=== PATIENT | female | born 1955 | race Caucasian/White ===

== ENCOUNTER 2021-03-02 10:10 | Outpatient (CLI) | payer MEDICARE, MEDICAID, SELFPAY ==
--- NOTE | ~2021-03-02 | CT_ITS ---
EXAMINATION: CT lung screening DATE: 03/02/2021 11:56 INDICATION: History of tobacco dependence. Screening for lung cancer. TECHNIQUE: Computed tomography (CT) of the chest was performed without intravenous contrast. The dose -length product was 65.77 mGy-cm. Automated exposure control and iterative reconstruction technique w ere employed. COMPARISON: CT dated 04/02/2019 FINDINGS: No significant pleural or pericardial effusion. No thoracic lymphadenopathy. There is ather osclerosis. Right renal cyst identified. There are cholecystectomy clips. 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 Stable 4 mm nodules in the lower lobes. There are a few additio nal scattered smaller nodules in both lungs. No endobronchial lesions. There is emphysema. There is l ower lobe atelectasis/scarring. No new pulmonary nodules or masses. Cm. IMPRESSION: 1. Lung-RADS category 2: Benign appearance or behavior. Continue annual screening with noncontrast lo w-dose chest CT in 12 months. Reviewed, dictated and finalized at location B. IMPRESSION: 1. Lung-RADS category 2: Benign appearance or behavior. Continue annual screeni ng with noncontrast low-dose chest CT in 12 months.
--- NOTE | 2021-03-02 17:40 | P.PCNPFT_ITS ---
PFT Procedure Performed PFT Procedure Performed Spirometry with Pre/Post Bronchodilator Plethysmography (Lung Vol) Diffusing Cap (DLCO) Flow Vol Loop PFT Interpretation This is a pulmonary function test with pre and post-bronchodilator spirometry, plethysmography and diffusing capacity. The test was performed and results interpreted in accordance with the 2019 and 2005 ATS/ERS Task Force guidelines respectively using the Global Lung Function Initiative-2012 reference equations. Patient demonstrated good effort and cooperation. Reproducibility criteria were met. The quality of the pre bronchodilator spirometry maneuver was Grade A and post bronchodilator spirometry maneuver was Grade A. Findings: Spirometry: There is decreased maximal expiratory airflow at all lung volumes with a concave expiratory flow tracing. The pre bronchodilator FVC is 3.48 L, 111% predicted. The pre bronchodilator FEV1 is 1.97 L, 80% predicted. The FEV1: FVC ratio is 57%. The post bronchodilator FVC is 3.42 L, representing a 2% decrease. The post bronchodilator FEV1 is 1.96 L, representing no change. Plethysmography: The total lung capacity is 6.25 L, 120% predicted. The functional residual capacity is 4.47 L, 151% predicted. The residual volume is 2.77 L, 131% predicted near. Diffusing capacity: The absolute diffusion capacity is 11.9, 55% predicted. The diffusing capacity corrected for alveolar volume is 2.34, 54% predicted. Impression: The spirometry is normal without evidence of an obstructive abno rmality. There is no significant improvement after inhaling a single dose of albuterol. The lung volumes are normal. The diffusing capacity is normal. Impression: There is a mild obstructive abnormality with a normal FEV1 and without significant improvement after inhaling a single dose of albuterol. Hyperinflation is present is demonstrated by the increase in functional residual capacity and is consistent with an obstructive abnormality. The absolute diffusing capacity is moderately decreased and remains moderately decreased when corrected for alveolar volume. There are no prior studies for comparison
--- NOTE | 2021-03-02 17:47 | WPDPFTINT ---
PFT Procedure Performed PFT Procedure Performed Spirometry with Pre/Post Bronchodilator Plethysmography (Lung Vol) Diffusing Cap (DLCO) Flow Vol Loop PFT Interpretation This is a pulmonary function test with pre and post-bronchodilator spirometry, plethysmography and diffusing capacity. The test was performed and results interpreted in accordance with the 2019 and 2005 ATS/ERS Task Force guidelines respectively using the Global Lung Function Initiative-2012 reference equations. Patient demonstrated good effort and cooperation. Reproducibility criteria were met. The quality of the pre bronchodilator spirometry maneuver was Grade C and post bronchodilator spirometry maneuver was Grade A. Findings: Spirometry: The expiratory flow tracing demonstrates the mid expiratory plateau in airflow creating a mild convex inflection referred to as the knee pattern the contour the inspiratory flow tracing is normal. This was present on 3 of 4 post bronchodilator efforts. there is decreased maximal expiratory airflow at all lung volumes with a concave expiratory flow tracing. The contour of the inspiratory flow tracing is normal. The pre bronchodilator FVC is 3.62 L, 98% predicted. The pre bronchodilator FEV1 is 2.32 L, 85% predicted. The FEV1: FVC ratio 64%. The post bronchodilator FVC is 3.37 L, representing a 7% decrease. The post bronchodilator FEV1 is 2.61 L, representing a 13% increase. Plethysmography: The total lung capacity is 6.55 L, 96% predicted. The functional residual capacity is 3.33 L, 90% predicted. The residual volume is 2.66 L, 101% predicted. Diffusing capacity: The absolute diffusion capacity is 20.0, 87% predicted. The diffusing capacity corrected for alveolar volume is 3.46, 95% predicted. Impression: The expiratory flow tracing demonstrates a reproducible mid explored expiratory plateau in airflow creating a convex inflection referred to as the knee pattern in 3 of 4 pre bronchodilator and 3 of 3 post bronchodilator efforts. This pattern can be a normal variant or pathologic and has been attributed to a choke point section of the bronchial tree. The normal variant is more common in younger female patients, decreases with age and is more pronounced in the post bronchodilator efforts. The pattern has also been described with kyphosis, kyphoscoliosis, central obstructing mass is, and post lung transplantation. Clinical correlation is recommended. There is a mild obstructive abnormality with anormal FEV1 and with significant improvement after inhaling a single dose of albuterol. The lung volumes are normal. The diffusing capacity is normal. There are no prior studies for comparison
== END 2021-03-02 10:11 | disposition home or self-care (01) ==
LOC: ANHPFT 10:11
PROVIDERS: PCP Family Medicine; Visit Provider Family Medicine
DX: Z12.2 Encounter for screening for malignant neoplasm of respiratory organs (principal); J40 Bronchitis, not specified as acute or chronic; R06.2 Wheezing; R06.09 Other forms of dyspnea; R94.2 Abnormal results of pulmonary function studies; Z87.891 Personal history of nicotine dependence
CPT/HCPCS: 71271; 94060; 94726; 94729

== ENCOUNTER → 2021-04-09 10:20 | Outpatient (CLI) | payer MEDICARE, MEDICAID, SELFPAY ==
--- NOTE | ~2021-04-09 | MR_ITS ---
EXAMINATION: MR lumbar spine wo con DATE: 04/09/2021 11:51 INDICATION: Low back pain. TECHNIQUE: Magnetic resonance imaging (MRI) of the lumbar spine was performed without intravenous con trast. Sequences included sagittal T2-weighted FSE, sagittal T2-weighted FS FSE, sagittal T1-weighted FSE, and axial T2-weighted FSE. COMPARISON: CT abdomen and pelvis 02/16/2016 FINDINGS: There is 10 degrees levoscoliosis of lumbar spine. Vertebral body heights and intervertebra l disc heights are normal. The distal spinal cord signal intensity is normal. The conus medullaris is at T12. There is a 3.4 cm cyst in the liver. There are masses in right kidney containing fat measuri ng up to 2.2 cm, consistent with angiomyolipomas. The following disc levels are specifically discusse d: L1-L2: The disc does not extend beyond the endplate margin. There is moderate bilateral facet joint o steoarthritis. There is no neural foraminal stenosis. There is no central canal stenosis. L2-L3: The disc does not extend beyond the endplate margin. There is moderate bilateral facet joint o steoarthritis. There is no neural foraminal stenosis. There is no central canal stenosis. L3-L4: The disc does not extend beyond the endplate margin. There is moderate bilateral facet joint o steoarthritis. There is no neural foraminal stenosis. There is no central canal stenosis. L4-L5: The disc does not extend beyond the endplate margin. There is severe right and moderate left f acet joint osteoarthritis. There is no neural foraminal stenosis. There is no central canal stenosis. L5-S1: The disc is bulging and has an annular fissure. There is severe bilateral facet joint osteoart hritis. There is mild bilateral neural foraminal stenosis. There is mild central canal stenosis. IMPRESSION: 1. Mild lumbar spondylosis. 2. Lumbar levoscoliosis. Reviewed, dictated and finalized at location A.
--- NOTE | ~2021-04-09 | MR_ITS ---
EXAMINATION: MR thoracic spine wo con EXAM DATE: 04/09/2021 11:46 INDICATION: Low back pain, pain in thoracic spine. Pain pump being checked after MRI performed. TECHNIQUE: Multi-sequential, multiplanar MR images of the thoracic spine were obtained without contra st. Sagittal T1, T2, T2 fat saturation, axial T2 weighted images reviewed. Correlation is made to th oracic x-ray 06/02/2017. FINDINGS: There is mild thoracic disc disease. Small midthoracic and lower thoracic Schmorl's nodes. Mild thoracic facet arthropathy. Vertebral body heights are maintained. The vertebral bodies are alig navjot in the AP dimension. The spinal cord signal intensity and intrinsic morphology is normal. Thoraci c central canal and neural foramen widely patent. Hepatic cyst measuring 3.5 cm. Paraspinal soft tiss ue is unremarkable. IMPRESSION: Mild thoracic spondylosis. Reviewed, dictated and finalized at location A. IMPRESSION: Mild thoracic spondylosis.
== END ==
PROVIDERS: Visit Provider Nurse Practitioner Family
DX: M47.894 Other spondylosis, thoracic region (principal); M47.896 Other spondylosis, lumbar region
CPT/HCPCS: 72146; 72148

== ENCOUNTER 2021-04-20 15:38 | Emergency (ER) | payer MEDICARE, MEDICAID, SELFPAY ==
[2021-04-20 15:49] VITALS: BP 108/53; PULSE 119; RESP 16; TEMP 36.1; O2SAT 98
--- NOTE | 2021-04-20 16:19 | ED.GENADULT ---
HPI - General Adult General Chief complaint: Urogenital-Female Stated complaint: POS UTI Time Seen by Provider: 04/20/21 16:19 Source: patient and RN notes reviewed Mode of arrival: ambulatory Limitations: no limitations History of Present Illness HPI narrative: 65-year-old female presents with urinary complaints for the past 3 days. Terra reports increasing symptoms daily. Cranberry urine without relief. Dysuria consists of burning, frequency, and urgency. History of LT side paralyzed. Denies fever. ?No significant pelvic pain. ?No vaginal discharge.? No concerns for STDs. ?Exacerbating factors urinating.? Denies hematuria or vaginal bleeding. No flank pain. ?Denies nausea, vomiting, and abdominal pain.? Tolerating liquids well.? Remains active. The patient reports she has not been diagnosed with COVID-19. ?The patient reports she received 2 [employer] COVID-19 vaccines. The patient reports she is not waiting for the results of a COVID-19 lab test. ?The patient reports he does not have chills, weakness, or fatigue. ?The patient reports he does not have a new or worsening cough or shortness of breath. ?Denies chest pain. ?The patient reports he does not have any rhinorrhea, congestion, loss of taste or smell, sore throat, and diarrhea. ?Denies recent traveling. Denies concerns for COVID-19 or exposures. ?At this time, the patient is not suspected of having COVID-19. ? Some parts of this dictation were generated by voice recognition software and may contain typographical and/or grammatical inaccuracies. Related Data Home Medications Medication Instructions Recorded Confirmed aspirin 81 mg tablet,delayed 81 mg PO DAILY 03/16/20 04/20/21 release naloxone 4 mg/actuation nasal spray 1 spray NASAL Q2M 03/16/20 04/20/21 ondansetron HCl 8 mg tablet 8 mg PO DAILY tablet 03/16/20 04/20/21 calcium carbonate 500 mg calcium 1,200 mg PO DAILY tablet 07/12/20 04/20/21 (1,250 mg) tablet levetiracetam 500 mg tablet 1,500 mg PO Q12H tablet 07/12/20 04/20/21 lubiprostone 24 mcg capsule 24 mcg PO .prn cap 07/12/20 04/20/21 multivitamin with minerals-folic 200 mcg PO DAILY 07/12/20 04/20/21 acid 200 mcg chewable tablet cholecalciferol (vitamin D3) 50 50 mcg PO DAILY 01/10/21 04/20/21 mcg (2,000 unit) capsule vitamin B complex 1 tablet PO DAILY 01/10/21 04/20/21 Allergies Allergy/AdvReac Type Severity Reaction Status Date / Time erythromycin base Allergy Unknown ABDOMINAL Verified 04/20/21 16:01 CRAMPING, LOOSE STOOLS dial soap Allergy Mild ITCHING Uncoded 04/20/21 16:01 Review of Systems Review of Systems: Narrative: CONSTITUTIONAL: Denies fever, chills, sweats. EYES: Denies visual changes, redness, discharge. ENT: Denies rhinorrhea, congestion, sore throat, otalgia. CARDIOVASCULAR: Denies chest pain, palpitations, edema. RESPIRATORY: Denies dyspnea, wheezing, cough. GASTROINTESTINAL: Denies abdominal pain, nausea, vomiting, diarrhea. GENITOURINARY: Complains of dysuria (burning, frequency, and urgency). Denies hematuria, abnormal discharge. SKIN: Denies rash or itching. MUSCULOSKELETAL: Denies acute back pain, joint pain, or myalgia. NEUROLOGIC: Denies numbness or focal weakness. PSYCHIATRIC: Denies anxiety or depression. All systems reviewed & are unremarkable except as noted in HPI and below. [facility] Past Medical History Medical History Anxiety Arthritis Brain aneurysm 2006 with craniotomy Bronchitis Chronic constipation Chronic pain pain pump--hydrocodone Colitis DJD (degenerative joint disease) DVT (deep venous thrombosis) Emphysema lung GERD (gastroesophageal reflux disease) Hemiparesis affecting left side as late effect of cerebrovascular accident HTN (hypertension) Muscle cramping OAB (overactive bladder) Opiate use oxycodone and pain pump Osteoporosis 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 Postural hypotension Seizure TMJ (di
[2021-04-20 16:41] VITALS: PULSE 92
== END 2021-04-20 16:38 | disposition home or self-care (01) ==
PROVIDERS: Emergency Provider Nurse Practitioner Family; PCP Family Medicine
DX: R30.0 Dysuria (principal); F17.210 Nicotine dependence, cigarettes, uncomplicated; F41.9 Anxiety disorder, unspecified; M19.90 Unspecified osteoarthritis, unspecified site; Z86.718 Personal history of other venous thrombosis and embolism; K21.9 Gastro-esophageal reflux disease without esophagitis; I10 Essential (primary) hypertension; M81.0 Age-related osteoporosis without current pathological fracture; J43.9 Emphysema, unspecified; I69.354 Hemiplegia and hemiparesis following cerebral infarction affecting left non-dominant side
CPT/HCPCS: 81003; 99213; G0463

== ENCOUNTER 2021-06-21 10:30 | Outpatient (RCR) | payer MEDICARE, MEDICAID, SELFPAY ==
--- NOTE | 2021-06-01 13:00 | PTOPEVAL ---
PHYSICAL THERAPY AQUATIC EVALUATION Thank [facility] Melody was evaluated for the dx of cerebral aneurysm, left side affected with decreased mobility safety/weakness. The patient is scheduled to be seen for aquatic therapy? 2 x/week for 4 weeks. Please review, sign, date and return this plan of care VITOR. I agree with and certify that the following plan of care is medically necessary. Referring Physician Date Attending Provider: Karl Cates MD *PT Outpatient Evaluation Start: 06/01/21 11:11 Freq: Status: Active Protocol: Document 06/01/21 11:11 MLV (Rec: 06/01/21 12:05 [id number]) Therapy Assessment Status Assessment Status Assessment Status Evaluation Evaluation Information Problem Diagnosis weakness Onset decline over last year Additional Evaluation Detail The patient reports a decline in her function for about the last year. The patient has a decline in ability for standing and walking safely. The patient was walking her hallway 1x a day safely prior to a year ago. The patient has a marked weakness at her left side from prior brain bleed and wears an AFO left. Patient also feels her buttock muscle on the left is gone . The patient has a custom fit w/c and is I and mobile in her w/c. Subjective Information Patient has left side neglect Query Text:As Reported By Patient/ and visual deficits, Family Prior Level of Function Home Setting Home Type Apartment Environmental Barriers Stairs, None Living Situation Alone Support Available Hired Assistance Cargiver Responsibilities Comment caregiver helps with her shower, cooking, cleaning, some daily tasks, driving, getting w/c in/out of vehicle. Mobility Assistive Devices (Used Last 3 Cane, Small Based Quad, Months) Wheelchair, Manual,Wheelchair, Motorized Bathing Equipment Grab Bars,Tub Seat Without Back Pain Assessment Timing of Pain Assessment Timing of Pain Assessment Assessment Pain Scale Pain Scale Used Numeric (1 - 10) Self Report Pain Assessment Left Buttock(s) Reported Pain Level 4 Pain Descri
--- NOTE | 2021-07-03 09:56 | PCPTNOTE ---
Patient called & cancelled scheduled appointment this date due to not having a ride.
--- NOTE | 2021-07-13 11:52 | PCPTNOTE ---
The patient called and cancelled all appts except her last visit-due to transportation issues. Plan to see pt at last visit.
--- NOTE | 2021-07-13 15:39 | PCPTNOTE ---
Called pt and reports she is unable to be sure she can come to therapy consistently due to transportation issues. Appt for 07/16 to be cancelled and pt will call back when she has a reliable schedule to come into therapy with.
--- NOTE | 2021-08-01 15:58 | PCPTNOTE ---
PHYSICAL THERAPY DISCHARGE Attending Provider: Karl Cates MD Patient:Terra Gastelum Date of :1955 Patient has not returned for any further treatments since 06/21/2021, therefore she will be discharged at this time. Patient?s initial visit was on 06/01/2021 11:00 and she had a total of 3 visits. The goals have not been met. Thank you for referring this patient to [facility]. Please review, sign, date and return this discharge summary VITOR. I have been updated about the patient's current status and I agree with discharge from the above service at this time. Referring Physician Date
== END 2021-08-15 09:40 | disposition home or self-care (01) ==
LOC: ANHPT 10:30
PROVIDERS: PCP Family Medicine; Visit Provider Family Medicine
DX: I69.354 Hemiplegia and hemiparesis following cerebral infarction affecting left non-dominant side (principal); R56.9 Unspecified convulsions; I95.1 Orthostatic hypotension; E78.5 Hyperlipidemia, unspecified; Z99.3 Dependence on wheelchair
CPT/HCPCS: 97113; 97163; 97530

== ENCOUNTER → 2022-01-03 13:46 | Outpatient (CLI) | payer MEDICARE, MEDICAID, SELFPAY ==
--- NOTE | ~2022-01-03 | XR_ITS ---
EXAMINATION: XR knee RT 2V DATE: 01/03/2022 14:49 INDICATION: Right knee pain. TECHNIQUE: 2 views of right knee standing were obtained. COMPARISON: None. FINDINGS: Bone alignment is normal. No fracture. There is mild osteoarthritis of medial compartment. No knee joint effusion. IMPRESSION: 1. Mild right knee osteoarthritis. Reviewed, dictated and finalized at location A. OILER
== END ==
PROVIDERS: PCP Family Medicine; Visit Provider Nurse Practitioner Family
DX: M17.11 Unilateral primary osteoarthritis, right knee (principal)
CPT/HCPCS: 73560

== ENCOUNTER 2022-03-10 12:27 | Emergency (ER) | payer MEDICARE, MEDICAID, SELFPAY ==
--- NOTE | ~2022-03-10 | XR_ITS ---
EXAMINATION: XR chest 2V DATE: 03/10/2022 13:06 INDICATION: Shortness of breath TECHNIQUE: AP and lateral views of the chest are obtained. COMPARISON: 06/05/2016 FINDINGS: The lungs are hyperinflated but free of acute opacities. There is no pleural effusion or pn eumothorax. The cardiomediastinal silhouette is normal. There is mild thoracic spondylosis. Surgical clips in the right upper quadrant are likely from prior cholecystectomy. IMPRESSION: 1. No acute cardiopulmonary abnormality. Reviewed, dictated and finalized at location A.
[2022-03-10 12:45] VITALS: BP 119/89; PULSE 72; RESP 16; TEMP 36.4; O2SAT 96
--- NOTE | 2022-03-10 13:14 | ED.GENADULT ---
HPI - General Adult General Chief complaint: Shortness of Breath/Dyspnea Stated complaint: shortness of breath Source: patient Mode of arrival: ambulatory Limitations: no limitations History of Present Illness HPI narrative: Patient presents for evaluation of cough for the last day. Cough is productive of yellow sputum. She also reports sore throat and fatigue. She has nocturnal SOB. No ear, chills, nausea, vomiting, diarrhea. She has left-sided neglect and paralysis following CVA/cerebral aneurysm. 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 Pt has received COVID vaccination and flu shot. She smokes 1 ppd. She has underlying COPD. She has nebs ordered daily but she does not use with sawm frequency with which they are ordered. She did do a home COVID test within the past 24 hrs which was negative. Related Data Home Medications Medication Instructions Recorded Confirmed aspirin 81 mg tablet,delayed 81 mg PO DAILY 03/16/20 03/10/22 release naloxone 4 mg/actuation nasal spray 1 spray NASAL Q2M 03/16/20 03/10/22 ondansetron HCl 8 mg tablet 8 mg PO DAILY tablet 03/16/20 03/10/22 calcium carbonate 500 mg calcium 1,200 mg PO DAILY tablet 07/12/20 03/10/22 (1,250 mg) tablet levetiracetam 500 mg tablet 1,500 mg PO Q12H tablet 07/12/20 03/10/22 lubiprostone 24 mcg capsule 24 mcg PO .prn cap 07/12/20 03/10/22 multivitamin with minerals-folic 200 mcg PO DAILY 07/12/20 03/10/22 acid 200 mcg chewable tablet cholecalciferol (vitamin D3) 50 50 mcg PO DAILY 01/10/21 03/10/22 mcg (2,000 unit) capsule vitamin B complex 1 tablet PO DAILY 01/10/21 02/14/22 morphine 03/10/22 Allergies Allergy/AdvReac Type Severity Reaction Status Date / Time erythromycin base Allergy Unknown ABDOMINAL Verified 03/10/22 12:38 CRAMPING, LOOSE STOOLS dial soap Allergy Mild ITCHING Uncoded 03/10/22 12:38 Review of Systems Review of Systems: CONSTITUTIONAL: Reports fatigue. Denies fever, chills, or sweats. EYES: Denies visual changes, redness, or discharge. ENT: Reports sore throat. Denies rhinorrhea, congestion, sore throat, or otalgia. CARDIOVASCULAR: Denies chest pain, palpitations, or edema. RESPIRATORY: Reports productive cough and nocturnal SOB GASTROINTESTINAL: Denies abdominal pain, nausea, vomiting, or diarrhea. GENITOURINARY: Denies dysuria or hematuria. SKIN: Denies rash or itching. MUSCULOSKELETAL: Reports chronic left sided paralysis. NEUROLOGIC: Reports chronic neuropathic pain. Denies headache, dizziness, or weakness. PSYCHIATRIC: Denies anxiety or depression. [facility] Past Medical History Medical History Anxiety Arthritis Brain aneurysm 2007 with craniotomy Bronchitis Chronic constipation Chronic pain pain pump--hydrocodone Colitis DJD (degenerative joint disease) DVT (deep venous thrombosis) Emphysema lung GERD (gastroesophageal reflux disease) Hemiparesis affecting left side as late effect of cerebrovascular accident HTN (hypertension) Muscle cramping OAB (overactive bladder) Opiate use oxycodone and pain pump Osteoporosis 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 Postural hypotension Seizure TMJ (dislocation of temporomandibular joint) Vitamin D deficiency Surgical History Surgical History H/O section (~08/1976) H/O mastectomy (~1994) H/O tubal ligation (~01/17/89) History of bladder surgery (Unknown) bladder suspension History of craniotomy 2007 - aneurysm repair History of orthopedic surgery (~2009) Left leg and hip with megan 2009 Hx of appendectomy (~08/1976) Hx of cholecystectomy (~2009) Hx of hysterectomy (~04/03/99) Hx of tonsillectomy (~1958) Family History Family History Father Cerebral aneurysm Cerebrovascular ac
== END 2022-03-10 14:07 | disposition home or self-care (01) ==
PROVIDERS: Emergency Provider Nurse Practitioner; PCP Family Medicine
DX: J44.1 Chronic obstructive pulmonary disease with (acute) exacerbation (principal); I10 Essential (primary) hypertension; F17.210 Nicotine dependence, cigarettes, uncomplicated; Z79.82 Long term (current) use of aspirin; Z20.822 Contact with and (suspected) exposure to COVID-19
CPT/HCPCS: 71046; 87426; 87804; 99213; C9803; G0463

== ENCOUNTER 2022-03-29 12:28 | Emergency (ER) | payer MEDICARE, MEDICAID, SELFPAY ==
--- NOTE | ~2022-03-29 | US_ITS ---
EXAMINATION:US venous doppler LE LT INDICATION:Left leg pain and swelling TECHNIQUE: Multiple grayscale, color flow and Doppler images of the left lower extremity deep venous systems were obtained and reviewed. COMPARISON:No prior studies for comparison. FINDINGS: The common femoral, superficial femoral and popliteal veins demonstrate normal respiratory variation, augmentation and compressibility. Color flow is also seen within the posterior tibial, pe roneal, greater saphenous and profunda veins. IMPRESSION: 1: No lower extremity deep venous thrombosis. Reviewed, dictated and finalized at location A.
[2022-03-29 12:32] VITALS: BP 118/63; PULSE 73; RESP 16; TEMP 36.6; O2SAT 98
--- NOTE | 2022-03-29 12:58 | ED.EXTPRO ---
HPI - Extremity Problem General Chief complaint: Extremity Problem,Nontraumatic Stated complaint: Possible DVT, Left Leg Time Seen by Provider: 03/29/22 12:56 Source: patient Mode of arrival: ambulatory Limitations: no limitations History of Present Illness HPI Narrative: Patient is 66 years old white female presented with left lower leg swelling and pain, with slight bruises at the back of. She denies any trauma. History of left hemiplegia years ago, left foot drop, chronic left ankle and foot brace. Related Data Home Medications Medication Instructions Recorded Confirmed aspirin 81 mg tablet,delayed 81 mg PO DAILY 03/16/20 03/10/22 release (Aspir-) naloxone 4 mg/actuation nasal 1 spray intranasal Q2M 03/16/20 03/10/22 spray (Narcan) ondansetron HCl 8 mg tablet 8 mg PO DAILY 03/16/20 03/10/22 calcium carbonate 500 mg calcium 1,200 mg PO DAILY 07/12/20 03/10/22 (1,250 mg) tablet (Calcium 500) levetiracetam 500 mg tablet 1,500 mg PO Q12H 07/12/20 03/10/22 (Keppra) lubiprostone 24 mcg capsule 24 mcg PO .prn 07/12/20 03/10/22 (Amitiza) multivitamin with minerals-folic 200 mcg PO DAILY 07/12/20 03/10/22 acid 200 mcg chewable tablet (Women's Multivitamin Gummies) cholecalciferol (vitamin D3) 50 50 mcg PO DAILY 01/10/21 03/10/22 mcg (2,000 unit) capsule vitamin B complex (B 1 tablet PO DAILY 01/10/21 03/10/22 Complex-Vitamin B12) morphine 15 mg/mL injection 03/10/22 solution Allergies Allergy/AdvReac Type Severity Reaction Status Date / Time erythromycin base Allergy Unknown ABDOMINAL Verified 03/29/22 12:52 CRAMPING, LOOSE STOOLS dial soap Allergy Mild ITCHING Uncoded 03/29/22 12:52 Review of Systems Review of Systems: All systems reviewed & are unremarkable except as noted in HPI and below PMFSH Past Medical History Medical History Anxiety Arthritis Brain aneurysm 2006 with craniotomy Bronchitis Chronic constipation Chronic pain pain pump--hydrocodone Colitis DJD (degenerative joint disease) DVT (deep venous thrombosis) Emphysema lung GERD (gastroesophageal reflux disease) Hemiparesis affecting left side as late effect of cerebrovascular accident HTN (hypertension) Muscle cramping OAB (overactive bladder) Opiate use oxycodone and pain pump Osteoporosis 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 Postural hypotension Seizure TMJ (dislocation of temporomandibular joint) Vitamin D deficiency Surgical History Surgical History H/O section (~08/1976) H/O mastectomy (~1994) H/O tubal ligation (~01/17/89) History of bladder surgery (Unknown) bladder suspension History of craniotomy 2006 - aneurysm repair History of orthopedic surgery (~2009) Left leg and hip with megan 2009 Hx of appendectomy (~08/1976) Hx of cholecystectomy (~2009) Hx of hysterectomy (~04/03/99) Hx of tonsillectomy (~1958) Family History Family History Father Cerebral aneurysm Cerebrovascular accident Heart disease Hypertension Mother Lung cancer Colon ulcer Unknown Thyroid disease Other Lung cancer Colon ulcer Sibling Lung cancer Social History Social History Social History: used to smoke for 48 years Smoking packs per day: 1 Smoking cigarettes per day: 20.0 Years smoked: 52 Smoking pack-years: 52.00 Tobacco type: cigarettes Second hand tobacco smoke exposure: No Alcohol intake: never Substance use: never Substance use type: does not use Exam Narrative: General appearance: Well-developed, well-nourished Skin: Normal color Head: Normocephalic, nontraumatic Eyes: Clear conjunctiva ENT: Oropharynx normal, ears normal, nose normal Neck: Supple, nontender Chest and respiratory: Airway patent, no respiratory distress, no ac
[2022-03-29 16:20] VITALS: BP 118/63; PULSE 71; RESP 16; O2SAT 97
== END 2022-03-29 16:35 | disposition home or self-care (01) ==
PROVIDERS: Emergency Provider Emergency Medicine; PCP Family Medicine
DX: M79.662 Pain in left lower leg (principal); R58 Hemorrhage, not elsewhere classified; F41.9 Anxiety disorder, unspecified; M19.90 Unspecified osteoarthritis, unspecified site; I10 Essential (primary) hypertension; J43.9 Emphysema, unspecified
CPT/HCPCS: 93971; 99284

== ENCOUNTER 2022-09-20 09:45 | Outpatient (CLI) | payer MEDICARE, MEDICAID, SELFPAY ==
--- NOTE | ~2022-09-20 | CT_ITS ---
EXAMINATION: CT diagnostic chest wo con DATE: 09/20/2022 10:15 INDICATION: Pulmonary nodule TECHNIQUE: Computed tomography (CT) of the chest was performed without intravenous contrast. The dose -length product (DLP) was 65.72 mGy-cm. Automated exposure control and iterative reconstruction techn ique were employed. COMPARISON: 03/02/2021, 04/02/2019 FINDINGS: There is moderate emphysema. There are stable nodules of the lower lobes measuring up to 4 mm. A stable area of scarring is present in the right lower lobe. The lungs are free of acute opaciti es. No pleural effusion or pneumothorax. No pathologically enlarged thoracic lymph nodes are identifi ed. The heart size is normal. There is a 2.2 cm mass of the right kidney upper pole containing macros copic fat, consistent with an angiomyolipoma. There is mild thoracic spondylosis. There is a 3.9 cm c yst in the medial aspect of the right hepatic lobe. The gallbladder is surgically absent. IMPRESSION: 1. Stable pulmonary nodules of the lower lobes, consistent with old granulomatous disease. 2. Moderate emphysema. Reviewed, dictated and finalized at location F. CARRIER IMPRESSION: 1. Stable pulmonary nodules of the lower lobes, consistent with old granulomato us disease. 2. Moderate emphysema.
== END 2022-09-20 09:46 | disposition home or self-care (01) ==
PROVIDERS: PCP Family Medicine; Visit Provider Nurse Practitioner
DX: R91.1 Solitary pulmonary nodule (principal); J43.9 Emphysema, unspecified; R91.8 Other nonspecific abnormal finding of lung field
CPT/HCPCS: 71250

== ENCOUNTER 2022-11-21 09:48 | Outpatient (CLI) | payer MEDICARE, MEDICAID, SELFPAY ==
--- NOTE | ~2022-11-21 | MM_ITS ---
EXAMINATION: MM screening [facility] BI w regi HISTORY: Screening mammogram TECHNIQUE: Craniocaudal and mediolateral oblique 3-D tomosynthesis images were obtained and synthetic 2-D images were generated. CAD analysis was submitted and interpreted. COMPARISON: 04/07/2019, 10/22/2017, 09/28/2014 BREAST PARENCHYMAL COMPOSITION: There are scattered areas of fibroglandular density. FINDINGS: No suspicious mass, calcification, or architectural distortion are identified in either jill ast to suggest malignancy. There has been no suspicious interval change. IMPRESSION: 1. No mammographic evidence of malignancy. 2. Recommend routine screening mammography in one year. BI-RADS Category 1: Negative Reviewed, dictated and finalized at location A. ON BREAKER
--- NOTE | ~2022-11-21 | DEXA_ITS ---
Bone Density Report Name: FRANCI BLACKWOOD Age: 66 Sex: Female Ethnicity: White Date of : 1955 Indication: postmenopausal; screening for osteoporosis; prior fracture; seizure disorder; asthma or emphysema; hysterectomy; Referring Provider: PRASHANT SEGOVIA Study: Bone densitometry was performed. Exam Date: November 21, 2022 Accession number: [id number] Bone Density: Region BMD T-score Z-score Classification AP Spine(L1, L2, L3) 0.508 -4.6 -2.8 Osteoporosis Femoral Neck (Right) 0.578 -2.4 -0.9 Osteopenia Total Hip (Right) 0.673 -2.2 -0.9 Osteopenia World Health Organization criteria for BMD impression classify patients as: Normal (T-score at or above -1.0), Osteopenia (T-score between -1.0 and -2.5), or Osteoporosis (T-score at or below -2.5). 10-year Fracture Risk: FRAX not reported because: Some T-score for Spine Total or Hip Total or Femoral Neck at or below -2.5 Prior hip or vertebral fracture Clinical Information Provided by Patient: Have had a previous hip or vertebral fracture Has had a low trauma fracture Smokes Has used the following medications: Boniva (i.e. ibandronate), Vitamin D, Calcium Has the following medical conditions: Any Seizure Disorders, Asthma or Emphysema, Hysterectomy Patient maximum height was 66 Menopause Age: 43 No regular weight bearing exercise Drinks caffeinated beverages Onset of menses at age 14 Number of children 1 Impression: The patient has established osteoporosis, based on the Total Spine T-score and the existence of a prior fracture. The patient has risk factors, including: smoking, previous fracture. Discussion: HIGH RISK OF FRACTURE. BONE DENSITY IS UNDESIRABLY LOW AT ONE OR MORE SKELETAL SITES, CONSISTENT WITH POSTMENOPAUSAL OSTEOPOROSIS. This patient's lowest T-score, in a patient who has previously fractured, meets the World Health Organization's (WHO) criteria for severe osteoporosis. In untreated patients, the risk of osteoporotic fracture increases approximately two-fold for each 1.0 SD decrease in T-score. Low bone density is not the only risk factor for fracture; also consider factors such as patient's age, frailty or poor health, risk of falling, risk of injury, previous osteoporotic fracture, family history of osteoporosis, cigarette smoking, low body weight, etc. Not everyone with low bone mineral density has osteoporosis; osteomalacia and other metabolic bone disorders should also be considered. Patients who have osteoporosis should be evaluated for specific diseases and conditions (secondary causes) that may cause or contribute to bone loss. The [place] [employer] Endocrinologists (AACE) and National Osteoporosis Foundation (NOF) recommend pharmacologic intervention for all postmenopausal women with a previous hip or vertebral fracture and a T-score in this range. The patien
== END 2022-11-21 09:49 | disposition home or self-care (01) ==
PROVIDERS: PCP Family Medicine; Visit Provider Nurse Practitioner
DX: Z12.31 Encounter for screening mammogram for malignant neoplasm of breast (principal); Z78.0 Asymptomatic menopausal state; M81.0 Age-related osteoporosis without current pathological fracture; M85.851 Other specified disorders of bone density and structure, right thigh
CPT/HCPCS: 77063; 77067; 77080

== ENCOUNTER 2023-01-14 15:33 | Outpatient (CLI) | payer MEDICARE, MEDICAID, SELFPAY ==
[2023-01-14 19:25] LABS: Appearance Urine Clear (Clear); Bilirubin Urine Negative (Negative); Blood Urine Negative (Negative); Color Urine Yellow (Yellow); Glucose Urine UA Negative (Negative); Ketones Urine Negative (Negative); Leukocyte Esterase Ur Negative LEU/UL (Negative); Nitrate Urine Negative (Negative); Protein Urine Negative (Negative); Specific Grav Ur 1.015 (1.001-1.035); Urobilinogen Urine 0.2 mg/dL (<2.0); pH Urine 5.5 (5.0-9.0)
[2023-01-14 19:31] LABS: Add Urine Microscopic? NO
== END 2023-01-14 15:34 | disposition home or self-care (01) ==
LOC: ANHGOSHLAB 15:35
PROVIDERS: PCP Family Medicine; Visit Provider Family Medicine
DX: R32 Unspecified urinary incontinence (principal); R30.0 Dysuria
CPT/HCPCS: 81003

== ENCOUNTER 2023-02-12 11:15 | Outpatient (RCR) | payer MEDICARE, MEDICAID, SELFPAY ==
--- NOTE | 2022-12-03 13:54 | OTOPEVAL1 ---
Assessment and note entered by REJI Choi/[place], CHT Evaluation Information Assessment Status Evaluation Diagnosis Spasm of muscle Subjective Information Patient had a brain aneurysm in 2006 and she has left sided hemiplegia. She gets Botox injections regularly for tone. She reports severe left sided pain all the time . Her goals with coming to therapy include reducing pain, reducing the shoulder subluxation, and improve flexibility in the arm. Reported Pain Level Pain Score 4: Self Report Additional Pain Score Comments 4/10 sharp shoulder shoulder pain 4/10 dull pain in her lower arm Assessment OT Clinical Summary Patient referred to outpatient OT with dx of muscle spasms. She has chronic left sided weakness and tone from a brain aneurysm in 2006. 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 Plan to address the hand via splinting following her Botox injections later this week. Plan of Care Interventions Therapeutic Exercise,Manual Therapy,Neuro Re- education,Hot Pack/Cold Pack,Electrical Stimulation,Check Out for Orthotic/Pr OT Services Indicated Yes Treatment Frequency and 2x/week for 4 weeks Duration These treatments will address the objective and functional deficits as defined above. The patient will be advanced safely and appropriately in order for the patient to progress towards his/her prior level of function. Additional exercises will be introduced and as well as a comprehensive home exercise program upon discharge, if needed, ?to ensure carryover of functional gains achieved in the clinic. This treatment plan has been reviewed and agreement upon by the patient.
--- NOTE | 2022-12-10 13:23 | PTOPEVAL1 ---
Assessment and note entered by Josefina Muñiz, PT Evaluation Information Assessment Status Evaluation Diagnosis weakness and falls, previous cerebral infarct Onset Oct 2022 Subjective Information since received new brace for L ankle/foot in Oct, have not been able to walk; previously walked in her home with large based quad cane ~ 60' with her helper holding onto gait belt, did not walk by herself; helper ill and changed to new one; no falls in the past 6 months; having more pain in her L leg and foot; L knee is buckling and fearful of falling; uses the wheelchair for mobility in her apartment; Reported Pain Level Pain Score Self Report Additional Pain Score Comments pain in L hip and ankle/foot 3-08/12; brace too heavy and leg hurts; brace was made by [employer] and has been adjusted 3x, continues to hurt her ankle/ foot Assessment PT Clinical Summary Melody has the diagnosis of cerebral infarct, weakness and decreased walking. She lives alone and has caregiver and family assist daily. She uses a wheelchair for mobility and transfers indep w/c<> bed. Her caregiver was walking with her at home, but then she was ill and not able to help her; current caregivers are no longer walking with her since more pain L leg and new AFO is painful. With the evaluation, she has decreased strength of L hip and knee, with L AFO intact; there is decreased motor control of L leg and pain in L hip and ankle/foot. She also has L side neglect and L arm weakness/flaccid. She is also receiving OT treatment. Skilled PT services are indicated to increase L LE strength, transfer and gait skills, to improve mobility and transfer skills. To include education for home exercise program. Also to further assess her AFO. Plan of Care Interventions Gait Training,Neuro Re-education,Patient/Caregiver Education,Therapeutic Activities,Therapeutic Exercise PT Services Indicated Yes Treatment Frequency and 2x/wk for 4 weeks Duration These treatments will address the objective and functional deficits as defined above. The patient will be advanced safely and appropriately in order for the patient to progress towards his/her prior level of function. Additional exercises will be introduced and as well as a comprehensiv
--- NOTE | 2023-01-02 14:45 | PTOPPROG ---
Assessment and note entered by Josefina Muñiz, PT Evaluation Information Assessment Status Progress Diagnosis weakness and falls, previous cerebral infarct Onset Oct 2022 Subjective Information Melody reports: therapy is helping her control her leg better; always have pain in L leg 01/10 now; Assessment PT Clinical Summary Melody has had 5 PT sessions. Compared to the initial evaluation: walking distance has improved; slight increase L hip strength; has been educated on HEP; Continues to have L side neglect, decreased motor control L LE and poor wt shift onto L LE in standing and with walking. She is using the L AFO and reports pain in L knee, ankle and foot, that increases with standing and walking. Continue PT treatment. Plan of Care Interventions Gait Training,Neuro Re-education,Patient/Caregiver Education,Therapeutic Activities,Therapeutic Exercise PT Services Indicated Yes Treatment Frequency and 2x/wk for 5 weeks Duration These treatments will address the objective and functional deficits as defined above. The patient will be advanced safely and appropriately in order for the patient to progress towards his/her prior level of function. Additional exercises will be introduced and as well as a comprehensive home exercise program upon discharge, if needed, ?to ensure carryover of functional gains achieved in the clinic. This treatment plan has been reviewed and agreement upon by the patient.
--- NOTE | 2023-01-02 15:44 | OTOPPROG ---
Assessment and note entered by David Patiño, JOSER/[place], CHT Evaluation Information Assessment Status Progress Diagnosis Spasm of muscle Subjective Information Terra reports less pain and improved flexibility since coming to therapy. She states that stretching has been reducing her pain. She states she has been more cognizant of arm positioning and this has been helping with the shoulder pain. She reports been compliant with her HEP. She has been measured for a [employer] resting hand brace to position the wrist in neutral and fingers in extension. Assessment OT Clinical Summary Patient referred to outpatient OT with dx of muscle spasms. She has chronic left sided weakness and tone from a brain aneurysm in 2006. Since coming to therapy, she has improved flexibility and reduced pain. 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 Plan to fit patient with resting hand orthotic when it comes in. Plan of Care Interventions Therapeutic Exercise,Manual Therapy,Neuro Re- education,Hot Pack/Cold Pack,Electrical Stimulation,Check Out for Orthotic/Pr OT Services Indicated Yes Treatment Frequency and 2x/week x5 weeks Duration These treatments will address the objective and functional deficits as defined above. The patient will be advanced safely and appropriately in order for the patient to progress towards his/her prior level of function. Additional exercises will be introduced and as well as a comprehensive home exercise program upon discharge, if needed, ?to ensure carryover of functional gains achieved in the clinic. This treatment plan has been reviewed and agreement upon by the patient.
--- NOTE | 2023-01-25 07:38 | PCOTNOTE ---
Late note for yesterday, 01/24 - Patient did not show for scheduled OT tx. She did not call or cancel. Attempted to call patient and she did not answer.
--- NOTE | 2023-02-06 11:51 | OTOPPROG ---
Assessment and note entered by David Patiño, REJI/[place], CHT Evaluation Information Assessment Status Re-evaluation Diagnosis Spasm of muscle Subjective Information Terra reports less pain and improved flexibility since coming to therapy. She states that stretching has been reduing her pain. She states she has been more cognizent of arm positioning and this has been helping with the shoulder pain. She reports been compliant with her HEP. Her caregiver reports the improved flexibility, which has allowed them to trim her nails easier and wash her hand/fingers easier in the shower. She has been measured for a [employer] resting hand brace to position the wrist in neutral and fingers in extension. We are still waiting on the splint. Assessment OT Clinical Summary Patient referred to outpatient OT with dx of muscle spasms. She has chronic left sided weakness and tone from a brain aneurysm in 2006. Since coming to therapy, she has improved flexibility and reduced pain. We are now able to passively extend the fingers while the wrist is in extension . Previously we were only able to extend the finger with the wrist in flexion. 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 Plan to fit patient with resting hand orthotic when it comes in (we are still waiting on this). Plan of Care Interventions Therapeutic Exercise,Manual Therapy,Neuro Re- education,Hot Pack/Cold Pack,Electrical Stimulation,Check Out for Orthotic/Pr OT Services Indicated Yes Treatment Frequency and 2x/week x4 weeks Duration These treatments will address the objective and functional deficits as defined above. The patient will be advanced safely and appropriately in order for the patient to progress towards his/her prior level of function. Additional exercises will be introduced and as well as a comprehensive home exercise program upon discharge, if needed, ?to ensure carryover of functional gains achieved in the clinic. This treatment plan has been reviewed and agreement upon by the patient.
--- NOTE | 2023-02-12 11:52 | PTOPPROG ---
Assessment and note entered by Josefina Muñiz, PT Evaluation Information Assessment Status Progress Diagnosis weakness and falls, previous cerebral infarct Onset Oct 2022 Subjective Information Melody reports: more pain in back and L leg, blames it on her pump replacement- have an appointment with the surgeon, but a few weeks away ; have not been walking at home, due to not having a PA to help her; have been working on standing at the sink for support; working on her standing posture and when sitting, no longer crosses her legs; Assessment PT Clinical Summary Weston has received 11 PT sessions. Compared to the last reevaluation: standing posture and L LE strength are about the same; walking distance increased from 15 to 50'; gait pattern continues to be at slow pace, with small step length and decreased control of L LE; She continues to have issues with her helpers at home, so activity at home is limited due to not having assistance. The goals were partially met. Continue PT to progress strength and gait balance and mobility skills. Plan of Care Interventions Gait Training,Neuro Re-education,Patient/Caregiver Educati,Therapeutic Activities,Therapeutic Exercise PT Services Indicated Yes Treatment Frequency and 2x/wk for 4 weeks Duration These treatments will address the objective and functional deficits as defined above. The patient will be advanced safely and appropriately in order for the patient to progress towards his/her prior level of function. Additional exercises will be introduced and as well as a comprehensive home exercise program upon discharge, if needed, ?to ensure carryover of functional gains achieved in the clinic. This treatment plan has been reviewed and agreement upon by the patient.
--- NOTE | 2023-02-12 11:56 | PCPTNOTE ---
during today's reeval, pt reports she has issues with transportation, and cannot attend therapy next week.
--- NOTE | 2023-02-17 12:59 | PCPTNOTE ---
This treatment is being continued on new visit number [id number] Please see documentation on both accounts to view progress. Completed interventions, outcomes, and problems have been marked as Inactive to facilitate the copying of the Care plan routine for recurring accounts.
== END 2023-02-17 12:52 | disposition home or self-care (01) ==
LOC: ANHPT 11:15
PROVIDERS: PCP Family Medicine
DX: M62.838 Other muscle spasm (principal)
CPT/HCPCS: 97110; 97112; 97116; 97161; 97165; 97530; 97763

== ENCOUNTER 2023-02-14 22:38 | Emergency (ER) | payer MEDICARE, MEDICAID, SELFPAY ==
--- NOTE | ~2023-02-14 | CT_ITS ---
EXAMINATION: CT brain wo con DATE: 02/15/2023 02:15 INDICATION: Dizziness. TECHNIQUE: Computed tomography (CT) of the head was performed without intravenous contrast. The mA wa s adjusted according to patient size. Iterative reconstruction technique was employed. The dose-lengt h product was 681.00 mGy-cm. COMPARISON: Head CT 06/05/2016 FINDINGS: There is a large distribution of chronic encephalomalacia involving right frontal, temporal , and parietal lobes, right insula, right thalamus, and the right basal ganglia. There is a aneurysm clip in the area of right middle cerebral artery. There are changes of right-sided craniotomy. There is a tract of chronic encephalomalacia in left frontal lobe deep to a ton hole. There is chronic enc ephalomalacia in left occipital lobe deep to a ton hole. There is no intracranial hemorrhage, acute infarction, or abnormal intracranial mass lesion. There is ex vacuo dilatation of right lateral ventr icle. There is mild mucosal thickening in the ethmoid sinuses. The orbits are normal. There is a trac e right mastoid effusion. IMPRESSION: 1. Large distribution of chronic encephalomalacia involving the right frontal, temporal, and parietal lobes, right insula, right thalamus, in the right basal ganglia. 2. Areas of chronic encephalomalacia in left frontal lobe and left occipital lobe deep to ton holes, which may be from prior ventriculostomy catheters. Reviewed, dictated and finalized at location E. IMPRESSION: 1. Large distribution of chronic encephalomalacia involving the right frontal, temporal, and parietal lobes, right insula, right thalamus, in the right basal ganglia. 2. Areas of chronic encephalomalacia in left frontal lobe and left occipital lo be deep to ton holes, which may be from prior ventriculostomy catheters.
--- NOTE | ~2023-02-14 | XR_ITS ---
EXAMINATION: XR chest 1V portable INDICATION: Shortness of breath TECHNIQUE: Portable AP chest at 0205 hours COMPARISON: 03/10/2022 FINDINGS: The lungs are free of acute opacities. No pleural effusion or pneumothorax. The cardiomedia stinal silhouette is normal. IMPRESSION: 1. No acute cardiopulmonary abnormality. Reviewed, dictated and finalized at location A.
--- NOTE | ~2023-02-14 | US_ITS ---
EXAMINATION: US venous doppler UE LT DATE: 02/15/2023 07:36 INDICATION: Left upper limb pain TECHNIQUE: Grayscale ultrasound images without and with compression and Doppler ultrasound images of the left upper extremity veins were obtained. COMPARISON: None. FINDINGS: The left internal jugular vein, subclavian vein, axillary vein, brachial veins, basilic vein, cephali c vein, radial vein, and ulnar vein are patent. IMPRESSION: 1. No evidence of deep venous thrombosis. Reviewed, dictated and finalized at location A.
[2023-02-14 22:44] VITALS: BP 120/96; PULSE 66; RESP 16; TEMP 36.3; O2SAT 99
[2023-02-15] VITALS (13 sets, daily range): BP systolic 96–132; BP diastolic 51–58; PULSE 57–61; RESP 17; TEMP 36.4; O2SAT 94–100
--- NOTE | 2023-02-15 01:54 | ECG_ITS ---
Measurements Intervals [place] Rate: 55 P: 61 MT: 193 QRS: 48 QRSD: 97 T: 56 QT: 439 QTc: 422 Interpretive Statements SINUS BRADYCARDIA EARLY REPOLARIZATION [ST ELEVATION WITH NORMALLY INFLECTED T WAVE] NO PREVIOUS ECG AVAILABLE FOR COMPARISON Electronically Signed On 02-15-2023 22:12:43 CDT by Uyen Last M.D.
--- NOTE | 2023-02-15 02:37 | PC.NURSE ---
Patient and family refusing IV at this time, states okay with blood draw.
[2023-02-15 03:03] LABS: Basophils Percent Auto 0.7 % (0.2-1.2); Eosinophils Absolute Auto 0.3 K/mm3 (0-0.3); Eosinophils Percent Auto 7.2 % (0-4.4); Hematocrit 41.7 % (37.0-47.0); Hemoglobin 12.6 g/dL (12.0-15.0); Immature Granulocyte Absolute 0.01 K/mm3 (0.00-0.031); Immature Granulocyte Percent A 0.2 % (0-0.5); Lymphocytes Absolute Auto 1.72 K/mm3 (0.9-3.2); Lymphocytes Percent Auto 39.7 % (18.3-44.2); Mean Corpuscular HGB Conc 30.2 g/dl (32-36); Mean Corpuscular Hemoglobin 25.8 pg (26-34); Mean Corpuscular Volume 85.3 fl (80-100); Mean Platelet Volume 10.7 fl (7.4-10.4); Monocytes Absolute Auto 0.3 K/mm3 (0.1-0.6); Monocytes Percent Auto 5.8 % (2.6-8.5); Neutrophils Percent Auto 46.4 % (45.5-73.1); Platelet Count Result 195 k/mm3 (150-375); Red Blood Count 4.89 M/mm3 (4.2-5.4); Red Cell Distribution Width 15.4 % (11.5-14.5); White Blood Count 4.3 K/mm3 (4.5-10.0)
[2023-02-15 03:17] LABS: Prothrombin Time 12.9 Seconds (11.1-14.7)
[2023-02-15 03:18] LABS: Partial Thromboplastin Time 38.2 SECONDS (22.3-36.8)
[2023-02-15 03:20] LABS: Lactic Acid Reflex 0.6 mmol/L (0.7-2.0)
[2023-02-15 03:22] LABS: Alanine Aminotransferase 19 U/L (6-35); Albumin Level 4.5 g/dL (3.5-5.1); Alkaline Phosphatase 102 U/L (38-126); Anion Gap 5 mmol/L (8-16); Aspartate Amino Transferase 22 U/L (14-36); Bilirubin,Total 0.4 mg/dL (0.2-1.3); Blood Urea Nitrogen 18 mg/dL (7-17); Carbon Dioxide 31 mmol/L (22-30); Chloride 103 mmol/L (98-107); Estimated CRCL calculation 73 ml/min; Estimated Glomerular Filt Rate > 60; Glucose 85 mg/dL (65-110); Magnesium 2.2 mg/dL (1.6-2.3); Potassium 3.8 mmol/L (3.4-5.0); Sodium 139 mmol/L (137-145)
[2023-02-15 03:26] LABS: D Dimer 0.46 ug/mL (<0.48)
[2023-02-15 03:33] LABS: NT Pro B Type Natriuretic Pept 35 pg/mL (19.9-100); Troponin I < 0.012 ng/mL (0.000-0.034)
--- NOTE | 2023-02-15 06:07 | ED.GENADULT ---
HPI - General Adult General Chief complaint: Skin/Abscess/Foreign Body <Sergio Stafford MD - Last Filed: 02/15/23 06:09> Stated complaint: Left arm redness, cellulitis? <Sergio Stafford MD - Last Filed: 02/15/23 06:09> Time Seen by Provider: 02/15/23 01:45 <Sergio Stafford MD - Last Filed: 02/15/23 06:09> History of Present Illness HPI narrative: Patient 67-year-old female who presents the emergency department with chief complaint of redness and swelling of the left upper extremity. Patient has prior history of a cerebral aneurysm and had a CVA following the aneurysm. The patient's family noticed that there was redness present on the forearm and was concerned for cellulitis or DVT. <Sergio Stafford MD - Last Filed: 02/15/23 06:09> Related Data Home medications: Home Medications Medication Instructions Recorded Confirmed aspirin 81 mg tablet,delayed 81 mg PO DAILY 03/16/20 09/04/22 release (Aspir-) naloxone 4 mg/actuation nasal 1 spray intranasal Q2M 03/16/20 09/04/22 spray (Narcan) ondansetron HCl 8 mg tablet 8 mg PO DAILY 03/16/20 09/04/22 calcium carbonate 500 mg calcium 1,200 mg PO DAILY 07/12/20 09/04/22 (1,250 mg) tablet (Calcium 500) multivitamin with minerals-folic 200 mcg PO DAILY 07/12/20 09/04/22 acid 200 mcg chewable tablet (Women's Multivitamin Gummies) cholecalciferol (vitamin D3) 50 50 mcg PO DAILY 01/10/21 09/04/22 mcg (2,000 unit) capsule vitamin B complex (B 1 tablet PO DAILY 01/10/21 09/04/22 Complex-Vitamin B12 tablet) morphine 15 mg/mL injection 03/10/22 09/04/22 solution buspirone 5 mg tablet 5 mg PO DAILY 09/04/22 09/04/22 levetiracetam 500 mg tablet 1,500 mg PO DAILY 09/04/22 09/04/22 (Keppra) lubiprostone 24 mcg capsule 24 mcg PO BID 09/04/22 09/04/22 (Amitiza) <Sergio Stafford MD - Last Filed: 02/15/23 06:09> Allergies/adverse reactions: Allergies Allergy/AdvReac Type Severity Reaction Status Date / Time erythromycin base Allergy Unknown ABDOMINAL Verified 02/14/23 22:40 CRAMPING, LOOSE STOOLS dial soap Allergy Mild ITCHING Uncoded 09/04/22 10:59 <Sergio Stafford MD - Last Filed: 02/15/23 06:09> Review of Systems Review of Systems: A 10 system review of systems was completed on the patient and is negative except for what is stated in the HPI. Nursing and ancillary documentation was reviewed. <Sergio Stafford MD - Last Filed: 02/15/23 06:09> [facility] Past Medical History Medical History: Medical History Anxiety Arthritis Brain aneurysm 2006 with craniotomy Chronic constipation Chronic pain pain pump--hydrocodone Colitis DJD (degenerative joint disease) DVT (deep venous thrombosis) Emphysema lung GERD (gastroesophageal reflux disease) Hemiparesis affecting left side as late effect of cerebrovascular accident HTN (hypertension) Muscle cramping OAB (overactive bladder) Opiate use oxycodone and pain pump Osteoporosis 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 Postural hypotension Seizure TMJ (dislocation of temporomandibular joint) Vitamin D deficiency <Sergio Stafford MD - Last Filed: 02/15/23 06:09> Surgical History Surgical History: Surgical History H/O section (~08/1976) H/O mastectomy (~1994) H/O tubal ligation (~01/17/89) History of bladder surgery (Unknown) bladder suspension History of craniotomy 2006 - aneurysm repair History of orthopedic surgery (~2009) Left leg and hip with megan 2009 Hx of appendectomy (~08/1976) Hx of cholecystectomy (~2009) Hx of hysterectomy (~04/03/99) Hx of tonsillectomy (~1958) <Sergio Stafford MD - Last Filed: 02/15/23 06:09> Family History Family History: Family History (Reviewed 02/15/23 @ 06:09 by Sergio Delarosa
[2023-02-15] MEDS: ONDANSETRON INJ 4 MG/2 ML VIAL IV PUSH (06:19)
--- NOTE | 2023-02-15 07:21 | PC.NURSE ---
Patient report received from BETZY Gutierrez. All questions answered and care of patient assumed. Patient off unit to US.
== END 2023-02-15 08:58 | disposition home or self-care (01) ==
PROVIDERS: Emergency Provider Emergency Medicine; PCP Family Medicine
DX: L03.114 Cellulitis of left upper limb (principal); I69.954 Hemiplegia and hemiparesis following unspecified cerebrovascular disease affecting left non-dominant side; I10 Essential (primary) hypertension; J43.9 Emphysema, unspecified; N32.81 Overactive bladder; E55.9 Vitamin D deficiency, unspecified; G89.29 Other chronic pain; K59.09 Other constipation; K21.9 Gastro-esophageal reflux disease without esophagitis; M81.0 Age-related osteoporosis without current pathological fracture; M19.90 Unspecified osteoarthritis, unspecified site; F41.9 Anxiety disorder, unspecified; F17.210 Nicotine dependence, cigarettes, uncomplicated; Z86.718 Personal history of other venous thrombosis and embolism; Z90.10 Acquired absence of unspecified breast and nipple; Z90.710 Acquired absence of both cervix and uterus; Z79.82 Long term (current) use of aspirin; R00.1 Bradycardia, unspecified; G93.89 Other specified disorders of brain
CPT/HCPCS: 36415; 70450; 71045; 80053; 83605; 83735; 83880; 84484; 85025; 85380; 85610; 85730; 87040; 93005; 93971; 96374; 96375; 99284; J2270; J2405

== ENCOUNTER → 2023-03-11 10:14 | Outpatient (CLI) | payer MEDICARE, MEDICAID, SELFPAY ==
--- NOTE | ~2023-03-11 | MR_ITS ---
MRI of the lumbar spine Clinical History: Chronic pain Technique: Axial T2-weighted images, and sagittal T1-weighted, T2-weighted, and and T2 fat-sat images were acquired. COMPARISON: 04/09/2021 Findings: There is no fracture or subluxation of lumbar spine. Vertebral bodies maintain normal heigh t and alignment. No bone marrow signal reality seen. There is no significant disc bulge or herniation at any lumbar level. No spinal canal stenosis or darnell ral foraminal narrowing. There are moderate facet joint degenerative changes, worsening at the lower lumbar levels, especially L3-L4, L4-L5, and L5-S1. Paravertebral soft tissues are unremarkable. Impression: Facet joint degenerative changes throughout the lumbar spine, as above. No spinal canal stenosis or neural foraminal narrowing. No fracture or subluxation. Reviewed, dictated and finalized at [facility]. Impression: Facet joint degenerative changes throughout the lumbar spine, as above. No spinal canal stenosis or neural foraminal narrowing. No fracture or subluxation.
== END ==
PROVIDERS: PCP Family Medicine; Visit Provider Anesthesiology Pain Medicine
DX: M54.50 Low back pain, unspecified (principal); G89.29 Other chronic pain
CPT/HCPCS: 72148

== ENCOUNTER 2023-04-04 10:30 | Outpatient (RCR) | payer MEDICARE, MEDICAID, SELFPAY ==
--- NOTE | 2023-02-17 13:10 | PCPTNOTE ---
This treatment is being continued from visit number [id number]. Please see documentation on both accounts to view progress. Completed interventions, outcomes, and problems have been marked as Inactive to facilitate the copying of the Care plan routine for recurring accounts.
--- NOTE | 2023-03-13 10:40 | PTOPDC ---
Assessment and note entered by Josefina Muñiz, PT Evaluation Information Assessment Status Discharge Diagnosis weakness and falls, previous cerebral infarct Onset Oct 2022 Subjective Information Melody reports: balance is better; have learned how to stand better; had MRI of her back, still has lots of back pain and chronic nerve pain on whole L side; doing the leg exercises at home; has not been walking at home, did not know that she could; Reported Pain Level Additional Pain Score Comments reports pain in her back, L leg and L arm Assessment PT Clinical Summary Melody has received 16 PT sessions. Compared to the last reeval: her strength and walking are about the same; She uses the wheelchair for mobility and has a manager personal 5 days/week. Reinforced with pt that she can walk at home with her helper. She was mistaken and thought she was NOT to walk at home. The goals were not met. Discharge from PT services. She is to continue with her home exercises for her legs and walking with her helper. Plan of Care PT Services Indicated No
--- NOTE | 2023-03-13 11:40 | OTOPPROG ---
Assessment and note entered by David Patiño, REJI/[place], CHT Evaluation Information Assessment Status Progress Diagnosis Spasm of muscle Subjective Information Terra continues to report having less pain and improved flexibility in the left UE since coming to therapy. She states that stretching has been reducing her pain. She states she has been more cognizant of arm positioning and this has been helping with the shoulder pain. She reports been compliant with her HEP. Her caregiver reports the improved flexibility, which has allowed them to trim her nails easier and wash her hand/fingers easier in the shower. She has been measured for a [employer] resting hand brace to position the wrist in neutral and fingers in extension. We are still waiting on the splint. Assessment OT Clinical Summary Patient referred to outpatient OT with dx of muscle spasms. She has chronic left sided weakness and tone from a brain aneurysm in 2006. Since coming to therapy, she has improved flexibility and reduced pain. We are now able to passively extend the fingers while the wrist is in extension . Previously we were only able to extend the finger with the wrist in flexion. She will benefit from continued skilled OT for ROM/strengthening to address shoulder subluxation and gross UE pain, stiffness, and tightness to facilitate improved arm positioning for comfort and improved ability to complete self passive ROM exercises for management of halfway nonuse. Plan to fit patient with resting hand orthotic when it comes in (we are still waiting on this). Plan of Care Interventions Therapeutic Exercise,Check Out for Orthotic/Pr, Manual Therapy,Neuro Re-education,Hot Pack/Cold Pack,Electrical Stimulation OT Services Indicated Yes Treatment Frequency and Plan to have her come back in when the brace Duration arrives. 0-1x/week for 4 weeks. These treatments will address the objective and functional deficits as defined above. The patient will be advanced safely and appropriately in order for the patient to progress towards his/her prior level of function. Additional exercises will be introduced and as well as a comprehensive home exercise program upon discharge, if needed, ?to ensure carryover of functional gains achieved in the clinic. This treatment plan has been reviewed and agreement upon by the patient.
--- NOTE | 2023-04-04 12:52 | OTOPPROG ---
Assessment and note entered by David Patiño, OTR/[place], CHT Evaluation Information OT Clinical Summary Patient presents today for fitting of Benik resting hand splint. Her sister in law is present with her today and demonstrates excellent understanding of assisting Terra in and out of the brace. Educated on a splint wearing schedule with the goal of progressing to 8 hrs/day as tolerated. At this time no follow up sessions were scheduled. Plan to have them trial the brace x1 month. Will be leaving her care plan open x4 weeks to allow them to return for any fitting issues and adjustments. Plan of Care Interventions Check Out for Orthotic/Pr OT Services Indicated Yes OT Services Indicated Yes Treatment Frequency and 0-1x/week for 4 weeks Duration These treatments will address the objective and functional deficits as defined above. The patient will be advanced safely and appropriately in order for the patient to progress towards his/her prior level of function. Additional exercises will be introduced and as well as a comprehensive home exercise program upon discharge, if needed, ?to ensure carryover of functional gains achieved in the clinic. This treatment plan has been reviewed and agreement upon by the patient.
--- NOTE | 2023-05-19 13:59 | PCOTNOTE ---
This treatment is being continued on visit number [id number]. Please see documentation on both accounts to view progress. Completed interventions, outcomes, and problems have been marked as Inactive to facilitate the copying of the Care plan routine for recurring accounts.
== END 2023-05-19 13:18 | disposition home or self-care (01) ==
LOC: ANHOT 10:30
PROVIDERS: PCP Family Medicine
DX: M62.838 Other muscle spasm (principal)
CPT/HCPCS: 97110; 97116; 97140; 97530; 97760; 97763; L3807

== ENCOUNTER 2023-04-30 15:00 | Outpatient (RCR) | payer MEDICARE, MEDICAID, SELFPAY ==
--- NOTE | 2023-04-14 16:07 | OPREHPOC ---
Outpatient Therapy Plan of Care This is a Multidisciplinary Plan of Care that may contain components documented by all disciplines (PT, OT, and ST.) PT Goal 1 Goal 1. Patient will perform HEP with assist from family/caregiver Target Visit 4 PT Problem 2 PT Problem #2 Pain PT Goal 1 Goal 1. Patient will transfer with back pain no higher than 3/10 Target Visit 4 PT Goal 2 Goal 1. Patient will report no pelvic pain on exam PT Problem 3 PT Problem #3 Impaired Strength PT Goal 1 Goal 1. Improve pelvic floor strength to 2/5 to decrease incontinence Target Visit 4 PT Goal 2 Goal 2. Improve pelvic floor endurance to 3 seconds to decrease incontinence Target Visit 4
--- NOTE | 2023-04-14 16:07 | PTOPEVAL1 ---
Assessment and note entered by Umu Broderick DPT Evaluation Information Assessment Status Evaluation Subjective Information Pt had an aneurysm 17 years ago, has used a wheelchair since then. Reports she has nightly incontinence and constipation issues. Does not have fecal incontinence but does have urgency, can only hold very shorts amount of time. Usually patient reports she is waking up and has already urinated. Does report a history of stress incontinence as a child. Urinates 4-5 times a day. No pain with urination. BM every few days, sometimes goes 3 times in a day. Reports no pain with BM but will have pain before. Also reports back pain which causes significant difficulty getting out of bed. Highest back pain 7/10 and lowest 1-2/10. MRI shows lumbar arthritis. Will be going for a trial of a numbing medication on 04/16/23. Complete hysterectomy 1998 and bladder tie . C- section 1975. Reported Pain Level Pain Score 5: Self Report Assessment PT Clinical Summary The patient is presenting to skilled therapy with a history of low back pain, incontinence, and a diagnosis of pelvic organ prolapse. She presents with significantly decreased pelvic floor strength and endurance as well as decreased hip and core strength which are contributing to her pain and incontinence. She will highly benefit from therapy to address these impairments and safely reduce pain and incontinence. Plan of Care Interventions Hot Pack/Cold Pack,Manual Therapy,Neuro Re- education,Patient/Caregiver Education,Therapeutic Activities,Therapeutic Exercise PT Services Indicated Yes Treatment Frequency and 1 time a week for 4 weeks Duration These treatments will address the objective and functional deficits as defined above. The patient will be advanced safely and appropriately in order for the patient to progress towards his/her prior level of function. Additional exercises will be introduced and as well as a comprehensive home exercise program upon discharge, if needed, ?to ensure carryover of functional gains achieved in the clinic. This treatment plan has been reviewed and agreement upon by the patient.
--- NOTE | 2023-06-30 13:29 | PTOPDC ---
Assessment and note entered by Umu Broderick, DPT Evaluation Information Assessment Status Discharge - Pt Not Present Subjective Information - Assessment PT Clinical Summary Patient will be discharged from pelvic therapy today and has not been seen in 2 months. She will need a new script to resume in the future. Plan of Care PT Services Indicated No
== END 2023-06-30 13:52 | disposition home or self-care (01) ==
LOC: ANHGOSHPT 15:00
PROVIDERS: PCP Family Medicine; Visit Provider Family Medicine
DX: N81.89 Other female genital prolapse (principal)
CPT/HCPCS: 97112; 97140; 97162

== ENCOUNTER 2023-07-09 15:00 | Outpatient (RCR) | payer MEDICARE, MEDICAID, SELFPAY ==
--- NOTE | 2023-05-19 14:04 | PCOTNOTE ---
The treatment documented on this account is a continuation of the treatment documented on visit number [id number]. Please see documentation on both accounts to view progress. The Plan of Care has been transitioned and updated within the new V#. I have addressed and agree with the discipline specific Problems, Interventions, and Goals for the current certification period. Completed interventions, outcomes, and problems have been marked as Inactive to facilitate the copying of the Care plan routine for recurring accounts.
--- NOTE | 2023-06-02 12:53 | OTOPPROG ---
Assessment and note entered by David Patiño, REJI/[place], CHT Evaluation Information Assessment Status Re-evaluation Diagnosis Spasm of muscle Subjective Information Terra was last seen here on 04/04/23 where she was issued a Benik resting hand splint. It was formed to hold her wrist in neutral and fingers in extension. She comes back today, about 8 weeks later, to report that she is unable to wear the brace due to pain. Remolded the brace today to allow for slight finger flexion so the stretch isn't as aggressive. She was able to wear it for 15 minutes in the clinic today without pain. Assessment OT Clinical Summary Patient presents today for assessment of Benik resting hand splint after having it for 8 weeks. Her sister in law is present with her today and demonstrates excellent understanding of assisting Terra in and out of the brace. Today we spent time remolding the splint to allow for slight finger flexion with the wrist in neutral as having both the fingers and the wrist straight was too aggressive at this time. She is also having Botox injections on 06/11, per patient report. Plan: Have the patient slowly increase wear time until she is up to 8 hours a day. Patient to follow up in 4 weeks to adjust the splint as needed. Plan of Care Interventions Check Out for Orthotic/Pr OT Services Indicated Yes Treatment Frequency and 0-1x/week for 4 weeks Duration These treatments will address the objective and functional deficits as defined above. The patient will be advanced safely and appropriately in order for the patient to progress towards his/her prior level of function. Additional exercises will be introduced and as well as a comprehensive home exercise program upon discharge, if needed, ?to ensure carryover of functional gains achieved in the clinic. This treatment plan has been reviewed and agreement upon by the patient.
--- NOTE | 2023-06-02 12:53 | OPREHPOC ---
Outpatient Therapy Plan of Care This is a Multidisciplinary Plan of Care that may contain components documented by all disciplines (PT, OT, and ST.) OT Problem 1 OT Problem #1 Knowledge Deficit OT Goal 1 Goal 1. Patient/caregiver to be independent with instructed materials. Target Visit 19 OT Problem 2 OT Problem #2 Impaired Flexibility OT Goal 1 Goal 1. Patient to be able to tolerate wearing the resting hand splint x8 hours. Target Visit 19
--- NOTE | 2023-07-09 15:33 | OTOPDC ---
Assessment and note entered by David Patiño, REJI/[place], T Discharge Note 07/09/23 Assessment Status Discharge Diagnosis Spasm of muscle Subjective Information Terra was issued a Benik resting hand splint on 04/04/23. It was formed to hold her wrist in neutral and fingers in extension. She returned 8 weeks later (06/02/23) to report that she is unable to wear the brace due to pain. Remolded the brace to allow for slight finger flexion so the stretch isn't as aggressive. She was able to wear it for 15 minutes in the clinic without pain. She presents today stating she has been unable to wear the brace. Her sister in law, Ange, states she hasn't really been wearing the brace and resists attempts to help her get it on. Patient reports it 's too difficult and reports feeling depressed, unable to sleep, and feeling like her left side is freezing up . Assessment OT Clinical Summary Patient presents today for assessment of Benik resting hand splint after having it for 13 weeks. She reports still being unable to don and wear the brace despite having the help - Her sister in law is present with her today and is independent in assisting Terra in and out of the brace. We attempted to remold the brace to reduce the aggressiveness of the stretch and this was also unsuccessful. Overall therapy has helped with achieving improved flexibility of the hand, which has allowed for easier hygiene tasks when clipping nails and cleaning her hand. She is pleased with the progress with her flexibility, however is disappointed in being unable to manage the brace. No further skilled OT indicated at this time. Discharging from skilled services.
== END 2023-07-11 11:59 | disposition home or self-care (01) ==
LOC: ANHOT 15:00
PROVIDERS: PCP Family Medicine
DX: M62.838 Other muscle spasm (principal)
CPT/HCPCS: 97110; 97763

== ENCOUNTER 2023-07-30 10:48 | Emergency (ER) | payer MEDICARE, MEDICAID, SELFPAY ==
[2023-07-30] VITALS (7 sets, daily range): BP systolic 126–141; BP diastolic 60–71; PULSE 73–82; RESP 12–20; TEMP 36.6; O2SAT 90–99
--- NOTE | ~2023-07-30 | CT_ITS ---
EXAMINATION: CT abdomen pelvis w con DATE: 07/30/2023 13:08 INDICATION: Known localized abdominal pain TECHNIQUE: Computed tomography (CT) of the abdomen and pelvis was performed with 100 cc Omnipaque 350 intravenous contrast. The dose-length product was 820.86 mGy-cm. Automated exposure control and iter ative reconstruction technique were employed. COMPARISON: CT dated 02/16/2016 FINDINGS: There is a heterogeneously dense right lower lobe mass which is predominantly hypodense ryne suring 2.5 x 2 cm, increased in size compared with prior study. There is dependent atelectasis. There is a 5 mm right lower lobe nodule, image 6. Status post cholecystectomy with expected prominence of the bile ducts. There is a battery pack overl margarita the left abdomen involving the fatty tissues. Nonobstructive bowel gas pattern. There are are sm all low-density lesions in the liver, most likely benign cysts or hemangiomas. The spleen, pancreas, adrenal glands and left kidney are unremarkable. Colonic diverticulosis without evidence for divertic ulitis. No lymphadenopathy. No free air or free fluid. Colonic diverticulosis without evidence for di verticulitis. There are small low-density lesions in the kidneys, most likely benign cysts. 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 There is a 2 mm nonobstructing righ t renal stone. Nonobstructive bowel gas pattern. Colonic diverticulosis without evidence for divertic ulitis. IMPRESSION: 1. Enlarging heterogeneous right lower lobe mass measuring 2.5 cm. Although this may represent benign rounded atelectasis or postinfectious/inflammatory change neoplasm is not excluded. Recommend correl ation with pet/CT scan. 2: Nonobstructing right nephrolithiasis. Reviewed, dictated and finalized at location B. IMPRESSION: 1. Enlarging heterogeneous right lower lobe mass measuring 2.5 cm. Although thi s may represent benign rounded atelectasis or postinfectious/inflammatory powell e neoplasm is not excluded. Recommend correlation with pet/CT scan. 2: Nonobstructing right nephrolithiasis.
--- NOTE | 2023-07-30 11:08 | ECG_ITS ---
Measurements Intervals [place] Rate: 77 P: 50 NE: 132 QRS: 48 QRSD: 90 T: 49 QT: 370 QTc: 421 Interpretive Statements SINUS RHYTHM VENTRICULAR PREMATURE COMPLEX BASELINE WANDER- II, III, AVL, AVF BORDERLINE ECG COMPARED TO ECG 02/15/2023 02:01:01 SINUS RHYTHM NOW PRESENT Electronically Signed On 07-30-2023 11:15:35 CDT by Ke Sargent D.O.
[2023-07-30] MEDS: SODIUM CHLORIDE 0.9% IV 1,000 ML 999 ML IV CONT (12:21)
[2023-07-30] MEDS: ONDANSETRON INJ 4 MG/2 ML VIAL IV PUSH (12:22)
[2023-07-30 12:31] LABS: Basophils Percent Auto 0.7 % (0.2-1.2); Eosinophils Absolute Auto 0.2 K/mm3 (0-0.3); Hematocrit 36.1 % (37.0-47.0); Hemoglobin 10.7 g/dL (12.0-15.0); Immature Granulocyte Absolute 0.01 K/mm3 (0.00-0.031); Immature Granulocyte Percent A 0.2 % (0-0.5); Lymphocytes Absolute Auto 1.12 K/mm3 (0.9-3.2); Lymphocytes Percent Auto 25.5 % (18.3-44.2); Mean Corpuscular HGB Conc 29.6 g/dl (32-36); Mean Corpuscular Hemoglobin 24.7 pg (26-34); Mean Corpuscular Volume 83.4 fl (80-100); Mean Platelet Volume 10.5 fl (7.4-10.4); Monocytes Absolute Auto 0.3 K/mm3 (0.1-0.6); Monocytes Percent Auto 5.9 % (2.6-8.5); Neutrophils Absolute Auto 2.8 K/mm3 (1.3-6.7); Neutrophils Percent Auto 62.7 % (45.5-73.1); Platelet Count Result 175 k/mm3 (150-375); Red Blood Count 4.33 M/mm3 (4.2-5.4); Red Cell Distribution Width 15.4 % (11.5-14.5); White Blood Count 4.4 K/mm3 (4.5-10.0)
[2023-07-30 12:38] LABS: Alanine Aminotransferase 17 U/L (6-35); Albumin Level 3.7 g/dL (3.5-5.1); Alkaline Phosphatase 80 U/L (38-126); Anion Gap 1 mmol/L (8-16); Aspartate Amino Transferase 23 U/L (14-36); Bilirubin,Total 0.6 mg/dL (0.2-1.3); Blood Urea Nitrogen 15 mg/dL (7-17); Calcium 8.3 mg/dL (8.4-10.2); Carbon Dioxide 32 mmol/L (22-30); Chloride 108 mmol/L (98-107); Estimated CRCL calculation 73 ml/min; Estimated Glomerular Filt Rate > 60; Glucose 101 mg/dL (65-110); Lipase 58 U/L (23-300); Partial Thromboplastin Time 33.7 SECONDS (22.3-36.8); Potassium 3.9 mmol/L (3.4-5.0); Sodium 141 mmol/L (137-145)
[2023-07-30 12:49] LABS: Hypochromasia 1+ (NORMAL); Ovalocytes 1+ (NORMAL); Platelet Estimate Adequate (Adequate); Schistocytes None Seen (NORMAL)
[2023-07-30 13:27] LABS: Appearance Urine Clear (Clear); Bilirubin Urine Negative (Negative); Blood Urine Negative (Negative); Color Urine Yellow (Yellow); Glucose Urine UA Negative (Negative); Ketones Urine Negative (Negative); Leukocyte Esterase Ur Negative LEU/UL (Negative); Nitrate Urine Negative (Negative); Protein Urine Negative (Negative); Specific Grav Ur 1.014 (1.001-1.035); Urobilinogen Urine 0.2 mg/dL (<2.0); pH Urine 6.5 (5.0-9.0)
[2023-07-30 13:44] LABS: Add Urine Microscopic? NO
--- NOTE | 2023-07-30 13:48 | ED.GENADULT ---
HPI - General Adult General Chief complaint: Unspecified Stated complaint: chronic pain issues Time Seen by Provider: 07/30/23 10:58 History of Present Illness HPI narrative: Patient is a 67-year-old female who presents ER with reports of uncontrolled chronic pain. Patient has implanted pain pump that gives her morphine. She has been having increased pain and difficulty with getting around her home since having a battery change in December 2022. Apparently the pump was evaluated and there is a hole in the line and patient is not being delivered a medication. She has no oral pain medication at home to help with her chronic discomfort related to a hemorrhagic CVA many years ago. She has neuropathy along the left side which is where she has chronic weakness. Due to her pain sometimes she cannot get up from bed and she is incontinent of urine. Today patient began having persistent vomiting. No diarrhea. Related Data Home Medications Medication Instructions Recorded Confirmed aspirin 81 mg tablet,delayed 81 mg PO DAILY 03/16/20 03/06/23 release (Aspir-) naloxone 4 mg/actuation nasal 1 spray intranasal Q2M 03/16/20 03/06/23 spray (Narcan) ondansetron HCl 8 mg tablet 8 mg PO DAILY 03/16/20 03/06/23 calcium carbonate 500 mg calcium 1,200 mg PO DAILY 07/12/20 03/06/23 (1,250 mg) tablet (Calcium 500) multivitamin with minerals-folic 200 mcg PO DAILY 07/12/20 03/06/23 acid 200 mcg chewable tablet (Women's Multivitamin Gummies) cholecalciferol (vitamin D3) 50 50 mcg PO DAILY 01/10/21 03/06/23 mcg (2,000 unit) capsule vitamin B complex (B 1 tablet PO DAILY 01/10/21 03/06/23 Complex-Vitamin B12 tablet) morphine 15 mg/mL injection 03/10/22 03/06/23 solution levetiracetam 500 mg tablet 1,500 mg PO DAILY 03/06/23 03/06/23 (Keppra) lubiprostone 24 mcg capsule 24 mcg PO BID PRN 03/06/23 03/06/23 (Amitiza) midodrine 2.5 mg tablet 2.5 mg PO BID 03/06/23 03/06/23 umeclidinium 62.5 mcg-vilanterol 1 inh inhalation DAILY PRN 03/06/23 03/06/23 25 mcg/actuation powdr for inhalation (Anoro Ellipta) Allergies Allergy/AdvReac Type Severity Reaction Status Date / Time erythromycin base Allergy Unknown ABDOMINAL Verified 07/30/23 11:23 CRAMPING, LOOSE STOOLS dial soap Allergy Mild ITCHING Uncoded 07/30/23 11:23 Review of Systems Review of Systems: All systems reviewed & are unremarkable except as noted in HPI and below Constitutional: Constitutional: Reports no additional constitutional complaints ENT: Reports system reviewed and no additional complaints, except as documented Cardiovascular: Cardiovascular: Reports no additional cardiovascular complaints Respiratory: Respiratory: Reports no additional respiratory complaints Gastrointestinal: Gastrointestinal: Denies abdominal pain, Denies constipation, Denies diarrhea, Reports nausea and Reports vomiting Neurologic: Reports system reviewed and no additional complaints, except as documented [facility] Past Medical History Medical History Anxiety Arthritis Brain aneurysm 2007 with craniotomy Chronic constipation Chronic pain pain pump--hydrocodone Colitis DJD (degenerative joint disease) DVT (deep venous thrombosis) Emphysema lung GERD (gastroesophageal reflux disease) Hemiparesis affecting left side as late effect of cerebrovascular accident HTN (hypertension) Muscle cramping OAB (overactive bladder) Opiate use oxycodone and pain pump Osteoporosis 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 Postural hypotension Seizure TMJ (dislocation of temporomandibular joint) Vitamin D deficiency Surgical History Surgical History H/O section (~08/1976) H/O mastectomy (~1994) H/O tubal ligation (~01/17/89) History of bladder surgery (Unknown) bladder suspension History of craniotomy 2007 - aneurysm repair History o
== END 2023-07-30 15:49 | disposition home or self-care (01) ==
PROVIDERS: Emergency Provider Emergency Medicine; PCP Family Medicine
DX: G89.29 Other chronic pain (principal); R11.2 Nausea with vomiting, unspecified; G62.9 Polyneuropathy, unspecified; I69.154 Hemiplegia and hemiparesis following nontraumatic intracerebral hemorrhage affecting left non-dominant side; T85.695A Other mechanical complication of other nervous system device, implant or graft, initial encounter; R91.8 Other nonspecific abnormal finding of lung field; J43.9 Emphysema, unspecified; I10 Essential (primary) hypertension; E55.9 Vitamin D deficiency, unspecified; H54.7 Unspecified visual loss; K59.09 Other constipation; N32.81 Overactive bladder; M81.0 Age-related osteoporosis without current pathological fracture; M19.90 Unspecified osteoarthritis, unspecified site; F17.210 Nicotine dependence, cigarettes, uncomplicated; Z86.718 Personal history of other venous thrombosis and embolism; Z90.10 Acquired absence of unspecified breast and nipple; Z90.49 Acquired absence of other specified parts of digestive tract; Z90.710 Acquired absence of both cervix and uterus; Z79.82 Long term (current) use of aspirin; I49.3 Ventricular premature depolarization; N20.0 Calculus of kidney; Y75.2 Prosthetic and other implants, materials and neurological devices associated with adverse incidents
CPT/HCPCS: 36415; 74177; 80053; 81003; 83690; 85025; 85610; 85730; 93005; 96361; 96374; 99284; J2405; J7030; Q9967

== ENCOUNTER 2023-09-09 11:40 | Outpatient (CLI) | payer MEDICARE, MEDICAID, SELFPAY ==
--- NOTE | ~2023-09-09 | PE_ITS ---
EXAMINATION: PET skull to mid thigh DATE: 09/09/2023 15:52 INDICATION: Solitary pulmonary nodule TECHNIQUE: Blood glucose level was 84 mg/dL. 8.71 mCi of 18-fluorodeoxyglucose (18-FDG) was administe red i.v. Low dose computed tomography (CT) images were acquired from the base of the brain to the pro ximal thighs for attenuation correction and anatomic localization. Positron emission tomography (PET) images were acquired in the same distribution beginning 59 minutes after injection. Images including fused PET/CT images were reconstructed in axial, coronal, and sagittal planes. Automated exposure co ntrol technique was employed. The dose-length product was 792.77mGy-cm. COMPARISON: CT abdomen pelvis dated 07/30/2023 FINDINGS: Head/neck: Partially visualized right temporal craniotomy and underlying large region of encephalomalacia in the right frontal, temporal and parietal lobes and basal ganglia likely related to chronic infarct with likely aneurysm coil in the region of the right middle cerebral artery. There is symmetric increased activity in the oral cavity, palatine tonsils, upper cervical paraspinal muscles, laryngeal muscles a nd ocular muscles without CT correlate, likely physiologic. No pathologically enlarged cervical lymph adenopathy or suspicious foci of increased FDG uptake in the visualized head or neck. Chest: Mild emphysema. Approximately 2.6 x 2.2 cm mass with spiculated margins at the posterior inferior rig ht lower lobe which is without discernible FDG activity. No other suspicious pulmonary nodules, pneum onia, pulmonary edema or pleural effusion. Heart size is normal. No pericardial effusion. Thoracic ao rta is normal in caliber. No pathologically enlarged or FDG avid thoracic lymphadenopathy. Abdomen/pelvis/proximal thighs: Physiologic renal accumulation and excretion of FDG activity in the kidneys, bladder and along portio ns of ureters. 2.4 cm macroscopic fat attenuation angiomyolipomas at the upper pole of the right kidn ey. Photopenic defect associated with a 4 cm low-attenuation cyst in the right hepatic lobe. Otherwis e normal degree and heterogenous pattern of increased uptake throughout the liver without radiologic correlate or dominant FDG avid lesion. Cholecystectomy clips at the gallbladder fossa. The pancreas, spleen and bilateral adrenal glands are normal. Mild uptake scattered throughout the bowels without r adiologic correlate, also likely physiologic. Normal appendix. A few scattered sigmoid diverticula wi thout adjacent inflammation presenting to suggest diverticulitis. No other abnormal foci of increased FDG uptake or pathologically enlarged lymphadenopathy in the abdomen, pelvis or proximal thighs. Musculoskeletal: No suspicious lytic, blastic or FDG avid bone lesions to suggest metastatic disease. There is mild up take at the rotator cuff musculature at the bilateral shoulders without radiologic correlate which is likely physiologic. Heterotopic ossification with some associated increased uptake posterior to the L1 and L2 spinous processes is likely related to a left intrathecal pain pump with the pump in the le ft abdominal subcutaneous tissues and the catheter extending 3 region of heterotopic ossification and increased uptake that of the central canal extending cephalad with distal tip at the level of T5-T6. IMPRESSION: 1. No increased uptake to suggest malignancy associated with a 2.6 x 2.2 cm spiculated mass at the po sterior inferior right lower lobe. While reassuring and with the associated architectural distortion of the lung suggests this represents round atelectasis, would recommend continued follow-up with low- dose noncontrast chest CT in 6-12 months. No other lesions suspicious for malignancy or metastatic di juanjoe. Reviewed, dictated and finalized at location A. Electronically signed by Frank Hager
[2023-09-09 12:50] LABS: Glucose Point of Care 84 mg/dl (65-105)
== END 2023-09-09 11:41 | disposition home or self-care (01) ==
PROVIDERS: PCP Family Medicine; Visit Provider Nurse Practitioner Family
DX: R91.1 Solitary pulmonary nodule (principal)
CPT/HCPCS: 78815; A9552

== ENCOUNTER 2023-12-17 12:49 | Outpatient (CLI) | payer MEDICARE, MEDICAID, SELFPAY ==
--- NOTE | ~2023-12-17 | MR_ITS ---
MRI of the lumbar spine Clinical History: Intrathecal pump Technique: Axial T2-weighted images, and sagittal T1-weighted, T2-weighted, and and T2 fat-sat images were acquired. COMPARISON: 03/11/2020 Findings: There is no fracture or subluxation of the lumbar spine. Vertebral bodies maintain normal h eight and line. No suspicious bone marrow signal abnormality seen. At L1-L2, L2-L3, L3-L4, there is no disc bulge or herniation. There are mild to moderate facet joint degenerative changes at these levels. No spinal canal stenosis at these levels. There is moderate lef t neural foraminal narrowing at L1-L2. Remaining neural foramina at these levels are preserved. At L4-L5, there is minimal disc bulge and moderate facet arthropathy. No central canal stenosis or de finite neural foraminal narrowing. At L5-S1, there is minimal disc bulge and moderate facet arthropathy. No central canal stenosis or ne ural foraminal narrowing. Paravertebral soft tissues are unremarkable. Impression: Mild degenerative spondylosis, as above. Reviewed, dictated and finalized at location . 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
== END 2023-12-17 12:50 ==
PROVIDERS: PCP Anesthesiology Pain Medicine; Visit Provider Anesthesiology Pain Medicine
DX: Z97.8 Presence of other specified devices (principal); M54.50 Low back pain, unspecified; G89.29 Other chronic pain; M47.896 Other spondylosis, lumbar region
CPT/HCPCS: 72148

== ENCOUNTER 2024-03-31 16:58 | Observation (INO) | payer MEDICARE, MEDICAID, SELFPAY ==
--- NOTE | ~2024-03-31 | CT_ITS ---
EXAMINATION: CTA chest PE protocol DATE: 03/31/2024 19:36 INDICATION: DVT; assess for PE TECHNIQUE: Computed tomography angiography (CTA) of the chest was performed with 100 mL Omnipaque-350 intravenous contrast timed to evaluate the pulmonary arteries. Coronal maximum intensity projection 3D-reconstructions were created by the technologist. The dose-length product (DLP) was 240.26 mGy-cm. Automated exposure control and iterative reconstruction technique were employed. COMPARISON: CT chest 07/30/2023. FINDINGS: Lung parenchyma and airways: Moderate emphysematous change. Prominent right lower lobe scar. Minimal scarring in the lingula, right middle lobe, and medial left lower lobe. Bilateral lower lobe pulmonar y nodules demonstrating long-term stability, likely representing granulomas. Patent airways Pleura: Unremarkable. Thoracic inlet, axillae and chest wall: Unremarkable. Thoracic aorta: No significant dilation. No dissection. Mediastinum: Normal. Heart and pericardium: Normal. Coronary artery calcifications: Mild. Upper abdomen: 4.3 cm simple liver cyst. 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 Left lower quadrant medication pump, catheter terminating over the midthoracic spine. Bones: No acute osseous finding. Pulmonary arteries: Study quality: Adequate. No pulmonary emboli detected. IMPRESSION: No CT evidence of acute pulmonary embolus. No acute process detected in the chest. Reviewed, dictated and finalized at location K.
--- NOTE | ~2024-03-31 | US_ITS ---
EXAMINATION: US venous doppler [facility] DATE: 03/31/2024 18:13 INDICATION: edema . TECHNIQUE: Grayscale images without and with compression and Doppler images of the left lower extremi ty veins were obtained. COMPARISON: 03/29/2022 FINDINGS: Nonocclusive thrombus in the left posterior tibial vein. Left peroneal veins not well visualized. The left common femoral vein, profunda (deep) femoral vein, femoral vein, popliteal vein, and greater s aphenous vein are patent. IMPRESSION: Acute left posterior tibial vein DVT. Reviewed, dictated and finalized at location K.
--- NOTE | ~2024-03-31 | CT_ITS ---
EXAMINATION: CT brain wo con DATE: 03/31/2024 21:33 INDICATION: altered mental status . TECHNIQUE: Computed tomography (CT) of the head was performed without intravenous contrast. The mA wa s adjusted according to patient size. Iterative reconstruction technique was employed. The dose-lengt h product was 756.67 mGy-cm. COMPARISON: 02/15/2023. FINDINGS: No acute intracranial hemorrhage or extra-axial fluid collection. No hydrocephalus, mass, or herniation. No acute ischemic infarct. Unremarkable dural venous sinus attenuation. No acute osseous abnormality. Right sided craniotomy. Small volume bilateral mastoid fluid, the remaining aerated spaces are clear. Aneurysm clip in the right middle cranial fossa. Largest area of encephalomalacia in the right hemisp here with ex vacuo dilation of the right lateral ventricle. Small foci of left periventricular and le ft occipital encephalomalacia, both likely prior shunt tracts. IMPRESSION: No acute intracranial process. Reviewed, dictated and finalized at location K.
--- NOTE | 2024-03-31 17:19 | ED.EXTPRO ---
HPI - Extremity Problem General Chief complaint: Extremity Problem,Nontraumatic Stated complaint: left leg swelling Time Seen by Provider: 03/31/24 17:05 Source: patient and EMS Mode of arrival: EMS History of Present Illness HPI Narrative: 68-year-old female with past medical history aneurysm status post craniotomy with residual left-sided deficits (wheelchair bound, sleeps in wheelchair lately) presents with left lower leg swelling. She has a morphine pump for pain and has neuropathy. She denies any history of heart failure. Patient has had some shortness of breath but she states she has COPD and is a smoker. Fever but she states she generally feels unwell. 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 She has a history of a DVT in the left lower extremity and had been on anticoagulation but this was discontinued; now only on 81mg aspirin. Related Data Home Medications Medication Instructions Recorded Confirmed naloxone 4 mg/actuation nasal 1 spray intranasal Q2M 03/16/20 04/01/24 spray (Narcan) multivitamin with minerals-folic 200 mcg PO DAILY 07/12/20 04/01/24 acid 200 mcg chewable tablet (Women's Multivitamin Gummies) cholecalciferol (vitamin D3) 50 25 mcg PO DAILY 01/10/21 04/01/24 mcg (2,000 unit) capsule levetiracetam 500 mg tablet 1,500 mg PO BID 03/06/23 04/01/24 (Keppra) aspirin 81 mg chewable tablet 81 mg PO DAILY 04/01/24 04/01/24 clobetasol 0.05 % scalp solution 2 - 3 ml topical BID 04/01/24 04/01/24 cyanocobalamin (vitamin B-12) 500 1,500 mcg PO DAILY 04/01/24 04/01/24 mcg tablet (Vitamin B-12) duloxetine 30 mg capsule,delayed 60 mg PO QHS 04/01/24 04/01/24 release pimecrolimus 1 % topical cream 1 applic topical BID 04/01/24 04/01/24 Allergies Allergy/AdvReac Type Severity Reaction Status Date / Time erythromycin base Allergy Unknown ABDOMINAL Verified 09/22/23 11:29 CRAMPING, LOOSE STOOLS dial soap Allergy Mild ITCHING Uncoded 09/22/23 11:29 PMFSH Past Medical History Medical History (Updated 03/31/24 @ 18:55 by Essence Hutton MD) Anxiety Arthritis Brain aneurysm 2007 with craniotomy Chronic constipation Chronic pain pain pump--hydrocodone Colitis COPD (chronic obstructive pulmonary disease) DJD (degenerative joint disease) DVT (deep venous thrombosis) Emphysema lung GERD (gastroesophageal reflux disease) Hemiparesis affecting left side as late effect of cerebrovascular accident History of deep venous thrombosis (DVT) of distal vein of left lower extremity (~11/2006) HTN (hypertension) OAB (overactive bladder) Opiate use oxycodone and pain pump Osteoporosis 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 Postural hypotension Seizure TMJ (dislocation of temporomandibular joint) UTI (urinary tract infection) Vitamin D deficiency Surgical History Surgical History H/O section (~08/1976) H/O mastectomy (~1994) H/O tubal ligation (~01/17/89) History of bladder surgery (Unknown) bladder suspension History of craniotomy 2007 - aneurysm repair History of orthopedic surgery (~2009) Left leg and hip with megan 2009 Hx of appendectomy (~08/1976) Hx of cholecystectomy (~2009) Hx of hysterectomy (~04/03/99) Hx of tonsillectomy (~1958) Family History Family History Father Cerebral aneurysm Cerebrovascular accident Heart disease Hypertension Mother Lung cancer Colon ulcer Unknown Thyroid disease Other Lung cancer Colon ulcer Sibling Lung cancer Social History Social History (Updated 03/31/24 @ 18:59 by Essence Hutton MD) Social History: used to smoke for 48 years Smoking packs per day: 0.75 Smoking cigarettes per day: 15.0 Years smoked: 52 Smoking pack-years: 39.00 Smoking status: Current every day smoker Tobacco type: cigarettes
[2024-03-31 17:31] VITALS: BP 109/62; PULSE 72; RESP 16; TEMP 36.4; O2SAT 100
[2024-03-31 17:59] LABS: Basophils Percent Auto 0.3 % (0.2-1.2); Eosinophils Absolute Auto 0.4 K/mm3 (0-0.3); Eosinophils Percent Auto 6.4 % (0-4.4); Hemoglobin 9.6 g/dL (12.0-15.0); Immature Granulocyte Absolute 0.01 K/mm3 (0.00-0.031); Immature Granulocyte Percent A 0.2 % (0-0.5); Lymphocytes Absolute Auto 1.44 K/mm3 (0.9-3.2); Lymphocytes Percent Auto 23.7 % (18.3-44.2); Mean Corpuscular HGB Conc 28.2 g/dl (32-36); Mean Corpuscular Hemoglobin 21.3 pg (26-34); Mean Corpuscular Volume 75.4 fl (80-100); Mean Platelet Volume 9.9 fl (7.4-10.4); Monocytes Absolute Auto 0.3 K/mm3 (0.1-0.6); Monocytes Percent Auto 4.8 % (2.6-8.5); Neutrophils Absolute Auto 3.9 K/mm3 (1.3-6.7); Neutrophils Percent Auto 64.6 % (45.5-73.1); Platelet Count Result 272 k/mm3 (150-375); Red Blood Count 4.51 M/mm3 (4.2-5.4); Red Cell Distribution Width 18.3 % (11.5-14.5); White Blood Count 6.1 K/mm3 (4.5-10.0)
[2024-03-31 18:07] LABS: Hypochromasia 1+; Ovalocytes 1+; Platelet Estimate Adequate (Adequate); Schistocytes None Seen
[2024-03-31 18:08] LABS: Anion Gap 8 mmol/L (4-12); Blood Urea Nitrogen 17 mg/dL (7-17); Carbon Dioxide 31 mmol/L (22-30); Chloride 103 mmol/L (98-107); Estimated CRCL calculation 92 ml/min; Estimated Glomerular Filt Rate > 60; Glucose 89 mg/dL (65-110); Potassium 3.8 mmol/L (3.4-5.0); Sodium 142 mmol/L (137-145)
[2024-03-31 18:12] LABS: Prothrombin Time 13.6 Seconds (11.1-14.7)
[2024-03-31 18:13] LABS: Partial Thromboplastin Time 33.6 Seconds (22.3-36.8)
[2024-03-31 18:17] LABS: NT Pro B Type Natriuretic Pept 57 pg/mL (19.9-100)
[2024-03-31 19:31] LABS: Appearance Urine Cloudy (Clear); Bacteria Urine 2+ /hpf; Bilirubin Urine Negative (Negative); Blood Urine Trace (Negative); Budding Yeast Urine Present /hpf; Color Urine Dark Yellow (Yellow); Glucose Urine UA Negative (Negative); Ketones Urine Trace mg/dL (Negative); Leukocyte Esterase Ur 1+ LEU/UL (Negative); Need Manual Microscopic Reviewed; Nitrate Urine Positive (Negative); Non Pathogenic Casts 0-2; Protein Urine 2+ mg/dL (Negative); Squamous Epithelial Cell Urine None Seen /hpf (Few); WBC Urine 51-100 /hpf (0-3)
[2024-03-31 19:38] VITALS: BP 102/44; PULSE 66; RESP 17; O2SAT 98
[2024-03-31 19:38] LABS: Add Urine Microscopic? YES
--- NOTE | 2024-03-31 21:13 | PM.IMHP ---
H&P: HPI History of Present Illness Date/Time: 03/31/24 21:13 Chief Complaint: Weakness Narrative: A 68-year-old female with past medical history significant for brain aneurysm, left-sided hemiparesis, wheelchair-bound, chronic pain on chronic pain pump, COPD/emphysema, tobacco dependence, DJD, GERD, hypertension, osteoporosis. patient presents to the emergency room due to generalized weakness, overall feeling unwell, patient has chronic pain has had worse back pain and neuropathic pain, poor per orally intake, left lower extremity pain and calves swelling. here in emergency room patient was found to have acute DVT of left lower extremity and urinalysis was significant for numerous WBCs present 50-100 per high-power field. Patient has been admitted for further evaluation management and treatment. EXAMINATION: US venous doppler LE LT DATE: 03/31/2024 18:13 INDICATION: edema . TECHNIQUE: Grayscale images without and with compression and Doppler images of the left lower extremity veins were obtained. COMPARISON: 03/29/2022 FINDINGS: Nonocclusive thrombus in the left posterior tibial vein. Left peroneal veins not well visualized. The left common femoral vein, profunda (deep)? femoral vein, femoral vein, popliteal vein, and greater saphenous vein are patent. IMPRESSION: Acute left posterior tibial vein DVT. EXAMINATION: CTA chest PE protocol DATE: 03/31/2024 19:36 INDICATION: DVT; assess for PE TECHNIQUE: Computed tomography angiography (CTA) of the chest was performed with 100 mL Omnipaque-350 intravenous contrast timed to evaluate the pulmonary arteries. Coronal maximum intensity projection 3D-reconstructions were created by the technologist. The dose-length product (DLP) was 240.26 mGy-cm. Automated exposure control and iterative reconstruction technique were employed. COMPARISON: CT chest 07/30/2023. ? FINDINGS:? Lung parenchyma and airways: Moderate emphysematous change. Prominent right lower lobe scar. Minimal scarring in the lingula, right middle lobe, and medial left lower lobe. Bilateral lower lobe pulmonary nodules demonstrating long-term stability, likely representing granulomas. Patent airways Pleura: Unremarkable. Thoracic inlet, axillae and chest wall: Unremarkable. Thoracic aorta: No significant dilation. No dissection. Mediastinum: Normal. Heart and pericardium: Normal. Coronary artery calcifications: Mild. Upper abdomen: 4.3 cm simple liver cyst. 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 Left lower quadrant medication pump, catheter terminating over the midthoracic spine. Bones: No acute osseous finding. Pulmonary arteries: Study quality: Adequate. No pulmonary emboli detected. IMPRESSION: No CT evidence of acute pulmonary embolus. No acute process detected in the chest. EXAMINATION: CT brain wo con DATE: 03/31/2024 21:33 INDICATION: altered mental status . TECHNIQUE: Computed tomography (CT) of the head was performed without intravenous contrast. The mA was adjusted according to patient size. Iterative reconstruction technique was employed. The dose-length product was 756.67 mGy-cm. COMPARISON: 02/15/2023. FINDINGS: No acute intracranial hemorrhage or extra-axial fluid collection. No hydrocephalus, mass, or herniation. No acute ischemic infarct. Unremarkable dural venous sinus attenuation. No acute osseous abnormality. Right sided craniotomy. Small volume bilateral mastoid fluid, the remaining aerated spaces are clear. Aneurysm clip in the right middle cranial fossa. Largest area of encephalomalacia in the right hemisphere with ex vacuo dilation of the right lateral ventricle. Small foci of left periventricular and left occipital encephalomalacia, both likely prior shunt tracts. IMPRESSION:? No acute intracranial process. Review of Systems Review of Systems: Generalized weakness, poor appetite, feeling unwell, worsening pain.
[2024-03-31 23:09] VITALS: BP 99/43; PULSE 68; RESP 18; O2SAT 98
[2024-03-31 23:40] VITALS: BP 117/68; PULSE 71; RESP 17; TEMP 36.4; O2SAT 95
[2024-03-31 23:46] VITALS: BMI 26.8
--- NOTE | 2024-04-01 00:14 | ADMGEN ---
This patient, Terra Gastelum, was admitted to 2 Medical Room 259-01. Patient/family oriented to hospital policies and general routines including ID bracelet, bed and alarms, visiting hours, pain management, procedures, bathroom and other care routines, personal items, smoking policy, room service/diet, and visiting hours. Information on how to activate the Rapid Response Team has been discussed. Patient/Family are encouraged to report perceived risks to care and to ask questions if they do not understand what they are told or what they should do.
[2024-04-01 05:58] VITALS: BP 110/55; PULSE 72; RESP 16; TEMP 36.8; O2SAT 94
[2024-04-01 08:02] VITALS: O2SAT 95
--- NOTE | 2024-04-01 08:50 | PM.IMPN ---
Progress Note: A&P Assessment and Plan (1) Acute deep vein thrombosis of tibial vein: Qualifiers: Laterality: left Qualified Code(s): I82.442 - Acute embolism and thrombosis of left tibial vein Code(s): I82.449 - Acute embolism and thrombosis of unspecified tibial vein Status: Acute Assessment and Plan: Provoked 2/2 immobilization. DVT to left lower extremity seen on Doppler CTA negative for PE Patient is unable to be anticoagulated due to aneurysm history No SCD to LLE General surgery was consulted in the ER for possible IVC placement (2) UTI (urinary tract infection): Code(s): N39.0 - Urinary tract infection, site not specified Status: Acute Assessment and Plan: U/A concerning for UTI will see if patient is having symptoms ....may start rocephin... normal WBC afebrile (3) Chronic pain: Qualifiers: Chronic pain type: chronic pain syndrome Qualified Code(s): G89.4 - Chronic pain syndrome Code(s): G89.29 - Other chronic pain Status: Acute Assessment and Plan: Chronic pain with pain pump ...pain pump.... topical agents frequent turning and repositioning tylenol (4) Brain aneurysm: Code(s): I67.1 - Cerebral aneurysm, nonruptured Status: Acute Assessment and Plan: remote history with left sided hemiparesis fall precautions baseline mobility...... Plan Feeding: heart healthy diet Analgesia: tylenol and chronic pain pump Thromboembolic prophylaxis: SCD to RLE, IVC filter consult pending Ulcer prophylaxis: protonix daily Glycemic control: na Bowel regimen: miralax and suppository prn Lines: PIV Antibiotics: .......... Disposition: Return to...... Subjective Date/time seen: 04/01/24 08:50 Interval history: A 68-year-old female with past medical history significant for brain aneurysm, left-sided hemiparesis, wheelchair-bound, chronic pain on chronic pain pump, COPD/emphysema, tobacco dependence, DJD, GERD, hypertension, osteoporosis. patient presents to the emergency room due to generalized weakness, overall feeling unwell, patient has chronic pain has had worse back pain and neuropathic pain, poor per orally intake, left lower extremity pain and calves swelling. 04/01: Review of Systems Review of Systems: All systems reviewed & are unremarkable except as noted in HPI and below Exam Narrative: General: well appearing, appears stated age. HEENT: normocephalic, atraumatic. Mucous membranes moist. EOMI, PERRLA, bilateral sclera anicteric, no conjunctival injection. Neck supple without JVD, lymphadenopathy, or bruit. Respiratory: clear to ascultation bilaterally. No rales/rhonic/wheezes. Cardiovascular: Regular rate and rhythm, normal S1-S2 upon ascultation. No murmurs, rubs, or clicks. PMI is nondisplaced, capillary refill less than 3 second. Abdomen: Soft, round, no pulsatile masses, nondistended and nontender. No rebound, no guarding. No CVA tenderness, no hepatosplenomegaly. Bowel sounds present to all four quadrants. No high pitch or tinkling sounds, resonant to percussion. Extremities: No cyanosis, clubbing, or edema present. Pulses are palpable 2/2. Active ROM to all four extremities. Neuro: Alert and orientated x 4. PERRLA. Cranial nerves 2-12 intact without focal deficit. Skin: Warm, dry, and intact, without rash, erythema, or lesion. Lines: Incisions: Psych: pleasant, cooperative, normal speech, normal affect, no hallucinations, no dysarthia Objective Data Vital Signs Vital Signs: Vital Signs - 24 hr 03/31/24 17:31 03/31/24 19:38 03/31/24 23:09 Temperature 97.6 F Pulse Rate 72 66 68 Respiratory Rate 16 17 18 Blood Pressure 109/62 102/44 L 99/43 L Pulse Oximetry 100 98 98 Oxygen Delivery Fraction of Inspired Oxygen 03/31/24 23:40 04/01/24 05:58 04/01/24 08:02 Temperature 97.6 F 98.3 F Pulse Rate 71 72 Respiratory Rate 17 16 Blood Pre
[2024-04-01] MEDS: NICOTINE (*PBKC) 21 MG PATCH 1 PATCH TRANSDERM ×2 (09:40→09:42)
[2024-04-01] MEDS: CYANOCOBALAMIN 500 MCG TABLET 1500 MCG PO (09:41)
[2024-04-01] MEDS: ASPIRIN 81 MG CHEWABLE TABLET PO (09:41)
[2024-04-01] MEDS: MULTIVITS W-FE,MIN CHEWABLE TABLET 1 TABLET PO (09:41)
[2024-04-01] MEDS: levETIRAcetam 500 MG TABLET 1500 MG PO (09:41)
[2024-04-01] MEDS: MIDODRINE HCL 2.5 MG TABLET PO ×2 (09:41→12:28)
[2024-04-01] MEDS: CHOLECALCIFEROL 1,000 UNITS TABLET 1000 UNITS PO (09:41)
[2024-04-01] MEDS: FOLIC ACID 1 MG TABLET PO (09:41)
[2024-04-01] MEDS: ESCITALOPRAM OXALATE 10 MG TABLET PO (09:41)
--- NOTE | 2024-04-01 15:20 | PM.CNGS ---
Assessment and Plan Assessment and plan (1) Acute deep vein thrombosis of tibial vein: Qualifiers: Laterality: left Qualified Code(s): I82.442 - Acute embolism and thrombosis of left tibial vein Code(s): I82.449 - Acute embolism and thrombosis of unspecified tibial vein Status: Acute Assessment and Plan: I discussed my evaluation and recommendations with hospitalist, Caty Lo APRN. patient has isolated left calf vein DVT. I was asked to see her for possible placement of a vena cava filter. Isolated calf vein DVTs carry a low risk of pulmonary embolism in the range of 0-6%. Risk of complication from filter placement is 4%. Risk of failure, development of pulmonary embolism, with vena cava filter is 4%. For this reason I rarely recommend filters for isolated calf vein DVT. As in the HPI, the patient was on anticoagulation within weeks of her intracranial hemorrhage and aneurysm clipping in early 2006. She did not have any recurrent intracranial bleeding. Warfarin was the only anticoagulant available at that time and, as is well known, can be difficult to control the therapeutic dose. Patient had a couple of episodes where she came in to the hospital with over anticoagulation and bleeding. For this reason, the warfarin was stopped. I would recommend trying 1 of the DOACs for anticoagulation. This has the benefit of a controlled level of anticoagulation without blood testing. Additionally, anticoagulation has the benefit of preventing propagation of the DVT as well as hopefully prevent eating additional DVTs as the patient does have a very sedentary life. Patient is very interested in being discharged and I discuss this with Charito as well. Thank you for asking me to see this patient in consultation. (2) Hemiparesis affecting left side as late effect of cerebrovascular accident: Code(s): I69.354 - Hemiplegia and hemiparesis following cerebral infarction affecting left non-dominant side Status: Chronic (3) Brain aneurysm: Code(s): I67.1 - Cerebral aneurysm, nonruptured Status: Chronic Assessment and Plan: Clipped with frontal craniotomy November 2006 (4) Narcotic dependence: Code(s): F11.20 - Opioid dependence, uncomplicated Status: Chronic History of Present Illness Consult details Consult date: 04/01/24 Reason for consult: other (DVT) Requesting physician: Sergio Stafford MD Narrative: patient is a 68-year-old woman who has chronic neuropathic pain and a morphine pain pump. She came to the emergency room with left leg swelling and was found to have an acute, nonocclusive, left posterior tibial DVT. Patient has a history of intracranial hemorrhage and an intracranial aneurysm being clipped in 2006. Associated with that intracranial hemorrhage she developed left hemiparesis and has been confined to a wheelchair. I was asked to see the patient regarding the need for inferior vena cava filter. Patient tells me that she is having terrible pain while here in the hospital. She has pain chronically but it is particularly bad with her hospital bed. She very much wants to be discharged. I did review her old records extensively. It appears that in November of 2006 she had an intracranial hemorrhage and then had a frontal craniotomy with clipping of the intracranial aneurysm. Not long after the aneurysm was clipped, she was placed back on warfarin as she had, at that time, a left leg DVT. She was on the warfarin at least a couple of years but had a couple of episodes where she came in to the hospital due to over anticoagulation typically associated with bleeding. The warfarin was then stopped due to this inability to control the therapeutic affects adequately. To the best of my knowledge, she has not been on anticoagulation since then. Review of Systems Review of Systems: All systems reviewed & are unremarkable except as noted in HPI and below ( HPI)
[2024-04-01] MEDS: ACETAMINOPHEN 500 MG TABLET PO (16:03)
[2024-04-01 16:36] VITALS: BP 103/42; PULSE 72; RESP 18; TEMP 36.3; O2SAT 93
--- NOTE | 2024-04-02 18:04 | PM.DS ---
DS: Admitting Diagnosis Discharge Date 04/01/24 Admitting Diagnosis weakness, lower leg swelling DS: Discharge Diagnosis Discharge Diagnosis Plan (1) UTI (urinary tract infection): ?Code(s): N39.0 - Urinary tract infection, site not specified ?Status:?Acute ?Assessment and Plan: ?admit to regular medical floor ?started on antibiotic ?cultures in progress (2) Acute deep vein thrombosis of tibial vein: ?Qualifiers: ?Laterality:?left? Qualified Code(s):?I82.442 - Acute embolism and thrombosis of left tibial vein ?Code(s): I82.449 - Acute embolism and thrombosis of unspecified tibial vein ?Status:?Acute ?Assessment and Plan: ?patient not a candidate for anticoagulation due to history of aneurysm ?general surgery consult for IVC filter (3) Chronic pain: ?Qualifiers: ?Chronic pain type:?chronic pain syndrome? Qualified Code(s):?G89.4 - Chronic pain syndrome ?Code(s): G89.29 - Other chronic pain ?Status:?Acute ?Assessment and Plan: ?pain pump in place (4) Brain aneurysm: ?Code(s): I67.1 - Cerebral aneurysm, nonruptured ?Status:?Acute ?Assessment and Plan: ?remote history (5) Obstructive sleep apnea syndrome: ?Code(s): G47.33 - Obstructive sleep apnea (adult) (pediatric) ?Status:?Acute ?Assessment and Plan: ?CPAP at nighttime (6) Hemiparesis affecting left side as late effect of cerebrovascular accident: ?Code(s): I69.354 - Hemiplegia and hemiparesis following cerebral infarction affecting left non-dominant side ?Status:?Acute ?Assessment and Plan: ?fall precautions (7) Emphysema lung: ?Qualifiers: ?Emphysema type:?unspecified? Qualified Code(s):?J43.9 - Emphysema, unspecified ?Code(s): J43.9 - Emphysema, unspecified ?Status:?Acute ?Assessment and Plan: ?continue nebulizers ?not actively wheezing DS: Summary Hospital Course Reason for hospitalization: UTI, DVT Hospital Course: A 68-year-old female with past medical history significant for brain aneurysm, left-sided hemiparesis, wheelchair-bound, chronic pain on chronic pain pump, COPD/emphysema, tobacco dependence, DJD, GERD, hypertension, osteoporosis. patient presents to the emergency room due to generalized weakness, overall feeling unwell, patient has chronic pain has had worse back pain and neuropathic pain, poor per orally intake, left lower extremity pain and calves swelling. here in emergency room patient was found to have acute DVT of left lower extremity and urinalysis was significant for numerous WBCs present 50-100 per high-power field.? Patient has been admitted for further evaluation management and treatment. Time Spent with Patient Time attestation: Total time spent providing and/or coordinating discharge services:54 Exam Narrative: General: appears chronically ill, appears stated age. HEENT: normocephalic, atraumatic. Mucous membranes moist. EOMI, PERRLA, bilateral sclera anicteric, no conjunctival injection. Neck supple without JVD, lymphadenopathy, or bruit. Respiratory: clear to auscultation but diminished bilaterally. No rales/rhonic/wheezes. Cardiovascular: Regular rate and rhythm, normal S1-S2 upon auscultation. No murmurs, rubs, or clicks. PMI is nondisplaced, capillary refill less than 3 second. Abdomen: Soft, round, no pulsatile masses, nondistended and nontender. No rebound, no guarding. No CVA tenderness, no hepatosplenomegaly.? Bowel sounds present to all four quadrants. No high pitch or tinkling sounds, resonant to percussion. Extremities: No cyanosis, clubbing. Left lower extremity edema, erythema, and warmth present. +2-3 edema. Pulses are palpable 2/2.? Impaired range of motion to left side. Neuro: Alert and orientated x 4. PERRLA. Cranial nerves 2-12 intact without focal deficit. Skin: Warm, dry, and intact, without rash, erythema, or lesion. Lines: Incisions: Psych: pleasant, cooperative, normal speech, nor
== END 2024-04-01 18:05 | disposition home or self-care (01) ==
LOC: ANHED 17:29 → ANH2MED 22:44
PROVIDERS: Admitting Provider Internal Medicine; Emergency Provider Student in an Organized Health Care Education/Training Program; PCP Family Medicine; Visit Provider Internal Medicine
DX: I82.442 Acute embolism and thrombosis of left tibial vein (principal); N39.0 Urinary tract infection, site not specified; I69.354 Hemiplegia and hemiparesis following cerebral infarction affecting left non-dominant side; D64.9 Anemia, unspecified; G89.29 Other chronic pain; M54.9 Dorsalgia, unspecified; G62.9 Polyneuropathy, unspecified; I10 Essential (primary) hypertension; J43.9 Emphysema, unspecified; J44.9 Chronic obstructive pulmonary disease, unspecified; G40.909 Epilepsy, unspecified, not intractable, without status epilepticus; F41.9 Anxiety disorder, unspecified; K59.09 Other constipation; K21.9 Gastro-esophageal reflux disease without esophagitis; M81.0 Age-related osteoporosis without current pathological fracture; E55.9 Vitamin D deficiency, unspecified; G47.33 Obstructive sleep apnea (adult) (pediatric); F11.20 Opioid dependence, uncomplicated; Z79.82 Long term (current) use of aspirin; F17.210 Nicotine dependence, cigarettes, uncomplicated; Z99.3 Dependence on wheelchair
CPT/HCPCS: 36415; 70450; 71275; 80048; 81001; 83880; 85025; 85610; 85730; 87077; 87086; 87186; 93971; 99285; A9270; G0378; Q9967

== ENCOUNTER 2024-05-26 14:45 | Outpatient (CLI) | payer MEDICARE, MEDICAID, SELFPAY ==
[2024-05-26 15:07] LABS: Basophils Percent Auto 0.5 % (0.2-1.2); Eosinophils Absolute Auto 0.2 K/mm3 (0-0.3); Hematocrit 32.9 % (37.0-47.0); Hemoglobin 9.4 g/dL (12.0-15.0); Immature Granulocyte Absolute 0.01 K/mm3 (0.00-0.031); Immature Granulocyte Percent A 0.2 % (0-0.5); Lymphocytes Percent Auto 21.8 % (18.3-44.2); Mean Corpuscular HGB Conc 28.6 g/dl (32-36); Mean Corpuscular Volume 73.6 fl (80-100); Mean Platelet Volume 9.4 fl (7.4-10.4); Monocytes Absolute Auto 0.3 K/mm3 (0.1-0.6); Monocytes Percent Auto 5.3 % (2.6-8.5); Neutrophils Absolute Auto 4.5 K/mm3 (1.3-6.7); Neutrophils Percent Auto 69.2 % (45.5-73.1); Platelet Count Result 243 k/mm3 (150-375); Red Blood Count 4.47 M/mm3 (4.2-5.4); Red Cell Distribution Width 18.8 % (11.5-14.5); White Blood Count 6.4 K/mm3 (4.5-10.0)
[2024-05-26 15:15] LABS: Anisocytosis 1+; Microcytosis 1+ (NORMAL); Ovalocytes 1+; Platelet Estimate Adequate (Adequate); Schistocytes None Seen
[2024-05-26 15:16] LABS: Poikilocytosis 1+
[2024-05-26 16:53] LABS: Iron 22 ug/dL (37-170)
[2024-05-26 16:57] LABS: Alanine Aminotransferase 22 U/L (6-35); Albumin Level 3.8 g/dL (3.5-5.1); Alkaline Phosphatase 93 U/L (38-126); Anion Gap 5 mmol/L (4-12); Aspartate Amino Transferase 20 U/L (14-36); Bilirubin,Total 0.4 mg/dL (0.2-1.3); Blood Urea Nitrogen 18 mg/dL (7-17); Calcium 8.9 mg/dL (8.4-10.2); Carbon Dioxide 33 mmol/L (22-30); Chloride 101 mmol/L (98-107); Estimated Glomerular Filt Rate > 60; Glucose 96 mg/dL (65-110); Potassium 3.5 mmol/L (3.4-5.0); Sodium 139 mmol/L (137-145)
[2024-05-26 17:03] LABS: Percent Iron Saturation 5 % (20-50)
[2024-05-26 17:30] LABS: Ferritin 5.06 ng/mL (11.1-264)
[2024-05-26 18:06] LABS: Folic Acid > 20.0 ng/mL (2.76->20)
== END 2024-05-26 14:46 | disposition home or self-care (01) ==
LOC: ANHLAB 14:48
PROVIDERS: PCP Family Medicine; Visit Provider Internal Medicine Hematology & Oncology
DX: D64.9 Anemia, unspecified (principal)
CPT/HCPCS: 36415; 80053; 82607; 82728; 82746; 83540; 83550; 85025

== ENCOUNTER 2024-06-09 13:17 | Outpatient (CLI) | payer MEDICARE, MEDICAID, SELFPAY ==
--- NOTE | ~2024-06-09 | US_ITS ---
EXAMINATION:US venous doppler LE LT INDICATION:Left leg pain and swelling. Previous DVT. Patient on blood thinners. TECHNIQUE: Multiple grayscale, color flow and Doppler images of the left lower extremity deep venous systems were obtained and reviewed. COMPARISON:Ultrasound dated 03/31/2024 FINDINGS: The common femoral, superficial femoral and popliteal veins demonstrate normal respiratory variation, augmentation and compressibility. Color flow is also seen within the posterior tibial, pe roneal, greater saphenous and profunda veins. IMPRESSION: 1: No lower extremity deep venous thrombosis. Reviewed, dictated and finalized at location B.
== END 2024-06-09 13:18 | disposition home or self-care (01) ==
LOC: ANHIMG 13:17
PROVIDERS: PCP Family Medicine; Visit Provider Internal Medicine Hematology & Oncology
DX: M79.89 Other specified soft tissue disorders (principal)
CPT/HCPCS: 93971

== ENCOUNTER 2024-07-23 15:26 | Outpatient (CLI) | payer MEDICARE, MEDICAID, SELFPAY ==
[2024-07-23 16:06] LABS: Basophils Percent Auto 0.7 % (0.2-1.2); Eosinophils Absolute Auto 0.3 K/mm3 (0-0.3); Eosinophils Percent Auto 5.8 % (0-4.4); Hemoglobin 10.5 g/dL (12.0-15.0); Immature Granulocyte Absolute 0.01 K/mm3 (0.00-0.031); Immature Granulocyte Percent A 0.2 % (0-0.5); Lymphocytes Absolute Auto 1.32 K/mm3 (0.9-3.2); Lymphocytes Percent Auto 29.4 % (18.3-44.2); Mean Corpuscular HGB Conc 28.4 g/dl (32-36); Mean Corpuscular Hemoglobin 23.3 pg (26-34); Mean Platelet Volume 10.2 fl (7.4-10.4); Monocytes Absolute Auto 0.4 K/mm3 (0.1-0.6); Monocytes Percent Auto 7.8 % (2.6-8.5); Neutrophils Absolute Auto 2.5 K/mm3 (1.3-6.7); Neutrophils Percent Auto 56.1 % (45.5-73.1); Nucleated Red Blood Cells Perc 0.4 % (0.0-0.2); Platelet Count Result 224 k/mm3 (150-375); Red Blood Count 4.51 M/mm3 (4.2-5.4); Red Cell Distribution Width 26.6 % (11.5-14.5); White Blood Count 4.5 K/mm3 (4.5-10.0)
[2024-07-23 16:27] LABS: Iron 51 ug/dL (37-170)
[2024-07-23 16:37] LABS: Percent Iron Saturation 13 % (20-50)
[2024-07-23 16:48] LABS: Immunochemical Fecal Occult Bl Positive (N)
[2024-07-23 16:49] LABS: IFOB Positive Control Positive
[2024-07-23 17:02] LABS: Platelet Estimate Adequate (Adequate)
[2024-07-23 17:03] LABS: Hypochromasia 1+; Schistocytes None Seen
[2024-07-23 17:04] LABS: Anisocytosis 3+
== END 2024-07-23 15:27 | disposition home or self-care (01) ==
PROVIDERS: PCP Family Medicine; Visit Provider Internal Medicine Hematology & Oncology
DX: D64.9 Anemia, unspecified (principal)
CPT/HCPCS: 36415; 82274; 82728; 83540; 83550; 85025

== ENCOUNTER 2024-11-24 14:26 | Outpatient (CLI) | payer MEDICARE, MEDICAID, SELFPAY ==
[2024-11-24 14:44] LABS: Basophils Percent Auto 0.6 % (0.2-1.2); Eosinophils Absolute Auto 0.3 K/mm3 (0-0.3); Eosinophils Percent Auto 3.7 % (0-4.4); Hematocrit 41.7 % (37.0-47.0); Hemoglobin 13.8 g/dL (12.0-15.0); Immature Granulocyte Absolute 0.02 K/mm3 (0.00-0.031); Immature Granulocyte Percent A 0.3 % (0-0.5); Lymphocytes Absolute Auto 1.46 K/mm3 (0.9-3.2); Lymphocytes Percent Auto 20.7 % (18.3-44.2); Mean Corpuscular HGB Conc 33.1 g/dl (32-36); Mean Corpuscular Hemoglobin 31.4 pg (26-34); Mean Platelet Volume 9.4 fl (7.4-10.4); Monocytes Absolute Auto 0.4 K/mm3 (0.1-0.6); Monocytes Percent Auto 6.2 % (2.6-8.5); Neutrophils Absolute Auto 4.9 K/mm3 (1.3-6.7); Neutrophils Percent Auto 68.5 % (45.5-73.1); Platelet Count Result 231 k/mm3 (150-375); Red Blood Count 4.39 M/mm3 (4.2-5.4); Red Cell Distribution Width 13.4 % (11.5-14.5); White Blood Count 7.1 K/mm3 (4.5-10.0)
[2024-11-24 16:47] LABS: Iron 156 ug/dL (37-170)
[2024-11-24 16:51] LABS: Alanine Aminotransferase 18 U/L (6-35); Alkaline Phosphatase 96 U/L (38-126); Anion Gap 6 mmol/L (4-12); Aspartate Amino Transferase 32 U/L (14-36); Bilirubin,Total 0.8 mg/dL (0.2-1.3); Blood Urea Nitrogen 21 mg/dL (7-17); Carbon Dioxide 31 mmol/L (22-30); Chloride 100 mmol/L (98-107); Estimated Glomerular Filt Rate > 60; Glucose 89 mg/dL (65-110); Potassium 4.3 mmol/L (3.4-5.0); Sodium 137 mmol/L (137-145)
[2024-11-24 16:56] LABS: Percent Iron Saturation 50 % (20-50)
[2024-11-24 18:02] LABS: Folic Acid > 20.0 ng/mL (2.76->20)
--- OUTSIDE RECORDS SUMMARY | 2024-11-26 02:13 | XMS_ITS | Encounter Summary ---
Author Organization [facility] Address [address] [place] [address] Care Team Providers Care Division Head Name Role Phone Karl Cates MD Primary Care Provider Reason for Visit * Reason Onset Date Comments Appointment 04/26/2024 Encounter Details Date Type Department Care Team (Late st Contact Info) Description 04/26/2024 Telephone [facility] - Neurology [address] [place] [address], [facility] [place] [address] Cynthia Schmitz MD [address] [place] [address] [place] [phone] Appointment Social History Tobacco Use Types Packs/Day Years Used Date Smoking Tobacco: Every Day Cigarettes Smokeless Tobacco: Never Alcohol Use Standard Drinks/Week Comments Never 0 (1 standard drink = 0.6 oz pur e alcohol) AUDIT-C Answer Date Recorded Frequency of Alcohol Consumption Never 09/21/2019 Average Number of Drinks Not on file 019 Frequency of Binge Drinking Not on file 09/03 Sex and Gender Information Value Date Recorded Sex Assigned at Female 06/02/2023 4:57 PM CDT Gender Identity Female 06/02/2023 4:57 PM CDT Sexual Orientation Not on file documented as of this encounter Miscellaneous Notes * Telephone Encounter - Jaquelin Gregorio - 04/26/2024 11:16 AM CDT Current Provider: Dr Schmitz Reason for Call: pt calling and needs to reschedule botox apt for tomorrow to another day. Any Friday in May would work she really needs to get in shaun, she is still unable to get out of bed and isin a lot of pain with arm and elbow being really stiff. Please call back to reschedule apt please. Patient Call Back Number: [phone] documented in this encounter Plan of Treatment Upcoming Encounters Date Type Department Care Team (Late st Contact Info) Description 12/14/2024 2:00 PM [facility] [employer] Procedure visit [facility] - Neurology [address] [place] [address], [place] [address] Cynthia Schmitz MD [address] [place] [address] [address] [place] [address] 03/22/2025 1:00 PM CDT Procedure visit [facility] - Neurology [address] [place] [phone] Cynthia Schmitz MD [address] [place] [address] [address] [place] [address] documented as of this encounter Visit Diagnoses Not on filedocumented in this encounter Care Teams Division Head Relationship Specialty Start Date End Date Karl Cates MD [address] [place] [id number] PCP - General 09/08/18 documented as of this encounter
--- OUTSIDE RECORDS SUMMARY | 2024-11-26 02:13 | XMS_ITS | Clinical Summary ---
Author Organization [facility] [address] Address 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 Name Role Phone Karl Catse MD Primary Care Provider Darren Iverson NP Unavailable [phone] Diego Lamb MD Unavailable Diego Lamb MD Unavailable Allergies Active Allergy Reactions Criticality Noted Date Comments Erythromycin Diarrhea,Other (See comments) Low 01/23/2016 STOMACH PAINS Erythromycin Base Diarrhea Medium 10/01/2022 Medications MULTIVITAMIN ORALIndications: supplement Take 1 tablet/capsule by mouth every morning Active atorvastatin (LIPITOR) 20 mg tabletIndication s:hyperlipidemia Take 1 tablet (20 mg total) by mouth nightly 9 Active aspirin 81 mg chewable tabletIndication s:cad Take 1 tablet (81 mg total) by mouth every morning 6 Active cholecalciferol (VITAMIN D-3) 25 mcg (1,000 unit) tabletIndication s:supplement Take 1 tablet (1,000 Units total) by mouth every morning 6 Active escitalopram (LEXAPRO) 10 mg tabletIndication s:major depressive disorder Take 2 tablets (20 mg total) by mouth nightly 2 Active folic acid (FOLVITE) 1 mg tabletIndication s:supplement Take 1 tablet (1,000 mcg total) by mouth every morning 2 Active levETIRAcetam (KEPPRA) 500 mg tabletIndication s:seizures Take by mouth 2 (two) times a day 2 tablets in the a.m. & 3 tablets in the p.m. 2 Active midodrine (PROAMATINE) 2.5 mg tabletIndication s:Symptomatic Orthostatic Hypotension Take 1 tablet (2.5 mg total) by mouth 2 (two) times a day 2 Active omeprazole (PriLOSEC) 40 mg capsuleIndicatio ns:Mucositis Prophylaxis Take 1 capsule (40 mg total) by mouth every morning 2 Active tiZANidine (ZANAFLEX) 4 mg tabletIndication s:Muscle Spasm Take 1 tablet (4 mg total) by mouth nightly as needed Active umeclidinium-alberto anteroL (Anoro Ellipta) 62.5-25 mcg/actuation blister with deviceIndication s:Bronchospasm Prevention with COPD Inhale 1 puff nightly [address] (CYMBALTA) 30 mg capsuleIndicatio ns:major depressive disorder Take 2 capsules (60 mg total) by mouth every morning 2 Active naloxone (NARCAN) 4 mg/actuation spray,non-aeroso lIndications:Opi oid Toxicity Administer 1 spray into affected nostril(s) as needed for opioid reversal Call 911. Administer a single spray in one nostril. Repeat every 3 minutes as needed if no or minimal response. Active albuterol HFA (PROVENTIL HFA,VENTOLIN HFA,PROAIR HFA) 90 mcg/actuation inhalerIndicatio ns:Acute Asthma Attack Inhale 2 puffs every 6 (six) hours as needed for wheezing Active ketoconazole (NIZORAL) 2 % creamIndications :fungal infection of skin Apply topically as needed 3 Active docusate sodium (COLACE) 100 mg capsuleIndicatio ns:constipation Take 1 capsule (100 mg total) by mouth 2 (two) times a day Active CYANOCOBALAMIN, VITAMIN B-12, ORALIndications: supplement Take 1,500 mcg by mouth every morning Active ondansetron (ZOFRAN) 4 mg tabletIndication s:nausea/vomitin g Take 1 tablet (4 mg total) by mouth every 12 (twelve) hours as needed for nausea or vomiting 30 tablet 1 3 Active calcium carbonate (CALCIUM 500 ORAL)Indications :supplement Take 500 mg by mouth daily Two 500mg gummies once a day Active clobetasoL (TEMOVATE) 0.05 % external solutionIndicati ons:Dermatosis of the Scalp APPLY 2-3 DROPS TO RASH AREAS ON SCALP/EARS TWICE DAILY FOR 4 WEEKS. DO NOT APPLY TO FACE. MUST TAKE 2 WEEK BREAK BEFORE RESTARTING 4 Active imiquimod (ALDARA) 5 % cream 2 x a day to face 4 Active pimecrolimus (ELIDEL) 1 % creamIndications :Atopic Dermatitis APPLY TO THE AFFECTED AREA ON FACE TWICE DAILY 4 Active vit C,T-Sl-mkyrw-lut ein-zeaxan 250-90-40-1 mg capsuleIndicatio ns:eye health Take 2 capsules by mouth 2 (two) times a day Active adapalene (DIFFERIN) 0.1 % creamIndications :Acne Vulgaris Apply topically nightly Active UNABLE TO FINDIndications: pain 495.9 mcg by intrathecal route daily. Pain pump morphine 4000 micrograms/mill iliter, clonidine 400 micrograms/mill iliter, bupivacaine 81539 micrograms/mill iliter. The pump is set for continuous simple flow of 495.9.1 mcg in 24 hours, flex bolus of morphine at 8:30 a.m 40 mcg, 1:00 p.m. flex bolus of 15 mcg. and 11:59 p.m. bolus of 25 mcg Indications: pain Active apixaban (ELIQUIS) 5 mg tabletIndication s:Venous Thrombosis Take 1 tablet (5 mg total) by mouth 2 (two) times a day 4 Active ibandronate (BONIVA) 150 mg tabletIndication s:Post-Menopausa l Osteoporosis Prevention Take 1 tablet (150 mg total) by mouth every 30 (thirty) days Active morphine sulfate (morphine, bulk,) 100 % powder 0 4 Active busPIRone (BUSPAR) 10 mg tabletIndication s:Generalized Anxiety Disorder Take 0.5 tablets (5 mg total) by mouth 2 (two) times a day Active acetaminophen (TYLENOL) 500 mg tabletIndication s:Pain Take 2 tablets (1,000 mg total) by mouth every 6 (six) hours as needed for pain Active Active Problems Problem Noted Date Diagnosed Date Sacroiliitis 03/18/2024 Myofascial pain 02/26/2024 Spinal stenosis of lumbar re gion without neurogenic claudication 01/07/2024 Lumbar radiculopathy 12/26/2023 Presence of intrathecal pump 02/21/2023 Left hemiplegia (CMS/HCC) 10/01/2022 Chronic bilateral low back pain without sciatica 10/01/2022 Chronic pain syndrome 10/01/2022 Neoplasm of uncertain behavior of skin Solar lentiginosis 01/14/2020 Seborrheic keratosis 01/14/2020 Actinic keratosis 01/14/2020 Overview (07/17/2023): Last Assessment & Plan: - Face x4 - Counseled on diagnosis, etiology, natural disease course- including pre-malignant nature of lesions and association with sun exposure - Cryotherapy performed today (see procedure note) - Wound care reviewed, post-cryo handout given Vision changes 12/31/2018 Postoperative spinal headache 12/31/2018 Postoperative CSF leak 12/31/2018 Cerebral infarction, unspecified 12/31/2018 Visual field defect 09/09/2018 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 09/09/2018 Encephalomalacia on imaging study 09/09/2018 Chronic daily headache 05/06/2018 Cerebellar stroke syndrome 07/12/2016 Personal history of transien t ischemic attack (TIA), and cerebral infarction without residual deficits 07/12/2016 Cerebral aneurysm, nonruptured 07/12/2016 PVD (peripheral vascular disease) 07/12/2016 Other seizures 07/12/2016 Osteoporosis 03/19/2014 Overview (02/05/2017): OSTEOPOROSIS NOS Depression 01/25/2014 Closed fracture of part of neck of femur (CMS/HC C) 01/25/2014 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 Encounters Date Type Department Care Team Description 2024 Telephone [facility] [id number] [place] [phone] Diego Lamb MD 11/19/2024 12:30 PM [employer] Home Care Visit [address] [place] [address] Sruthi Lua PTA PT HOME VISIT 11/17/2024 12:50 PM [employer] - 11/17/2024 11:59 PM [employer] Hospital Encounter [facility] [address] [place] [address] Darren Iverson NP Lumbar radiculopathy (Primary Dx); Chronic bilateral low back pain without sciatica; Spinal stenosis of lumbar region without neurogenic claudication; Sacroiliitis (HCC); Presence of intrathecal pump; Myofascial pain syndrome of lumbar spine Discharge Disposition: Discharge to home or self care 11/16/2024 Telephone [facility] [address] [place] [phone] Diego Lamb MD 10/29/2024 12:45 PM [employer] Home Care Visit [address] [place] [address] Sruthi Lua PTA PT HOME VISIT 10/26/2024 Home Care Visit [address] [place] [address] Mai Busch, PT CARE CONFERENCE 10/21/2024 Home Care Visit [address] [place] [address] Binta Hernandez, RN NURSE MED RECON FOR THERAPY 10/20/2024 12:00 PM [employer] Home Care Visit [address] [place] [address] Mai Busch, PT PT OASIS START OF CARE 10/20/2024 Plan of Care Documentation [address] [place] [address] 10/18/2024 Travel 10/18/2024 Telephone [facility] [address] [place] [phone] Nancy Chacon, RN 10/15/[address] [phone] Nancy Chacon, RN 10/15/2024 Telephone [facility] [address] [place] [phone] Diego Lamb MD 10/06/2024 Telephone [facility] [address] [place] [phone] Gene Newton 10/05/2024 Orders Only [facility] [address] [place] [phone] Darren Iverson NP Spinal stenosis of lumbar region without neurogenic claudication (Primary Dx); Lumbar radiculopathy 09/06/2024 Telephone [facility] [address] [place] [phone] Diego Lamb MD from Last 3 Months Surgical History Surgery Date Site/Laterality Comments HYSTERECTOMY BRAIN SURGERY INTRATHECAL PUMP IMPLANTATION 12/13/2022 battery replacement and pocket revision; original pump done 2016; FRACTURE SURGERY Left megan and screws Medical History Medical History Date Comments Hx Other Medical grand mal seizu res Pneumonia pneumonia Hx Other Medical Craniotomy Hx Other Medical Bleeding aneury sm Cerebrovascular accident (CVA) ([facility]) Cerebrovascular accident Osteoporosis Osteoporosis Sleep apnea Nerve pain chronic Left hemiplegia (CMS/HCC) (HCC) COPD (chronic obstructive pu lmonary disease) (HCC) GERD (gastroesophageal reflux disease) Seizures ([facility]) last seizure celestine onesimo 10 yrs ago Anxiety and depression Arthritis Brain aneurysm LILI (obstructive sleep apnea) Family History Medical History Relation Name Comments Other Other 1 Family history of Aneurysm; Diabetes type II Other 2 Family hist ory of Diabetes -Type II; Hypertension Other 3 Family history of Hypertension; Relation Name Status Comments Father Mother Other 1 Other 2 Other 3 Social History Tobacco Use Types Packs/Day Years Used Date Smoking Tobacco: Every Day Cigarettes 0.8 53 Tobacco Cessation:Ready to Q uit: Not Asked; Counseling Given: Not Answered Comments:3/4 a pack daily OASIS D0700: Social Isolation Answer Da te Recorded Frequency of experiencing loneliness or isolatio n Sometimes 10/20/2024 OASIS A1250: Transportation Answer Date Recorded Lack of Transportation (Medical) No 10/20/2024 Lack of Transportation (Non-Medical) No 10/20/2024 Patient Unable or Declines to Respond No 10/20/2024 OASIS B1300: Health Literacy Answer Berto e Recorded Frequency of needing help to read materials from doctor or pharmacy Often 10/20/2024 AUDIT-C Answer Date Recorded Q1: How often do you have a drink containing alc ohol? Never 08/20/2023 Average Number of Drinks Not on file 023 Frequency of Binge Drinking Not on file 08/03 Personal Safety Answer Date Recorded Have you ever been in or are you currently in a harmful physical or emotional relationship or is someone making you feel afraid or unsafe? Denies 08/20/2023 Comments No Sex and Gender Information Value Date Recorded Sex Assigned at Not on file Legal Sex Female 1:07 AM [employer] Gender Identity Not on file Sexual Orientation Not on file Obstetrics History Last Filed Vital Signs Vital Sign Reading Time Taken Comments Blood Pressure 120/64 11/19/2024 1:19 PM [employer] Pulse 71 11/19/2024 1:19 PM [employer] Temperature 36.9 ??C (98.5 ??F) 10/29/2024 1:02 PM CS T Respiratory Rate 18 11/19/2024 1:19 PM [employer] Oxygen Saturation 97% 11/19/2024 1:19 PM [employer] Inhaled Oxygen Concentration - - Weight 69.4 kg (153 lb) 08/20/2023 7:23 AM CDT Height 165.1 cm (5' 5 ) 08/20/2023 7:23 AM CDT Body Mass Index 25.46 08/20/2023 7:23 AM CDT Plan of Treatment Health Maintenance Due Date Last Done Comments Breast Cancer Screening-Mammogram 1956 Colon Cancer Screening-Colonoscopy 1955 Depression Screening 1955 Hepatitis C Screening 1955 Osteoporosis Screening-Bone Density Scan 1956 Hepatitis B Screening 1974 Lung Cancer Screening 2006 Zoster Vaccine (1 of 2) 2006 Pneumococcal vaccine 65+ (2 of 2 - PCV) 09/02/2018 09/02/2017 Well Visit 65+ 2021 Covid-19 Vaccine (5 - 2023-2 5 season) 2024 04/25/2022, 09/18/2021, 02/12/2021, Additional history exists Influenza Vaccine (#1) 2024 , 09/18/2021, 08/23/2020, Additional history exists Fall Risk Assessment 11/17/2025 11/17/2024 DTaP/Tdap/Td Vaccine (2 - Td or Tdap) 08/23/2030 08/23/2020 Medical Devices Implanted Type Area Die Sinker Apprentice Device Identifier Shelf Expiration Date Model / Serial / Lot [employer] Synchromed Ii .78in Jessie Filter Mesh Pouch Programmable 8637-20 - [id number] - [id number] Implanted:Qty: 1 on 12/13/2022 by Diego Lamb MD at [facility] N/A: Abdomen Med[employer] Inc 05/16/2024 8637-20 / [id number] / [employer] Tyrx 3.35x3in Large Envelope Absorbable Polyarylate Minocycline [id number] - [id number] Implanted:Qty: 1 on 12/13/2022 by Diego Lamb MD at [facility] N/A: Abdomen [employer] 08/21/2023 [id number] / / [id number] [employer] Ascenda 4fr .5mm 114cm 86cm 2 Piece Connector Pin Flexible Closed [id number] - [id number] Implanted:Qty: 1 on 08/20/2023 by Diego Lamb MD at [facility] Left: Flank [employer] 07/23/2025 [id number] / / [id number] [employer] Tyrx 3.35x3in Large Envelope Absorbable Polyarylate Minocycline [id number] - [id number] Implanted:Qty: 1 on 08/20/2023 by Diego Lamb MD at [facility] N/A: Abdomen [employer] 03/05/2024 [id number] / / [id number] Explanted Type Area Die Sinker Apprentice Device Identifier Shelf Expiration Date Model / Serial / Lot Unknown Pain Pump Explanted:Qty: 1 on 12/13/2022 by Diego Lamb MD at [facility] Other Description:Unknown Pain Pum p explanted [employer] Ascenda 2 Attached Collet Catheter Connector [place] [employer] [id number] - [id number] Implanted:Qty: 1 on 12/13/2022 by Diego Lamb MD at [facility] Explanted:Qty: 1 on 08/20/2023 by Diego Lamb MD at [facility] N/A: Abdomen [employer] 01/16/2023 [id number] / / [id number] Insurance [facility] AETNA MEDICARE AETNA MEDICARE T MEDICARE IDPA Care Teams Electrician Elevator Maintenance Relationship Specialty Start Date End Date Karl Cates MD PCP - General Family Practice 11/29/22 Darren Iverson NP Nurse Practitioner Nurse Practitioner 10/13/23 [place] [id number] [address] [facility] [address] [place] [address] Consulting Physician Pain Management 03/22/24 [place] [id number] [address] [facility] [address] [place] [address] Consulting Physician Pain Management 10/13/24
--- OUTSIDE RECORDS SUMMARY | 2024-11-26 02:13 | XMS_ITS | Clinical Summary ---
Author Organization [facility] Address [address] [place] [address] Care Team Providers Care Asset Accountant Name Role Phone aKrl Cates MD Primary Care Provider Source Comments [facility],non-owned Affiliates and Associated Physician Practices is amultiple site organization consisting of ambulatory clinics and hospital sitesin [place], [place], [place] and [place]. This disclosure is being madepursuant to the Care Everywhere program and may not contain all information available regarding this patient. Last updated 18.[facility] Allergies Active Allergy Reactions Criticality Noted Date Comments Erythromycin Diarrhea,Other Low 01/23/2016 STOMACH PAINS Phenobarbital Unknown 03/04/2023 Medications * Be aware that medications may not be up to date on this document. Alwaysverify current medications with the patient. Medication Sig Dispensed Refills Start Date End Date Status aspirin (ASPIRIN) 81 MG chew tablet Take 1 (one) tablet by mouth 07/12/2016 Active famotidine (PEPCID) 20 MG tablet TK 1 T PO D 0 02/28/2018 Active folic acid (FOLVITE) 1 MG tablet TK 1 T PO QD 0 04/09/2018 Active midodrine (PROAMATINE) 2.5 MG tablet Take 1 (one) tablet by mouth 3 times daily 04/30/2018 Active multivitamin daily tablet Take 1 (one) tablet by mouth daily with food Active DULoxetine (Cymbalta) 30 MG capsule Take 1 (one) capsule by mouth once daily Active Naloxone HCl (NARCAN NA) [place] 1 Each into the nose as needed Active atorvastatin (LIPITOR) 20 MG tablet TK 1 T PO QD HS 1 02/26/2019 Active lubiprostone (AMITIZA) 24 MCG capsule Take 1 (one) capsule by mouth 2 times daily with morning and evening meal Active Cyanocobalamin (VITAMIN B 12 PO) Active escitalopram (LEXAPRO) 10 MG tablet Take 1 (one) tablet by mouth once daily Active tiZANidine (ZANAFLEX) 4 MG tablet Take 1 (one) tablet by mouth every 8 hours as needed for Muscle Spasms Active ondansetron (ZOFRAN) 8 MG tablet TK 1 T PO Q 8 H FOR 2 DAYS PRN 0 08/31/2019 Active ANORO ELLIPTA 62.5-25 MCG/INH inhaler 1 (one) puff once daily 03/05/2021 Active albuterol HFA (Proventil; Ventolin; Proair) 108 (90 Base) MCG/ACT inhaler Inhale 2 (two) puffs by mouth every 6 hours as needed Active levETIRAcetam (Keppra) 500 MG tablet TAKE 3 TABLETS BY MOUTH TWICE DAILY 540 tablet 4 11/14/2023 Active omeprazole (PriLOSEC) 40 MG capsule Take 1 (one) capsule by mouth once daily 10/21/2023 Active busPIRone (Buspar) 5 MG tablet Take 1 (one) tablet by mouth 2 times daily with morning and evening meal Active apixaban (Eliquis) 5 MG tablet Active Active Problems Problem Noted Date Diagnosed Date Acute embolism and thrombosis of left tibial vei n 10/02/2024 Anemia, unspecified 10/02/2024 Sacroiliitis 03/18/2024 Lumbar radiculopathy 12/26/2023 Encounter for other preprocedural examination 09/16/2023 Hemiplegia and hemiparesis f ollowing cerebral infarction affecting left non-dominant side 09/16/2023 09/16/2023 Hyperglycemia, unspecified 09/16/202309/16 Orthostatic hypotension 09/16/2023 09/16/20 Other constipation 09/16/2023 09/16/2023 Solitary pulmonary nodule 09/16/20232022 Presence of intrathecal pump 02/21/202312/2022 Low back pain, unspecified 10/01/2022 Left hemiplegia 10/01/2022 Neoplasm of uncertain behavior of skin Actinic skin damage 03/06/2021 Assessment & Plan (03/06/2021 5:27 PM CDT): - Chronic - Extensive lesions associated with sun damage and increased risk of skin cancer - Reviewed concerning signs for development of skin cancer - Counseled on importance of daily sun protection, recommend OTC broad spectrum, SPF >30 - Advised monthly self skin exams Other seborrheic dermatitis 01/14/2020 Assessment & Plan (03/06/2021 5:28 PM CDT): - Stable, controlled - Continue Loprox shampoo, advised can follow up with regular shampoo/conditioner - Patient declines refills today Solar lentiginosis 01/14/2020 Seborrheic keratosis 01/14/2020 History of nonmelanoma skin cancer 01/14/2020 Cold sore 01/14/2020 Cerebral infarction, left hemisphere 12/31/2018 H/O cerebral aneurysm repair 12/31/2018 Other complicated headache syndrome 12/31/2018 Postoperative CSF leak 12/31/2018 Postoperative spinal headache 12/31/2018 Right hemisphere, cerebral infarction 12/31/2018 Vision changes 12/31/2018 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 09/09/2018 Visual field defect 09/09/2018 Encephalomalacia on imaging study 09/09/2018 Chronic daily headache 05/06/2018 Left arm pain 05/06/2018 Left leg pain 05/06/2018 Polypharmacy 09/01/2017 Personal history of transien t ischemic attack (TIA), and cerebral infarction without residual deficits 07/12/2016 09/16/20 PVD (peripheral vascular disease) 07/12/2016 09/16/2023 Other seizures 07/12/2016 09/16/2023 Vasospasm 06/18/2016 Osteoporosis 03/19/2014 Overview (12/31/2018): Overview: OSTEOPOROSIS NOS Closed fracture of part of neck of femur 014 Depression 01/25/2014 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 Resolved Problems Problem Noted Date Diagnosed Date Resolved Date Scabies 10/02/2024 10/30/2024 Actinic keratosis 01/14/2020 10/02/2024 Assessment & Plan (03/06/2021 5:28 PM CDT): - Face x4 - Counseled on diagnosis, etiology, natural disease course- including pre- malignant nature of lesions and association with sun exposure - Cryotherapy performed today (see procedure note) - Wound care reviewed, post-cryo handout given Encounters Date Type Department Care Team Description 09/28/2024 2:[address] PR[address] MANAGER Procedure visit [facility] - Neurology [address] [place] [address], [place] [address] Cynthia Schmitz MD Spasm of muscle 09/28/2024 Travel 09/14/2024 Telephone [facility] - Neurology [address] [place] [address], [place] [address] Cynthia Schmitz MD Reschedule Appointment; Concerns from Last 3 Months Immunizations Name Administration Dates Next Due [employer] primary monoval ent 12+ yr 0.3mL Purple cap 09/18/2021,02/12/2021,01/16/2021 FLU VACCINE TRI IIV3 SPLIT PF IM (FLUVIRIN) 08/05,07/12/2016 INFLUENZA VACCINE 09/18/2021,08/05/2018 INFLUENZA VACCINE, CELL CULT URE, QUADR. (FLUCELVAX QUADRIVALENT; 6MO+) (CCIIV4) 08/21/2020 INFLUENZA VACCINE, QUADR. (F LUZONE; FLULAVAL; FLUARIX; AFLURIA QUADRIVALENT; 6MO+), 0.5 ML (IIV4) 08/24/2019,08/14/2018 PNEUMOCOCCAL PPSV23 09/02/2017 TDAP (7yrs+) 08/21/2020 Family History Medical History Relation Name Comments None Known Brother None Known Father None Known Maternal Aunt None Known Maternal Grandfather None Known Maternal Grandmother None Known Maternal Uncle Cancer - Skin, Non Melanoma Mother None Known Other None Known Paternal Aunt None Known Paternal Grandfather None Known Paternal Grandmother None Known Paternal Uncle None Known Sister Asthma Neg Hx CVA Neg Hx Cancer - Breast Neg Hx Cancer - Other Neg Hx Cancer - Skin, Melanoma Neg Hx Eczema Neg Hx Hemophilia Neg Hx Psoriasis Neg Hx Relation Name Status Comments Brother Father Maternal Aunt Maternal Grandfather Maternal Grandmother Maternal Uncle Mother Other Paternal Aunt Paternal Grandfather Paternal Grandmother Paternal Uncle Sister Social History Tobacco Use Types Packs/Day Years Used Date Smoking Tobacco: Every Day Cigarettes Smokeless Tobacco: Never Tobacco Cessation:Ready to Q uit: Not Asked; Counseling Given: Not Answered Alcohol Use Standard Drinks/Week Comments Never 0 [...] PM CDT Sexual Orientation Not on file Last Filed Vital Signs Vital Sign Reading Time Taken Comments Blood Pressure 129/63 09/28/2024 1:[address] [employer] MANAGER Pulse 60 09/28/2024 1:[address] PRODUCTION MANAGER Temperature 37 ??C (98.6 ??F) 12/23/2023 10:[address] PRODUCTION MANAGER Respiratory Rate 13 09/04/2018 6:20 PM CDT Oxygen Saturation 96% 12/23/2023 10:[address] PRODUCTION MANAGER Inhaled Oxygen Concentration - - Weight 71 kg (156 lb 9.6 oz) 12/23/2023 10:[address] PRODUCTION MANAGER Height 165.1 cm (5' 5 ) 09/16/2023 10:[address] PRODUCTION MANAGER Body Mass Index 26.06 09/16/2023 10:[address] PRODUCTION MANAGER Plan of Treatment Upcoming Encounters Date Type Department Care Team (Late st Contact Info) Description 12/14/2024 2:[address] PRODUCTION MANAGER Procedure visit [facility] - Neurology [address] [place] [address], [facility] [place] [phone] Cynthia Schmitz MD [address] [place] [address] [place] [phone] 03/22/2025 1:00 PM CDT Procedure visit [facility] - Neurology [address] [place] [address], [place] [phone] Cynthia Schmitz MD [address] [place] [address] [place] [phone] Health Maintenance Due Date Last Done Comments BONE DENSITY TESTING 1955 COLOGUARD (AGES 45-75) - COLON CA SCREENING 1956 COLON MONITORING 1956 COLONOSCOPY - COLON CA SCREENING 1956 CT COLONOGRAPHY - COLON CA SCREENING 1955 Colorectal Cancer Screening 1956 FIT - COLON CA SCREENING 1956 FLEX SIG - COLON CA SCREENING 1956 MAMMOGRAM 1956 ZOSTER VACCINE (1 of 2) 2006 Respiratory Syncytial Virus (RSV) Vaccine Pt: or over 60 yrs (1 - Risk 60-74 years 1-dose series) 2016 PNEUMOCOCCAL VACCINE 50+ (2 of 2 - PCV) 09/02/2018 09/02/2017 COVID-19 VACCINE ( - 2023- season) 2024 09/18/2021, 02/12/2021, 01/16/2021 INFLUENZA VACCINE (#1) 2024 , 08/21/2020, 08/24/2019, Additional history exists DEPRESSION SCREENING 11/03/2024 MEDICARE AWV ? CALENDAR YEAR 2024 DTAP/TDAP/TD VACCINES (2 - Td or Tdap) 08/21/2030 08/21/2020 HEPATITIS C SCREENING Completed 06/25/2016 HEPATITIS B VACCINE Aged Out No longe r eligible based on patient's age to complete this topic HIB VACCINE Aged Out No longer eligi ble based on patient's age to complete this topic HPV VACCINE Aged Out No longer eligi ble based on patient's age to complete this topic MENINGOCOCCAL (Group B) VACCINE Aged Out No longer eligible based on patient's age to complete this topic MENINGOCOCCAL VACCINE Aged Out No carmen fredy eligible based on patient's age to complete this topic Procedures Procedure Name Priority Date/Time Associated Diagnosis Comments IA CHEMODENERV 1 EXTREM 1-4 EA Routine 09/28/2024 2:[address] MANAGER Spasm of muscle IA CHEMODENERV ONE EXTREM 1-4 MUSCLES Routine 09/28/2024 2:[address] PR[address] MANAGER Spasm of muscle HEPATITIS C ANTIBODY Routine 06/25/2016 12:38 AM CDT from Last 3 Months or Most Recently Relevant to Health Maintenance Results * IA CHEMODENERV ONE EXTREM 1-4 MUSCLES, IA CHEMODENERV 1 EXTREM 1-4 EA (09/28/2024 2:[address] PRODUCTION MANAGER) Narrative Cynthia Schmitz MD - 09/28/2024 2:[address] PRODUCTION MANAGER Cynthia Schmitz MD ? 10/02/2024 ??7:32 AM Botulinum Toxin A ??Procedure Note Current Date: 09/28/2024 Medications: Current Outpatient Medications Medication Sig Dispense Refill albuterol HFA (Proventil; Ventolin; Proair) 108 (90 Base) MCG/ACT inhaler Inhale 2 (two) puffs by mouth every 6 hours as needed ?? ANORO ELLIPTA 62.5-25 MCG/INH inhaler 1 (one) puff once daily ?? apixaban (Eliquis) 5 MG tablet ? aspirin (ASPIRIN) 81 MG chew tablet Take 1 (one) tablet by mouth ?? atorvastatin (LIPITOR) 20 MG tablet TK 1 T PO QD HS ??1 busPIRone (Buspar) 5 MG tablet Take 1 (one) tablet by mouth 2 times daily with morning and evening meal ?? Cyanocobalamin (VITAMIN B 12 PO) ? DULoxetine (Cymbalta) 30 MG capsule Take 1 (one) capsule by mouth once daily (Patient not taking: Reported on 09/28/2024) ?? escitalopram (LEXAPRO) 10 MG tablet Take 1 (one) tablet by mouth once daily ?? famotidine (PEPCID) 20 MG tablet TK 1 T PO D ??0 folic acid (FOLVITE) 1 MG tablet TK 1 T PO QD ??0 incobotulinumtoxin A (Xeomin) 200 units injection Inject 400 (four hundred) Units into muscle once for 1 dose 400 Units 0 levETIRAcetam (Keppra) 500 MG tablet TAKE 3 TABLETS BY MOUTH TWICE DAILY 540 tablet 4 lubiprostone (AMITIZA) 24 MCG capsule Take 1 (one) capsule by mouth 2 times daily with morning and evening meal (Patient not taking: Reported on 09/28/2024) ?? midodrine (PROAMATINE) 2.5 MG tablet Take 1 (one) tablet by mouth 3 times daily ?? multivitamin daily tablet Take 1 (one) tablet by mouth daily with food ?? Naloxone HCl (NARCAN NA) [place] 1 Each into the nose as needed (Patient not taking: Reported on 09/28/2024) ?? omeprazole (PriLOSEC) 40 MG capsule Take 1 (one) capsule by mouth once daily ?? ondansetron (ZOFRAN) 8 MG tablet TK 1 T PO Q 8 H FOR 2 DAYS PRN (Patient not taking: Reported on 09/28/2024) ??0 tiZANidine (ZANAFLEX) 4 MG tablet Take 1 (one) tablet by mouth every 8 hours as needed for Muscle Spasms ?? Current Facility-Administered Medications Medication Dose Route Frequency Provider Last Rate Last Admin incobotulinumtoxin A (Xeomin) injection 200 Units ??200 Units Intramuscular Once Cynthia Schmitz MD ? Date of last injection: 12/23/23 ?Duration of benefit: 2weeks Present Complaints: Tightness in the left leg and somewhat left arm. Pt had many somatic complaints which she has mentioned over many years. Could not come to the clinic on 09/14 due to illness. Functional Response: Poor Adverse effects: Other: ??None Exam: ?? Left hemiparesis Pt has some memory disturbances, repeats what she mentioned few minutes earlier. Impression: ??limb spasticity Plan: ??Xeomin 400 units Description of Operation/Procedure: The risks, benefits, indications, potential complications, and alternatives were explained to the patient and informed consent obtained. I injected her ??Xeomin: ?? A=10 units/0.1cc in the following distribution: L Flexor Digitorum Longus ?60 units L Tibialis Posterior ?60 units L Gastrocnemius ?80 units L Hamstring ?80 units L FDS ? 40 units L FDP ? 40 units L Biceps ?40 units Units drawn: ??400 ??Units wasted: Zero Complications: ??The patient did tolerate the procedure well and no complications were noted. Cynthia Schmitz MD Cynthia Schmitz MD PROCEDURE/MINOR SURG ICAL ORDERABLES * HEPATITIS C ANTIBODY (06/25/2016 12:38 AM CDT) Pathologist [facility] Hepatitis C Antibody [facility] Comment: Hepatitis C Antibody screen indicates no serologic evidence of past or current infection with Hepatitis C Virus. Patients with unexplained liver disease who are immunocompromised or suspected of having acute Hepatitis C infection may benefit from Nucleic Acid Test (MANOLO) for Hepatitis C Viral RNA to confirm Hepatitis C status. Blood specimen (specimen) BLOOD SPECIMEN / Unknown 06/25/2016 12:38 AM CDT 06/25/2016 12:49 AM CDT Rm Benavidez MD LAB - CHEMISTRY O RDERABLES [address] [phone] from Last 3 Months or Most Recently Relevant to Health Maintenance Advance Directives Documents on File Type Date Recorded Patient Supervisor [employer] Expl anation Advance Directives and Livin g Will 06/19/2016 12:00 AM Care Teams Asset Accountant Relationship Specialty Start Date End Date Karl Cates MD [address] [place] [address] PCP - General 09/08/18
--- OUTSIDE RECORDS SUMMARY | 2024-11-26 02:13 | XMS_ITS | Encounter Summary ---
Author Organization [facility] Healthcare Address [address] [place] [address] Care Team Providers Care Dry Starch Supervisor Name Role Phone Karl Cates MD Primary Care Provider Darren Iverson NP Unavailable [phone] Diego Lamb MD Unavailable Diego Lamb MD Unavailable Encounter Details Date Type Department Care Team (Late st Contact Info) Description 2024 Telephone [facility] [address] [place], [place] [phone] [place] [address] [facility] [address] [place] [address] Social History Tobacco Use Types Packs/Day Years Used Date Smoking Tobacco: Every Day Cigarettes 0.8 53 Comments:3/4 a pack daily OASIS D0700: Social [...] on file Legal 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 I NEED TO KNOW WHERE SHE WANTS MRI [employer] documented in this encounter Plan of Treatment Not on file documented as of this encounter Visit Diagnoses Not on filedocumented in this encounter Care Teams Dry Starch Supervisor Relationship Specialty Start Date End Date Karl Cates MD PCP - General Family Practice 10/01/22 Darren Iverson NP Nurse Practitioner Nurse Practitioner 10/13/23 [place] [address] [address] [facility] [address] [place] [address] Consulting Physician Pain Management 03/22/24 [place] [address] [address] [place] [address] Consulting Physician Pain Management 10/13/24 documented as of this encounter
--- OUTSIDE RECORDS SUMMARY | 2024-11-26 02:13 | XMS_ITS | Patient Health Summary ---
Author Organization [facility] Address [address] [place] [address] Care Team Providers Care Enrollment Management Coordinator Name Role Phone Karl Cates MD Primary Care Provider Note from [facility],non-owned Affiliates and Associated Physician Practices is amultiple site organization consisting of ambulatory clinics and hospital sitesin [place], [place], [place] and [place]. This disclosure is being madepursuant to the Care Everywhere program and may not contain all information available regarding this patient. Last updated 18.[facility] Allergies * Erythromycin(Diarrhea,Other) -Low Criticality * Phenobarbital(Unknown) Medications * Be aware that medications may not be up to date on this document. Alwaysverify current medications with the patient. * aspirin (ASPIRIN) 81 MG chew tablet(Started 07/12/2016) Take 1 (one) tablet by mouth * famotidine (PEPCID) 20 MG tablet(Started 02/28/2018) TK 1 T PO D * folic acid (FOLVITE) 1 MG tablet(Started 04/09/2018) TK 1 T PO QD * midodrine (PROAMATINE) 2.5 MG tablet(Started 04/30/2018) Take 1 (one) tablet by mouth 3 times daily * multivitamin daily tablet Take 1 (one) tablet by mouth daily with food * DULoxetine (Cymbalta) 30 MG capsule Take 1 (one) capsule by mouth once daily * Naloxone HCl (NARCAN NA) [place] 1 Each into the nose as needed * atorvastatin (LIPITOR) 20 MG tablet(Started 02/26/2019) TK 1 T PO QD HS 1 refill left * lubiprostone (AMITIZA) 24 MCG capsule Take 1 (one) capsule by mouth 2 times daily with morning and evening meal * Cyanocobalamin (VITAMIN B 12 PO) * escitalopram (LEXAPRO) 10 MG tablet Take 1 (one) tablet by mouth once daily * tiZANidine (ZANAFLEX) 4 MG tablet Take 1 (one) tablet by mouth every 8 hours as needed for Muscle Spasms * ondansetron (ZOFRAN) 8 MG tablet(Started 08/31/2019) TK 1 T PO Q 8 H FOR 2 DAYS PRN * ANORO ELLIPTA 62.5-25 MCG/INH inhaler(Started 03/05/2021) 1 (one) puff once daily * albuterol HFA (Proventil; Ventolin; Proair) 108 (90 Base) MCG/ACT inhaler Inhale 2 (two) puffs by mouth every 6 hours as needed * levETIRAcetam (Keppra) 500 MG tablet(Started 11/14/2023) TAKE 3 TABLETS BY MOUTH TWICE DAILY 4 refills by 11/13/2024 * omeprazole (PriLOSEC) 40 MG capsule(Started 10/21/2023) Take 1 (one) capsule by mouth once daily * busPIRone (Buspar) 5 MG tablet Take 1 (one) tablet by mouth 2 times daily with morning and evening meal * apixaban (Eliquis) 5 MG tablet Active Problems Problem Noted Date Diagnosed Date [...] behavior of skin Actinic skin damage 03/06/2021 Other seborrheic dermatitis 01/14/2020 Solar lentiginosis 01/14/2020 Seborrheic keratosis 01/14/2020 History [...] seizures 07/12/2016 09/16/2023 Vasospasm 06/18/2016 Osteoporosis 03/19/2014 Closed fracture of part of neck of femur 014 Depression 01/25/2014 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 Resolved Problems Problem Noted Date Diagnosed Date Resolved Date Scabies 10/02/2024 10/30/2024 Actinic keratosis 01/14/2020 10/02/2024 Immunizations * Covid Pfizer primary monovalent 12+ yr 0.3mL Purple cap(Given 09/18/2021, 02/12/2021, 01/16/2021) * FLU VACCINE TRI IIV3 SPLIT PF IM (FLUVIRIN)(Given 09/02/2017, 07/12/2016) * INFLUENZA VACCINE(Given 09/18/2021, 08/05/2018) * INFLUENZA VACCINE, CELL CULTURE, QUADR. (FLUCELVAX QUADRIVALENT; 6MO+) (CCIIV4)(Given 08/21/2020) * INFLUENZA VACCINE, QUADR. (FLUZONE; FLULAVAL; FLUARIX; AFLURIA QUADRIVALENT; 6MO+), 0.5 ML (IIV4)(Given 08/24/2019, 08/14/2018) * PNEUMOCOCCAL PPSV23(Given 09/02/2017) * TDAP (7yrs+)(Given 08/21/2020) Social History Tobacco Use Types Packs/Day Years [...] Comments Blood Pressure 129/63 09/28/2024 1:55 PM SUPERVISOR REFINING Pulse 60 09/28/2024 1:55 PM SUPERVISOR REFINING Temperature 37 ??C (98.6 ??F) 12/23/2023 10:55 AM SUPERVISOR REFINING Respiratory Rate 13 09/04/2018 6:20 PM CDT Oxygen Saturation 96% 12/23/2023 10:55 AM SUPERVISOR REFINING Inhaled Oxygen Concentration - - Weight 71 kg (156 lb 9.6 oz) 12/23/2023 10:55 AM SUPERVISOR REFINING Height 165.1 cm (5' 5 ) 09/16/2023 10:52 AM SUPERVISOR REFINING Body Mass Index 26.06 09/16/2023 10:52 AM SUPERVISOR REFINING Procedures * ND CHEMODENERV 1 EXTREM 1-4 EA(Performed 09/28/2024) Performed for Spasm of muscle * ND CHEMODENERV ONE EXTREM 1-4 MUSCLES(Performed 09/28/2024) Performed for Spasm of muscle * ND CHEMODENERV 1 EXTREM 1-4 EA(Performed 12/23/2023) Performed for Spasm of muscle * ND CHEMODENERV ONE EXTREM 1-4 MUSCLES(Performed 12/23/2023) Performed for Spasm of muscle * ND CHEMODENERV 1 EXTREM 1-4 EA(Performed 09/16/2023) Performed for Spasm of muscle * ND CHEMODENERV ONE EXTREM 1-4 MUSCLES(Performed 09/16/2023) Performed for Spasm of muscle * LEVETIRACETAM LEVEL(Performed 07/11/2023) Performed for Therapeutic drug monitoring * EEG(Performed 07/11/2023) Performed for Seizure (HCC) * ND CHEMODENERV 1 EXTREM 1-4 EA(Performed 06/10/2023) Performed for Spasm of muscle * ND CHEMODENERV ONE EXTREM 1-4 MUSCLES(Performed 06/10/2023) Performed for Spasm of muscle * ND CHEMODENERV 1 EXTREM 1-4 EA(Performed 03/04/2023) Performed for Spasm of muscle * ND CHEMODENERV ONE EXTREM 1-4 MUSCLES(Performed 03/04/2023) Performed for Spasm of muscle * ND CHEMODENERV 1 EXTREM 1-4 EA(Performed 12/03/2022) Performed for Spasm of muscle * ND CHEMODENERV ONE EXTREM 1-4 MUSCLES(Performed 12/03/2022) Performed for Spasm of muscle * ND CHEMODENERV 1 EXTREM 1-4 EA(Performed 09/24/2022) Performed for Spasm of muscle * ND CHEMODENERV ONE EXTREM 1-4 MUSCLES(Performed 09/24/2022) Performed for Spasm of muscle * ND CHEMODENERV 1 EXTREM 1-4 EA(Performed 06/20/2022) Performed for Spasm of muscle * ND CHEMODENERV ONE EXTREM 1-4 MUSCLES(Performed 06/20/2022) Performed for Spasm of muscle * ND DESTRUCT BENIGN LESION, 1-14(Performed 04/02/2022) Performed for Seborrheic keratosis, inflamed * ND DESTROY PREMALIG LESION, 1ST LESION(Performed 04/02/2022) Performed for Actinic keratosis * ND DESTROY PREMALIG LESION, 2-14(Performed 04/02/2022) Performed for Actinic keratosis * ND CHEMODENERV 1 EXTREM 1-4 EA(Performed 03/19/2022) Performed for Spasm of muscle * ND CHEMODENERV ONE EXTREM 1-4 MUSCLES(Performed 03/19/2022) Performed for Spasm of muscle * ND CHEMODENERV 1 EXTREM 1-4 EA(Performed 12/11/2021) Performed for Spasm of muscle * ND CHEMODENERV ONE EXTREM 1-4 MUSCLES(Performed 12/11/2021) Performed for Spasm of muscle * ND CHEMODENERV 1 EXTREM 1-4 EA(Performed 09/04/2021) Performed for Spasm of muscle * ND CHEMODENERV ONE EXTREM 1-4 MUSCLES(Performed 09/04/2021) Performed for Spasm of muscle * ND CHEMODENERV 1 EXTREM 1-4 EA(Performed 06/05/2021) Performed for Spasm of muscle * ND CHEMODENERV ONE EXTREM 1-4 MUSCLES(Performed 06/05/2021) Performed for Spasm of muscle * ND DESTROY PREMALIG LESION, 1ST LESION(Performed 03/06/2021) Performed for Actinic keratosis * ND DESTROY PREMALIG LESION, 2-14(Performed 03/06/2021) Performed for Actinic keratosis * ND CHEMODENERV 1 EXTREM 1-4 EA(Performed 03/06/2021) Performed for Spasm of muscle * ND CHEMODENERV ONE EXTREM 1-4 MUSCLES(Performed 03/06/2021) Performed for Spasm of muscle * ND CHEMODENERV 1 EXTREM 1-4 EA(Performed 09/26/2020) Performed for Spasm of muscle * ND CHEMODENERV ONE EXTREM 1-4 MUSCLES(Performed 09/26/2020) Performed for Spasm of muscle * ND DESTROY PREMALIG LESION, 1ST LESION(Performed 07/21/2020) Performed for Actinic keratosis * ND DESTROY PREMALIG LESION, 2-14(Performed 07/21/2020) Performed for Actinic keratosis * ND CHEMODENERV 1 EXTREM 1-4 EA(Performed 06/20/2020) Performed for Spasm of muscle * ND CHEMODENERV ONE EXTREM 1-4 MUSCLES(Performed 06/20/2020) Performed for Spasm of muscle * CT HEAD WWO CONTRAST(Performed 03/29/2020) Performed for Intractable headache, unspecified chronicity pattern, unspecified headache type * CREATININE - POCT INTERFACED(Performed 03/29/2020) * ND CHEMODENERV 1 EXTREM 1-4 EA(Performed 03/21/2020) Performed for Spasm of muscle * ND CHEMODENERV ONE EXTREM 1-4 MUSCLES(Performed 03/21/2020) Performed for Spasm of muscle * ND DESTROY PREMALIG LESION, 1ST LESION(Performed 01/14/2020) Performed for Actinic keratosis * ND DESTROY PREMALIG LESION, 2-14(Performed 01/14/2020) Performed for Actinic keratosis * ND CHEMODENERV 1 EXTREM 1-4 EA(Performed 12/21/2019) Performed for Spasm of muscle * ND CHEMODENERV ONE EXTREM 1-4 MUSCLES(Performed 12/21/2019) Performed for Spasm of muscle * ND CHEMODENERV ONE EXTREM 1-4 MUSCLES(Performed 09/21/2019) Performed for Spasm of muscle * ND CHEMODENERV ONE EXTREM 1-4 MUSCLES(Performed 06/22/2019) Performed for Spasm of muscle * ND TTE W/DOPPLER, COMPLETE(Performed 01/01/2019) Performed for Orthostatic hypotension * VIRAL CULTURE MISC(Performed 12/31/2018) Performed for Rash and other nonspecific skin eruption * DERMATOPATHOLOGY(Performed 12/31/2018) Performed for Neoplasm of uncertain behavior of skin * CULTURE AEROBIC(Performed 12/31/2018) Performed for Rash and other nonspecific skin eruption * EKG 12-LEAD(Performed 12/16/2018) * MRI BRAIN WWO CONTRAST(Performed 10/05/2018) Performed for Brain aneurysm (HCC) * CREATININE BLOOD - POCT (IP) [facility](Performed 10/05/2018) Performed for Brain aneurysm (HCC) * OPH VISUAL FIELD TEST SLU(Performed 09/08/2018) Performed for Blurred vision, bilateral * CT ANGIO BRAIN(Performed 09/04/2018) Performed for Arcuate visual field defect, left * COMPREHENSIVE METABOLIC PANEL(Performed 09/04/2018) * CBC W AUTO DIFFERENTIAL(Performed 09/04/2018) * MAGNESIUM BLOOD(Performed 09/04/2018) * CT HEAD WO CONTRAST(Performed 09/04/2018) Performed for Vision loss * LEVETIRACETAM LEVEL(Performed 09/02/2017) * URINALYSIS W/MICROSCOPIC NO CULTURE(Performed 09/01/2017) * XR CHEST 1VW PORTABLE(Performed 09/01/2017) * TROPONIN I(Performed 09/01/2017) * COMPREHENSIVE METABOLIC PANEL(Performed 09/01/2017) * CBC W AUTO DIFFERENTIAL(Performed 09/01/2017) * CBC W AUTO DIFFERENTIAL(Performed 09/01/2017) * CT HEAD WO CONTRAST(Performed 09/01/2017) * EKG 12-LEAD(Performed 09/01/2017) * EKG 12-LEAD(Performed 09/01/2017) * XR CHEST 2VW(Performed 05/05/2017) * MRI BRAIN WWO CONTRAST(Performed 09/03/2016) * CREATININE BLOOD - POCT (IP) [facility](Performed 09/03/2016) * BASIC METABOLIC PANEL (CALCIUM TOTAL)(Performed 07/12/2016) * PHOSPHORUS BLOOD(Performed 07/12/2016) * MAGNESIUM BLOOD(Performed 07/12/2016) * CBC W AUTO DIFFERENTIAL(Performed 07/12/2016) * CBC W AUTO DIFFERENTIAL(Performed 07/12/2016) * BASIC METABOLIC PANEL (CALCIUM TOTAL)(Performed 07/11/2016) * PHOSPHORUS BLOOD(Performed 07/11/2016) * MAGNESIUM BLOOD(Performed 07/11/2016) * CBC W AUTO DIFFERENTIAL(Performed 07/11/2016) * CBC W AUTO DIFFERENTIAL(Performed 07/11/2016) * CBC W AUTO DIFFERENTIAL(Performed 07/10/2016) * PHOSPHORUS BLOOD(Performed 07/10/2016) * MAGNESIUM BLOOD(Performed 07/10/2016) * BASIC METABOLIC PANEL (CALCIUM TOTAL)(Performed 07/10/2016) * CBC W AUTO DIFFERENTIAL(Performed 07/10/2016) * CULTURE URINE(Performed 07/09/2016) * URINALYSIS W/MICROSCOPIC NO CULTURE(Performed 07/09/2016) * PHOSPHORUS BLOOD(Performed 07/09/2016) * MAGNESIUM BLOOD(Performed 07/09/2016) * BASIC METABOLIC PANEL (CALCIUM TOTAL)(Performed 07/09/2016) * CBC W AUTO DIFFERENTIAL(Performed 07/09/2016) * CBC W AUTO DIFFERENTIAL(Performed 07/09/2016) * PHOSPHORUS BLOOD(Performed 07/08/2016) * BASIC METABOLIC PANEL (CALCIUM TOTAL)(Performed 07/08/2016) * MAGNESIUM BLOOD(Performed 07/08/2016) * CBC W AUTO DIFFERENTIAL(Performed 07/08/2016) * CBC W AUTO DIFFERENTIAL(Performed 07/08/2016) * GLUCOSE ACCUCHECK(Performed 07/07/2016) * GLUCOSE ACCUCHECK(Performed 07/07/2016) * GLUCOSE ACCUCHECK(Performed 07/07/2016) * CBC W AUTO DIFFERENTIAL(Performed 07/07/2016) * BASIC METABOLIC PANEL (CALCIUM TOTAL)(Performed 07/07/2016) * PHOSPHORUS BLOOD(Performed 07/07/2016) * MAGNESIUM BLOOD(Performed 07/07/2016) * CBC W AUTO DIFFERENTIAL(Performed 07/07/2016) * GLUCOSE ACCUCHECK(Performed 07/06/2016) * GLUCOSE ACCUCHECK(Performed 07/06/2016) * MRI BRAIN WWO CONTRAST(Performed 07/06/2016) * GLUCOSE ACCUCHECK(Performed 07/06/2016) * GLUCOSE ACCUCHECK(Performed 07/06/2016) * CBC W AUTO DIFFERENTIAL(Performed 07/06/2016) * PHOSPHORUS BLOOD(Performed 07/06/2016) * MAGNESIUM BLOOD(Performed 07/06/2016) * BASIC METABOLIC PANEL (CALCIUM TOTAL)(Performed 07/06/2016) * CBC W AUTO DIFFERENTIAL(Performed 07/06/2016) * GLUCOSE ACCUCHECK(Performed 07/05/2016) * BASIC METABOLIC PANEL (CALCIUM TOTAL)(Performed 07/05/2016) * PHOSPHORUS BLOOD(Performed 07/05/2016) * MAGNESIUM BLOOD(Performed 07/05/2016) * CBC W AUTO DIFFERENTIAL(Performed 07/05/2016) * CBC W AUTO DIFFERENTIAL(Performed 07/05/2016) * URINALYSIS W/MICROSCOPIC NO CULTURE(Performed 07/04/2016) * BASIC METABOLIC PANEL (CALCIUM TOTAL)(Performed 07/04/2016) * PHOSPHORUS BLOOD(Performed 07/04/2016) * MAGNESIUM BLOOD(Performed 07/04/2016) * CBC W AUTO DIFFERENTIAL(Performed 07/04/2016) * CBC W AUTO DIFFERENTIAL(Performed 07/04/2016) * BASIC METABOLIC PANEL (CALCIUM TOTAL)(Performed 07/03/2016) * PHOSPHORUS BLOOD(Performed 07/03/2016) * MAGNESIUM BLOOD(Performed 07/03/2016) * CBC W AUTO DIFFERENTIAL(Performed 07/03/2016) * CBC W AUTO DIFFERENTIAL(Performed 07/03/2016) * BASIC METABOLIC PANEL (CALCIUM TOTAL)(Performed 07/02/2016) * PHOSPHORUS BLOOD(Performed 07/02/2016) * MAGNESIUM BLOOD(Performed 07/02/2016) * CBC W AUTO DIFFERENTIAL(Performed 07/02/2016) * CBC W AUTO DIFFERENTIAL(Performed 07/02/2016) * ECHO COMPLETE(Performed 07/02/2016) * BASIC METABOLIC PANEL (CALCIUM TOTAL)(Performed 07/01/2016) * PHOSPHORUS BLOOD(Performed 07/01/2016) * MAGNESIUM BLOOD(Performed 07/01/2016) * CBC W AUTO DIFFERENTIAL(Performed 07/01/2016) * CBC W AUTO DIFFERENTIAL(Performed 07/01/2016) * PHOSPHORUS BLOOD(Performed 06/30/2016) * MAGNESIUM BLOOD(Performed 06/30/2016) * BASIC METABOLIC PANEL (CALCIUM TOTAL)(Performed 06/30/2016) * CBC W AUTO DIFFERENTIAL(Performed 06/30/2016) * CBC W AUTO DIFFERENTIAL(Performed 06/30/2016) * PHOSPHORUS BLOOD(Performed 06/29/2016) * MAGNESIUM BLOOD(Performed 06/29/2016) * BASIC METABOLIC PANEL (CALCIUM TOTAL)(Performed 06/29/2016) * CBC W AUTO DIFFERENTIAL(Performed 06/29/2016) * CBC W AUTO DIFFERENTIAL(Performed 06/29/2016) * CT HEAD WO CONTRAST(Performed 06/28/2016) * BASIC METABOLIC PANEL (CALCIUM TOTAL)(Performed 06/28/2016) * PHOSPHORUS BLOOD(Performed 06/28/2016) * MAGNESIUM BLOOD(Performed 06/28/2016) * CBC W AUTO DIFFERENTIAL(Performed 06/28/2016) * CBC W AUTO DIFFERENTIAL(Performed 06/28/2016) * MAGNESIUM BLOOD(Performed 06/27/2016) * PHOSPHORUS BLOOD(Performed 06/27/2016) * BASIC METABOLIC PANEL (CALCIUM TOTAL)(Performed 06/27/2016) * CBC W AUTO DIFFERENTIAL(Performed 06/27/2016) * CBC W AUTO DIFFERENTIAL(Performed 06/27/2016) * BASIC METABOLIC PANEL (CALCIUM TOTAL)(Performed 06/26/2016) * PHOSPHORUS BLOOD(Performed 06/26/2016) * MAGNESIUM BLOOD(Performed 06/26/2016) * CBC W AUTO DIFFERENTIAL(Performed 06/26/2016) * CBC W AUTO DIFFERENTIAL(Performed 06/26/2016) * CT HEAD WO CONTRAST(Performed 06/25/2016) * GLUCOSE ACCUCHECK(Performed 06/25/2016) * DNA ANTIBODY DOUBLE STRANDED(Performed 06/25/2016) * AIR TRAFFIC CONTROLLER ANTIBODY(Performed 06/25/2016) * COMPLEMENT TOTAL(Performed 06/25/2016) * DAYNA VIPER VENOM DILUTE(Performed 06/25/2016) * HIV-1 HIV-2 ANTIGEN/ANTIBODY(Performed 06/25/2016) * HEPATITIS B CORE ANTIBODY TOTAL(Performed 06/25/2016) * HEPATITIS B SURFACE ANTIGEN W RFLX CONFIRMATION(Performed 06/25/2016) * HEPATITIS B SURFACE ANTIBODY(Performed 06/25/2016) * HEPATITIS C ANTIBODY(Performed 06/25/2016) * COMPLEMENT C4(Performed 06/25/2016) * COMPLEMENT C3(Performed 06/25/2016) * PHOSPHORUS BLOOD(Performed 06/25/2016) * MAGNESIUM BLOOD(Performed 06/25/2016) * BASIC METABOLIC PANEL (CALCIUM TOTAL)(Performed 06/25/2016) * CBC W AUTO DIFFERENTIAL(Performed 06/25/2016) * CBC W AUTO DIFFERENTIAL(Performed 06/25/2016) * GLUCOSE ACCUCHECK(Performed 06/24/2016) * CT HEAD WO CONTRAST(Performed 06/24/2016) * PATHOLOGY TISSUE(Performed 06/24/2016) * CT GUIDED STEREO LOCALIZATION(Performed 06/24/2016) * BASIC METABOLIC PANEL (CALCIUM TOTAL)(Performed 06/24/2016) * PHOSPHORUS BLOOD(Performed 06/24/2016) * MAGNESIUM BLOOD(Performed 06/24/2016) * CBC W AUTO DIFFERENTIAL(Performed 06/24/2016) * CARDIOLIPIN ANTIBODY IGG(Performed 06/24/2016) * BETA-2 GLYCOPROTEIN 1 ANTIBODY IGG(Performed 06/24/2016) * LUPUS ANTICOAGULANT PANEL(Performed 06/24/2016) * PTT [facility](Performed 06/24/2016) * CBC W AUTO DIFFERENTIAL(Performed 06/24/2016) * GLUCOSE ACCUCHECK(Performed 06/23/2016) * TYPE + SCREEN PANEL(Performed 06/23/2016) * PTT [facility](Performed 06/23/2016) * PT-INR [facility](Performed 06/23/2016) * CBC W AUTO DIFFERENTIAL(Performed 06/23/2016) * BASIC METABOLIC PANEL (CALCIUM TOTAL)(Performed 06/23/2016) * PHOSPHORUS BLOOD(Performed 06/23/2016) * MAGNESIUM BLOOD(Performed 06/23/2016) * CBC W AUTO DIFFERENTIAL(Performed 06/23/2016) * GLUCOSE ACCUCHECK(Performed 06/22/2016) * GLUCOSE ACCUCHECK(Performed 06/22/2016) * CT HEAD WO CONTRAST(Performed 06/22/2016) * CBC W AUTO DIFFERENTIAL(Performed 06/22/2016) * BASIC METABOLIC PANEL (CALCIUM TOTAL)(Performed 06/22/2016) * PHOSPHORUS BLOOD(Performed 06/22/2016) * MAGNESIUM BLOOD(Performed 06/22/2016) * CBC W AUTO DIFFERENTIAL(Performed 06/22/2016) * KAYLEY W/REFLEX IFA PATTERN(Performed 06/21/2016) * IGG BLOOD(Performed 06/21/2016) * RHEUMATOID FACTOR BLOOD QUANTITATIVE(Performed 06/21/2016) * NEUTROPHIL CYTOPLASMIC ANTIBODY(Performed 06/21/2016) * MPO/ND 3 AUTOANTIBODIES PANEL(Performed 06/21/2016) * CYTOLOGY NON-CLIP RIVETER PANEL (STL)(Performed 06/21/2016) * ANGIOTENSIN CONVERTING ENZYME CSF(Performed 06/21/2016) * IGG CSF(Performed 06/21/2016) * DIFFERENTIAL MANUAL FLUID(Performed 06/21/2016) * DIFFERENTIAL MANUAL FLUID(Performed 06/21/2016) * CELL COUNT CSF(Performed 06/21/2016) * CELL COUNT CSF(Performed 06/21/2016) * PROTEIN CSF(Performed 06/21/2016) * GLUCOSE CSF(Performed 06/21/2016) * CELL COUNT W DIFF CSF(Performed 06/21/2016) * CELL COUNT W DIFF CSF(Performed 06/21/2016) * CULTURE CSF+GRAM STAIN(Performed 06/21/2016) * FL LUMBAR PUNCTURE(Performed 06/21/2016) * BASIC METABOLIC PANEL (CALCIUM TOTAL)(Performed 06/21/2016) * PHOSPHORUS BLOOD(Performed 06/21/2016) * MAGNESIUM BLOOD(Performed 06/21/2016) * CBC W AUTO DIFFERENTIAL(Performed 06/21/2016) * CBC W AUTO DIFFERENTIAL(Performed 06/21/2016) * BASIC METABOLIC PANEL (CALCIUM TOTAL)(Performed 06/20/2016) * PHOSPHORUS BLOOD(Performed 06/20/2016) * MAGNESIUM BLOOD(Performed 06/20/2016) * HEMOGLOBIN A1C(Performed 06/20/2016) * CBC W AUTO DIFFERENTIAL(Performed 06/20/2016) * CBC W AUTO DIFFERENTIAL(Performed 06/20/2016) * LUPUS ANTICOAGULANT PANEL(Performed 06/19/2016) * CARDIOLIPIN ANTIBODY IGG(Performed 06/19/2016) * CARDIOLIPIN ANTIBODY IGM(Performed 06/19/2016) * CARDIOLIPIN ANTIBODY IGA(Performed 06/19/2016) * KAYLEY BLOOD SCREEN(Performed 06/19/2016) * SS-A (SJOGREN'S) ANTIBODY(Performed 06/19/2016) * SS-B (SJOGREN'S) ANTIBODY(Performed 06/19/2016) * HISTONE ANTIBODY(Performed 06/19/2016) * NEUTROPHIL CYTOPLASMIC ANTIBODY(Performed 06/19/2016) * MPO/ND 3 AUTOANTIBODIES PANEL(Performed 06/19/2016) * MRI BRAIN WWO CONTRAST(Performed 06/19/2016) * DRUG ABUSE PANEL 10-20+ETHANOL URINE NO CONFIRM(Performed 06/19/2016) * IR 3D RENDERING(Performed 06/19/2016) * IR CAROTID CEREBRAL ANGIOGRAM(Performed 06/19/2016) * IR CAROTID CEREBRAL ANGIOGRAM(Performed 06/19/2016) * T4 FREE(Performed 06/19/2016) * TSH(Performed 06/19/2016) * PHOSPHORUS BLOOD(Performed 06/19/2016) * MAGNESIUM BLOOD(Performed 06/19/2016) * BASIC METABOLIC PANEL (CALCIUM TOTAL)(Performed 06/19/2016) * CBC W AUTO DIFFERENTIAL(Performed 06/19/2016) * CBC W AUTO DIFFERENTIAL(Performed 06/19/2016) * XR CHEST 1VW PORTABLE(Performed 06/18/2016) * ERYTHROCYTE SEDIMENTATION RATE(Performed 06/18/2016) * CBC W AUTO DIFFERENTIAL(Performed 06/18/2016) * COMPREHENSIVE METABOLIC PANEL(Performed 06/18/2016) * PHOSPHORUS BLOOD(Performed 06/18/2016) * MAGNESIUM BLOOD(Performed 06/18/2016) * PROTEIN ELECTROPHORESIS WO INTERP BLOOD(Performed 06/18/2016) * RHEUMATOID FACTOR BLOOD QUANTITATIVE(Performed 06/18/2016) * PT-INR [facility](Performed 06/18/2016) * C-REACTIVE PROTEIN(Performed 06/18/2016) * CBC W AUTO DIFFERENTIAL(Performed 06/18/2016) * EKG 12-LEAD(Performed 06/18/2016) * URINALYSIS W/MICROSCOPIC NO CULTURE(Performed 06/17/2016) * CT ANGIO BRAIN(Performed 06/17/2016) * CT HEAD WO CONTRAST(Performed 06/17/2016) * LIPASE BLOOD(Performed 06/17/2016) * COMPREHENSIVE METABOLIC PANEL(Performed 06/17/2016) * LACTIC ACID BLOOD(Performed 06/17/2016) * CBC W AUTO DIFFERENTIAL(Performed 06/17/2016) * CBC W AUTO DIFFERENTIAL(Performed 06/17/2016) * XR CHEST 2VW(Performed 06/17/2016) * CT ANGIO BRAIN(Performed 09/26/2015) * CREATININE BLOOD - POCT (IP) [facility](Performed 09/26/2015) * XR SHOULDER LEFT 2VW OR MORE(Performed 11/15/2014) * IR 3D RENDERING(Performed 07/07/2013) * IR CAROTID CEREBRAL ANGIOGRAM(Performed 07/07/2013) * IR CAROTID CEREBRAL ANGIOGRAM(Performed 07/07/2013) * IR CAROTID CEREBRAL ANGIOGRAM(Performed 07/07/2013) * BASIC METABOLIC PANEL (CALCIUM TOTAL)(Performed 07/07/2013) * PTT [facility](Performed 07/07/2013) * PT-INR [facility](Performed 07/07/2013) * CBC W AUTO DIFFERENTIAL(Performed 07/07/2013) * CT HEAD WO CONTRAST(Performed 05/26/2013) * MRI BRAIN WO CONTRAST(Performed 07/01/2012) * CT ANGIO BRAIN(Performed 06/24/2012) * CREATININE BLOOD - POCT (IP) [facility](Performed 06/24/2012) * LAB HISTORICAL RESULTS-ONBASE(Performed 07/12/2010) * LAB HISTORICAL RESULTS-ONBASE(Performed 07/12/2010) * LAB HISTORICAL RESULTS-ONBASE(Performed 07/12/2010) * LAB HISTORICAL RESULTS-ONBASE(Performed 07/12/2010) Results * ND CHEMODENERV ONE EXTREM 1-4 MUSCLES, ND CHEMODENERV 1 EXTREM 1-4 EA (09/28/2024 2:31 PM SUPERVISOR REFINING) Narrative Cynthia Schmitz MD - 09/28/2024 2:31 PM SUPERVISOR REFINING Cynthia Schmitz MD ? 10/02/2024 ??7:32 AM [...] with food ?? Naloxone HCl (NARCAN NA) [place] 1 Each into the nose as needed [...] Schmitz MD PROCEDURE/MINOR SURG ICAL ORDERABLES * ND CHEMODENERV ONE EXTREM 1-4 MUSCLES, ND CHEMODENERV 1 EXTREM 1-4 EA (12/23/2023 11:24 AM SUPERVISOR REFINING) Narrative Cynthia Schmitz MD - 12/23/2023 11:24 AM SUPERVISOR REFINING Cynthia Schmitz MD ? 12/24/2023 ??9:58 AM Botulinum Toxin A ??procedure Note Current Date: 12/23/2023 Medications: Current Outpatient Medications Medication Sig Dispense Refill ? ? albuterol HFA (Proventil; Ventolin; Proair) 108 (90 Base) MCG/ACT inhaler Inhale 2 (two) puffs by mouth every 6 hours as needed ? ANORO ELLIPTA 62.5-25 MCG/INH inhaler 1 (one) puff once daily ? aspirin (ASPIRIN) 81 MG chew tablet Take 1 (one) tablet by mouth ? atorvastatin (LIPITOR) 20 MG tablet TK 1 T PO QD HS ??1 ? ? Cyanocobalamin (VITAMIN B 12 PO) ? DULoxetine (Cymbalta) 30 MG capsule Take 1 (one) capsule by mouth once daily ? escitalopram (LEXAPRO) 10 MG tablet Take 1 (one) tablet by mouth once daily ? famotidine (PEPCID) 20 MG tablet TK 1 T PO D ??0 ? ? folic acid (FOLVITE) 1 MG tablet TK 1 T PO QD ??0 ? ? levETIRAcetam (Keppra) 500 MG tablet TAKE 3 TABLETS BY MOUTH TWICE DAILY 540 tablet 4 ? ? lubiprostone (AMITIZA) 24 MCG capsule Take 1 (one) capsule by mouth 2 times daily with morning and evening meal ? midodrine (PROAMATINE) 2.5 MG tablet Take 1 (one) tablet by mouth 3 times daily ? multivitamin daily tablet Take 1 (one) tablet by mouth daily with food ? Naloxone HCl (NARCAN NA) [place] 1 Each into the nose as needed ? omeprazole (PriLOSEC) 40 MG capsule Take 1 (one) capsule by mouth once daily ? ondansetron (ZOFRAN) 8 MG tablet TK 1 T PO Q 8 H FOR 2 DAYS PRN 0 ? ? tiZANidine (ZANAFLEX) 4 MG tablet Take 1 (one) tablet by mouth every 8 hours as needed for Muscle Spasms ?? No current facility-administered medications for this visit. Date of last injection: 09/16/2023 ?Duration of benefit: 3months Pt states it did not Do any thing . Although can do OT and PT better after the Botulinum Toxin tx. Present Complaints: Left sided spasticity Functional Response: Fair to good Adverse effects: Other: None Exam: ??Awake alert, pressured speech cooperative. ??Left sided spasticity with left upper extremity pronation and flexion. ?? Reflexes brisk WC bound Impression: ??limb spasticity Plan: Botulinum Toxin A 400 units Description of Operation/Procedure: The risks, benefits, indications, potential complications, and alternatives were explained to the patient and informed consent obtained. ?? I injected??her?BOTOX:?A=10 units/0.1cc??in the following distribution: L??Flexor Digitorum Longus?60??units L??Tibialis Posterior? 60??units?? L??Gastrocnemius?80??units L Hamstring ?80 units L FDS?40 units L FDP ?40 units L Biceps ?40 units Units drawn:?400?Units wasted: Zero Complications: ??The patient did tolerate the procedure well and no complications were noted. Cynthia Schmitz MD Cynthia Schmitz MD PROCEDURE/MINOR SURG ICAL ORDERABLES * ND CHEMODENERV ONE EXTREM 1-4 MUSCLES, ND CHEMODENERV 1 EXTREM 1-4 EA (09/16/2023 11:17 AM SUPERVISOR REFINING) Narrative Cynthia Schmitz MD - 09/16/2023 11:17 AM SUPERVISOR REFINING Cynthia Schmitz MD ? 11/04/2023 12:50 PM Botulinum Toxin A Procedure Note Current Date: 09/16/2023 Medications: Current Outpatient Medications Medication Sig Dispense Refill ? ? albuterol HFA (Proventil; Ventolin; Proair) 108 (90 Base) MCG/ACT inhaler Inhale 2 (two) puffs by mouth every 6 hours as needed ? ANORO ELLIPTA 62.5-25 MCG/INH inhaler 1 (one) puff once daily ? aspirin (ASPIRIN) 81 MG chew tablet Take 1 (one) tablet by mouth ? atorvastatin (LIPITOR) 20 MG tablet TK 1 T PO QD HS ??1 ? ? Cyanocobalamin (VITAMIN B 12 PO) ? DULoxetine (Cymbalta) 30 MG capsule Take 1 (one) capsule by mouth once daily ? escitalopram (LEXAPRO) 10 MG tablet Take 1 (one) tablet by mouth once daily ? famotidine (PEPCID) 20 MG tablet TK 1 T PO D ??0 ? ? folic acid (FOLVITE) 1 MG tablet TK 1 T PO QD ??0 ? ? levETIRAcetam (Keppra) 500 MG tablet Take 3 (three) tablets by mouth 2 times daily 540 tablet 4 ? ? lubiprostone (AMITIZA) 24 MCG capsule Take 1 (one) capsule by mouth 2 times daily with morning and evening meal ? midodrine (PROAMATINE) 2.5 MG tablet Take 1 (one) tablet by mouth 3 times daily ? multivitamin daily tablet Take 1 (one) tablet by mouth daily with food ? Naloxone HCl (NARCAN NA) [place] 1 Each into the nose as needed ? ondansetron (ZOFRAN) 8 MG tablet TK 1 T PO Q 8 H FOR 2 DAYS PRN 0 ? ? tiZANidine (ZANAFLEX) 4 MG tablet Take 1 (one) tablet by mouth every 8 hours as needed for Muscle Spasms ?? Current Facility-Administered Medications Medication Dose Route Frequency Provider Last Rate Last Admin ? ? onabotulinumtoxin A (Botox) injection 400 Units ??400 Units Intramuscular Once Cynthia Schmitz MD ? Date of last injection: 06/10/2023 ?Duration of benefit: 1week Present Complaints:Pt had revision of Morphine pump and feels pain is improved. Continues to have spasticity in LLE & LUE. 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 ??Inversion of left foot. Impression: ??limb spasticity Plan: Botulinum toxin A 400 units Description of Operation/Procedure: The risks, benefits, indications, potential complications, and alternatives were explained to the patient and informed consent obtained. ?? I injected??her?BOTOX:?A=10 units/0.1cc??in the following distribution: L??Flexor Digitorum Longus?60??units L??Tibialis Posterior? 60??units?? L??Gastrocnemius?80??units L Hamstring ?80 units L FDS?40 units L FDP ?40 units L Biceps ?40 units Units drawn:?400?Units wasted: Zero Complications: ??The patient did tolerate the procedure well and no complications were noted. Cynthia Schmitz MD Cynthia Schmitz MD PROCEDURE/MINOR SURG ICAL ORDERABLES * LEVETIRACETAM LEVEL (07/11/2023 4:13 PM CDT) Only the most recent of2 resultswithin the time period is included. [facility] Levetiracetam see scanned report 07/15/2023 8:37 AM CDT [facility] [employer] ([facility]) Blood BLOOD SPECIMEN / Unknown Lab Venipuncture / Unknown 07/11/2023 4:13 PM CDT 07/11/2023 4:30 PM CDT Cynthia Schmitz MD LAB - THERAPEUTIC DR [place] MONITORING ORDERABLES [facility] [employer] ([facility]) [address], [place] [address] * EEG (07/11/2023 4:07 PM CDT) Narrative Daryl Jiménez, DO - 07/11/2023 4:07 PM CDT Daryl Jiménez, DO ? 07/17/2023 12:39 PM EEG REPORT Patient Name: ??Terra Gastelum EEG#: ?? [id number] Start Time: ??14:14 PM 07/11/2023 Stop Time: ??15:31 PM 07/11/2023 Clinical History: ??Terra Gastelum is a 67 year old female with a history of seizures. ??This EEG is ordered for evaluation of seizures. Current medications Current Outpatient Medications on File Prior to Encounter Medication Sig Dispense Refill ? ? albuterol HFA (Proventil; Ventolin; Proair) 108 (90 Base) MCG/ACT inhaler Inhale 2 (two) puffs by mouth every 6 hours as needed ? ANORO ELLIPTA 62.5-25 MCG/INH inhaler 1 (one) puff once daily ? aspirin (ASPIRIN) 81 MG chew tablet Take 1 (one) tablet by mouth ? atorvastatin (LIPITOR) 20 MG tablet TK 1 T PO QD HS ??1 ? ? Cyanocobalamin (VITAMIN B 12 PO) ? DULoxetine (Cymbalta) 30 MG capsule Take 1 (one) capsule by mouth once daily ? escitalopram (LEXAPRO) 10 MG tablet Take 1 (one) tablet by mouth once daily ? famotidine (PEPCID) 20 MG tablet TK 1 T PO D ??0 ? ? folic acid (FOLVITE) 1 MG tablet TK 1 T PO QD ??0 ? ? levETIRAcetam (Keppra) 500 MG tablet Take 3 (three) tablets by mouth 2 times daily 540 tablet 4 ? ? lubiprostone (AMITIZA) 24 MCG capsule Take 1 (one) capsule by mouth 2 times daily with morning and evening meal ? midodrine (PROAMATINE) 2.5 MG tablet Take 1 (one) tablet by mouth 3 times daily ? multivitamin daily tablet Take 1 (one) tablet by mouth daily with food ? Naloxone HCl (NARCAN NA) [place] 1 Each into the nose as needed ? ondansetron (ZOFRAN) 8 MG tablet TK 1 T PO Q 8 H FOR 2 DAYS PRN 0 ? ? tiZANidine (ZANAFLEX) 4 MG tablet Take 1 (one) tablet by mouth every 8 hours as needed for Muscle Spasms ?? No current facility-administered medications on file prior to encounter. Description This is an extended 21-channel EEG tracing consisting of 20 channels of EEG obtained from electrodes placed on the scalp according to the international 10-20 system, T1 and T2 electrodes, and one channel of EKG monitoring. ?? Background The awake background was asymmetric with admixed delta and theta frequency of high amplitudes observed over the right hemisphere. A posterior dominant rhythm up to 10 Hz was seen over the left hemisphere. Stage 1 sleep was identified in the forms of background attenuation, reduced myogenic artifact, and vertex waves, better formed over the left hemisphere. Rare sharp transient waveforms were seen in the right parietal region (P4) Hyperventilation and photic stimulation were performed and elicited no abnormalities. EKG was observed throughout the recording. IMPRESSION This is an abnormal extended EEG due to right hemispheric slowing. CLINICAL CORRELATION: This study was suggestive of underlying right hemispheric dysfunction and increased tendency towards seizures. 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 The sharp transients seen here are of uncertain clinical significance. Brandy Hawk MD I personally reviewed this study in its entirety and formulated the above report. Daryl Jiménez DO Cynthia Schmitz MD NEUROLOGY ORDERABLES * ND CHEMODENERV ONE EXTREM 1-4 MUSCLES, ND CHEMODENERV 1 EXTREM 1-4 EA (06/10/2023 1:29 PM CDT) Narrative Cynthia Schmitz MD - 06/10/2023 1:29 PM CDT Cynthia Schmitz MD ? 06/10/2023 ??3:30 PM Botulinum Toxin A ??Procedure Note Current Date: 06/10/2023 Medications: Current Outpatient Medications Medication Sig Dispense Refill ? ? albuterol HFA (Proventil; Ventolin; Proair) 108 (90 Base) MCG/ACT inhaler Inhale 2 (two) puffs by mouth every 6 hours as needed ? ANORO ELLIPTA 62.5-25 MCG/INH inhaler 1 (one) puff once daily ? aspirin (ASPIRIN) 81 MG chew tablet Take 1 (one) tablet by mouth ? atorvastatin (LIPITOR) 20 MG tablet TK 1 T PO QD HS ??1 ? ? Cyanocobalamin (VITAMIN B 12 PO) ? DULoxetine (Cymbalta) 30 MG capsule Take 1 (one) capsule by mouth once daily ? escitalopram (LEXAPRO) 10 MG tablet Take 1 (one) tablet by mouth once daily ? famotidine (PEPCID) 20 MG tablet TK 1 T PO D ??0 ? ? folic acid (FOLVITE) 1 MG tablet TK 1 T PO QD ??0 ? ? levETIRAcetam (Keppra) 500 MG tablet Take 3 (three) tablets by mouth 2 times daily 540 tablet 4 ? ? lubiprostone (AMITIZA) 24 MCG capsule Take 1 (one) capsule by mouth 2 times daily with morning and evening meal ? midodrine (PROAMATINE) 2.5 MG tablet Take 1 (one) tablet by mouth 3 times daily ? multivitamin daily tablet Take 1 (one) tablet by mouth daily with food ? Naloxone HCl (NARCAN NA) [place] 1 Each into the nose as needed ? ondansetron (ZOFRAN) 8 MG tablet TK 1 T PO Q 8 H FOR 2 DAYS PRN 0 ? ? tiZANidine (ZANAFLEX) 4 MG tablet Take 1 (one) tablet by mouth every 8 hours as needed for Muscle Spasms ?? Current Facility-Administered Medications Medication Dose Route Frequency Provider Last Rate Last Admin ? ? onabotulinumtoxin A (Botox) injection 400 Units ??400 Units Intramuscular Once Cynthia Schmitz MD ? Date of last injection: 03/04/23 ?Duration of benefit: 2months Present Complaints: Multiple complaints, stated that she had left sided pain and tingling. Complains of severe pain, has morphine pump. Received injections in the lower back. Functional Response: Good Adverse effects: Other: ??None Exam: ??Left arm and leg spasticity Impression: ??limb spasticity Plan: ??Botulinum Toxin A 400 units Description of Operation/Procedure: The risks, benefits, indications, potential complications, and alternatives were explained to the patient and informed consent obtained. ?? I injected??her?BOTOX:?A=10 units/0.1cc??in the following distribution: L??Flexor Digitorum Longus?60??units L??Tibialis Posterior? 60??units?? L??Gastrocnemius?70??units L Hamstring ?80 units L FDS?50 units L FDP ?50 units L Biceps ?30 units Units drawn:?400?Units wasted: Zero Complications: ??The patient did tolerate the procedure well and no complications were noted. Cynthia Schmitz MD Cynthia Schmitz MD PROCEDURE/MINOR SURG ICAL ORDERABLES * ND CHEMODENERV ONE EXTREM 1-4 MUSCLES, ND CHEMODENERV 1 EXTREM 1-4 EA (03/04/2023 1:20 PM CDT) Narrative Cynthia Schmitz MD - 03/04/2023 1:20 PM CDT Cynthia Schmitz MD ? 03/07/2023 ??3:38 PM Botulinum Toxin A ??Procedure Note Current Date: 03/04/2023 Medications: Current Outpatient Medications Medication Sig Dispense Refill ? ? albuterol HFA (Proventil; Ventolin; Proair) 108 (90 Base) MCG/ACT inhaler Inhale 2 (two) puffs by mouth every 6 hours as needed ? ANORO ELLIPTA 62.5-25 MCG/INH inhaler 1 (one) puff once daily ? aspirin (ASPIRIN) 81 MG chew tablet Take 1 (one) tablet by mouth ? atorvastatin (LIPITOR) 20 MG tablet TK 1 T PO QD HS ??1 ? ? Cyanocobalamin (VITAMIN B 12 PO) ? DULoxetine (Cymbalta) 30 MG capsule Take 1 (one) capsule by mouth once daily ? escitalopram (LEXAPRO) 10 MG tablet Take 1 (one) tablet by mouth once daily ? famotidine (PEPCID) 20 MG tablet TK 1 T PO D ??0 ? ? folic acid (FOLVITE) 1 MG tablet TK 1 T PO QD ??0 ? ? levETIRAcetam (Keppra) 500 MG tablet Take 3 (three) tablets by mouth 2 times daily 540 tablet 4 ? ? lubiprostone (AMITIZA) 24 MCG capsule Take 1 (one) capsule by mouth 2 times daily with morning and evening meal ? midodrine (PROAMATINE) 2.5 MG tablet Take 1 (one) tablet by mouth 3 times daily ? multivitamin daily tablet Take 1 (one) tablet by mouth daily with food ? Naloxone HCl (NARCAN NA) [place] 1 Each into the nose as needed ? ondansetron (ZOFRAN) 8 MG tablet TK 1 T PO Q 8 H FOR 2 DAYS PRN 0 ? ? tiZANidine (ZANAFLEX) 4 MG tablet Take 1 (one) tablet by mouth every 8 hours as needed for Muscle Spasms ?? Current Facility-Administered Medications Medication Dose Route Frequency Provider Last Rate Last Admin ? ? onabotulinumtoxin A (Botox) injection 400 Units ??400 Units Intramuscular Once Cynthia Schmitz MD ? Date of last injection: 12/03/2022 ?Duration of benefit: 10weeks Present Complaints: Left side spasticity. Had a fall two days ago and had to call Paramedics. No bruises per childcare worker. Pt is having ??OT & PT and will get an arm brace probably this or next week. Functional Response: Good Adverse effects: Other: ??None Exam: ??Left arm and leg spasticity. inversion of left foot, brisk reflexes. Impression: ??limb spasticity Plan: Botulinum Toxin A ??400 units Description of Operation/Procedure: The risks, benefits, indications, potential complications, and alternatives were explained to the patient and informed consent obtained. ?? I injected??her?BOTOX:?A=10 units/0.1cc??in the following distribution: L??Flexor Digitorum Longus?60??units L??Tibialis Posterior? 60??units?? L??Gastrocnemius?70??units L Hamstring ?80 units L FDS?50 units L FDP ?50 units L Biceps ?30 units Units drawn:?400?Units wasted: Zero Complications: ??The patient did tolerate the procedure well and no complications were noted. Cynthia Schmitz MD Cynthia Schmitz MD PROCEDURE/MINOR SURG ICAL ORDERABLES * ND CHEMODENERV ONE EXTREM 1-4 MUSCLES, ND CHEMODENERV 1 EXTREM 1-4 EA (12/03/2022 4:19 PM SUPERVISOR REFINING) Narrative Cynthia Schmitz MD - 12/03/2022 4:19 PM SUPERVISOR REFINING Cynthia Schmitz MD ? 12/04/2022 12:40 PM Botulinum Toxin A Procedure Note PLEASE NOTE 300 UNITS WERE ORDERED AND 100 UNITS from sample were used. Current Date: 12/03/2022 Medications: Current Outpatient Medications Medication Sig Dispense Refill ? ? ANORO ELLIPTA 62.5-25 MCG/INH inhaler 1 (one) puff once daily ? aspirin (ASPIRIN) 81 MG chew tablet Take 1 (one) tablet by mouth ? atorvastatin (LIPITOR) 20 MG tablet TK 1 T PO QD HS ??1 ? ? Calcium Carbonate-Vit D-Min (CALCIUM 1200) 7153-7769 MG-UNIT CHEW ??(Patient not taking: Reported on 12/02/2022) ? ciclopirox (LOPROX) 1 % shampoo Apply to wet hair, leave on for 3 minutes, then rinse; daily. ??30 days supply (Patient not taking: Reported on 12/02/2022) 60 mL 11 ? ? Cyanocobalamin (VITAMIN B 12 PO) ? DULoxetine (Cymbalta) 30 MG capsule Take 1 (one) capsule by mouth once daily ? escitalopram (LEXAPRO) 10 MG tablet Take 1 (one) tablet by mouth once daily ? famotidine (PEPCID) 20 MG tablet TK 1 T PO D ??0 ? ? folic acid (FOLVITE) 1 MG tablet TK 1 T PO QD ??0 ? ? ketoconazole (NIZORAL) 2 % shampoo Apply to wet hair, leave on for 3 minutes, then rinse; three times weekly. ??30 days supply (Patient not taking: Reported on 12/02/2022) 120 mL 5 ? ? levETIRAcetam (Keppra) 500 MG tablet Take 3 (three) tablets by mouth 2 times daily 540 tablet 4 ? ? lubiprostone (AMITIZA) 24 MCG capsule Take 1 (one) capsule by mouth 2 times daily with morning and evening meal ? midodrine (PROAMATINE) 2.5 MG tablet Take 1 (one) tablet by mouth 3 times daily ? multivitamin daily tablet Take 1 (one) tablet by mouth daily with food ? Naloxone HCl (NARCAN NA) [place] 1 Each into the nose as needed ? onabotulinumtoxin A (Botox) 100 units injection Inject 100 (one hundred) Units into muscle once for 1 dose [id number] Expiration date 03/2024 1 Each 0 ? ? ondansetron (ZOFRAN) 8 MG tablet TK 1 T PO Q 8 H FOR 2 DAYS PRN 0 ? ? oxybutynin CR 24hr (DITROPAN-XL) 10 MG tablet 10 mg at bedtime ?? (Patient not taking: Reported on 12/02/2022) ? tiZANidine (ZANAFLEX) 4 MG tablet Take 1 (one) tablet by mouth every 8 hours as needed for Muscle Spasms ?? Current Facility-Administered Medications Medication Dose Route Frequency Provider Last Rate Last Admin ? ? onabotulinumtoxin A (BOTOX) injection 400 Units ??400 Units Intramuscular Once Cynthia Schmitz MD ? Date of last injection: 09/24/2022 ?Duration of benefit: 0weeks Present Complaints: Left sided spasticity, Feels weakness, many somatic complaints Functional Response: Poor Adverse effects: Other: ??None Exam: ??Left spasticity and wc dependent Impression: ??limb spasticity Plan: ??Botulinum Toxin A 400 units Description of Operation/Procedure: The risks, benefits, indications, potential complications, and alternatives were explained to the patient and informed consent obtained. ?? I injected??her?BOTOX:?A=10 units/0.1cc??in the following distribution: L??Flexor Digitorum Longus?60??units L??Tibialis Posterior? 60??units?? L??Gastrocnemius?70??units L Hamstring ?80 units L FDS?50 units L FDP ?50 units L Biceps ?30 units Units drawn:?400?Units wasted: Zero Complications: ??The patient did tolerate the procedure well and no complications were noted. Cynthia Schmitz MD Cynthia Schmitz MD PROCEDURE/MINOR SURG ICAL ORDERABLES * ND CHEMODENERV ONE EXTREM 1-4 MUSCLES, ND CHEMODENERV 1 EXTREM 1-4 EA (09/24/2022 10:33 AM SUPERVISOR REFINING) Narrative Cynthia Schmitz MD - 09/24/2022 10:33 AM Cynthia Narayan MD ? 09/24/2022 ??1:14 PM Botulinum Toxin A Procedure Note Current Date: 09/24/2022 Medications: Current Outpatient Medications Medication Sig Dispense Refill ? ? ANORO ELLIPTA 62.5-25 MCG/INH inhaler 1 puff once daily ? aspirin (ASPIRIN) 81 MG chew tablet Take 81 mg by mouth ? atorvastatin (LIPITOR) 20 MG tablet TK 1 T PO QD HS ??1 ? ? Calcium Carbonate-Vit D-Min (CALCIUM 1200) 7532-0427 MG-UNIT CHEW ? ciclopirox (LOPROX) 1 % shampoo Apply to wet hair, leave on for 3 minutes, then rinse; daily. ??30 days supply 60 mL 11 ? ? Cyanocobalamin (VITAMIN B 12 PO) ? DULoxetine (CYMBALTA) 20 MG capsule Take 20 mg by mouth once daily ? escitalopram (LEXAPRO) 10 MG tablet Take 10 mg by mouth once daily ? famotidine (PEPCID) 20 MG tablet TK 1 T PO D ??0 ? ? folic acid (FOLVITE) 1 MG tablet TK 1 T PO QD ??0 ? ? ketoconazole (NIZORAL) 2 % shampoo Apply to wet hair, leave on for 3 minutes, then rinse; three times weekly. ??30 days supply 120 mL 5 ? ? levETIRAcetam (Keppra) 500 MG tablet Take 3 (three) tablets by mouth 2 times daily 540 tablet 4 ? ? lubiprostone (AMITIZA) 24 MCG capsule Take 24 mcg by mouth 2 times daily with morning and evening meal ? midodrine (PROAMATINE) 2.5 MG tablet Take 2.5 mg by mouth 3 times daily ? multivitamin daily tablet Take 1 tablet by mouth daily with food ? Naloxone HCl (NARCAN NA) [place] 1 Each into the nose as needed ? ondansetron (ZOFRAN) 8 MG tablet TK 1 T PO Q 8 H FOR 2 DAYS PRN 0 ? ? oxybutynin CR 24hr (DITROPAN-XL) 10 MG tablet 10 mg at bedtime ? tiZANidine (ZANAFLEX) 4 MG tablet Take 4 mg by mouth every 8 hours as needed for Muscle Spasms ?? Current Facility-Administered Medications Medication Dose Route Frequency Provider Last Rate Last Admin ? ? onabotulinumtoxin A (BOTOX) injection 300 Units ??300 Units Intramuscular Once Cynthia Schmitz MD ? Date of last injection: 06/20/2022 ?Duration of benefit: 3weeks Present Complaints: Left sided spasticity Functional Response: Fair Adverse effects: Other: ??None Exam: ??Flight of ideas, Left arm and leg spasticity with inversion of the left foot. WC dependent. Impression: ??limb spasticity Plan: ??Botulinum Toxin A 300 unnits Description of Operation/Procedure: The risks, benefits, indications, potential complications, and alternatives were explained to the patient and informed consent obtained. ?? I injected??her?BOTOX:?A=10 units/0.1cc??in the following distribution: L??Flexor Digitorum Longus?40??units L??Tibialis Posterior? 40??units?? L??Gastrocnemius?50??units L Hamstring ?60 units L FDS?40 units L FDP ?40 units L Biceps ?30 units Units drawn:?300?Units wasted: Zero Complications: ??The patient did tolerate the procedure well and no complications were noted. Referred to occupational therapy for left arm brace to help with flexion deformities. Cynthia Schmitz MD Cynthia Schmitz MD PROCEDURE/MINOR SURG ICAL ORDERABLES * ND CHEMODENERV ONE EXTREM 1-4 MUSCLES, ND CHEMODENERV 1 EXTREM 1-4 EA (06/20/2022 9:56 AM CDT) Narrative Cynthia Schmitz MD - 06/20/2022 9:56 AM CDT Cynthia Schmitz MD ? 06/22/2022 ??8:04 AM Botulinum Toxin A ??Procedure Note Current Date: 06/20/2022 Medications: Current Outpatient Medications Medication Sig Dispense Refill ? ? ANORO ELLIPTA 62.5-25 MCG/INH inhaler 1 puff once daily ? aspirin (ASPIRIN) 81 MG chew tablet Take 81 mg by mouth ? atorvastatin (LIPITOR) 20 MG tablet TK 1 T PO QD HS ??1 ? ? busPIRone (BUSPAR) 5 MG tablet TAKE 1 TABLET BY MOUTH EVERY DAY IN THE EVENING (Patient not taking: No sig reported) ? Calcium Carbonate-Vit D-Min (CALCIUM 1200) 3347-1811 MG-UNIT CHEW ? ciclopirox (LOPROX) 1 % shampoo Apply to wet hair, leave on for 3 minutes, then rinse; daily. ??30 days supply 60 mL 11 ? ? Cyanocobalamin (VITAMIN B 12 PO) ? DULoxetine (CYMBALTA) 20 MG capsule Take 20 mg by mouth once daily ? escitalopram (LEXAPRO) 10 MG tablet Take 10 mg by mouth once daily ? famotidine (PEPCID) 20 MG tablet TK 1 T PO D ??0 ? ? folic acid (FOLVITE) 1 MG tablet TK 1 T PO QD ??0 ? ? ibandronate (BONIVA) 150 MG tablet 150 mg every 30 days (Patient not taking: No sig reported) ??3 ? ? ketoconazole (NIZORAL) 2 % shampoo Apply to wet hair, leave on for 3 minutes, then rinse; three times weekly. ??30 days supply 120 mL 5 ? ? levETIRAcetam (KEPPRA) 500 MG tablet TAKE 3 TABLETS BY MOUTH TWICE DAILY 540 tablet 4 ? ? lubiprostone (AMITIZA) 24 MCG capsule Take 24 mcg by mouth 2 times daily with morning and evening meal ? midodrine (PROAMATINE) 2.5 MG tablet Take 2.5 mg by mouth 3 times daily ? multivitamin daily tablet Take 1 tablet by mouth daily with food ? Naloxone HCl (NARCAN NA) [place] 1 Each into the nose as needed ? nicotine 14 MG/24HR 14 mg, nicotine 21 MG/24HR 21 mg 35 mg by Apply externally route once daily (Patient not taking: No sig reported) ? ondansetron (ZOFRAN) 8 MG tablet TK 1 T PO Q 8 H FOR 2 DAYS PRN 0 ? ? oxybutynin CR 24hr (DITROPAN-XL) 10 MG tablet 10 mg at bedtime ? tiZANidine (ZANAFLEX) 4 MG tablet Take 4 mg by mouth every 8 hours as needed for Muscle Spasms ?? Current Facility-Administered Medications Medication Dose Route Frequency Provider Last Rate Last Admin ? ? onabotulinumtoxin A (BOTOX) injection 300 Units ??300 Units Intramuscular Once Cynthia Schmitz MD ? Date of last injection: 03/15/2022 ?Duration of benefit: 8weeks Present Complaints: Left arm and leg spasticity Functional Response: Fair to good Adverse effects: Other: ??None Exam: ??Anxious, cooperative, left spastic hemiplegia Impression: ??limb spasticity Plan: ??Botulinum Toxin A 300 units Description of Operation/Procedure: The risks, benefits, indications, potential complications, and alternatives were explained to the patient and informed consent obtained. ?? I injected??her?BOTOX:?A=10 units/0.1cc??in the following distribution: L??Flexor Digitorum Longus?40??units L??Tibialis Posterior? 40??units?? L??Gastrocnemius?50??units L Hamstring ?60 units L FDS?40 units L FDP ?40 units L Biceps ?30 units Units drawn:?300?Units wasted: Zero Complications: ??The patient did tolerate the procedure well and no complications were noted. Cynthia Schmitz MD Cynthia Schmitz MD PROCEDURE/MINOR SURG ICAL ORDERABLES * ND DESTRUCT BENIGN LESION, 1-14 (04/02/2022 2:08 PM CDT) Narrative Melisa Gallardo MD - 04/02/2022 2:08 PM CDT Neal Martini MD ? 04/02/2022 ??2:08 PM Diagnosis and treatment options discussed. Cryotherapy (Liquid Nitrogen) to 3 lesions for 8 seconds each. Number of cycles: 1. Wound care reviewed. Neal Martini MD [facility] Dermatology Resident PGY4 Melisa Gallardo MD PROCEDURE/MINOR BURCH RGICAL ORDERABLES * ND DESTROY PREMALIG LESION, 2-14, ND DESTROY PREMALIG LESION, 1ST LESION (04/02/2022 2:08 PM CDT) Narrative Melisa Gallardo MD - 04/02/2022 2:08 PM CDT Neal Martini MD ? 04/02/2022 ??2:08 PM Diagnosis and treatment options discussed. Cryotherapy (Liquid Nitrogen) to 3 lesions for 4-6 seconds each. Number of cycles: 1. Wound care reviewed. Neal Martini MD [facility] Dermatology Resident PGY4 Melisa Gallardo MD PROCEDURE/MINOR BURCH RGICAL ORDERABLES * ND CHEMODENERV ONE EXTREM 1-4 MUSCLES, ND CHEMODENERV 1 EXTREM 1-4 EA (03/19/2022 1:48 PM CDT) Narrative Cynthia Schmitz MD - 03/19/2022 1:48 PM CDT Cynthia Schmitz MD ? 03/23/2022 ??6:37 AM Botulinum Spasmodic Torticollis/Dystonia Procedure Note Current Date: 03/19/2022 Medications: Current Outpatient Medications Medication Sig Dispense Refill ? ? ANORO ELLIPTA 62.5-25 MCG/INH inhaler 1 puff once daily ? aspirin (ASPIRIN) 81 MG chew tablet Take 81 mg by mouth ? atorvastatin (LIPITOR) 20 MG tablet TK 1 T PO QD HS ??1 ? ? busPIRone (BUSPAR) 5 MG tablet TAKE 1 TABLET BY MOUTH EVERY DAY IN THE EVENING ? Calcium Carbonate-Vit D-Min (CALCIUM 1200) 7922-1596 MG-UNIT CHEW ? ciclopirox (LOPROX) 1 % shampoo Apply to wet hair, leave on for 3 minutes, then rinse; daily. ??30 days supply 60 mL 11 ? ? Cyanocobalamin (VITAMIN B 12 PO) ? DULoxetine (CYMBALTA) 20 MG capsule Take 20 mg by mouth once daily ? escitalopram (LEXAPRO) 10 MG tablet Take 10 mg by mouth once daily ? famotidine (PEPCID) 20 MG tablet TK 1 T PO D ??0 ? ? folic acid (FOLVITE) 1 MG tablet TK 1 T PO QD ??0 ? ? ibandronate (BONIVA) 150 MG tablet 150 mg every 30 days ??3 ? ? levETIRAcetam (KEPPRA) 500 MG tablet TAKE 3 TABLETS BY MOUTH TWICE DAILY 540 tablet 4 ? ? lubiprostone (AMITIZA) 24 MCG capsule Take 24 mcg by mouth 2 times daily with morning and evening meal ? midodrine (PROAMATINE) 2.5 MG tablet Take 2.5 mg by mouth 3 times daily ? multivitamin daily tablet Take 1 tablet by mouth daily with food ? Naloxone HCl (NARCAN NA) [place] 1 Each into the nose as needed ? nicotine 14 MG/24HR 14 mg, nicotine 21 MG/24HR 21 mg 35 mg by Apply externally route once daily ? ondansetron (ZOFRAN) 8 MG tablet TK 1 T PO Q 8 H FOR 2 DAYS PRN 0 ? ? oxybutynin CR 24hr (DITROPAN-XL) 10 MG tablet 10 mg at bedtime ? tiZANidine (ZANAFLEX) 4 MG tablet Take 4 mg by mouth every 8 hours as needed for Muscle Spasms ?? Current Facility-Administered Medications Medication Dose Route Frequency Provider Last Rate Last Admin ? ? onabotulinumtoxin A (Botox) injection 300 Units ??300 Units Intramuscular Once Cynthia Schmitz MD ? 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 Description of Operation/Procedure: The risks, benefits, indications, potential complications, and alternatives were explained to the patient and informed consent obtained. ?? I injected??her?BOTOX:?A=10 units/0.1cc??in the following distribution: L??Flexor Digitorum Longus?40??units L??Tibialis Posterior? 40??units?? L??Gastrocnemius?50??units L Hamstring ?60 units L FDS?40 units L FDP ?40 units L Biceps ?30 units Units drawn:?300?Units wasted: Zero ?? Complications: ??The patient did tolerate the procedure well and no complications were noted. Cynthia Schmitz MD Cynthia Schmitz MD PROCEDURE/MINOR SURG ICAL ORDERABLES * ND CHEMODENERV ONE EXTREM 1-4 MUSCLES, ND CHEMODENERV 1 EXTREM 1-4 EA (12/11/2021 1:58 PM SUPERVISOR REFINING) Narrative Cynthia Schmitz MD - 12/11/2021 1:58 PM SUPERVISOR REFINING Cynthia Schmitz MD ? 12/12/2021 ??6:01 AM Botulinum Toxin A Procedure Note Current Date: 12/11/2021 Medications: Current Outpatient Medications Medication Sig Dispense Refill ? ? ANORO ELLIPTA 62.5-25 MCG/INH inhaler 1 puff once daily ? aspirin (ASPIRIN) 81 MG chew tablet Take 81 mg by mouth ? atorvastatin (LIPITOR) 20 MG tablet TK 1 T PO QD HS ??1 ? ? busPIRone (BUSPAR) 5 MG tablet TAKE 1 TABLET BY MOUTH EVERY DAY IN THE EVENING ? Calcium Carbonate-Vit D-Min (CALCIUM 1200) 8351-4195 MG-UNIT CHEW ? ciclopirox (LOPROX) 1 % shampoo Apply to wet hair, leave on for 3 minutes, then rinse; daily. ??30 days supply 60 mL 11 ? ? Cyanocobalamin (VITAMIN B 12 PO) ? DULoxetine (CYMBALTA) 20 MG capsule Take 20 mg by mouth once daily ? escitalopram (LEXAPRO) 10 MG tablet Take 10 mg by mouth once daily ? famotidine (PEPCID) 20 MG tablet TK 1 T PO D ??0 ? ? folic acid (FOLVITE) 1 MG tablet TK 1 T PO QD ??0 ? ? ibandronate (BONIVA) 150 MG tablet 150 mg every 30 days ?? (Patient not taking: Reported on 12/11/2021) ??3 ? ? levETIRAcetam (KEPPRA) 500 MG tablet TAKE 3 TABLETS BY MOUTH TWICE DAILY 540 tablet 4 ? ? lubiprostone (AMITIZA) 24 MCG capsule Take 24 mcg by mouth 2 times daily with morning and evening meal ? midodrine (PROAMATINE) 2.5 MG tablet Take 2.5 mg by mouth 3 times daily ? multivitamin daily tablet Take 1 tablet by mouth daily with food ? Naloxone HCl (NARCAN NA) [place] 1 Each into the nose as needed ? nicotine 14 MG/24HR 14 mg, nicotine 21 MG/24HR 21 mg 35 mg by Apply externally route once daily ? ondansetron (ZOFRAN) 8 MG tablet TK 1 T PO Q 8 H FOR 2 DAYS PRN 0 ? ? oxybutynin CR 24hr (DITROPAN-XL) 10 MG tablet 10 mg at bedtime ? tiZANidine (ZANAFLEX) 4 MG tablet Take 4 mg by mouth every 8 hours as needed for Muscle Spasms ?? Current Facility-Administered Medications Medication Dose Route Frequency Provider Last Rate Last Admin ? ? onabotulinumtoxin A (Botox) injection 300 Units ??300 Units Intramuscular Once Cynthia Schmitz MD ? Date of last injection: 09/04/2021 ?Duration of benefit: 2months Present Complaints: Left leg and left arm tightness. Functional Response: Good Adverse effects: Other: ??None Exam: ??Anxious, cooperative, left hemiparesis with inversion of left foot Impression: ??limb spasticity Plan: ??Botulinum Toxin A ??300 units Description of Operation/Procedure: The risks, benefits, indications, potential complications, and alternatives were explained to the patient and informed consent obtained. ?? I injected??her?BOTOX:?A=10 units/0.1cc??in the following distribution: L??Flexor Digitorum Longus?40??units L??Tibialis Posterior? 40??units?? L??Gastrocnemius?50??units L Hamstring ?60 units L FDS ?40 units L FDP ?40 units L Biceps ?30 units Units drawn:?300?Units wasted: Zero Complications: ??The patient did tolerate the procedure well and no complications were noted. Cynthia Schmitz MD Cynthia Schmitz MD PROCEDURE/MINOR SURG ICAL ORDERABLES * ND CHEMODENERV ONE EXTREM 1-4 MUSCLES, ND CHEMODENERV 1 EXTREM 1-4 EA (09/04/2021 1:10 PM CDT) Narrative Cynthia Schmitz MD - 09/04/2021 1:10 PM CDT Cynthia Schmitz MD ? 09/08/2021 ??6:23 AM Botulinum Botulinum Toxin A Procedure Note Current Date: 09/04/2021 Medications: Current Outpatient Medications Medication Sig Dispense Refill ? ? ANORO ELLIPTA 62.5-25 MCG/INH inhaler 1 puff once daily ? aspirin (ASPIRIN) 81 MG chew tablet Take 81 mg by mouth ? atorvastatin (LIPITOR) 20 MG tablet TK 1 T PO QD HS ??1 ? ? Calcium Carbonate-Vit D-Min (CALCIUM 1200) 7115-6641 MG-UNIT CHEW ? ciclopirox (LOPROX) 1 % shampoo Apply to wet hair, leave on for 3 minutes, then rinse; daily. ??30 days supply 60 mL 11 ? ? Cyanocobalamin (VITAMIN B 12 PO) ? DULoxetine (CYMBALTA) 20 MG capsule Take 20 mg by mouth once daily ? escitalopram (LEXAPRO) 10 MG tablet Take 10 mg by mouth once daily ? famotidine (PEPCID) 20 MG tablet TK 1 T PO D ??0 ? ? folic acid (FOLVITE) 1 MG tablet TK 1 T PO QD ??0 ? ? ibandronate (BONIVA) 150 MG tablet 150 mg every 30 days ?? 3 ? ? levETIRAcetam (KEPPRA) 500 MG tablet TAKE 3 TABLETS BY MOUTH TWICE DAILY 540 tablet 4 ? ? lubiprostone (AMITIZA) 24 MCG capsule Take 24 mcg by mouth 2 times daily with morning and evening meal ? midodrine (PROAMATINE) 2.5 MG tablet Take 2.5 mg by mouth 3 times daily ? multivitamin daily tablet Take 1 tablet by mouth daily with food ? Naloxone HCl (NARCAN NA) [place] 1 Each into the nose as needed ? ondansetron (ZOFRAN) 8 MG tablet TK 1 T PO Q 8 H FOR 2 DAYS PRN 0 ? ? oxybutynin CR 24hr (DITROPAN-XL) 10 MG tablet 10 mg at bedtime ? tiZANidine (ZANAFLEX) 4 MG tablet Take 4 mg by mouth every 8 hours as needed for Muscle Spasms ?? Current Facility-Administered Medications Medication Dose Route Frequency Provider Last Rate Last Admin ? ? onabotulinumtoxin A (Botox) injection 300 Units ??300 Units Intramuscular Once Cynthia Schmitz MD ? Date of last injection: 06/05/2021 ?Duration of benefit: 2months Present Complaints: Tightness in the left leg and arm. Complained about losing central vision for 2-5 secs . Pt's BP is running low and had cut down the midodrine to 2 pills on her own. Pt was instructed to increase it to TID. Had multiple somatic complaints. Functional Response: Good Adverse effects: Other: ??None Exam: Anxious, cooperative, ??EOMI, Left spastic hemiplegia. Inversion of left foot.Brisk reflexes on the left side. Impression: ??Limb spasticity Plan: ??Botulinum Toxin A 300 units Description of Operation/Procedure: The risks, benefits, indications, potential complications, and alternatives were explained to the patient and informed consent obtained. ?? I injected??her?BOTOX:?A=10 units/0.1cc??in the following distribution: L??Flexor Digitorum Longus?40??units L??Tibialis Posterior? 40??units?? L??Gastrocnemius?50??units L Hamstring ?60 units L FDS ?40 units L FDP ?40 units L Biceps ?30 units Units drawn:?300?Units wasted: Zero Complications: ??The patient did tolerate the procedure well and no complications were noted. Recommended to talk with PCP regarding low BP. Recommended tobacco cessation. Cynthia Schmitz MD Cynthia Schmitz MD PROCEDURE/MINOR SURG ICAL ORDERABLES * ND CHEMODENERV ONE EXTREM 1-4 MUSCLES, ND CHEMODENERV 1 EXTREM 1-4 EA (06/05/2021 1:27 PM CDT) Narrative Cynthia Schmitz MD - 06/05/2021 1:27 PM CDT Cynthia Schmitz MD ? 06/05/2021 ??5:12 PM Botulinum Toxin A Procedure Note Current Date: 06/05/2021 Medications: Current Outpatient Medications Medication Sig Dispense Refill ? ? ANORO ELLIPTA 62.5-25 MCG/INH inhaler 1 puff once daily ? aspirin (ASPIRIN) 81 MG chew tablet Take 81 mg by mouth ? atorvastatin (LIPITOR) 20 MG tablet TK 1 T PO QD HS ??1 ? ? Calcium Carbonate-Vit D-Min (CALCIUM 1200) 2582-5949 MG-UNIT CHEW ? ciclopirox (LOPROX) 1 % shampoo Apply to wet hair, leave on for 3 minutes, then rinse; daily. ??30 days supply 60 mL 11 ? ? Cyanocobalamin (VITAMIN B 12 PO) ? DULoxetine (CYMBALTA) 20 MG capsule Take 20 mg by mouth once daily ? escitalopram (LEXAPRO) 10 MG tablet Take 10 mg by mouth once daily ? famotidine (PEPCID) 20 MG tablet TK 1 T PO D ??0 ? ? folic acid (FOLVITE) 1 MG tablet TK 1 T PO QD ??0 ? ? ibandronate (BONIVA) 150 MG tablet 150 mg every 30 days ?? 3 ? ? levETIRAcetam (KEPPRA) 500 MG tablet TAKE 3 TABLETS BY MOUTH TWICE DAILY 540 tablet 4 ? ? lubiprostone (AMITIZA) 24 MCG capsule Take 24 mcg by mouth 2 times daily with morning and evening meal ? midodrine (PROAMATINE) 2.5 MG tablet Take 2.5 mg by mouth 3 times daily ? multivitamin daily tablet Take 1 tablet by mouth daily with food ? Naloxone HCl (NARCAN NA) [place] 1 Each into the nose as needed ? ondansetron (ZOFRAN) 8 MG tablet TK 1 T PO Q 8 H FOR 2 DAYS PRN 0 ? ? oxybutynin CR 24hr (DITROPAN-XL) 10 MG tablet 10 mg at bedtime ? tiZANidine (ZANAFLEX) 4 MG tablet Take 4 mg by mouth every 8 hours as needed for Muscle Spasms ?? Current Facility-Administered Medications Medication Dose Route Frequency Provider Last Rate Last Admin ? ? onabotulinumtoxin A (Botox) injection 300 Units ??300 Units Intramuscular Once Cynthia Schmitz MD ? Date of last injection: 03/06/21 ?Duration of benefit: 8weeks Present Complaints: Left sided spasticity, Very poor historian, tangential thought processes, multiple somatic complaints Functional Response: Good/.,mn bvcx Patient has been losing wt for the last 3 yrs. Adverse effects: Other: ??None Exam: ??Thin looking, awake, oriented to name and place. Left spastic hemiparesis with loss of muscle mass. In WC. 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 ?? I injected??her?BOTOX:?A=10 units/0.1cc??in the following distribution: L??Flexor Digitorum Longus?40??units L??Tibialis Posterior? 40??units?? L??Gastrocnemius?50??units L Hamstring ?60 units L FDL ?40 units L FDP ?40 units L Biceps ?30 units Units drawn:?300?Units wasted: Zero Complications: ??The patient did tolerate the procedure well and no complications were noted. Cynthia Schmitz MD Cynthia Schmitz MD PROCEDURE/MINOR SURG ICAL ORDERABLES * ND DESTROY PREMALIG LESION, 2-14, ND DESTROY PREMALIG LESION, 1ST LESION (03/06/2021 4:35 PM CDT) Narrative Daryl Tillman MD - 03/06/2021 4:35 PM CDT Christina Meadows MD ? 03/06/2021 ??4:37 PM Liquid nitrogen was applied for 7-10 ??seconds to the skin lesion(s) (face x4) and the expected blistering or scabbing reaction explained. Patient tolerated the procedure well. Do not pick at the areas. Patient reminded to expect hypopigmented scars from the procedure. Return if lesions fail to fully resolve. Christina Medaows MD Dermatology PGY-3 Daryl Tillman MD PROCEDURE/MINOR SURG ICAL ORDERABLES * ND CHEMODENERV ONE EXTREM 1-4 MUSCLES, ND CHEMODENERV 1 EXTREM 1-4 EA (03/06/2021 3:18 PM CDT) Narrative Cynthia Schmitz MD - 03/06/2021 3:18 PM CDT Cynthia Schmitz MD ? 03/10/2021 ??5:50 AM Botulinum Toxin A Procedure Note Current Date: 03/06/2021 Medications: Current Outpatient Medications Medication Sig Dispense Refill ? ? ANORO ELLIPTA 62.5-25 MCG/INH inhaler 1 puff once daily ? aspirin (ASPIRIN) 81 MG chew tablet Take 81 mg by mouth ? atorvastatin (LIPITOR) 20 MG tablet TK 1 T PO QD HS ??1 ? ? Calcium Carbonate-Vit D-Min (CALCIUM 1200) 2630-2873 MG-UNIT CHEW ? ciclopirox (LOPROX) 1 % shampoo Apply to wet hair, leave on for 3 minutes, then rinse; daily. ??30 days supply 60 mL 11 ? ? Cyanocobalamin (VITAMIN B 12 PO) ? DULoxetine (CYMBALTA) 20 MG capsule Take 20 mg by mouth once daily ? escitalopram (LEXAPRO) 10 MG tablet Take 10 mg by mouth once daily ? famotidine (PEPCID) 20 MG tablet TK 1 T PO D ??0 ? ? folic acid (FOLVITE) 1 MG tablet TK 1 T PO QD ??0 ? ? ibandronate (BONIVA) 150 MG tablet 150 mg every 30 days ?? 3 ? ? levETIRAcetam (KEPPRA) 500 MG tablet Take 3 (three) tablets by mouth 2 times daily 540 tablet 4 ? ? lubiprostone (AMITIZA) 24 MCG capsule Take 24 mcg by mouth 2 times daily with morning and evening meal ? midodrine (PROAMATINE) 2.5 MG tablet Take 2.5 mg by mouth 3 times daily ? multivitamin daily tablet Take 1 tablet by mouth daily with food ? Naloxone HCl (NARCAN NA) [place] 1 Each into the nose as needed ? ondansetron (ZOFRAN) 8 MG tablet TK 1 T PO Q 8 H FOR 2 DAYS PRN 0 ? ? oxybutynin CR 24hr (DITROPAN-XL) 10 MG tablet 10 mg at bedtime ? tiZANidine (ZANAFLEX) 4 MG tablet Take 4 mg by mouth every 8 hours as needed for Muscle Spasms ?? No current facility-administered medications for this visit. Date of last injection: 09/26/2020 ?Duration of benefit: Not sure of time period, except it helped a lot'. Present Complaints: Pain is worse, left hemiparesis Functional Response: Good Adverse effects: Other: ??None Exam: ??Cooperative, anxious, decreased left NLF. 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 ?? I injected??her?BOTOX:?A=10 units/0.1cc??in the following distribution: L??Flexor Digitorum Longus?40??units L??Tibialis Posterior? 40??units?? L??Gastrocnemius?50??units L Hamstring ?60 units L FDL ?40 units L FDP ?40 units L Biceps ?30 units Units drawn:?300?Units wasted: Zero Complications: ??The patient did tolerate the procedure well and no complications were noted. Cynthia Schmitz MD Cynthia Schmitz MD PROCEDURE/MINOR SURG ICAL ORDERABLES * ND CHEMODENERV ONE EXTREM 1-4 MUSCLES, ND CHEMODENERV 1 EXTREM 1-4 EA (09/26/2020 4:10 PM SUPERVISOR REFINING) Narrative Cynthia Schmitz MD - 09/26/2020 4:10 PM SUPERVISOR REFINING Cynthia Schmitz MD ? 09/28/2020 12:08 PM Botulinum Toxin aA Procedure Note Current Date: 09/26/2020 Medications: Current Outpatient Medications Medication Sig Dispense Refill ? ? aspirin (ASPIRIN) 81 MG chew tablet Take 81 mg by mouth ? atorvastatin (LIPITOR) 20 MG tablet TK 1 T PO QD HS ??1 ? ? Calcium Carbonate-Vit D-Min (CALCIUM 1200) 6812-6831 MG-UNIT CHEW ? ciclopirox (LOPROX) 1 % shampoo Apply to wet hair, leave on for 3 minutes, then rinse; daily. ??30 days supply 60 mL 11 ? ? Cyanocobalamin (VITAMIN B 12 PO) ? divalproex DR (DEPAKOTE) 250 MG tablet Take one pill at bedtime for one week and then one pill twice a day. 60 tablet 2 ? ? DULoxetine (CYMBALTA) 20 MG capsule Take 20 mg by mouth once daily ? escitalopram (LEXAPRO) 10 MG tablet Take 10 mg by mouth once daily ? famotidine (PEPCID) 20 MG tablet TK 1 T PO D ??0 ? ? folic acid (FOLVITE) 1 MG tablet TK 1 T PO QD ??0 ? ? ibandronate (BONIVA) 150 MG tablet ?? 3 ? ? levETIRAcetam (KEPPRA) 500 MG tablet TAKE 3 TABLETS BY MOUTH TWICE DAILY 540 tablet 4 ? ? lubiprostone (AMITIZA) 24 MCG capsule Take 24 mcg by mouth 2 times daily with morning and evening meal ? midodrine (PROAMATINE) 2.5 MG tablet Take 2.5 mg by mouth 3 times daily ? multivitamin daily tablet Take 1 tablet by mouth daily with food ? Naloxone HCl (NARCAN NA) [place] 1 Each into the nose as needed ? ondansetron (ZOFRAN) 8 MG tablet TK 1 T PO Q 8 H FOR 2 DAYS PRN 0 ? ? oxybutynin CR 24hr (DITROPAN-XL) 10 MG tablet ? tiZANidine (ZANAFLEX) 4 MG tablet Take 4 mg by mouth every 8 hours as needed for Muscle Spasms ?? No current facility-administered medications for this visit. ?? Date of last injection: 06/20/2020 ?Duration of benefit: 3 months Present Complaints: Tightness in left leg and thigh. Functional Response: Good Adverse effects: Other: ??None Exam: ??Tangential thought process, extraocular muscle intact. ?? Left hemiparesis with spasticity and brisk reflexes on the left side. ??Wheelchair bound. 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 ?? I injected??her?BOTOX:?A=10 units/0.1cc??in the following distribution: L??Flexor Digitorum Longus?40??units L??Tibialis Posterior? 40??units?? L??Gastrocnemius?50??units L Hamstring ?60 units L FDL ?40 units L FDP ?40 units L Biceps ?30 units Units drawn:?300?Units wasted: Zero Complications: ??The patient did tolerate the procedure well and no complications were noted. Cynthia Schmitz MD Cynthia Schmitz MD PROCEDURE/MINOR SURG ICAL ORDERABLES * ND DESTROY PREMALIG LESION, 2-14, ND DESTROY PREMALIG LESION, 1ST LESION (07/21/2020 4:42 PM CDT) Narrative Daryl Tillman MD - 07/21/2020 4:42 PM CDT Christina Meadows MD ? 07/21/2020 ??4:43 PM Liquid nitrogen was applied for 7-10 ??seconds to the skin lesion(s) (bilateral temples, forehead, nose x6) and the expected blistering or scabbing reaction explained. Patient tolerated the procedure well. Do not pick at the areas. Patient reminded to expect hypopigmented scars from the procedure. Return if lesions fail to fully resolve. Christina Meadows MD Dermatology PGY-3 Daryl Tillman MD PROCEDURE/MINOR SURG ICAL ORDERABLES * ND CHEMODENERV ONE EXTREM 1-4 MUSCLES, ND CHEMODENERV 1 EXTREM 1-4 EA (06/20/2020 11:31 AM CDT) Narrative Cynthia Schmitz MD - 06/20/2020 11:31 AM CDT Cynthia Schmitz MD ? 06/20/2020 ??5:48 PM Botulinum Spasmodic Torticollis/Dystonia Procedure Note Current Date: 06/20/2020 Medications: Current Outpatient Medications Medication Sig Dispense Refill ? ? aspirin (ASPIRIN) 81 MG chew tablet Take 81 mg by mouth ? atorvastatin (LIPITOR) 20 MG tablet TK 1 T PO QD HS ??1 ? ? Calcium Carbonate-Vit D-Min (CALCIUM 1200) 9907-8570 MG-UNIT CHEW ? ciclopirox (LOPROX) 1 % shampoo Apply to wet hair, leave on for 3 minutes, then rinse; daily. ??30 days supply 60 mL 11 ? ? Cyanocobalamin (VITAMIN B 12 PO) ? divalproex DR (DEPAKOTE) 250 MG tablet Take one pill at bedtime for one week and then one pill twice a day. 60 tablet 2 ? ? DULoxetine (CYMBALTA) 20 MG capsule Take 20 mg by mouth once daily ? escitalopram (LEXAPRO) 10 MG tablet Take 10 mg by mouth once daily ? famotidine (PEPCID) 20 MG tablet TK 1 T PO D ??0 ? ? folic acid (FOLVITE) 1 MG tablet TK 1 T PO QD ??0 ? ? ibandronate (BONIVA) 150 MG tablet ?? 3 ? ? levETIRAcetam (KEPPRA) 500 MG tablet TAKE 3 TABLETS BY MOUTH TWICE DAILY 540 tablet 4 ? ? lubiprostone (AMITIZA) 24 MCG capsule Take 24 mcg by mouth 2 times daily with morning and evening meal ? midodrine (PROAMATINE) 2.5 MG tablet Take 2.5 mg by mouth 3 times daily ? multivitamin daily tablet Take 1 tablet by mouth daily with food ? Naloxone HCl (NARCAN NA) [place] 1 Each into the nose as needed ? ondansetron (ZOFRAN) 8 MG tablet TK 1 T PO Q 8 H FOR 2 DAYS PRN 0 ? ? oxybutynin CR 24hr (DITROPAN-XL) 10 MG tablet ? tiZANidine (ZANAFLEX) 4 MG tablet Take 4 mg by mouth every 8 hours as needed for Muscle Spasms ?? Current Facility-Administered Medications Medication Dose Route Frequency Provider Last Rate Last Dose ? ? onabotulinumtoxin A (BOTOX) injection 300 Units ??300 Units Intramuscular Once Cynthia Schmitz MD ? Date of last injection: 03/21/2020 ?Duration of benefit: 3weeks Present Complaints: Tightness in the left arm and left leg. Functional Response: Pt gives conflicting responses; states it does nothing and then states it makes her feel better. Adverse effects: Other: ??None Exam: ??Anxious, left hemiplegia. WC dependent Impression: ??limb spasticity Plan: ??Botulinum Toxin A 300 units Description of Operation/Procedure: The risks, benefits, indications, potential complications, and alternatives were explained to the patient and informed consent obtained. ?? I injected??her?BOTOX:?A=10 units/0.1cc??in the following distribution: L??Flexor Digitorum Longus?40??units L??Tibialis Posterior? 40??units?? L??Gastrocnemius?50??units L Hamstring ?60 units L FDL ?40 units L FDP ?40 units L Biceps ?30 units Units drawn:?300?Units wasted: Zero Complications: ??The patient did tolerate the procedure well and no complications were noted. Pt was worried about PT and OT visits. Was referred to clinical social worker. Cynthia Schmitz MD Cynthia Schmitz MD PROCEDURE/MINOR SURG ICAL ORDERABLES * CT HEAD WWO CONTRAST (03/29/2020 12:05 PM CDT) Anatomical Region Laterality Modality Head Computed Tomogra phy 03/29/2020 1:03 PM CDT Impressions 03/29/2020 2:20 PM CDT IMPRESSION: 1.No acute intracranial hemorrhage, mass effect, or midline shift. No abnormal enhancing lesions. 2.Redemonstrated stable large volume right MCA territory encephalomalacia/gliosis. Dictated by Susana Mackey MD (interventional radiology tech). This report was approved ??by Susana Mackey ?? on 03/29/2020 2:20 PM . I, Dr. JERAMIE MACIAS have personally reviewed and interpreted this examination/study. This report was electronically signed by JERAMIE MACIAS ??on 03/29/2020 2:20 PM . Narrative 03/29/2020 2:[address] HEAD WWO CONTRAST EXAMINATION: Computed tomography (CT) of the head with and without contrast. 100 mL Isovue-370 given intravenously. DATE: 03/29/2020 12:05 PM HISTORY: R51: Intractable headache, unspecified chronicity pattern, unspecified headache type TECHNIQUE: CT of the head was performed without contrast according to standard protocol. Then, 100 mL Isovue-[address] head with Contrast exam. COMPARISON: CTA brain from 09/04/2018 FINDINGS: Redemonstrated right MCA aneurysm clips and postoperative appearance of right pterional craniectomy. Beam hardening artifact limits evaluation of right middle cranial fossa region. Redemonstrated large region of encephalomalacia/gliosis involving the right frontal, parietal, and temporal lobes with associated significant ex vacuo dilatation of the temporal horn of the right lateral ventricle, unchanged. There is ex vacuo dilatation of the remaining ventricles. Redemonstrated small region of encephalomalacia/gliosis in the superior left frontal lobe. The basilar cisterns are patent. No mass effect or midline shift is seen. The triana-white matter differentiation is normal. ??The orbits appear normal. The paranasal sinuses are clear. There is partial opacification of the right mastoid air cells. No soft tissue abnormality is identified. No abnormally enhancing lesions are identified. Procedure Note Jeramie Macias MD - 03/29/2020 CT HEAD WWO CONTRAST EXAMINATION: Computed tomography (CT) of the head with and without contrast. 100 mL Isovue-370 given intravenously. DATE: 03/29/2020 12:05 PM HISTORY: R51: Intractable headache, unspecified chronicity pattern, unspecified headache type TECHNIQUE: CT of the head was performed without contrast according to standard protocol. Then, 100 mL Isovue-370 given intravenously for CThead with Contrast exam. COMPARISON: CTA brain from 09/04/2018 FINDINGS: Redemonstrated right MCA aneurysm clips and postoperative appearance of right pterional craniectomy. Beam hardening artifact limits evaluationof right middle cranial fossa region. Redemonstrated large region of encephalomalacia/gliosis involving the right frontal, parietal, and temporal lobes with associated significant ex vacuo dilatation of the temporal horn of the right lateral ventricle, unchanged. There is exvacuo dilatation of the remaining ventricles. Redemonstrated small region of encephalomalacia/gliosis in the superior left frontal lobe. The basilar cisterns are patent. No mass effect or midline shift is seen. The triana-white matter differentiation is normal. The orbits appear normal. The paranasal sinuses are clear. There is partial opacification of the right mastoid air cells. No soft tissue abnormality is identified. No abnormally enhancing lesions are identified. IMPRESSION: 1.No acute intracranial hemorrhage, mass effect, or midline shift. No abnormal enhancing lesions. 2.Redemonstrated stable large volume right MCA territory encephalomalacia/gliosis. Dictated by Susana Mackey MD (interventional radiology tech). This report was approved by Susana Mackey on 03/29/2020 2:20 PM . I, Dr. JERAMIE MACIAS have personally reviewed and interpreted this examination/study. This report was electronically signed by JERAMIE MACIAS on03/29/2020 2:20 PM . Cynthia Schmitz MD CT ORDERABLES * CREATININE - POCT INTERFACED (03/29/2020 11:54 AM CDT) Creatinine POCT 0.6 0.3 - 1.3 mg/dL 03/29/2020 11:57 AM CDT [facility] eGFR >60 >60 mL/min/1.7 3 m2 03/29/2020 11:57 AM CDT [facility] Blood BLOOD SPECIMEN / Unknown 03/29/2020 11:54 AM CDT 03/29/2020 11:57 AM CDT Cynthia Schmitz MD LAB - POINT OF CARE ORDERABLES [address] [address], [facility] [phone] * ND CHEMODENERV ONE EXTREM 1-4 MUSCLES, ND CHEMODENERV 1 EXTREM 1-4 EA (03/21/2020 11:22 AM CDT) Narrative Cynthia Schmitz MD - 03/21/2020 11:22 AM CDT Cynthia Schmitz MD ? 03/25/2020 11:30 AM Botulinum Toxin A ??Procedure Note Current Date: 03/21/2020 Medications: Current Outpatient Medications Medication Sig Dispense Refill ? ? aspirin (ASPIRIN) 81 MG chew tablet Take 81 mg by mouth ? atorvastatin (LIPITOR) 20 MG tablet TK 1 T PO QD HS ??1 ? ? Calcium Carbonate-Vit D-Min (CALCIUM 1200) [id number] MG-UNIT CHEW ? ciclopirox (LOPROX) 1 % shampoo Apply to wet hair, leave on for 3 minutes, then rinse; daily. ??30 days supply 60 mL 11 ? ? Cyanocobalamin (VITAMIN B 12 PO) ? DULoxetine (CYMBALTA) 20 MG capsule Take 20 mg by mouth once daily ? escitalopram (LEXAPRO) 10 MG tablet Take 10 mg by mouth once daily ? famotidine (PEPCID) 20 MG tablet TK 1 T PO D ??0 ? ? folic acid (FOLVITE) 1 MG tablet TK 1 T PO QD ??0 ? ? ibandronate (BONIVA) 150 MG tablet ?? 3 ? ? levETIRAcetam (KEPPRA) 500 MG tablet TAKE 3 TABLETS BY MOUTH TWICE DAILY 540 tablet 4 ? ? lubiprostone (AMITIZA) 24 MCG capsule Take 24 mcg by mouth 2 times daily with morning and evening meal ? midodrine (PROAMATINE) 2.5 MG tablet Take 2.5 mg by mouth 3 times daily ? multivitamin daily tablet Take 1 tablet by mouth daily with food ? Naloxone HCl (NARCAN NA) [place] 1 Each into the nose as needed ? ondansetron (ZOFRAN) 8 MG tablet TK 1 T PO Q 8 H FOR 2 DAYS PRN 0 ? ? oxybutynin CR 24hr (DITROPAN-XL) 10 MG tablet ? sertraline (ZOLOFT) 50 MG tablet TK 1 T PO QD ??1 ? ? tiZANidine (ZANAFLEX) 4 MG tablet Take 4 mg by mouth every 8 hours as needed for Muscle Spasms ?? Current Facility-Administered Medications Medication Dose Route Frequency Provider Last Rate Last Dose ? ? onabotulinumtoxin A (BOTOX) injection 300 Units ??300 Units Intramuscular Once Cynthia Schmitz MD ? Date of last injection: 12/21/2019 ?Duration of benefit: 2months Present Complaints: Left sided spasms and tightness. Pt is not going for PT due to COVID and has been doing exercises at home. Complained about HAs. Please see progress notes. Functional Response: Good Adverse effects: Other: ??None Exam: ??Anxious, EOMI, left sided spasticity, LUE in pronation and flexion at distal and prox IPJ.Using brace for LLE Impression: ??limb spasticity Plan: ??Botulinum Toxin A 300 units Description of Operation/Procedure: The risks, benefits, indications, potential complications, and alternatives were explained to the patient and informed consent obtained. ?? I injected??her?BOTOX:?A=10 units/0.1cc??in the following distribution: L??Flexor Digitorum Longus?40??units L??Tibialis Posterior? 40??units?? L??Gastrocnemius?50??units L Hamstring ?60 units L FDL ? 40 units L FDP ? 40 units L Biceps ? 30 units Units drawn:?300?Units wasted: Zero Complications: ??The patient did tolerate the procedure well and no complications were noted. Cynthia Schmitz MD Cynthia Schmitz MD PROCEDURE/MINOR SURG ICAL ORDERABLES * ND DESTROY PREMALIG LESION, 2-14, ND DESTROY PREMALIG LESION, 1ST LESION (01/14/2020 5:48 PM CDT) Narrative Daryl Tillman MD - 01/14/2020 5:48 PM CDT Daryl Tillman MD ? 01/14/2020 ??5:48 PM 4 lesions cryo Daryl Tillman MD PROCEDURE/MINOR SURG ICAL ORDERABLES * ND CHEMODENERV ONE EXTREM 1-4 MUSCLES, ND CHEMODENERV 1 EXTREM 1-4 EA (12/21/2019 1:32 PM SUPERVISOR REFINING) Narrative Cynthia Schmitz MD - 12/21/2019 1:32 PM SUPERVISOR REFINING Cynthia Schmitz MD ? 12/22/2019 ??9:24 AM Botulinum botulinum Toxin A Procedure Note Current Date: 12/21/2019 Medications: Current Outpatient Medications Medication Sig Dispense Refill ? ? aspirin (ASPIRIN) 81 MG chew tablet Take 81 mg by mouth ? atorvastatin (LIPITOR) 20 MG tablet TK 1 T PO QD HS ??1 ? ? Calcium Carbonate-Vit D-Min (CALCIUM 1200) 7456-2790 MG-UNIT CHEW ? Cyanocobalamin (VITAMIN B 12 PO) ? DULoxetine (CYMBALTA) 20 MG capsule Take 20 mg by mouth once daily ? escitalopram (LEXAPRO) 10 MG tablet Take 10 mg by mouth once daily ? famotidine (PEPCID) 20 MG tablet TK 1 T PO D ??0 ? ? folic acid (FOLVITE) 1 MG tablet TK 1 T PO QD ??0 ? ? ibandronate (BONIVA) 150 MG tablet ?? 3 ? ? levETIRAcetam (KEPPRA) 500 MG tablet TAKE 3 TABLETS BY MOUTH TWICE DAILY 540 tablet 4 ? ? lubiprostone (AMITIZA) 24 MCG capsule Take 24 mcg by mouth 2 times daily with morning and evening meal ? midodrine (PROAMATINE) 2.5 MG tablet Take 2.5 mg by mouth 3 times daily ? multivitamin daily tablet Take 1 tablet by mouth daily with food ? Naloxone HCl (NARCAN NA) [place] 1 Each into the nose as needed ? ondansetron (ZOFRAN) 8 MG tablet TK 1 T PO Q 8 H FOR 2 DAYS PRN 0 ? ? oxybutynin CR 24hr (DITROPAN-XL) 10 MG tablet ? sertraline (ZOLOFT) 50 MG tablet TK 1 T PO QD ??1 ? ? tiZANidine (ZANAFLEX) 4 MG tablet Take 4 mg by mouth every 8 hours as needed for Muscle Spasms ?? Current Facility-Administered Medications Medication Dose Route Frequency Provider Last Rate Last Dose ? ? onabotulinumtoxin A (BOTOX) injection 300 Units ??300 Units Intramuscular Once Cynthia Schmitz MD ? Date of last injection: 09/21/2019 ?Duration of benefit: 7 weeks Present Complaints: Tightness in left arm and leg Functional Response: Good Adverse effects: Other: ??None Exam: ??Left spasticity, atrophy of muscles and inversion of the foot. 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 ?? I injected??her?BOTOX:?A=10 units/0.1cc??in the following distribution: L??Flexor Digitorum Longus ?40??units L??Tibialis Posterior? 40 units?? L??Gastrocnemius?50??units L Hamstring ?60 units L FDL ? 40 units L FDP ? 40 units L Biceps ? 30 units Units drawn:?300?Units wasted: Zero Complications: ??The patient did tolerate the procedure well and no complications were noted. Cynthia Schmitz MD Cynthia Schmitz MD PROCEDURE/MINOR SURG ICAL ORDERABLES * ND CHEMODENERV ONE EXTREM 1-4 MUSCLES (09/21/2019 12:00 PM SUPERVISOR REFINING) Narrative Cynthia Schmitz MD - 09/21/2019 12:00 PM SUPERVISOR REFINING Cynthia Schmitz MD ? 09/25/2019 ??6:24 AM Botulinum Toxin A Procedure Note Current Date: 09/21/2019 Medications: Current Outpatient Medications Medication Sig Dispense Refill ? ? aspirin (ASPIRIN) 81 MG chew tablet Take 81 mg by mouth ? atorvastatin (LIPITOR) 20 MG tablet TK 1 T PO QD HS ??1 ? ? botulinum toxin type A 100 units/1 ml (BOTOX) 100 UNIT injection Inject 1 mL into muscle once for 1 dose 1 mL 0 ? ? Calcium Carbonate-Vit D-Min (CALCIUM 1200) 8313-1134 MG-UNIT CHEW ? Cyanocobalamin (VITAMIN B 12 PO) ? DULoxetine (CYMBALTA) 20 MG capsule Take 20 mg by mouth once daily ? escitalopram (LEXAPRO) 10 MG tablet Take 10 mg by mouth once daily ? famotidine (PEPCID) 20 MG tablet TK 1 T PO D ??0 ? ? folic acid (FOLVITE) 1 MG tablet TK 1 T PO QD ??0 ? ? ibandronate (BONIVA) 150 MG tablet ?? 3 ? ? levETIRAcetam (KEPPRA) 500 MG tablet Take 3 tablets by mouth 2 times daily 540 tablet 4 ? ? lubiprostone (AMITIZA) 24 MCG capsule Take 24 mcg by mouth 2 times daily with morning and evening meal ? midodrine (PROAMATINE) 2.5 MG tablet Take 2.5 mg by mouth 3 times daily ? multivitamin daily tablet Take 1 tablet by mouth daily with food ? Naloxone HCl (NARCAN NA) [place] 1 Each into the nose as needed ? ondansetron (ZOFRAN) 8 MG tablet TK 1 T PO Q 8 H FOR 2 DAYS PRN 0 ? ? oxybutynin CR 24hr (DITROPAN-XL) 10 MG tablet ? sertraline (ZOLOFT) 50 MG tablet TK 1 T PO QD ??1 ? ? tiZANidine (ZANAFLEX) 4 MG tablet Take 4 mg by mouth every 8 hours as needed for Muscle Spasms ?? No current facility-administered medications for this visit. ?? Date of last injection: 06/22/19 ?Duration of benefit: 7weeks Present Complaints: Left leg and arm tightness Functional Response: Good Adverse effects: Other: ??none Exam: ??Cooperative, left hemiparesis Impression: ??limb spasticity Plan: ??Botulinum Toxin A 100 units Description of Operation/Procedure: The risks, benefits, indications, potential complications, and alternatives were explained to the patient and informed consent obtained. ?? I injected her ??BOTOX: ?? A=10 units/0.1cc in the following distribution: L Flexor Digitorum Longus ?25 units L Tibialis Posterior ?40 units L Gastrocnemius ?35 units Units drawn: ??100 ?? Units wasted: Zero Complications: ??The patient did tolerate the procedure well and no complications were noted. Will get approval for 300 units to inject in left lower extremity and left upper extremity. Cynthia Schmitz MD Cynthia Schmitz MD PROCEDURE/MINOR SURG ICAL ORDERABLES * ND CHEMODENERV ONE EXTREM 1-4 MUSCLES (06/22/2019 11:04 AM CDT) Narrative Cynthia Schmitz MD - 06/22/2019 11:04 AM CDT Cynthia Schmitz MD ? 06/26/2019 ??8:03 AM Botulinum Botulinum Toxin A Procedure Note Current Date: 06/22/2019 Medications: Current Outpatient Medications Medication Sig Dispense Refill ? ? aspirin (ASPIRIN) 81 MG chew tablet Take 81 mg by mouth ? atorvastatin (LIPITOR) 20 MG tablet TK 1 T PO QD HS ??1 ? ? Calcium Carbonate-Vit D-Min (CALCIUM 1200) 2449-1986 MG-UNIT CHEW ? Cyanocobalamin (VITAMIN B 12 PO) ? DULoxetine (CYMBALTA) 20 MG capsule Take 20 mg by mouth once daily ? escitalopram (LEXAPRO) 10 MG tablet Take 10 mg by mouth once daily ? famotidine (PEPCID) 20 MG tablet TK 1 T PO D ??0 ? ? fludrocortisone (FLORINEF) 0.1 MG tablet Take 1 tablet by mouth once daily 30 tablet 11 ? ? folic acid (FOLVITE) 1 MG tablet TK 1 T PO QD ??0 ? ? ibandronate (BONIVA) 150 MG tablet ?? 3 ? ? levETIRAcetam (KEPPRA) 500 MG tablet Take 3 tablets by mouth 2 times daily 540 tablet 4 ? ? lubiprostone (AMITIZA) 24 MCG capsule Take 24 mcg by mouth 2 times daily with morning and evening meal ? midodrine (PROAMATINE) 2.5 MG tablet Take 2.5 mg by mouth 3 times daily ? multivitamin daily tablet Take 1 tablet by mouth daily with food ? Naloxone HCl (NARCAN NA) [place] 1 Each into the nose as needed ? oxybutynin CR 24hr (DITROPAN-XL) 10 MG tablet ? sertraline (ZOLOFT) 50 MG tablet TK 1 T PO QD ??1 ? ? tiZANidine (ZANAFLEX) 4 MG tablet Take 4 mg by mouth every 8 hours as needed for Muscle Spasms ?? Current Facility-Administered Medications Medication Dose Route Frequency Provider Last Rate Last Dose ? ? onabotulinumtoxin A (BOTOX) injection 100 Units ??100 Units Intramuscular Once Cynthia Schmitz MD ? Present Complaints: Muscle spasms in the left leg. Pt has hx of brain aneurysm bleed and surgery. Exam: ??Spasticity left Lower more than left upper extremities with brisk reflexes. ??Wheelchair bound Impression: ??limb spasticity Plan: ??Botulinum toxin a 100 units Description of Operation/Procedure: The risks, benefits, indications, potential complications, and alternatives were explained to the patient and informed consent obtained. I injected her ??BOTOX: ?? A=10 units/0.1cc in the following distribution: L FLEXOR DIGITORUM LONGUS ? 25 units L Tibialis Posterior ?25 units L Gastrocnemius ?50 units Units drawn: ??100 ?? Units wasted: Zero Complications: ??The patient did tolerate the procedure well and no complications were noted. Cynthia Schmitz MD Cynthia Schmizt MD PROCEDURE/MINOR SURG ICAL ORDERABLES * ND TTE W/DOPPLER, COMPLETE (01/01/2019 9:23 AM SUPERVISOR REFINING) Narrative Kim Rubi MD - 01/01/2019 9:23 AM SUPERVISOR REFINING Kim Rubi MD ? 01/01/2019 ??9:23 AM [facility] 2-D & M-Mode Echocardiogram Report Color Flow Doppler Report Patients Name: Terra Gastelum ?: 1955 Age: 63 y.o. Gender: female ?? Date of Test: ??12/31/2018 Referring Physician: Rupal Mason MD [address] [place] [address] Primary Care Physician: Karl Cates MD Introduction: Terra Gastelum is a 63 y.o. female hypotension. Indication: Dizzy Chamber Measurements LV Internal Dimension Systole (cm): 2.8 cm LV Internal Dimension Diastole (cm): 4.2 cm Septal Thickness (cm): 0.9 cm Aortic Root Measurement (cm): 4 cm Left Atrium Measurement (cm): 2.9 cm LVOT Diameter (cm): 1.8 cm Ejection Fraction 55% Color Flow and Doppler Waveform Analysis Aortic Velocities: AV Max (m/s): 1.3 m/s LVOT max (m/s): 1 m/s Mitral Velocities: E (m/s): 0.6 m/s A (m/s): 0.7 m/s Tricuspid Velocities: Max Tricuspid Valve Velocity (m/s): 0.3 m/s PulmonicVelocities: OVERALL INTERPRETATION: -Technically adequate study. - Rhythm is sinus. - Normal left ventricular size and systolic function without regional wall motion abnormalities. Ejection fraction is estimated to be 55%. - Grade I diastolic dysfunction. - Normal right ventricular size and systolic function. - Normal right ventricular systolic pressure; estimated RVSP < 35mmHg. ??IVC normal size with respiratory variation (IVC is mostly collapsed). ?? - Left atrial size is normal. ??Right atrial size is normal. - Normal trileaflet aortic valve structure and velocities. ??No aortic regurgitation. ??No aortic stenosis. - Normal mitral valve structure and velocities. ??Trace mitral regurgitation. No mitral stenosis. - Normal tricuspid valve structure. ??Mild tricuspid regurgitation. - Normal pulmonary valve structure and velocities. Mild pulmonary insufficiency. - Normal pericardium. - Normal aortic root. Electronically signed by: Kim Rubi MD Date of Interpretation: 01/01/19 ?Date of Final Report: 01/01/19 Rupal Mason MD ECG ORDERABLES * (ABNORMAL) VIRAL CULTURE [facility] (12/31/2018 1:42 PM SUPERVISOR REFINING) Viral Culture (A) [facility] INSURANCE BILL Comment: Positive for Herpes simplex virus type-1. Typing was confirmed by monoclonal antibody microscopic immunofluorescence. Microbiology LESION OF NOSE / Unknown 12/31/2018 1:42 PM SUPERVISOR REFINING 12/31/2018 Narrative Resulting Agency Comment [facility] [address] ??[facility] [phone] Laurence Monterroso MD LAB - MICROBIOLOGY ORDERABLES [facility] INSURANCE BILL [address] [place] [address] * DERMATOPATHOLOGY (12/31/2018 12:00 AM SUPERVISOR REFINING) Case Report Dermatopathology Report ? Case: [id number] ? Authorizing Provider: ??Laurence Monterroso MD ?Collected: ? 12/31/2018 12:00 AM ? Ordering Location: ? [facility] ?Received: ?01/01/2019 08:56 AM ? Dermatology ? Pathologist: ? Laurence Monterroso MD ? Specimen: ?Skin, left medial proximal knee ? 9 10:56 AM SUPERVISOR REFINING DERMATOPATHOLOGY LABORATORY Final Diagnosis Specimen A. SKIN, left medial proximal knee: VERRUCA VULGARIS (B07.8) 03/04/201 9 10:56 AM [facility] DERMATOPATH[facility] Clinical History VV vs SCC. 9 10:56 AM [facility]ERMAT[facility] Gross Description Specimen A: Received is one formalin filled container labeled with the patient's name and designated left medial proximal knee. The specimen consists of a shave biopsy measuring [id number]. Jar 0+. 9 10:56 AM [facility] DERMATOPATHOLOG[facility] Microscopic Description Specimen A. SKIN, left medial proximal knee: There is digitated epidermal hyperplasia, hypergranulosis, vacuolated granular layer cells, and compact hyperorthokeratosis . 9 10:56 AM [facility] DERMATOPATHOLOGY [facility]OR[facility] Disclaimer An external and internal positive and negative controls are appropriate for the histochemical, immunohistochemical and immunofluorescence stain(s) in this case (if any), except where stated explicitly. The performance characteristics of the stain(s) cited in this report were developed and its performance characteristic determined by the Dermatopathology Laboratory at [facility], directed by Dr. Yanick Bahena. These tests need not be, and therefore are not, approved by the [place] Food and Drug Administration. The tests are used for clinical purposes. Billing Codes Specimen Charges Stain Charges 37069 1 9 10:56 AM [facility] Embedded Images 10:56 AM [facility] Pathology/Cytolog y TISSUE SPECIMEN FROM SKIN / Unknown 12/31/2018 01/01/2019 8:56 AM [facility] Laurence Monterroso MD LAB - PATHOLOGY/CY TOLOGY ORDERABLES DERMATOPATHOLOGY LABORATORY [facility] - Department of Dermatology [address] [place] [address], 5[address] Floor Lab [address] [phone] * CULTURE AEROBIC (12/31/2018 12:00 AM SUPERVISOR REFINING) Aerobic Bacterial Culture Final report [facility] INSURANCE BILL Result 1 Mixed skin nina [facility] INSURANCE BILL Microbiology LESION OF NOSE / Unknown 12/31/2018 12/31/2018 Narrative Resulting Agency Comment [facility] [place] [address] ??[place] [phone] Laurence Monterroso MD LAB - MICROBIOLOGY ORDERABLES [facility] INSURANCE BILL [address] [place] [address] * EKG 12-LEAD (12/16/2018) Only the most recent of4 resultswithin the time period is included. Rupal Mason MD ECG ORDERABLES * MRI BRAIN WWO CONTRAST (10/05/2018 9:29 AM SUPERVISOR REFINING) Only the most recent of4 resultswithin the time period is included. Anatomical Region Laterality Modality Head Magnetic Resonan ce 10/05/2018 9:2 8 AM SUPERVISOR REFINING Impressions 10/05/2018 9:55 AM SUPERVISOR REFINING IMPRESSION: 1. 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 2. Unchanged postoperative appearance of left parietal craniotomy for a left parietal biopsy with unchanged subadjacent encephalomalacia. 3. No acute abnormality. I, Dr. MEG TORRES have personally reviewed and interpreted this examination/study. This report was electronically signed by MEG TORRES ??on 10/05/2018 9:55 AM . Narrative 10/05/2018 9:55 AM SUPERVISOR REFINING EXAMINATION: Magnetic resonance imaging (MRI) of the brain without and with contrast HISTORY: I67.1: Brain aneurysm TECHNIQUE: MRI of the brain was performed prior to and following the uneventful administration of 16 L Gadavist intravenous gadolinium contrast according to standard protocol. FINDINGS: Comparison is made to a brain MR from 09/03/2016, and a CT angiogram of the head from 09/04/2018 Postoperative changes of a small left parietal craniotomy for left parietal lobe biopsy are reidentified, with unchanged encephalomalacia and hemosiderin deposition at the biopsy site. Susceptibility artifact in the left basal ganglia representing chronic blood products is unchanged. Susceptibility artifact representing chronic blood products ??in the left frontal lobe along a prior ventricular catheter tract with surrounding gliosis is unchanged. 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 Magnetic susceptibility artifact in this region from the patient's aneurysm clip obscures evaluation of the adjacent right frontal and temporal lobes. Large area of encephalomalacia/gliosis in the right frontal, temporal, and parietal lobes with downstream Wallerian degeneration in the right cerebral peduncle is unchanged. There is unchanged ex vacuo dilatation of the right lateral and third ventricles. There is no abnormal enhancement in this region. No evidence of acute cerebral infarction is seen. Mild cerebral volume loss is noted. No significant midline shift is seen. No enhancing lesions are identified. The sella appears normal. The visualized portions of the orbits, paranasal sinuses, and mastoids appear normal. Normal flow voids are demonstrated in the carotid arteries and basilar artery. Procedure Note Meg Torres MD - 10/05/2018 EXAMINATION: Magnetic resonance imaging (MRI) of the brain without and with contrast HISTORY: I67.1: Brain aneurysm TECHNIQUE: MRI of the brain was performed prior to and following the uneventful administration of 16 L Gadavist intravenous gadoliniumcontrast according to standard protocol. FINDINGS: Comparison is made to a brain MR from 09/03/2016, and a CT angiogram of the head from 09/04/2018 Postoperative changes of a small left parietal craniotomy for left parietal lobe biopsy are reidentified, with unchanged encephalomalaciaand hemosiderin deposition at the biopsy site. Susceptibility artifact inthe left basal ganglia representing chronic blood products is unchanged. Susceptibility artifact representing chronic blood products in the left frontal lobe along a prior ventricular catheter tract with surrounding gliosis is unchanged. 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 Magnetic susceptibility artifact in this region from the patient's aneurysm clip obscures evaluation of the adjacent right frontal and temporal lobes. Large area of encephalomalacia/gliosis in the right frontal, temporal, and parietal lobes with downstream Wallerian degeneration in the right cerebral peduncle is unchanged. There is unchanged ex vacuo dilatation of the right lateral and third ventricles. There is no abnormal enhancement in this region. No evidence of acute cerebral infarction is seen. Mild cerebral volume loss is noted. No significant midline shift is seen. No enhancinglesions are identified. The sella appears normal. The visualized portions of the orbits, paranasal sinuses, and mastoids appear normal. Normal flow voids are demonstrated in the carotidarteries and basilar artery. IMPRESSION: 1. 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 2. Unchanged postoperative appearance of left parietal craniotomy for a left parietal biopsy with unchanged subadjacent encephalomalacia. 3. No acute abnormality. I, Dr. MEG TORRES have personally reviewed and interpreted this examination/study. This report was electronically signed by MEG TORRES on 10/05/2018 9:55AM . Cynthia Schmitz MD MR ORDERABLES * CREATININE BLOOD - POCT (IP) [facility] [facility]ENTER (10/05/2018 8:48 AM SUPERVISOR REFINING) Only the most recent of4 resultswithin the time period is included. Creatinine POCT 0.92 0.3 - 1.3 mg/dL [facility] POCT TESTING eGFR POCT 60 60 ml/min [facility] Blood BLOOD SPECIMEN / Unknown 10/05/2018 8:48 AM SUPERVISOR REFINING Cynthia Schmitz MD LAB - POINT OF CARE ORDERABLES [facility] POCT TESTING [address] [place] [address] * OPH VISUAL FIELD TEST [facility] (09/08/2018 1:57 PM SUPERVISOR REFINING) Anatomical Region Laterality Modality Other 09/08/2018 1:57 PM SUPERVISOR REFINING Jono Dacosta MD OPHTHALMOLOGY SERVIC ES ORDERABLES * CT ANGIO BRAIN (09/04/2018 4:27 PM CDT) Only the most recent of4 resultswithin the time period is included. Anatomical Region Laterality Modality Head Computed Tomogra phy 09/04/2018 4:47 PM CDT Impressions 09/04/2018 4:55 PM CDT IMPRESSION: No acute intracranial abnormality. Extensive streak artifact from the right MCA aneurysm clip limiting evaluation of the vessels in this region. Otherwise, no significant abnormality of the intracranial arteries. This report was electronically signed by MEG TORRES ??on 09/04/2018 4:55 PM . Narrative 09/04/2018 4:55 PM CDT EXAMINATION: 1. CT scan of the head without contrast 2. CT angiography of the brain HISTORY: hx of burst aneurysm, left sided visual field loss TECHNIQUE: CT of the head was performed without contrast according to standard protocol. Then CT angiography of the head was obtained after the uneventful administration of 50 mL Isovue 370 intravenous contrast. Three dimensional postprocessing was performed by the technologist and sent to the workstation for review. COMPARISON: CT head from earlier the same day was reviewed FINDINGS: Brain: There is no CT evidence of acute infarct. There is no acute hemorrhage. There is no hydrocephalus, midline shift or extra-axial fluid collection. No significant interval change is noted in the chronic findings of right cerebral encephalomalacia/gliosis, right MCA aneurysm clipping and craniotomy and left parietal craniotomy and subjacent small area of encephalomalacia/gliosis. Small areas of hypodensity in the left frontal white matter are also unchanged. CTA findings: The intracranial internal carotid arteries are patent bilaterally without focal stenosis. Scattered wall calcification is noted. The anterior cerebral arteries are within normal limits. ??There is a normal anterior communicating artery. The left middle cerebral artery is unremarkable. 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 The aneurysm clip leads to extensive streak artifact which limits evaluation for recurrent or residual is present. Adjacent vessels are also obscured. The M1 segment is patent but small in caliber. The distal vessels appear patent but the cortical branches are decreased as compared to the left, presumed to be a chronic finding. The vertebral arteries are normal in intracranial course. ??Both posterior inferior cerebellar arteries are noted. The basilar artery is normal. ??The posterior cerebral arteries are within normal limits. ??Both posterior communicating arteries are not visualized. Procedure Note Meg Torres MD - 09/04/2018 EXAMINATION: 1. CT scan of the head without contrast 2. CT angiography of the brain HISTORY: hx of burst aneurysm, left sided visual field loss TECHNIQUE: CT of the head was performed without contrast according to standard protocol. Then CT angiography of the head was obtained afterthe uneventful administration of 50 mL Isovue 370 intravenous contrast.Three dimensional postprocessing was performed by the technologist and sent to the workstation for review. COMPARISON: CT head from earlier the same day was reviewed FINDINGS: Brain: There is no CT evidence of acute infarct. There is no acute hemorrhage. There is no hydrocephalus, midline shift or extra-axial fluidcollection. No significant interval change is noted in the chronic findings of right cerebral encephalomalacia/gliosis, right MCA aneurysm clipping and craniotomy and left parietal craniotomy and subjacent small area of encephalomalacia/gliosis. Small areas of hypodensity in the left frontal white matter are also unchanged. CTA findings: The intracranial internal carotid arteries are patent bilaterallywithout focal stenosis. Scattered wall calcification is noted. The anterior cerebral arteries are within normal limits. There is a normal anterior communicating artery. 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 The aneurysm clip leads to extensive streak artifact which limits evaluation for recurrent or residual is present. Adjacent vessels are alsoobscured. The M1 segment is patent but small in caliber. The distal vessels appear patent but the cortical branches are decreased as compared to the left, presumed to be a chronic finding. The vertebral arteries are normal in intracranial course. Bothposterior inferior cerebellar arteries are noted. The basilar artery is normal.The posterior cerebral arteries are within normal limits. Both posterior communicating arteries are not visualized. IMPRESSION: No acute intracranial abnormality. Extensive streak artifact from the right MCA aneurysm clip limiting evaluation of the vessels in this region. Otherwise, no significant abnormality of the intracranial arteries. This report was electronically signed by MEG TORRES on 09/04/2018 4:55PM . Javad Dillon MD CT ORDERABLES * (ABNORMAL) CBC W AUTO DIFFERENTIAL (09/04/2018 3:42 PM CDT) Only the most recent of56 resultswithin the time period is included. WBC 5.9 3.5 - 10.5 10? 3 /uL 09/04/2018 3:47 PM [facility] RBC 4.45 3.90 - 5.00 10? 6 /uL 09/04/2018 3:47 PM [facility] Hemoglobin 12.4 12.0 - 15.5 g/dL 09/04/2018 3:47 PM [facility] Hematocrit 37.7 35.0 - 45.0 % 09/04/2018 3:47 PM [facility] MCV 84.7 81.0 - 97.0 fL 09/04/2018 3:47 PM [facility] MCH 27.9(L) 28.0 - 34.0 pg 09/04/2018 3:47 PM [facility] MCHC 32.9 32.0 - 36.0 g/dL 09/04/2018 3:47 PM [facility] Platelet Count 169 150 - 400 10? 3 /uL 09/04/2018 3:47 PM [facility] RDW-SD 43.7 36.0 - 50.0 fL 09/04/2018 3:47 PM [facility] RDW-CV 14.0 11.2 - 14.8 % 09/04/2018 3:47 PM [facility] MPV 10.6 9.3 - 12.8 fL 09/04/2018 3:47 PM [facility] Neutrophils % 57.1 35.0 - 70.0 % 09/04/2018 3:47 PM [facility] Lymphocytes % 35.3 19.7 - 55.1 % 09/04/2018 3:47 PM [facility] Monocytes % 3.6 3.0 - 15.0 % 09/04/2018 3:47 PM [facility] Eosinophils % 3.7 0.0 - 6.0 % 09/04/2018 3:47 PM [facility] Basophil % 0.3 0.0 - 1.5 % 09/04/2018 3:47 PM [facility] Neutrophils Absolute 3.4 1.6 - 7.0 10? 3 /uL 09/04/2018 3:47 PM [facility] Lymphocyte Absolute 2.1 0.8 - 2.9 10? 3 /uL 09/04/2018 3:47 PM [facility] Monocytes Absolute 0.21 0.14 - 0.66 10? 3 /uL 09/04/2018 3:47 PM [facility] Eosinophils Absolute 0.22 0.00 - 0.22 10? 3 /uL 09/04/2018 3:47 PM [facility] Basophils Absolute 0.02 0.00 - 0.06 10? 3 /uL 09/04/2018 3:47 PM [facility] Immature Granulocytes % 0.0 0.0 - 1.0 % 09/04/2018 3:47 PM [facility] Blood BLOOD SPECIMEN / Unknown Venipuncture / Unknown 09/04/2018 3:42 PM CDT 09/04/2018 3:42 PM CDT Terra Dunn PA-C LAB - HEMATO LOGY ORDERABLES [address] [phone] * COMPREHENSIVE METABOLIC PANEL (09/04/2018 3:42 PM CDT) Only the most recent of4 resultswithin the time period is included. BUN 13 7 - 26 mg/dL 09/04/2018 4:02 PM [facility] Creatinine 0.6 0.6 - 1.2 mg/dL 09/04/2018 4:02 PM [facility] Sodium 139 136 - 145 mmol/L 09/04/2018 4:02 PM [facility] Potassium 4.0 3.5 - 4.5 mmol/L 09/04/2018 4:02 PM [facility] Chloride 105 98 - 107 mmol/L 09/04/2018 4:02 PM [facility] CO2 28 22 - 29 mmol/L 09/04/2018 4:02 PM [facility] Glucose 91 70 - 115 mg/dL 09/04/2018 4:02 PM [facility] Calcium 9.0 8.4 - 10.2 mg/dL 09/04/2018 4:02 PM [facility] Protein Total 6.4 6.0 - 8.3 g/dL 09/04/2018 4:02 PM [facility] Albumin 3.4 3.4 - 5.0 g/dL 09/04/2018 4:02 PM [facility] Bilirubin Total 0.2 0.2 - 1.2 mg/dL 09/04/2018 4:02 PM [facility] Alkaline Phosphatase 85 40 - 150 Units/L 09/04/2018 4:02 PM [facility] ALT 11 0 - 55 Units/L 09/04/2018 4:02 PM [facility] AST 16 5 - 34 Units/L 09/04/2018 4:02 PM [facility] Anion Gap 10 8 - 18 09/04/2018 4:02 PM [facility] BUN/Creatinine Ratio 22 7 - 23 09/04/2018 4:02 PM [facility] Osmolality Calculated 288 270 - 300 mOsm/kg 09/04/2018 4:02 PM [facility] Albumin/Globulin Ratio 1.1 1.1 - 2.3 09/04/2018 4:02 PM [facility] eGFR >60 >60 mL/min/1.7 3 m2 09/04/2018 4:02 PM [facility] Blood BLOOD SPECIMEN / Unknown Venipuncture / Unknown 09/04/2018 3:42 PM CDT 09/04/2018 3:42 PM CDT Terra Dunn PA-C LAB - CHEMIS TRY ORDERABLES Performing Organization Address City/State/[facility] Co de Phone Number [address] [phone] * (ABNORMAL) MAGNESIUM BLOOD (09/04/2018 2:42 PM CDT) Only the most recent of26 resultswithin the time period is included. Magnesium 3.0(H) 1.6 - 2.6 mg/dL 09/04/2018 3:01 PM [facility] Blood BLOOD SPECIMEN / Unknown Venipuncture / Unknown 09/04/2018 2:42 PM CDT 09/04/2018 2:43 PM CDT Terra Juliana Dunn PA-C LAB - CHEMIS TRY ORDERABLES [address] [phone] * CT HEAD WO CONTRAST (09/04/2018 1:42 PM CDT) Only the most recent of8 resultswithin the time period is included. Anatomical Region Laterality Modality Head Computed Tomogra phy 09/04/2018 1:45 PM CDT Impressions 09/04/2018 2:01 PM CDT IMPRESSION: No acute intracranial CT abnormality. Stable scan features compared to prior study performed 09/01/2017. Dr. LO Garcia have personally reviewed and interpreted this examination/study. This report was electronically signed by LO HEARD ??on 09/04/2018 2:01 PM . Narrative 09/04/2018 2:01 PM CDT EXAM: CT HEAD WO CONTRAST CLINICAL INDICATION: ??Visual changes, weakness COMPARISON: Comparison made with the prior CT head without contrast dated 09/01/2017. TECHNIQUE: CT of the head was performed without contrast according to standard protocol. Automated dose reduction techniques were employed. FINDINGS: Redemonstrated right pterional craniotomy, with right MCA bi/trifurcation region aneurysm clip that cause beam hardening artifact limiting regional assessment.. Redemonstrated low-density encephalomalacia in the right frontal, parietal, and temporal lobes, with ex vacuo dilatation of the adjacent right lateral ventricle. Posterior left parietal craniotomy, with adjacent very small region of encephalomalacia. Redemonstrated region of encephalomalacia in the left frontal lobe. No intracranial hemorrhage. No midline shift. No change in ventricle size, shape, and configuration. Basal cisterns are widely patent. The visualized paranasal sinuses are well-aerated. Procedure Note Lo Heard MD - 09/04/2018 EXAM: CT HEAD WO CONTRAST CLINICAL INDICATION: Visual changes, weakness COMPARISON: Comparison made with the prior CT head without contrastdated 09/01/2017. TECHNIQUE: CT of the head was performed without contrast according to standard protocol. Automated dose reduction techniques were employed. FINDINGS: Redemonstrated right pterional craniotomy, with right MCAbi/trifurcation region aneurysm clip that cause beam hardening artifact limitingregional assessment.. Redemonstrated low-density encephalomalacia in the right frontal, parietal, and temporal lobes, with ex vacuo dilatation of the adjacent right lateral ventricle. Posterior left parietal craniotomy, with adjacent very small region of encephalomalacia. Redemonstrated region of encephalomalacia in the left frontal lobe. No intracranial hemorrhage. No midline shift. No change in ventricle size, shape, and configuration. Basal cisterns are widely patent. The visualized paranasal sinuses are well-aerated. IMPRESSION: No acute intracranial CT abnormality. Stable scan features compared to prior study performed 09/01/2017. I, Dr. LO HEARD have personally reviewed and interpreted this examination/study. This report was electronically signed by LO HEARD on 09/04/2018 2:01 PM . Terra Dunn PA-C CT ORDERABLE S * (ABNORMAL) URINALYSIS W/MICROSCOPIC NO CULTURE (09/01/2017 4:49 PM CDT) Only the most recent of4 resultswithin the time period is included. Color UA Linda(A) Straw, Yellow, Colorless, Light Yellow [facility] Clarity UA Hazy(A) Clear [facility] Specific Excello UA 1.034(H) 1.001 - 1.030 [facility] pH UA 6.0 5.0 - 8.0 [facility] Protein UA 50(A) <=20 mg/dL [facility] Glucose UA Negative Negative mg/dL [facility] Ketone UA 40(A) Negative mg/dL [facility] Bilirubin UA Negative Negative mg/dL [facility] Comment: Urine Bilirubin result confirmed by manual Ictotest. Blood UA Trace(A) Negative [facility] Nitrite UA Negative Negative [facility] Leukocyte Esterase Small(A) Negative [facility] Urobilinogen UA 3.0(H) <2.0 mg/dL [facility] RBC UA 6 0 - 8 /HPF [facility] WBC UA 3(H) 0 - 2 /HPF [facility] Bacteria UA Many(A) Rare, Occasional, None /HPF [facility] Squamous Epithelial Cells UA 18(H) 0 - 1 /HPF [facility] Mucus UA Many(A) None /LPF [facility] Urine specimen (specimen) 09/01/2017 4:49 PM CDT 09/01/2017 4:53 PM CDT Rissa Whittington MD LAB - URINALYSIS ORD ERABLES [facility] [address] [place] [address] * XR CHEST 1VW PORTABLE (09/01/2017 3:57 PM CDT) Only the most recent of2 resultswithin the time period is included. Anatomical Region Laterality Modality Chest Other Impressions 09/01/2017 4:49 PM CDT IMPRESSION: Lungs are hyperinflated. There is no focal consolidation, pleural effusion, or pneumothorax. The cardiomediastinal silhouette is normal. The visible osseous structures are intact. Dictated by Milana Rodriguez MD (interventional radiology tech). Dr. CANDACE Garcia M.D. have personally reviewed and interpreted this examination/study. This report was electronically signed by CANDACE CLEMONS M.D. ??on 09/01/2017 4:49 PM . Narrative 09/01/2017 4:49 PM CDT EXAMINATION: PX CHEST 1 VW HISTORY: AMS and recent lung infection COMPARISON: Comparison is made with a study from 05/05/2017. FINDINGS/ Procedure Note Candace Clemons MD - 01/30/2018 EXAMINATION: PX CHEST 1 VW HISTORY: AMS and recent lung infection COMPARISON: Comparison is made with a study from 05/05/2017. FINDINGS/ IMPRESSION IMPRESSION: Lungs are hyperinflated. There is no focal consolidation, pleuraleffusion, or pneumothorax. The cardiomediastinal silhouette is normal. Thevisible osseous structures are intact. Dictated by Milana Rodriguez MD (interventional radiology tech). Dr. CANDACE Garcia M.D. have personally reviewed and interpreted thisexamination/study. This report was electronically signed by CANDACE CLEMONS M.D. on 09/01/20174:49 PM . Umu Garrett MD DIAGNOSTIC IMAGING O RDERABLES * TROPONIN I (09/01/2017 3:39 PM CDT) Troponin I 0.010 <0.032 ng/mL [facility] Blood specimen (specimen) BLOOD SPECIMEN / Unknown 09/01/2017 3:39 PM CDT 09/01/2017 3:43 PM CDT Rissa Whittington MD LAB - CHEMISTRY CRAIG GRANT [address] [phone] * XR CHEST 2VW (05/05/2017 12:34 PM CDT) Only the most recent of2 resultswithin the time period is included. Anatomical Region Laterality Modality Chest Other Impressions 05/05/2017 2:59 PM CDT IMPRESSION: No acute pulmonary process. Emphysema. Dictated by Shantanu Hunt MD (interventional radiology tech). This report was approved ??by Shantanu Hunt ?? on 05/05/2017 2:54 PM . I, Dr. CANDACE CLEMONS M.D. have personally reviewed and interpreted this examination/study. This report was electronically signed by CANDACE CLEMONS M.D. ??on 05/05/2017 2:59 PM . Narrative 05/05/2017 2:59 PM CDT EXAMINATION: Chest, PA and lateral views HISTORY: History of fall COMPARISON: Comparison is made with chest radiographs dated 06/18/2016. FINDINGS: The lungs are hyperinflated, consistent with emphysema. There is no focal consolidation, pleural effusion, or pneumothorax. The cardiac silhouette is normal. The aorta is atherosclerotic. The visible osseous structures are intact. Cholecystomy clips are noted in the upper abdomen. Procedure Note Candace Clemons MD - 01/30/2018 EXAMINATION: Chest, PA and lateral views HISTORY: History of fall COMPARISON: Comparison is made with chest radiographs dated 06/18/2016. FINDINGS: The lungs are hyperinflated, consistent with emphysema. There is no focalconsolidation, pleural effusion, or pneumothorax. The cardiac silhouetteis normal. The aorta is atherosclerotic. The visible osseous structuresare intact. Cholecystomy clips are noted in the upper abdomen. IMPRESSION IMPRESSION: No acute pulmonary process. Emphysema. Dictated by Shantanu Hunt MD (interventional radiology tech). This report was approved by Shantanu Hunt on 05/05/2017 2:54 PM . I, Dr. CANDACE CLEMONS M.D. have personally reviewed and interpreted thisexamination/study. This report was electronically signed by CANDACE CLEMONS M.D. on 05/05/20172:59 PM . Cynthia Schmitz MD DIAGNOSTIC IMAGING O [place] * (ABNORMAL) BASIC METABOLIC PANEL (CALCIUM TOTAL) (07/12/2016 3:31 AM CDT) Only the most recent of25 resultswithin the time period is included. BUN 12 7 - 26 mg/dL [facility] Creatinine 0.7 0.6 - 1.2 mg/dL [facility] Sodium 144 136 - 145 mmol/L [facility] Potassium 3.6 3.5 - 4.5 mmol/L [facility] Chloride 110(H) 98 - 107 mmol/L [facility] CO2 28 22 - 29 mmol/L [facility] Glucose 99 70 - 115 mg/dL [facility] Calcium 8.5 8.4 - 10.2 mg/dL [facility] Anion Gap 10 8 - 18 [facility] BUN/Creatinine Ratio 17 7 - 23 [facility] Osmolality Calculated 298 270 - 300 mOsm/kg [facility] eGFR >60 >60 mL/min/1.7 3 m2 [facility] Blood specimen (specimen) BLOOD SPECIMEN / Unknown 07/12/2016 3:31 AM CDT 07/12/2016 3:52 AM CDT Rm Benavidez MD LAB - CHEMISTRY O RDERABLES [address] [phone] * PHOSPHORUS BLOOD (07/12/2016 3:31 AM CDT) Only the most recent of25 resultswithin the time period is included. Phosphorus 4.1 2.3 - 4.7 mg/dL [facility] Blood specimen (specimen) BLOOD SPECIMEN / Unknown 07/12/2016 3:31 AM CDT 07/12/2016 3:52 AM CDT Rm Benavidez MD LAB - CHEMISTRY O RDERABLES Performing Organization Address [facility] Co de Phone Number [address] [phone] * CULTURE URINE (07/09/2016 6:13 AM CDT) [facility] Culture Urine No Growth of >=100 CFU/ml after 48 Hours [facility] Urine specimen (specimen) URINE / Unknown 07/09/2016 6:13 AM CDT 07/09/2016 6:13 AM CDT Narrative [facility] - 07/11/2016 9:52 AM CDT Specimen Type->Urine Rm Benavidez MD LAB - MICROBIOLOG Y ORDERABLES Performing Organization Address [facility] Co de Phone Number [address] [phone] * GLUCOSE ACCUCHECK (07/07/2016 4:46 PM CDT) Only the most recent of13 resultswithin the time period is included. Pathologist [facility] Glucose, Fingerstick 90 70-115mg/d L mg/dL [facility] (BEAKER) Comment:Head Charger: MEENAKSHI GARZA SHA 07/07/2016 4:4 6 PM CDT Rm Benavidez MD LAB - CHEMISTRY O RDERABLES Performing Organization Address [facility] Co de Phone Number [facility] (BEAKER) * ECHO W DOPPLER AND COLOR FLOW (07/02/2016 12:00 AM CDT) Anatomical Region Laterality Modality Other 07/02/2016 Rm Benavidez MD ECHOCARDIOGRAPHY RADIANT * HIV-1 HIV-2 ANTIGEN/ANTIBODY (06/25/2016 12:38 AM CDT) Pathologist [facility] HIV Antigen/Antibod y 1 & 2 Non-reacti ve Non-react sundeep [facility] Comment: Neither HIV-1 p24 Antigen nor HIV-1/HIV-2 Antibodies are detected. ? Blood specimen (specimen) BLOOD SPECIMEN / Unknown 06/25/2016 12:38 AM CDT 06/25/2016 12:49 AM CDT Rm Benavidez MD LAB - HEMATOLOGY ORDERABLES Performing Organization Address [facility] de Phone Number [address] [phone] * AIR [employer] ANTIBODY (06/25/2016 12:38 AM CDT) Pathologist [facility] SM/AIR TRAFFIC CONTROLLER Antibody 1.4 0.0 - 19.9 Units [facility] Comment: VERONICA Antibody Numeric Result Interpretation: ?<20.0 Units: ??Negative ?20.0 - 39.0 Units: ??Weakly Positive ?>39.0 Units: ??Positive ? Blood specimen (specimen) BLOOD SPECIMEN / Unknown 06/25/2016 12:38 AM CDT 06/25/2016 12:49 AM CDT Rm Benavidez MD LAB - CHEMISTRY O RDERABLES Performing Organization Address [facility] Co de Phone Number [address] [phone] * DAYNA VIPER VENOM DILUTE (06/25/2016 12:38 AM CDT) Pathologist [facility] APTT 35.4 23.0 - 38.4 Seconds [facility] PT 14.1 12.1 - 14.8 Seconds [facility] INR 1.1 See Comment [facility] LA-DRVVT Screen 0.9 <1.2 [facility] Interpretation Dilute RVV Negative Negative [facility] Blood specimen (specimen) BLOOD SPECIMEN / Unknown 06/25/2016 12:38 AM CDT 06/25/2016 12:50 AM CDT Rm Benavidez MD LAB - COAGULATION ORDERABLES Performing Organization Address [facility]/ZIP Co de Phone Number [facility] [address] [place] [address] * (ABNORMAL) COMPLEMENT TOTAL (06/25/2016 12:38 AM CDT) Complement Total CH50 >60(H) 42 - 60 U/mL [facility] (BEAKER) Blood specimen (specimen) BLOOD SPECIMEN / Unknown 06/25/2016 12:38 AM CDT 06/25/2016 12:49 AM CDT Narrative [facility] (BE[facility]ER) - 06/26/2016 3:14 PM CDT Performed at: ??01 - [facility] [address] ??[id number] Screed Person: Moshe Raphael PhD, Phone: ??[phone] Rm Benavidez MD LAB - CHEMISTRY O RDERABLES Performing Organization Address [facility] Co de Phone Number [facility] (BEAKER) * DNA ANTIBODY DOUBLE STRANDED (06/25/2016 12:38 AM CDT) dsDNA Antibody 1 0 - 29 IU/mL [facility] Comment: dsDNA Antibody Numeric Result Interpretation: ? 0 - 29 IU/mL: ??Negative ?30 - 75 IU/mL: ??Borderline ?>75 IU/mL: ??Positive ? Blood specimen (specimen) BLOOD SPECIMEN / Unknown 06/25/2016 12:38 AM CDT 06/25/2016 12:49 AM CDT Rm Benavidez MD LAB - HEMATOLOGY ORDERABLES Performing Organization Address City/[facility]/ZIP Co de Phone Number [address] [phone] * COMPLEMENT C4 (06/25/2016 12:38 AM CDT) Complement C4 18 15 - 57 mg/dL [facility] Blood specimen (specimen) BLOOD SPECIMEN / Unknown 06/25/2016 12:38 AM CDT 06/25/2016 12:50 AM CDT Rm Benavidez MD LAB - SEROLOGY OR DERABLES Performing Organization Address City/[facility] Co de Phone Number [address] [phone] * HEPATITIS B SURFACE ANTIBODY (06/25/2016 12:38 AM CDT) Hepatitis B Virus Surface Antibody Non-react sundeep Non-react sundeep [facility] Comment: < 8 mIU/mL Hepatitis B surface Antibody (HBsAb). Nonreactive for HBsAb - individual is considered not immune to Hepatitis B Virus infection. Hepatitis B Surface Antibody Quantitative 0.0 <8.0 mIU/mL [facility] Comment: Hepatitis B Surface Antibody Numeric Result Interpretation: ? Nonreactive: ?<8.0 mIU/mL ? Indeterminate: ??8.0 - 12.0 mIU/mL ? Reactive: ?>12.0 mIU/mL ? Blood specimen (specimen) BLOOD SPECIMEN / Unknown 06/25/2016 12:38 AM CDT 06/25/2016 12:49 AM CDT Rm Benavidez MD LAB - CHEMISTRY O RDERAROCHELLE Performing Organization Address [facility]/ZIP Co de Phone Number [address] [phone] * HEPATITIS B CORE ANTIBODY (06/25/2016 12:38 AM CDT) HBc Antibody Total Non-reacti ve Non-reacti ve [facility] Blood specimen (specimen) BLOOD SPECIMEN / Unknown 06/25/2016 12:38 AM CDT 06/25/2016 12:49 AM CDT Rm Benavidez MD LAB - CHEMISTRY O RDERABLES Performing Organization Address [facility] Co de Phone Number [address] [phone] * HEPATITIS B SURFACE ANTIGEN W RFLX CONFIRMATION (06/25/2016 12:38 AM CDT) Pathologist [facility] Hepatitis B Virus Surface Antigen Non-reacti ve Non-reacti ve [facility] Blood specimen (specimen) BLOOD SPECIMEN / Unknown 06/25/2016 12:38 AM CDT 06/25/2016 12:49 AM CDT Rm Benavidez MD LAB - CHEMISTRY O LATOYA Performing Organization Address [facility] Co de Phone Number [address] [phone] * HEPATITIS C ANTIBODY (06/25/2016 12:38 AM CDT) Hepatitis C Antibody Non-react sundeep Non-reac tive [facility] Comment: Hepatitis C Antibody screen indicates no [...] Rm Benavidez MD LAB - CHEMISTRY O RDERAROCHELLE Performing Organization Address City/[facility]/ZIP Co de Phone Number [address] [phone] * COMPLEMENT C3 (06/25/2016 12:38 AM CDT) Complement C3 101 82 - 193 mg/dL [facility] Blood specimen (specimen) BLOOD SPECIMEN / Unknown 06/25/2016 12:38 AM CDT 06/25/2016 12:50 AM CDT Rm Benavidez MD LAB - CHEMISTRY O ZULEMAERAROCHELLE Performing Organization Address [facility] Co de Phone Number [address] [phone] * PATHOLOGY TISSUE (06/24/2016 2:08 PM CDT) Pathologist [facility] Surgical Pathology Tissue ACCESSION No: [id number] CLINICAL HISTORY: There is no clinical history provided on the requisition. FINAL DIAGNOSIS: DURA, LEFT, BIOPSY - UNREMARKABLE DURA MATER - SEE COMMENT BRAIN, LEFT PARIETAL CORTEX, BIOPSY - FRAGMENTS OF CEREBRAL CORTEX AND SUBCORTICAL WHITE MATTER WITH MILDLY INCREASED CELLULARITY AND REACTIVE CHANGES ?- FOCAL LEPTOMENINGEAL LYMPHOCYTIC INFILTRATE ?- SEE COMMENT GROSS DESCRIPTION: The specimens are received fixed in formalin in two containers for gross and microscopic examination. ??Both containers are labeled with the patient's name, Terra Gastelum . Specimen A, left dura, perm , consists of a roughly oval-shaped sheet of soft, glistening, white tissue with some attached purple coagula, measuring 2.0 x 1.1 cm, with a thickness of 0.1 to 0.2 cm. ??The specimen is serially sectioned revealing the same glistening, white, soft tissue. The specimen is submitted entirely in cassette A1, on edge. Specimen B, left parietal biopsy, perm , consists of multiple fragments of soft, glistening, white-daley tissue ranging in greatest dimension from 1.0 to <0.1 cm. ??The largest portion is bisected revealing the same glistening, white-daley, soft tissue. ??The specimen is submitted entirely in cassette B1. MNR for IA/edk MICROSCOPIC DESCRIPTION: Sections of the left dura (A) show strips of unremarkable fibrous dural tissue with several foci of benign-appearing lymphocytes in a perivascular distribution. ??The small to medium sized arteries show myxohyaline change and thickening in the medial layer, consistent with atherosclerotic change. A small focus of leptomeninges is identified with some mild chronic inflammation and scattered hemosiderin-laden macrophages. Hematoxylin and eosin-stained sections of the left parietal brain biopsy (B) demonstrate fragments of cortex and underlying subcortical white matter with scant associated leptomeninges. ??However, in one focus, there is perivascular lymphocytic infiltrate in leptomeningeal tissue without evidence of angionecrosis/true vasculitis. ??The brain parenchyma itself appears mildly hypercellular. Special stains were performed on block B to better characterize this process. ??A CD3 immunostain demonstrates rare T lymphocytes around vessels, both in the parenchyma and leptomeninges. ??A CD20 stain highlights rare cells in/around leptomeningeal vessels. ??A CD68 stain highlights an increased number of microglia/macrophages, both in the cortex and white matter, especially in one of the white matter fragments. ??A smooth muscle actin (SMA) highlights intact vessel mathis, confirming the absence of an angiodestructive process. ??Gram, GMS, and AFB stains are negative for micro-organisms. Taken together, the findings show a predominantly reactive process characterized by microglial activation. ??There is no evidence of vasculitis, neoplasm, ischemia or infection. Intradepartmental review has been performed. KS/IA/ls The performance characteristics of all immunohistochemical and indirect immunofluorescence stains (if any) cited in this report were determined by the [facility] of [facility].?? Some of these tests were developed by our own laboratory and have not been cleared or approved by the US Food and Drug Administration.?The FDA does not require this test to go through premarket FDA review.?These tests are used for clinical purposes. They should not be regarded as investigational or for research.?? This laboratory is certified under the Clinical Laboratory Improvement Amendments (CLIA) as qualified to perform high complexity clinical laboratory testing. This case has been personally reviewed and interpreted by the attending (teaching) pathologist. Final Diagnosis performed by Marline East MD. Electronically signed 06/27/2016 [facility] ([place]) Other (qualifier value) 06/24/2016 2:08 PM CDT 06/24/2016 3:37 PM CDT Narrative [facility] ([place]) - 06/27/2016 9:29 PM CDT PROBLEM LIST: The problems are not reviewed yet. Please review them in the Problem List activity and refresh this SmartLink. PRE-OP DIAGNOSIS: ?? vasculitis OPERATIVE PROCEDURE / FINDINGS: ??Procedure(s): STEREOTACTIC BRAIN BIOPSY POST-OP DIAGNOSIS: * No post-op diagnosis entered * Collection Date->06/24/16 Collection Time-> 2:08 PM Specimen A->Other ? A. left dura, perm Specimen B->Other ? B. left parietal biopsy, perm Cristian Peñaloza MD LAB - PATHOLOGY/CYTO LOGY ORDERABLES [facility] ([place]) * CT GUIDED STEREO LOCALIZATION (06/24/2016 11:31 AM CDT) Anatomical Region Laterality Modality Breast Other Impressions 06/24/2016 11:40 AM CDT IMPRESSION: 1. Stereotactic preoperative study with unchanged encephalomalacia in the right middle cerebral artery territory status post right frontoparietal temporal craniotomy and aneurysm clip placement in the region of the right middle cerebral artery, grossly unchanged compared with prior study. This report was electronically signed by NEAL BELLA M.D. ??on 06/24/2016 11:40 AM . Narrative 06/24/2016 11:40 AM CDT EXAMINATION: Computed tomography (CT) of the head without contrast HISTORY: Stereotactic sequence for brain biopsy. TECHNIQUE: CT of the head was performed without contrast according to stereotactic protocol. FINDINGS: Comparison is made to prior head CT from 06/22/2016 and brain MR from 06/19/2016.. Stereotactic markers overlie the calvarium. 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 There is encephalomalacia in the right frontotemporal region and right insula, grossly similar to prior study. Ex vacuo enlargement of the right lateral ventricle is present. Periventricular white matter hypoattenuation is nonspecific but can be seen in setting of small vessel ischemic disease. Diffuse cerebral volume loss is seen. No acute hemorrhage is identified. The basilar cisterns are patent. The paranasal sinuses and mastoid air cells are clear. The orbits appear normal. Procedure Note Neal Bella MD - 01/31/2018 EXAMINATION: Computed tomography (CT) of the head without contrast HISTORY: Stereotactic sequence for brain biopsy. TECHNIQUE: CT of the head was performed without contrast according tostereotactic protocol. FINDINGS: Comparison is made to prior head CT from 06/22/2016 and brain MRfrom 06/19/2016.. Stereotactic markers overlie the calvarium. Again seen are postsurgicalchanges of right frontal parietal temporal craniotomy for clipping of aright middle cerebral artery aneurysm. There is encephalomalacia in theright frontotemporal region and right insula, grossly similar to prior study. Ex vacuo enlargement of the rightlateral ventricle is present. Periventricular white matter hypoattenuationis nonspecific but can be seen in setting of small vessel ischemicdisease. Diffuse cerebral volume loss is seen. No acute hemorrhage is identified. The basilar cisterns arepatent. The paranasal sinuses and mastoid air cells are clear. The orbitsappear normal. IMPRESSION IMPRESSION: 1. Stereotactic preoperative study with unchanged encephalomalacia in theright middle cerebral artery territory status post right frontoparietaltemporal craniotomy and aneurysm clip placement in the region of the rightmiddle cerebral artery, grossly unchanged compared with prior study. This report was electronically signed by NEAL BELLA M.D. on 06/24/201611:40 AM . Rm Benavidez MD CT ORDERABLES * PTT U (06/24/2016 3:19 AM CDT) Only the most recent of3 resultswithin the time period is included. APTT 37.4 23.0 - 38.4 Seconds [facility] Comment:Suggested therapeuti c range for full dose I.V. heparin therapy for venous thromboembolism is 66.0-91.0 seconds. Blood specimen (specimen) BLOOD SPECIMEN / Unknown 06/24/2016 3:19 AM CDT 06/24/2016 3:45 AM CDT Narrative [facility] - 06/24/2016 3:59 AM CDT Is patient on Heparin, Argatroban or Dabigatran?->N Rm Benavidez MD LAB - COAGULATION ORDERABLES Performing Organization Address City/[facility]/ZIP Co de Phone Number [address] [phone] * BETA-2 GLYCOPROTEIN 1 ANTIBODY IGG (06/24/2016 3:19 AM CDT) Beta-2 Glycoprotein I Antibody IgG <20.0 <20.0 U [facility] Blood specimen (specimen) BLOOD SPECIMEN / Unknown 06/24/2016 3:19 AM CDT 06/24/2016 3:45 AM CDT Rm Benavidez MD LAB - SEROLOGY OR DERABLES Performing Organization Address [facility] Co de Phone Number [address] [phone] * LUPUS ANTICOAGULANT PANEL (06/24/2016 3:19 AM CDT) Only the most recent of2 resultswithin the time period is included. APTT 35.0 23.0 - 38.4 Seconds [facility] PT 12.9 12.1 - 14.8 Seconds [facility] INR 1.0 See Comment [facility] [place] Buffer 47.[address] [facility] [place] Phospholipid 43.3 Seconds [facility] [place] Delta 3.9 <8.0 Seconds [facility] Interpretation [place] Negative Negative [facility] Comment: Up to 15-20% of patients with lupus anticoagulant associated with antiphospholipid antibody syndrome (APAS) will have negative [place] results. ??For these patients we recommend additional testing to include the Dilute Dayna Viper Venom Time (DRVVT) test. ??Immunoassay measurements of anti-cardiolipin and anti-beta-2 glycoprotein 1 are recommended if the DRVVT, and STACLOT-LA tests are negative and there is clinical suspicion of APAS. Blood specimen (specimen) BLOOD SPECIMEN / Unknown 06/24/2016 3:19 AM CDT 06/24/2016 3:45 AM CDT Rm Benavidez MD LAB - HEMATOLOGY ORDERABLES Performing Organization Address [facility] Co de Phone Number [address] [phone] * CARDIOLIPIN ANTIBODY IGG (06/24/2016 3:19 AM CDT) Only the most recent of2 resultswithin the time period is included. Anticardiolipin Antibody IgG <15.0 <15.0 GPL [facility] Blood specimen (specimen) BLOOD SPECIMEN / Unknown 06/24/2016 3:19 AM CDT 06/24/2016 3:45 AM CDT Rm Benavidez MD LAB - SEROLOGY OR DERABLES Performing Organization Address [facility] Co de Phone Number [address] [phone] * TYPE + SCREEN PANEL (06/23/2016 7:56 PM CDT) Typem O POS [facility] Antibody Screen NEG [facility] Blood specimen (specimen) 06/23/2016 7:56 PM CDT 06/23/2016 8:06 PM CDT Rm Benavidez MD LAB - BLOOD BANK ORDERABLES Performing Organization Address [facility] Co de Phone Number [facility] [address] [place] [address] * PT-INR SLU (06/23/2016 7:56 PM CDT) Only the most recent of3 resultswithin the time period is included. PT 13.9 12.1 - 14.8 Seconds [facility] INR 1.1 See Comment [facility] Comment: Suggested therapeutic range for low-intensity coumadin therapy for venous thromboembolism prophylaxis is an INR of 2.0-3.0. ??For high risk patients (Mitral Valve Prosthesis, Atrial Fibrillation, history of TIA/stroke), suggested prophylactic therapeutic range is an INR of 2.5-3.5. Blood specimen (specimen) BLOOD SPECIMEN / Unknown 06/23/2016 7:56 PM CDT 06/23/2016 8:03 PM CDT Narrative [facility] - 06/23/2016 8:15 PM CDT Is patient on Heparin, Argatroban or Dabigatran?->N Rm Benavidez MD LAB - COAGULATION ORDERABLES Performing Organization Address [facility]/ZIP Co de Phone Number [address] [phone] * KAYLEY W/REFLEX IFA PATTERN (06/21/2016 11:00 AM CDT) KAYLEY None Detected None Detected [facility] Blood specimen (specimen) BLOOD SPECIMEN / Unknown 06/21/2016 11:00 AM CDT 06/21/2016 11:17 AM CDT Rm Benavidez MD LAB - SEROLOGY OR DERABLES Performing Organization Address City/[facility]/ZIP Co de Phone Number [address] [phone] * RHEUMATOID FACTOR BLOOD QUANTITATIVE (06/21/2016 11:00 AM CDT) Only the most recent of2 resultswithin the time period is included. Rheumatoid Factor <15 <30 IU/mL [facility] Blood specimen (specimen) BLOOD SPECIMEN / Unknown 06/21/2016 11:00 AM CDT 06/21/2016 11:17 AM CDT Rm Benavidez MD LAB [place] [address], [facility] [phone] * (ABNORMAL) IGG BLOOD (06/21/2016 11:00 AM CDT) IgG 479(L) 540 - 1,822 mg/dL [facility] Blood specimen (specimen) BLOOD SPECIMEN / Unknown 06/21/2016 11:00 AM CDT 06/21/2016 11:17 AM CDT Rm Benavidez MD LAB - CHEMISTRY O RDERABLES Performing Organization Address [facility] Co de Phone Number [address] [phone] * NEUTROPHIL CYTOPLASMIC ANTIBODY (06/21/2016 11:00 AM CDT) Only the most recent of2 resultswithin the time period is included. Cytoplasmic (C-ANCA) <1:20 Neg:<1:20 titer [facility] (BEAKER) p-ANCA <1:20 Neg:<1:20 titer [facility] (BEAKER) Comment: The presence of positive fluorescence exhibiting P-ANCA or C-ANCA patterns alone is not specific for the diagnosis of Bobo's Granulomatosis (WG) or microscopic polyangiitis. Decisions about treatment should not be based solely on ANCA IFA results. ??The International ANCA [employer] Consensus recommends follow up testing of positive sera with both ND-3 and MPO-ANCA enzyme immunoassays. As many as 5% serum samples are positive only by EIA. Ref. AM J Clin Pathol 1999;111:507-513. Atypical p-ANCA <1:20 Neg:<1:20 titer [facility] (BEAKER) Comment: The atypical pANCA pattern has been observed in a significant percentage of patients with ulcerative colitis, primary sclerosing cholangitis and autoimmune hepatitis. Blood specimen (specimen) BLOOD SPECIMEN / Unknown 06/21/2016 11:00 AM CDT 06/21/2016 11:18 AM CDT Narrative [facility] (BEAKER) - 06/24/2016 8:09 AM CDT CSF Performed at: ??01 - Lab[address] ??[id number] Screed Person: Moshe Raphael PhD, Phone: ??[phone] Rm Benavidez MD LAB - CHEMISTRY O RDBETY Performing Organization Address [facility] Co de Phone Number [facility] * MPO/ND 3 AUTOANTIBODIES PANEL (06/21/2016 11:00 AM CDT) Only the most recent of2 resultswithin the time period is included. Pathologist [facility] Anti-myeloperox idase (MPO) Antibody <9.0 0.0 - 9.0 U/mL [facility] ([facility]) Anti-Proteinase 3 (ND-3) Antibody <3.5 0.0 - 3.5 U/mL [facility] D[facility]) Blood specimen (specimen) BLOOD SPECIMEN / Unknown 06/21/2016 11:00 AM CDT 06/21/2016 11:18 AM CDT Narrative [facility] ([place]) - 06/24/2016 3:11 PM CDT CSF Performed at: ??01 - Lab[address] ??[id number] Screed Person: Juan Pablo Lopez MD, Phone: ??[phone] Rm Benavidez MD LAB - CHEMISTRY O RDBETY Performing Organization Address [facility] Co de Phone Number [facility] ([place]) * CYTOLOGY NON-CLIP RIVETER PANEL (STL) (06/21/2016 10:05 AM CDT) Pathologist [facility] Cytology Non-Quality Assurance/R&D Lab Technician Accession No: [id number] Reference: [id number] Specimen: CSF 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 There is no evidence of malignant cells. COMMENT(S): This case has been personally reviewed and interpreted by the attending (teaching) pathologist. Initial Evaluation performed by Keshawn CAO([facility]). Electronically signed 06/21/2016 Final Diagnosis performed by Marline East MD. Electronically signed 06/25/2016 [facility] ([facility]) Other (qualifier value) 06/21/2016 10:05 AM CDT 06/21/2016 10:28 AM CDT Narrative [facility] ([facility]) - 06/25/2016 10:40 PM CDT Diagnosis->cerebral infarct due to vasculitis vs PRES vs SHIELD RUNNER tumor CSF Collection Date->06/21/16 Specimen A->Cerebrospinal Fluid CSF Rm Benavidez MD LAB - PATHOLOGY/C YTOLOGY ORDERABLES [facility] ([facility]) * (ABNORMAL) CELL COUNT CSF (06/21/2016 9:55 AM CDT) Only the most recent of2 resultswithin the time period is included. Color Fluid Red(A) Colorless, Straw [facility] Clarity Fluid Bloody(A) Clear [facility] Volume Fluid 4.0 mL [facility] WBC Fluid 28(H) 0 - 5 /uL [facility] RBC Fluid 28,000(H) 0 /uL [facility] Xanthochromia Fluid Negative Negative [facility] Differential Manual Differential to follow. [facility] Fluid specimen (specimen) CEREBROSPINAL FLUID SPECIMEN / Unknown 06/21/2016 9:55 AM CDT 06/21/2016 10:19 AM CDT Rm Benavidez MD LAB - BODY FLUID ORDERABLES [address] [phone] * (ABNORMAL) DIFFERENTIAL MANUAL FLUID (06/21/2016 9:55 AM CDT) Only the most recent of2 resultswithin the time period is included. Segs % Fluid 65(H) 0 - 6 % [facility] Lymphocytes % Fluid 28(L) 40 - 80 % [facility] Monocytes % Fluid 5(L) 15 - 45 % [facility] Eosinophils % Fluid 2 % [facility] Fluid specimen (specimen) CEREBROSPINAL FLUID SPECIMEN / Unknown 06/21/2016 9:55 AM CDT 06/21/2016 10:19 AM CDT Narrative [facility] - 06/21/2016 11:20 AM CDT No reference range established for other differential results. Rm Benavidez MD LAB - BODY FLUID ORDERABLES Performing Organization Address [facility]/ZIP Co de Phone Number [address] [phone] * ANGIOTENSIN CONVERTING ENZYME CSF (06/21/2016 9:55 AM CDT) Pathologist [facility] Angiotensin-Converti ng Enzyme CSF 2.4 0.0 - 2.5 U/L [facility] [email or web address] ([facility]) Comment: This test was developed and its performance characteristics determined by 5 examples. The U.S. Food and Drug Administration has not approved or cleared this test; however, FDA clearance or approval is not currently required for clinical use. The results are not intended to be used as the sole means for clinical diagnosis or patient management decisions. Spinal fluid (substance) CEREBROSPINAL FLUID SPECIMEN / Unknown 06/21/2016 9:55 AM CDT 06/21/2016 10:40 AM CDT Rm Benavidez MD LAB - BODY FLUID ORDERABLES Performing Organization Address City/[facility]/ZIP Co de Phone Number [facility] ([place] [facility]) * (ABNORMAL) IGG CSF (06/21/2016 9:55 AM CDT) Pathologist [facility] IgG CSF 10.3(H) 0.0 - 6.0 mg/dL [facility] ([facility]) Comment: Red blood cells, observed in this patients cerebrospinal fluid sample, may falsely elevate the IgG CSF, Albumin CSF, and abnormally alter the indices calculated using these values. ?? Interpret results with caution. Spinal fluid (substance) CEREBROSPINAL FLUID SPECIMEN / Unknown 06/21/2016 9:55 AM CDT 06/21/2016 10:40 AM CDT Rm Benavidez MD LAB - BODY FLUID ORDERABLES Performing Organization Address [facility] Co de Phone Number [facility] ([facility]) * CELL COUNT W DIFF CSF (06/21/2016 9:55 AM CDT) Only the most recent of2 resultswithin the time period is included. Fluid specimen (specimen) CEREBROSPINAL FLUID SPECIMEN / Unknown 06/21/2016 9:55 AM CDT Narrative [facility] - 06/21/2016 11:20 AM CDT The following orders were created for panel order CSF Cell Count - First Tube. Procedure ? Abnormality ? Status ? --------- ? ------ ? SPINAL FLUID CELL COUNT[[id number]] ? Abnormal ?Final result ? MANUAL DIFFERENTIAL FLUID[[id number]] ? Abnormal ?Final result ? Please view results for these tests on the individual orders. Rm Benavidez MD LAB - BODY FLUID ORDERABLES Performing Organization Address [facility] Co de Phone Number [facility] [address] [place] [address], [facility] * (ABNORMAL) PROTEIN CSF (06/21/2016 9:55 AM CDT) Protein CSF 122(H) 15 - 45 mg/dL [facility] Spinal fluid (substance) CEREBROSPINAL FLUID SPECIMEN / Unknown 06/21/2016 9:55 AM CDT 06/21/2016 10:54 AM CDT Rm Benavidez MD LAB - BODY FLUID ORDERABLES Performing Organization Address City/[facility]/ZIP Co de Phone Number [address] [phone] * GLUCOSE CSF (06/21/2016 9:55 AM CDT) Glucose CSF 44 40 - 70 mg/dL [facility] Spinal fluid (substance) CEREBROSPINAL FLUID SPECIMEN / Unknown 06/21/2016 9:55 AM CDT 06/21/2016 10:54 AM CDT Rm Benavidez MD LAB - BODY FLUID ORDERABLES Performing Organization Address [facility] Co de Phone Number [address] [phone] * CULTURE CSF+GRAM STAIN (06/21/2016 9:54 AM CDT) Culture CSF No Growth at 1 week [facility] Gram Stain Many Red Blood Cells [facility] Gram Stain Few Polymorphonuclear Cells [facility] Gram Stain No Organism Seen [facility] Spinal fluid (substance) CEREBROSPINAL FLUID SPECIMEN / Unknown 06/21/2016 9:54 AM CDT 06/21/2016 10:21 AM CDT Narrative [facility] - 06/28/2016 10:58 AM CDT Specimen Type->Cerebrospinal Fluid Gram Stains are routinely screened for the presence of Polymorphonuclear Cells. Rm Benavidez MD LAB - MICROBIOLOG Y ORDERABLES Performing Organization Address City/[facility]/ZIP Co de Phone Number [address] [phone] * FL LUMBAR PUNCTURE (06/21/2016 9:47 AM CDT) Anatomical Region Laterality Modality Spine Other Impressions 06/21/2016 10:25 AM CDT IMPRESSION: 1. Successful lumbar puncture under fluoroscopic guidance at L3-4. This report was approved ??by Mitchel Madison M.D. ?? on 06/21/2016 10:09 AM . I, Dr. NEAL BELLA M.D. have personally reviewed and interpreted this examination/study. This report was electronically signed by NEAL BELLA M.D. ??on 06/21/2016 10:25 AM . Narrative 06/21/2016 10:25 AM CDT EXAMINATION: Diagnostic lumbar puncture (LP) under fluoroscopic guidance HISTORY: Chronic headaches, work up for vasculitis. TECHNIQUE: ??The risks and benefits of the lumbar puncture including, but not limited to, infection, bleeding, seizure, epidural hematoma, post spinal headache, cerebrospinal fluid (CSF) leak requiring blood patch procedure, nausea, vomiting, irritation or damage to nerves causing pain or permanent injury were discussed with the patient. After alternatives were discussed and the opportunity to ask questions was provided, the patient acknowledged understanding, gave verbal and written consent, and wished to proceed. Attending physician: Dr. Bella was present for the rodgers portions of this procedure. The L3-4 level was localized with fluoroscopy. The skin overlying this level was then sterilely prepped, draped, and infiltrated with 1% lidocaine for local anesthesia. Under intermittent fluoroscopic guidance, a 20 gauge 5 inch needle was inserted into the thecal sac at this level. Blood tinged CSF that became progressively more clear was identified. A total of 9 ml of CSF was removed and placed into 4 specimen tubes. The patient tolerated the procedure well. The patient was then transferred to the inpatient joshi for further observation and at least 3 hours of bedrest. OPENING PRESSURE: Not performed FLUOROSCOPY TIME: 47 seconds Procedure Note Neal Bella MD - 01/31/2018 EXAMINATION: Diagnostic lumbar puncture (LP) under fluoroscopic guidance HISTORY: Chronic headaches, work up for vasculitis. TECHNIQUE: The risks and benefits of the lumbar puncture including, butnot limited to, infection, bleeding, seizure, epidural hematoma, postspinal headache, cerebrospinal fluid (CSF) leak requiring blood patchprocedure, nausea, vomiting, irritation or damage to nerves causing pain or permanent injury were discussed withthe patient. After alternatives were discussed and the opportunity to askquestions was provided, the patient acknowledged understanding, gaveverbal and written consent, and wished to proceed. Attending physician: Dr. Bella was present for the rodgers portions of thisprocedure. The L3-4 level was localized with fluoroscopy. The skin overlying thislevel was then sterilely prepped, draped, and infiltrated with 1%lidocaine for local anesthesia. Under intermittent fluoroscopic guidance,a 20 gauge 5 inch needle was inserted into the thecal sac at this level. Blood tinged CSF that became progressively more clear was identified. Atotal of 9 ml of CSF was removed and placed into 4 specimen tubes. Thepatient tolerated the procedure well. The patient was then transferred tothe inpatient joshi for further observation and at least 3 hours of bedrest. OPENING PRESSURE: Not performed FLUOROSCOPY TIME: 47 seconds IMPRESSION IMPRESSION: 1. Successful lumbar puncture under fluoroscopic guidance at L3-4. This report was approved by Mitchel Madison M.D. on 06/21/2016 10:09 AM. I, Dr. NEAL BELLA M.D. have personally reviewed and interpreted thisexamination/study. This report was electronically signed by NEAL BELLA M.D. on 06/21/201610:25 AM . Rm Benavidez MD FLUOROSCOPY ORDER MIR * HEMOGLOBIN A1C (06/20/2016 3:07 AM CDT) Hemoglobin A1c 5.3 4.4 - 6.3 % [facility] Estimated Average Glucose 105 mg/dL [facility] Comment: HbA1c Interpretation: Treatment target values recommended by ADA and other clinical organizations should be used to evaluate metabolic control in patients. Treatment Target Values: Normal : < 5.7% Pre-diabetes: 5.7-6.4% Diabetes: Equal to or greater than 6.5% Reference: [place] [employer] Standards of Care in Diabetes -2014 In patients 70 years and older consider HbA1c target range of 7.0-7.5% Reference: ??Diabetes Mellitus in Older People: Position Statement on behalf of the International Association of Gerontology and Geriatrics (IAGG), the Diabetes Working Democrat for Older People (EDWPOP), and the International Task Force of Experts in Diabetes. ??Gaetano Rodriguez, et al. J [place] [employer]. 2012 Test results diagnostic of diabetes should be repeated for confirmation. The Tosoh G8 assay for the measurement of HbA1c is a National Glycohemoglobin Standardization Program (NGSP)certified method. Results for patients with HbE disease should be interpreted with caution as this hemoglobinopathy has been shown to interfere with the Tosoh G8 assay. Blood specimen (specimen) BLOOD SPECIMEN / Unknown 06/20/2016 3:07 AM CDT 06/20/2016 3:25 AM CDT Rm Benavidez MD LAB - CHEMISTRY O RDERABLES Performing Organization Address [facility] Co de Phone Number [address] [phone] * CARDIOLIPIN ANTIBODY IGA (06/19/2016 6:53 PM CDT) Anticardiolipin Antibody IgA <15.0 <15.0 APL [facility] Blood specimen (specimen) BLOOD SPECIMEN / Unknown 06/19/2016 6:53 PM CDT 06/19/2016 7:01 PM CDT Rm Benavidez MD LAB - SEROLOGY OR DERABLES Performing Organization Address [facility] Co de Phone Number [address] [phone] * CARDIOLIPIN ANTIBODY IGM (06/19/2016 6:53 PM CDT) Anticardiolipin Antibody IgM <15.0 <15.0 MPL [facility] Blood specimen (specimen) BLOOD SPECIMEN / Unknown 06/19/2016 6:53 PM CDT 06/19/2016 7:01 PM CDT Rm Benavidez MD LAB - SEROLOGY OR DERABLES Performing Organization Address [facility] Co de Phone Number [address] [phone] * KAYLEY BLOOD SCREEN (06/19/2016 6:53 PM CDT) Pathologist [facility] KAYLEY None Detected None Detected [facility] Venous blood specimen (specimen) 06/19/2016 6:53 PM CDT 06/19/2016 7:01 PM CDT Rm Benavidez MD LAB - CHEMISTRY O RDERAROCHELLE Performing Organization Address [facility] de Phone Number [address] [phone] * SS-B (SJOGRENS'S) ANTIBODY (06/19/2016 6:53 PM CDT) [facility] SS-B LA Antibody 1.8 0.0 - 19.9 Units [facility] Comment: VERONICA Antibody Numeric Result Interpretation: ?<20.0 Units: ??Negative ?20.0 - 39.0 Units: ??Weakly Positive ?>39.0 Units: ??Positive ? Blood specimen (specimen) BLOOD SPECIMEN / Unknown 06/19/2016 6:53 PM CDT 06/19/2016 7:01 PM CDT Rm Benavidez MD LAB - CHEMISTRY O LATOYA Performing Organization Address [facility] de Phone Number [address] [phone] * SS-A (SJOGREN'S) ANTIBODY (06/19/2016 6:53 PM CDT) [facility] SS-A (Ro) Antibody 2.2 0.0 - 19.9 Units [facility] Comment: VERONICA Antibody Numeric Result Interpretation: ?<20.0 Units: ??Negative ?20.0 - 39.0 Units: ??Weakly Positive ?>39.0 Units: ??Positive ? Blood specimen (specimen) BLOOD SPECIMEN / Unknown 06/19/2016 6:53 PM CDT 06/19/2016 7:01 PM CDT Rm Benavidez MD LAB - CHEMISTRY O RDERAROCHELLE Performing Organization Address [facility] Co de Phone Number [facility] [address] [phone] * HISTONE ANTIBODY (06/19/2016 6:53 PM CDT) Anti-Histone Antibody 0.3 0.0 - 0.9 Units [facility] Comment: ? Negative ?<1.0 ? Weak Positive ?1.0 - 1.5 ? Moderate Positive ??1.6 - 2.5 ? Strong Positive ? >2.5 Blood specimen (specimen) BLOOD SPECIMEN / Unknown 06/19/2016 6:53 PM CDT 06/19/2016 7:01 PM CDT Narrative [facility] - 06/25/2016 1:11 PM CDT Performed at: ??[address] ??[id number] Screed Person: Juan Pablo Lopez MD, Phone: ??[phone] Rm Benavidez MD LAB - CHEMISTRY O RDBETY Performing Organization Address [facility]/ZIP Co de Phone Number [facility] ([place] * (ABNORMAL) DRUG ABUSE PANEL 10-20+ETHANOL URINE NO CONFIRM (06/19/2016 5:17 PM CDT) Amphetamines Screen Urine Negative Negative : < 1000 ng/mL [facility] Barbiturates Screen Urine Negative Negative : < 200 ng/mL [facility] Benzodiazepine Screen Urine Positive(A) Negative : < 200 ng/mL [facility] Comment: Positive urine benzodiazepine screening results should be confirmed by another generally accepted non-immunological method such as gas chromatography or mass spectrometry. ? Opiates Urine Positive(A) Negative : < 300 ng/mL [facility] Comment: Positive urine opiate screening results should be confirmed by another generally accepted non-immunological method such as gas chromatography or mass spectrometry. ? Cocaine Metabolites Urine Negative Negative : < 300 ng/mL [facility] Phencyclidine Screen Urine Negative Negative : < 25 ng/ml [facility] Cannabinoids Screen Urine Negative Negative : <50 ng/mL [facility] Methadone Screen Urine Negative Negative : < 300 ng/mL [facility] Urine specimen (specimen) URINE / Unknown 06/19/2016 5:17 PM CDT 06/19/2016 5:17 PM CDT Narrative [facility] - 06/19/2016 6:05 PM CDT The Urine Toxicology Screening Panel does not screen for Propoxyphene, Meprobamate, Carisoprodol, Trazodone, [id number] medications and/or volatiles (Acetone, Isopropanol, Methanol or Ethylene Glycol). Ethanol, Salicylate, Acetaminophen, Tricyclic Antidepressants and several therapeutic drugs may be individually assayed in serum or plasma specimen. Toxicology testing by the [facility] is an aid to medical diagnosis and treatment of patients. No documented chain of custody was maintained. Results are intended to be used for clinical purposes only. ? Rm Benavidez MD LAB - URINE CHEMI STRY ORDERABLES [facility] [address] [place] [address], [facility] [phone] * IR 3D RENDERING (06/19/2016 8:55 AM CDT) Only the most recent of2 resultswithin the time period is included. Anatomical Region Laterality Modality Other Impressions 06/22/2016 2:57 PM CDT Impression: Multifocal luminal irregularity of the intracranial vessels L > R, anterior > posterior. Considerations include vasospasm sp aneurysm rupture, vasculitis, and reversible vasoconstriction syndrome. 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 ??on 06/22/2016 2:57 PM . Narrative 06/22/2016 2:57 PM CDT Procedure: Cerebral angiogram 06/19/16 Comparison study: 07/07/13 History: The patient a 60 years -year-old Female. Who presents with work up for vasospasm. ??He is here for catheter angiography to evaluate the severity of this vessel narrowing and refine the etiologic considerations. Head Charger: Nimco Sanchez Vessels: Right internal carotid artery angiogram: Cerebral Left internal carotid artery angiogram: Cerebral Right vertebral artery angiogram: Cerebral Left vertebral artery angiogram: Cerebral Right femoral artery angiogram Anesthesia: Local anesthesia with conscious sedation Procedural detail: The risks, benefits, and alternatives to the procedure were discussed in detail with the patient and her family. These included but were not limited to the risk of blood loss, vessel injury, stroke, renal injury, and contrast allergy. The patient was brought to the biplane angiography suite where he underwent prep and drape procedures. A 6 [place] 30 cm Brite tip sheath was placed in the right femoral artery and a 5 [place] angle tip [place] catheter was navigated into the aortic arch. The catheter was used to select the left subclavian artery followed by the left vertebral artery and a cerebral angiogram was obtained. The catheter was returned to the arch and used to select the left common carotid artery followed by the left internal carotid artery and a cerebral angiogram was obtained. The catheter was returned to the arch and used to select the brachiocephalic artery followed by the right common carotid artery and finally the right internal carotid artery and a cerebral angiogram was obtained. The catheter was returned to the brachiocephalic artery and used to select the right subclavian artery followed by the right vertebral artery and a cerebral angiogram was obtained. The right femoral artery angiogram was obtained through the sheath. All catheters and sheaths were removed from the arterial system. Hemostasis was achieved using a 6 [place] Angio-Seal closure device. Hemostasis was immediate at the end of the closure procedure. The right dorsalis pedis pulse was palpable at the end of the closure procedure. The patient tolerated the procedure without immediate complications. He was returned to the recovery area and hemodynamically stable condition neurologically unchanged. The estimated blood loss was less than 10 mL. Findings: There was good arterial, capillary, and venous opacification of all angiographic runs. The left vertebral artery angiogram reveals a V3, V4, and vertebrobasilar junction that are normal in course and caliber. The major vessels to the cerebellum are normal in course and caliber. The basilar artery shows significant luminal irregularity but only mild narrowing. The venous drainage is also normal. The right vertebral artery angiogram reveals a V3, V4, and vertebrobasilar junction that are normal in course and caliber. The remainder of the posterior circulation is as described above. The left internal carotid artery angiogram reveals a normal course and caliber the intracranial internal carotid artery. The middle cerebral artery and anterior cerebral artery show significant, multifocal luminal irregularity. There is moderate stenosis of the distal L M1 and proximal M2 segments. The right internal carotid artery angiogram reveals a normal course and caliber the intracranial internal carotid artery. The middle cerebral artery and anterior cerebral artery show mild luminal narrowing. There is no evidence of residual RMCA aneurysm filling sp clip ligation. 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 The right femoral artery angiogram reveals a puncture site above the femoral bifurcation. Procedure Note Adeel Sanchez MD - 01/31/2018 Procedure: Cerebral angiogram 06/19/16 Comparison study: 07/07/13 History: The patient a 60 years -year-old Female. Who presents with workup for vasospasm. He is here for catheter angiography to evaluate theseverity of this vessel narrowing and refine the etiologicconsiderations. Head Charger: Nimco Sanchez Vessels: Right internal carotid artery angiogram: Cerebral Left internal carotid artery angiogram: Cerebral Right vertebral artery angiogram: Cerebral Left vertebral artery angiogram: Cerebral Right femoral artery angiogram Anesthesia: Local anesthesia with conscious sedation Procedural detail: The risks, benefits, and alternatives to the procedurewere discussed in detail with the patient and her family. These includedbut were not limited to the risk of blood loss, vessel injury, stroke,renal injury, and contrast allergy. The patient was brought to the biplane angiography suite where heunderwent prep and drape procedures. A 6 [place] 30 cm Brite tip sheath wasplaced in the right femoral artery and a 5 [place] angle tip [place] catheterwas navigated into the aortic arch. The catheter was used to select the left subclavian artery followed by theleft vertebral artery and a cerebral angiogram was obtained. The catheterwas returned to the arch and used to select the left common carotid arteryfollowed by the left internal carotid artery and a cerebral angiogram was obtained. The catheter wasreturned to the arch and used to select the brachiocephalic arteryfollowed by the right common carotid artery and finally the right internalcarotid artery and a cerebral angiogram was obtained. The catheter was returned to the brachiocephalic artery andused to select the right subclavian artery followed by the right vertebralartery and a cerebral angiogram was obtained. The right femoral arteryangiogram was obtained through the sheath. All catheters and sheaths were removed from the arterial system.Hemostasis was achieved using a 6 [place] Angio-Seal closure device.Hemostasis was immediate at the end of the closure procedure. The rightdorsalis pedis pulse was palpable at the end of the closure procedure. The patient tolerated the procedure without immediate complications. Hewas returned to the recovery area and hemodynamically stable conditionneurologically unchanged. The estimated blood loss was less than 10 mL. Findings: There was good arterial, capillary, and venous opacification of allangiographic runs. The left vertebral artery angiogram reveals a V3, V4, and vertebrobasilarjunction that are normal in course and caliber. The major vessels to thecerebellum are normal in course and caliber. The basilar artery showssignificant luminal irregularity but only mild narrowing. The venous drainage is also normal. The right vertebral artery angiogram reveals a V3, V4, and vertebrobasilarjunction that are normal in course and caliber. The remainder of theposterior circulation is as described above. The left internal carotid artery angiogram reveals a normal course andcaliber the intracranial internal carotid artery. The middle cerebralartery and anterior cerebral artery show significant, multifocal luminalirregularity. There is moderate stenosis of the distal L M1 and proximal M2 segments. The right internal carotid artery angiogram reveals a normal course andcaliber the intracranial internal carotid artery. The middle cerebralartery and anterior cerebral artery show mild luminal narrowing. There isno evidence of residual RMCA aneurysm filling sp clip ligation. 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 The right femoral artery angiogram reveals a puncture site above thefemoral bifurcation. IMPRESSION Impression: Multifocal luminal irregularity of the intracranial vessels L > R,anterior > posterior. Considerations include vasospasm sp aneurysmrupture, vasculitis, and reversible vasoconstriction syndrome. 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 on06/22/2016 2:57 PM . Rm Jason Benavidez MD IR ORDERABLES * IR CAROTID CEREBRAL ANGIOGRAM (06/19/2016 8:55 AM CDT) Only the most recent of5 resultswithin the time period is included. Anatomical Region Laterality Modality Head Other Impressions 06/22/2016 2:57 PM CDT Impression: Multifocal luminal irregularity of the intracranial vessels L > R, anterior > posterior. Considerations include vasospasm sp aneurysm rupture, vasculitis, and reversible vasoconstriction syndrome. 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 ??on 06/22/2016 2:57 PM . Narrative 06/22/2016 2:57 PM CDT Procedure: Cerebral angiogram 06/19/16 Comparison study: 07/07/13 History: The patient a 60 years -year-old Female. Who presents with work up for vasospasm. ??He is here for catheter angiography to evaluate the severity of this vessel narrowing and refine the etiologic considerations. Head Charger: Nimco Sanchez Vessels: Right internal carotid artery angiogram: Cerebral Left internal carotid artery angiogram: Cerebral Right vertebral artery angiogram: Cerebral Left vertebral artery angiogram: Cerebral Right femoral artery angiogram Anesthesia: Local anesthesia with conscious sedation Procedural detail: The risks, benefits, and alternatives to the procedure were discussed in detail with the patient and her family. These included but were not limited to the risk of blood loss, vessel injury, stroke, renal injury, and contrast allergy. The patient was brought to the biplane angiography suite where he underwent prep and drape procedures. A 6 [place] 30 cm Brite tip sheath was placed in the right femoral artery and a 5 [place] angle tip [place] catheter was navigated into the aortic arch. The catheter was used to select the left subclavian artery followed by the left vertebral artery and a cerebral angiogram was obtained. The catheter was returned to the arch and used to select the left common carotid artery followed by the left internal carotid artery and a cerebral angiogram was obtained. The catheter was returned to the arch and used to select the brachiocephalic artery followed by the right common carotid artery and finally the right internal carotid artery and a cerebral angiogram was obtained. The catheter was returned to the brachiocephalic artery and used to select the right subclavian artery followed by the right vertebral artery and a cerebral angiogram was obtained. The right femoral artery angiogram was obtained through the sheath. All catheters and sheaths were removed from the arterial system. Hemostasis was achieved using a 6 [place] Angio-Seal closure device. Hemostasis was immediate at the end of the closure procedure. The right dorsalis pedis pulse was palpable at the end of the closure procedure. The patient tolerated the procedure without immediate complications. He was returned to the recovery area and hemodynamically stable condition neurologically unchanged. The estimated blood loss was less than 10 mL. Findings: There was good arterial, capillary, and venous opacification of all angiographic runs. The left vertebral artery angiogram reveals a V3, V4, and vertebrobasilar junction that are normal in course and caliber. The major vessels to the cerebellum are normal in course and caliber. The basilar artery shows significant luminal irregularity but only mild narrowing. The venous drainage is also normal. The right vertebral artery angiogram reveals a V3, V4, and vertebrobasilar junction that are normal in course and caliber. The remainder of the posterior circulation is as described above. The left internal carotid artery angiogram reveals a normal course and caliber the intracranial internal carotid artery. The middle cerebral artery and anterior cerebral artery show significant, multifocal luminal irregularity. There is moderate stenosis of the distal L M1 and proximal M2 segments. The right internal carotid artery angiogram reveals a normal course and caliber the intracranial internal carotid artery. The middle cerebral artery and anterior cerebral artery show mild luminal narrowing. There is no evidence of residual RMCA aneurysm filling sp clip ligation. 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 The right femoral artery angiogram reveals a puncture site above the femoral bifurcation. Procedure Note Adeel Sanchez MD - 01/31/2018 Procedure: Cerebral angiogram 06/19/16 Comparison study: 07/07/13 History: The patient a 60 years -year-old Female. Who presents with workup for vasospasm. He is here for catheter angiography to evaluate theseverity of this vessel narrowing and refine the etiologicconsiderations. Head Charger: Nimco Sanchez Vessels: Right internal carotid artery angiogram: Cerebral Left internal carotid artery angiogram: Cerebral Right vertebral artery angiogram: Cerebral Left vertebral artery angiogram: Cerebral Right femoral artery angiogram Anesthesia: Local anesthesia with conscious sedation Procedural detail: The risks, benefits, and alternatives to the procedurewere discussed in detail with the patient and her family. These includedbut were not limited to the risk of blood loss, vessel injury, stroke,renal injury, and contrast allergy. The patient was brought to the biplane angiography suite where heunderwent prep and drape procedures. A 6 [place] 30 cm Brite tip sheath wasplaced in the right femoral artery and a 5 [place] angle tip [place] catheterwas navigated into the aortic arch. The catheter was used to select the left subclavian artery followed by theleft vertebral artery and a cerebral angiogram was obtained. The catheterwas returned to the arch and used to select the left common carotid arteryfollowed by the left internal carotid artery and a cerebral angiogram was obtained. The catheter wasreturned to the arch and used to select the brachiocephalic arteryfollowed by the right common carotid artery and finally the right internalcarotid artery and a cerebral angiogram was obtained. The catheter was returned to the brachiocephalic artery andused to select the right subclavian artery followed by the right vertebralartery and a cerebral angiogram was obtained. The right femoral arteryangiogram was obtained through the sheath. All catheters and sheaths were removed from the arterial system.Hemostasis was achieved using a 6 [place] Angio-Seal closure device.Hemostasis was immediate at the end of the closure procedure. The rightdorsalis pedis pulse was palpable at the end of the closure procedure. The patient tolerated the procedure without immediate complications. Hewas returned to the recovery area and hemodynamically stable conditionneurologically unchanged. The estimated blood loss was less than 10 mL. Findings: There was good arterial, capillary, and venous opacification of allangiographic runs. The left vertebral artery angiogram reveals a V3, V4, and vertebrobasilarjunction that are normal in course and caliber. The major vessels to thecerebellum are normal in course and caliber. The basilar artery showssignificant luminal irregularity but only mild narrowing. The venous drainage is also normal. The right vertebral artery angiogram reveals a V3, V4, and vertebrobasilarjunction that are normal in course and caliber. The remainder of theposterior circulation is as described above. The left internal carotid artery angiogram reveals a normal course andcaliber the intracranial internal carotid artery. The middle cerebralartery and anterior cerebral artery show significant, multifocal luminalirregularity. There is moderate stenosis of the distal L M1 and proximal M2 segments. The right internal carotid artery angiogram reveals a normal course andcaliber the intracranial internal carotid artery. The middle cerebralartery and anterior cerebral artery show mild luminal narrowing. There isno evidence of residual RMCA aneurysm filling sp clip ligation. 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 The right femoral artery angiogram reveals a puncture site above thefemoral bifurcation. IMPRESSION Impression: Multifocal luminal irregularity of the intracranial vessels L > R,anterior > posterior. Considerations include vasospasm sp aneurysmrupture, vasculitis, and reversible vasoconstriction syndrome. 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 on06/22/2016 2:57 PM . Rm Benavidez MD IR ORDERABLES * TSH (06/19/2016 4:49 AM CDT) Pathologist [facility] TSH 0.954 0.350 - 4.940 uIU/mL [facility] Blood specimen (specimen) BLOOD SPECIMEN / Unknown 06/19/2016 4:49 AM CDT 06/19/2016 5:22 AM CDT Rm Benavidez MD LAB - CHEMISTRY O RDERABLES Performing Organization Address [facility] Co de Phone Number [address] [phone] * T4 FREE (06/19/2016 4:49 AM CDT) Pathologist [facility] T4 Free 1.1 0.7 - 1.5 ng/dL [facility] Blood specimen (specimen) BLOOD SPECIMEN / Unknown 06/19/2016 4:49 AM CDT 06/19/2016 5:22 AM CDT Rm Benavidez MD LAB - CHEMISTRY O RDERABLES Performing Organization Address [facility] Co de Phone Number [address] [phone] * ERYTHROCYTE SEDIMENTATION RATE (06/18/2016 7:48 PM CDT) Pathologist [facility] Erythrocyte Sedimentation Rate Westergren 9 0 - 20 MM/HR [facility] Blood specimen (specimen) BLOOD SPECIMEN / Unknown 06/18/2016 7:48 PM CDT 06/18/2016 8:06 PM CDT Rm Benavidez MD LAB - HEMATOLOGY ORDERABLES Performing Organization Address City/[facility]/ZIP Co de Phone Number [facility] [address] [phone] * (ABNORMAL) PROTEIN ELECTROPHORESIS WO INTERP BLOOD (06/18/2016 7:48 PM CDT) Interpretation Serum PE Normal Pattern Normal Pattern [facility] Comment: Serum protein electrophoresis shows characteristic bands corresponding to albumin, alpha and beta globulins and polyclonal immunoglobulins. No monoclonal immunoglobulins detected. ??Non-secretory myeloma (NSM) and light chain only myeloma cannot be excluded on the basis of this result. ??Recommend serum free light chain measurements for complete evaluation of multiple myeloma. ??Measurement of serum free kappa and lambda immunoglobulin light chains can identify all patients with light T. [place] M[place], PhD *The electrophoresis pattern and the interpretation have been reviewed and verified by the teaching physician. Protein Total 5.7(L) 6.0 - 8.3 g/dL [facility] Albumin 3.7 3.3 - 5.6 g/dL [facility] Alpha-1 Globulins 0.2 0.1 - 0.3 g/dL [facility] Alpha-2 Globulins 0.7 0.5 - 1.0 g/dL [facility] Beta Globulins 0.6 0.6 - 1.1 g/dL [facility] Gamma Globulins 0.5(L) 0.6 - 1.6 g/dL [facility] Blood specimen (specimen) BLOOD SPECIMEN / Unknown 06/18/2016 7:48 PM CDT 06/18/2016 8:05 PM CDT Rm Benavidez MD LAB - CHEMISTRY O RDERABLES [facility] [address] [phone] * C-REACTIVE PROTEIN (06/18/2016 7:48 PM CDT) C-Reactive Protein <0.5 <=0.5 mg/dL [facility] Blood specimen (specimen) BLOOD SPECIMEN / Unknown 06/18/2016 7:48 PM CDT 06/18/2016 8:05 PM CDT Rm Benavidez MD LAB - CHEMISTRY O RDERABLES [address] [phone] * LIPASE BLOOD (06/17/2016 12:36 PM CDT) Pathologist [facility] Lipase 45 8 - 78 Units/L [facility] Blood specimen (specimen) BLOOD SPECIMEN / Unknown 06/17/2016 12:36 PM CDT 06/17/2016 12:44 PM CDT Griffin Nolan MD LAB - CHEMISTRY CRAIG GRANT Performing Organization Address City/[facility]/ZIP Co de Phone Number [address] [phone] * LACTIC ACID BLOOD (06/17/2016 12:36 PM CDT) Pathologist [facility] Lactic Acid-Stat 1.0 0.5 - 2.2 mmol/L [facility] Blood specimen (specimen) BLOOD SPECIMEN / Unknown 06/17/2016 12:36 PM CDT 06/17/2016 12:45 PM CDT Griffin Nolan MD LAB - CHEMISTRY CRAIG GRANT Performing Organization Address City/[facility]/ZIP Co de Phone Number [address] [phone] * XR SHOULDER LEFT 2VW OR MORE (11/15/2014 1:47 PM SUPERVISOR REFINING) Anatomical Region Laterality Modality Upper Extremity Other Impressions 11/15/2014 5:52 PM SUPERVISOR REFINING Impression: No acute osseous abnormality. Osteopenia. Report dictated by Diego Moscoso MD. IDr. JASON MD have personally reviewed and interpreted this examination/study. This report was electronically signed by JASON EDMONDS MD ??on 11/15/2014 5:52 PM . Narrative 11/15/2014 5:52 PM SUPERVISOR REFINING Exam: Left shoulder, 2 views Comparison: ??None History: ??Left shoulder pain, concern for left shoulder subluxation Findings: There is no evidence of acute fracture or dislocation. The acromioclavicular joint is intact. The bones are diffusely osteopenic. There is no focal soft tissue swelling. A 3.1 x 1.7 cm ovoid metallic density object projects over the mediastinum, over the aortic arch and to the left of the tracheal air column. This could represent a button on the patient's clothing. Procedure Note Jason Edmonds MD - 01/31/2018 Exam: Left shoulder, 2 views Comparison: None History: Left shoulder pain, concern for left shoulder subluxation Findings: There is no evidence of acute fracture or dislocation. Theacromioclavicular joint is intact. The bones are diffusely osteopenic.There is no focal soft tissue swelling. A 3.1 x 1.7 cm ovoid metallicdensity object projects over the mediastinum, over the aortic arch and to the left of the tracheal aircolumn. This could represent a button on the patient's clothing. IMPRESSION Impression: No acute osseous abnormality. Osteopenia. Report dictated by Diego Moscoso MD. I, Dr. JASON EDMONDS MD have personally reviewed and interpreted thisexamination/study. This report was electronically signed by JASON EDMONDS MD on 11/15/20145:52 PM . Cynthia Schmitz MD DIAGNOSTIC IMAGING O RDERABLES * MRI BRAIN WO CONTRAST (07/01/2012 12:59 PM CDT) Anatomical Region Laterality Modality Head Other Impressions 07/01/2012 3:09 PM CDT 1. 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 This examination has been personally reviewed and interpreted by Rachell Barger M.D. (attending radiologist). ??Report dictated by Cristhian Castro M.D. (interventional radiology tech). Narrative 07/01/2012 3:09 PM CDT MRI brain, noncontrast Indication: Aneurysm, epilepsy Technique: Axial: T1, T2, FLAIR, GRE, DWI Sagittal: T1 Findings: No prior MR exam is available for comparison. Metallic artifact from the right MCA aneurysm clipping limits visibility in this area. There is right temporofrontal encephalomalacia and gliosis and ex vacuo dilatation of the right lateral ventricle. No diffusion restriction is present to suggest an acute or subacute ischemic event. An old ventricular drain tract is noted in the left frontal lobe. The midline structures are central. ??No mass is present. The pituitary gland, stalk, optic chiasm and corpus callosum are normal. The orbits, periorbital and para cavernous spaces are normal. No cerebellopontine angle mass or tonsillar ectopia are noted in the posterior fossa. No abnormality of the skull base or calvarium is identified. Procedure Note Janet Barger MD - 02/01/2018 MRI brain, noncontrast Indication: Aneurysm, epilepsy Technique: Axial: T1, T2, FLAIR, GRE, DWI Sagittal: T1 Findings: No prior MR exam is available for comparison. Metallic artifact from theright MCA aneurysm clipping limits visibility in this area. There is righttemporofrontal encephalomalacia and gliosis and ex vacuo dilatation of theright lateral ventricle. No diffusion restriction is present to suggest an acute or subacute ischemicevent. An old ventricular drain tract is noted in the left frontal lobe.The midline structures are central. No mass is present. The pituitary gland, stalk, optic chiasm and corpus callosum are normal.The orbits, periorbital and para cavernous spaces are normal. Nocerebellopontine angle mass or tonsillar ectopia are noted in theposterior fossa. No abnormality of the skull base or calvarium is identified. IMPRESSION 1. Status post right MCA aneurysm clipping with right frontotemporalencephalomalacia and gliosis with lamellar necrosis. This examination has been personally reviewed and interpreted by Rachell Allen M.D. (attending radiologist). Report dictated by Cristhian Castro M.D.(interventional radiology tech). Cristian Peñaloza MD MR ORDERABLES * LAB HISTORICAL RESULTS-ONBASE (07/12/2010) Only the most recent of4 resultswithin the time period is included. 07/12/2010 Historical Provider LAB - CHEMISTRY O RDERABLES [facility] Care Teams Enrollment Management Coordinator Relationship Specialty Start Date End Date Karl Cates MD [address] [place] [phone] PCP - General 09/08/18
--- OUTSIDE RECORDS SUMMARY | 2024-11-26 02:13 | XMS_ITS | Continuity of Care Document ---
Author Organization [facility] Address [address] [place] [address] [facility] [address] [place] [address] Phone Care Team Providers Care Agricultural Research Technologist Name Role Phone Augustin Del Real Unavailable Unavailable Procedures Procedure Date Office/outpatient Visit, [facility] Advance Directives Directive Yes / No Effective Date File Name No Information Encounters Encounter Description Practice Location Reason(s) For Visit Diagnoses Date Provider Providers Copied on Encounter Office/outpa tient Visit, [facility], [address] [place], [place], [id number], [place] tel:[phone] [facility] No Information [address] [facility] [address], [address], [place]. tel:[phone] Referring Provider: Thomas Kincaid, [address], [place], [address]. tel:[phone] 2013 Family History Family Member Type Diagnosis Age [...]
--- OUTSIDE RECORDS SUMMARY | 2024-11-26 02:13 | XMS_ITS | Referral Summary ---
Author Organization [facility] [address] [place] [address] Care Team Providers Care Cross Country/Track And Field Coach Name Role Phone Karl Cates MD Primary Care Provider Darren Iverson NP Unavailable [phone] Diego Lamb MD Unavailable Diego Lamb MD Unavailable Encounters Date Type Department Care Team Description 2024 Telephone [facility] [address] [place] [address] Diego Lamb MD 11/19/2024 12:30 PM TECHNICAL ASSISTANT Home Care Visit [address] [address] [address] [place] [address] Sruthi Lua PTA PT HOME VISIT 11/17/2024 12:50 PM TECHNICAL ASSISTANT - 11/17/2024 11:59 PM TECHNICAL ASSISTANT Hospital Encounter [facility] [address] [place] [address] [address] [place] [address] Darren Iverson NP Lumbar radiculopathy (Primary Dx); Chronic bilateral low back pain without sciatica; Spinal stenosis of lumbar region without neurogenic claudication; Sacroiliitis (HCC); Presence of intrathecal pump; Myofascial pain syndrome of lumbar spine Discharge Disposition: Discharge to home or self care 11/16/2024 Telephone [facility] [address] [place] [phone] Diego Lamb MD 10/29/2024 12:45 PM TECHNICAL ASSISTANT Home Care Visit [address] [place] [address] Sruthi Lua, DARKROOM WORKER PT HOME VISIT 10/26/2024 Home Care Visit [address] [place] [address] Mai Busch, PT CARE CONFERENCE 10/21/2024 Home Care Visit [address] [place] [address] Binta Hernandez, RN NURSE MED RECON FOR THERAPY 10/20/2024 Plan of Care Documentation [address] [place] [address] 10/20/2024 12:00 PM TECHNICAL ASSISTANT Home Care Visit [address] [place] [address] Mai Busch, PT PT OASIS START OF CARE 10/18/2024 Travel 10/18/[address] [phone] Nancy Chacon, BETZY 10/15/[address] [phone] Nancy Chacon, RN 10/15/2024 Telephone [facility] [address] [place] [phone] Diego Lamb MD 10/06/2024 Telephone [facility] [address] [place] [address] Gene Newton 10/05/2024 Orders Only [facility] [address] [place] [address] Darren Iverson NP Spinal stenosis of lumbar region without neurogenic claudication (Primary Dx); Lumbar radiculopathy 09/06/2024 Telephone [facility] [address] [place] [phone] Diego Lamb MD from Last 3 Months Allergies Active Allergy Reactions Criticality Noted Date [...] ON FACE TWICE DAILY 4 Active vit C,Q-Sk-cctxn-lut ein-zeaxan 250-90-40-1 mg capsuleIndicatio ns:eye health Take 2 capsules by mouth 2 (two) times a day Active adapalene (DIFFERIN) 0.1 % creamIndications :Acne Vulgaris Apply topically nightly Active UNABLE TO FINDIndications: pain 495.9 mcg by intrathecal route daily. Pain pump morphine 4000 micrograms/mill iliter, clonidine 400 micrograms/mill iliter, bupivacaine 19972 micrograms/mill iliter. The pump is set for [...] (CMS/HC C) 01/25/2014 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 Social History Tobacco Use Types Packs/Day Years [...] on file Legal Sex Female 1:07 AM TECHNICAL ASSISTANT Gender Identity Not on file Sexual Orientation Not on file Last Filed Vital Signs Vital Sign Reading Time Taken Comments Blood Pressure 120/64 11/19/2024 1:19 PM TECHNICAL ASSISTANT Pulse 71 11/19/2024 1:19 PM TECHNICAL ASSISTANT Temperature 36.9 ??C (98.5 ??F) 10/29/2024 1:02 PM CS T Respiratory Rate 18 11/19/2024 1:19 PM TECHNICAL ASSISTANT Oxygen Saturation 97% 11/19/2024 1:19 PM TECHNICAL ASSISTANT Inhaled Oxygen Concentration - - Weight 69.4 kg (153 lb) 08/20/2023 7:23 AM CDT Height 165.1 cm (5' 5 ) 08/20/2023 7:23 AM CDT Body Mass Index 25.46 08/20/2023 7:23 AM CDT Plan of Treatment Not on file Medical Devices Implanted Type Area Wheelchair Van Driver Device Identifier Shelf Expiration Date Model / Serial / Lot [employer] Synchromed Ii .78in Kemmerer Filter Mesh Pouch Programmable 8637-20 - [id number] - [id number] Implanted:Qty: 1 on 12/13/2022 by Diego Lamb MD at [facility] N/A: Abdomen [employer] Inc 05/16/2024 8637-20 / [id number] / [employer] Tyrx 3.35x3in Large Envelope Absorbable Polyarylate Minocycline [id number] - [id number] Implanted:Qty: 1 on 12/13/2022 by Diego Lamb MD at [facility] N/A: Abdomen [employer] 08/21/2023 [id number] / / [id number] [employer] Ascenda 4fr .5mm 114cm 86cm 2 Piece Connector Pin Flexible Closed [id number] - [id number] Implanted:Qty: 1 on 08/20/2023 by Diego Lamb MD at [facility] Left: Flank [employer] 07/23/2025 8780 / / [id number] Med[employer]onic [employer] Tyrx 3.35x3in Large Envelope Absorbable Polyarylate Minocycline [id number] - [id number] Implanted:Qty: 1 on 08/20/2023 by Diego Lamb MD at [facility] N/A: Abdomen [employer] 03/05/2024 [id number] / / [id number] Explanted Type Area Wheelchair Van Driver Device Identifier Shelf Expiration Date Model / Serial / Lot Unknown Pain Pump Explanted:Qty: 1 on 12/13/2022 by Diego Lamb MD at [facility] Other Description:Unknown Pain Pum p explanted [employer] Ascenda 2 Attached Collet Catheter Connector [place] [employer] [id number] - [id number] Implanted:Qty: 1 on 12/13/2022 by Diego Lamb MD at [facility] Explanted:Qty: 1 on 08/20/2023 by Diego Lamb MD at [facility] N/A: Abdomen [employer] 01/16/2023 8785 / / [id number] Insurance IDKS AETNA MEDICARE AETNA MEDICARE AET MEDICARE IDPA Care Teams Cross Country/Track And Field Coach Relationship Specialty Start Date End Date Karl Cates MD PCP - General Family Practice 10/01/22 Darren Iverson NP Nurse Practitioner Nurse Practitioner 10/13/23 [place] [id number] [facility] [address] [place] [address] Consulting Physician Pain Management 03/22/24 [place] [id number] [facility] [address] [place] [address] Consulting Physician Pain Management 10/13/24
--- OUTSIDE RECORDS SUMMARY | 2024-11-26 02:13 | XMS_ITS | Encounter Summary ---
Author Organization [facility] Healthcare Address [address] [place] [address] Care Team Providers Care Garnett Machine Operator Helper Name Role Phone Karl Cates MD Primary Care Provider Darren Iverson NP Unavailable Diego Lamb MD Unavailable Diego Lamb MD Unavailable Encounter Details Date Type Department Care Team (Late st Contact Info) Description 11/16/2024 Telephone [facility] [address] [place], [place] [phone] [place] [address] [facility] [address] [place] [address] Social History Tobacco Use Types [...] on file Legal Sex Female 1:07 AM SAMPLER FIRST Gender Identity Not on file Sexual Orientation Not on file documented as of this encounter Miscellaneous Notes * Telephone Encounter - Kerry Kelley - 11/16/2024 1:40 PM CST Spoke with patient about epidural LER FIRST documented in this encounter Plan of Treatment Not on file documented as of this encounter Visit Diagnoses Not on filedocumented in this encounter Care Teams Garnett Machine Operator Helper Relationship Specialty Start Date End Date Karl Cates MD PCP - General Family Practice 10/01/22 Darren Iverson NP Nurse Practitioner Nurse Practitioner 10/13/23 [place] [id number] [facility] [address] [place] [address] Consulting Physician Pain Management 03/22/24 [place] [address] [facility] [address] [place] [address] Consulting Physician Pain Management 10/13/24 documented as of this encounter
--- OUTSIDE RECORDS SUMMARY | 2024-11-26 02:13 | XMS_ITS | Referral Summary ---
Author Organization [facility] Address [address] [place] [address] Care Team Providers Care Navy Seal Name Role Phone Karl Cates MD Primary Care Provider Source Comments [facility],non-owned Affiliates and Associated Physician Practices is amultiple site organization consisting of ambulatory clinics and hospital sitesin [place], [place], [place] and [place]. This disclosure is being madepursuant to the Care Everywhere program and may not contain all information available regarding this patient. Last updated 18.[facility] Encounters Date Type Department Care Team Description 09/28/2024 Travel 09/28/2024 2:00 PM SOUND EFFECTS PERSON Procedure visit [facility] - Neurology [address] [place] [phone] Cynthia Schmitz MD Spasm of muscle 09/14/2024 Telephone [facility] [place] [address] Cynthia Schmitz MD Reschedule Appointment; Concerns from Last 3 Months Allergies Active Allergy [...] once daily Active Naloxone HCl (NARCAN NA) [place] 1 Each into the nose as needed [...] - Wound care reviewed, post-cryo handout given Immunizations Name Administration Dates Next Due [employer] primary monoval ent 12+ yr 0.3mL Purple cap 09/18/2021,02/12/2021,01/16/2021 FLU VACCINE TRI IIV3 SPLIT PF IM (FLUVIRIN) 08/05,07/12/2016 INFLUENZA VACCINE 09/18/2021,08/05/2018 INFLUENZA VACCINE, CELL CULT URE, QUADR. (FLUCELVAX QUADRIVALENT; 6MO+) (CCIIV4) 08/21/2020 INFLUENZA VACCINE, QUADR. (F LUZONE; FLULAVAL; FLUARIX; AFLURIA QUADRIVALENT; 6MO+), 0.5 ML (IIV4) 08/24/2019,08/14/2018 PNEUMOCOCCAL PPSV23 09/02/2017 TDAP (7yrs+) 08/21/2020 Social History Tobacco Use Types Packs/Day Years [...] Comments Blood Pressure 129/63 09/28/2024 1:55 PM SOUND EFFECTS PERSON Pulse 60 09/28/2024 1:55 PM SOUND EFFECTS PERSON Temperature 37 ??C (98.6 ??F) 12/23/2023 10:55 AM SOUND EFFECTS PERSON Respiratory Rate 13 09/04/2018 6:20 PM CDT Oxygen Saturation 96% 12/23/2023 10:55 AM SOUND EFFECTS PERSON Inhaled Oxygen Concentration - - Weight 71 kg (156 lb 9.6 oz) 12/23/2023 10:55 AM SOUND EFFECTS PERSON Height 165.1 cm (5' 5 ) 09/16/2023 10:52 AM SOUND EFFECTS PERSON Body Mass Index 26.06 09/16/2023 10:52 AM SOUND EFFECTS PERSON Plan of Treatment Upcoming Encounters Date Type Department Care Team (Late st Contact Info) Description 12/14/2024 2:00 PM SOUND EFFECTS PERSON Procedure visit [facility] - Neurology [address] [place] [phone] Cynthia Schmitz MD [address] [place] [phone] 03/22/2025 1:00 PM CDT Procedure visit [facility] - Neurology [address] [place] [phone] Cynthia Schmitz MD [address] [place] [address] [address] [place] [phone] Procedures Procedure Name Priority Date/Time Associated Diagnosis Comments OR CHEMODENERV 1 EXTREM 1-4 EA Routine 09/28/2024 2:31 PM SOUND EFFECTS PERSON Spasm of muscle OR CHEMODENERV ONE EXTREM 1-4 MUSCLES Routine 09/28/2024 2:31 PM SOUND EFFECTS PERSON Spasm of muscle HEPATITIS C ANTIBODY Routine 06/25/2016 12:38 AM CDT from Last 3 Months or Most Recently Relevant to Health Maintenance Results * OR CHEMODENERV ONE EXTREM 1-4 MUSCLES, OR CHEMODENERV 1 EXTREM 1-4 EA (09/28/2024 2:31 PM SOUND EFFECTS PERSON) Narrative Cynthia Schmitz MD - 09/28/2024 2:31 PM SOUND EFFECTS PERSON Cynthia Schmitz MD ? 10/02/2024 ??7:32 AM [...] with food ?? Naloxone HCl (NARCAN NA) [place] 1 Each into the nose as needed [...] 12:38 AM CDT) Hep[facility] Comment: Hepatitis C Antibody screen [...] Benavidez MD LAB - CHEMISTRY O RDERABLES [facility] [address] [place] [address], [facility] [phone] from Last 3 Months or Most Recently Relevant to Health Maintenance Advance Directives Documents on File Type Date Recorded Patient Registered Radiographer Expl anation Advance Directives and Livin g Will 06/19/2016 12:00 AM Care Teams Navy Seal Relationship Specialty Start Date End Date Karl Cates MD [address] [place] [phone] PCP - General 09/08/18
== END 2024-11-24 14:27 | disposition home or self-care (01) ==
LOC: ANHLAB 14:27
PROVIDERS: PCP Family Medicine; Visit Provider Internal Medicine Hematology & Oncology
DX: D64.9 Anemia, unspecified (principal)
CPT/HCPCS: 36415; 80053; 82607; 82728; 82746; 83540; 83550; 85025

== ENCOUNTER 2024-12-16 14:14 | Outpatient (CLI) | payer MEDICARE, SELFPAY ==
--- NOTE | ~2024-12-16 | MR_ITS ---
EXAMINATION: MR lumbar spine wo con DATE: 12/16/2024 14:52 INDICATION: Lumbar radiculopathy TECHNIQUE: Magnetic resonance imaging (MRI) of the lumbar spine was performed without intravenous con trast. Sequences included sagittal T2-weighted FSE, sagittal T2-weighted FS FSE, sagittal T1-weighted FSE, and axial T2-weighted FSE. COMPARISON: 12/17/2023 FINDINGS: Alignment is normal. Vertebral body heights are normal. Normal marrow signal. Disc heights are veda l. The conus medullaris terminates at T12. There is normal signal in the caudal spinal cord. 4.4 cm h epatic cyst. Paravertebral soft tissues are otherwise unremarkable. The following disc levels are spe cifically discussed: T12-L1: Small left paracentral disc protrusion. There is moderate bilateral facet joint osteoarthriti s. There is no neural foraminal stenosis. There is minimal central canal stenosis. L1-L2: Disc is minimally bulging. There is moderate bilateral facet joint osteoarthritis. There is no neural foraminal stenosis. There is mild central canal stenosis. L2-L3: Disc is minimally bulging with superimposed small bilateral foraminal zone disc protrusions. T here is moderate left and mild to moderate right facet joint osteoarthritis. There is mild bilateral neural foraminal stenosis. There is mild central canal stenosis. L3-L4: Small bilateral foraminal zone disc protrusions. There is moderate bilateral facet joint osteo arthritis. There is mild bilateral neural foraminal stenosis. There is mild central canal stenosis. L4-L5: Disc is minimally bulging. There is moderate left and severe right facet joint osteoarthritis. There is mild bilateral neural foraminal stenosis. There is severe central canal stenosis. L5-S1: Annular fissure and small central to right foraminal zone disc protrusion. There is severe bilateral facet joint osteoarthritis. There is mild right and minimal left neural foraminal stenosis. There is no central canal stenosis. IMPRESSION: 1. Mild lumbar spondylosis. Reviewed, dictated and finalized at location A. COMMUNICATIONS SPECIALIST IMPRESSION: 1. Mild lumbar spondylosis.
== END 2024-12-16 14:15 | disposition home or self-care (01) ==
LOC: MICIMG 14:14
PROVIDERS: PCP Anesthesiology Pain Medicine; Visit Provider Anesthesiology Pain Medicine
DX: M47.816 Spondylosis without myelopathy or radiculopathy, lumbar region (principal)
CPT/HCPCS: 72148

== ENCOUNTER 2024-12-24 12:43 | Outpatient (CLI) | payer MEDICARE, SELFPAY ==
--- NOTE | ~2024-12-24 | CT_ITS ---
EXAMINATION:CT diagnostic chest wo con DATE: 12/24/2024 13:14 INDICATION: Solitary pulmonary nodule. TECHNIQUE: Computed tomography (CT) of the chest was performed without intravenous contrast. Automate d exposure control and iterative reconstruction technique were employed. The dose-length product (DLP ) was 94.50 mGy-cm. COMPARISON: Chest CT 03/31/2024, 09/20/22 FINDINGS: There is mild scarring at the lung apices. There is moderate emphysema. There is mild atele ctasis bilaterally. There is a 5 mm nodule in right lower lobe, stable from 09/20/22. There is a 5 mm nodule left lower lobe, stable from 09/20/22. No pleural effusion. The heart size is normal. No rancho cardial effusion. There is a 4.8 cm cyst in the liver. There are changes of cholecystectomy. There is a 2.3 cm mass of fat in right kidney, consistent with an angiomyolipoma. An intrathecal catheter is noted. IMPRESSION: 1. Stable pulmonary nodules, likely benign. Reviewed, dictated and finalized at location A. IFIER OPERATOR
== END 2024-12-24 12:44 | disposition home or self-care (01) ==
LOC: GOSHIMG 12:44
PROVIDERS: PCP Family Medicine; Visit Provider Family Medicine
DX: R91.1 Solitary pulmonary nodule (principal); R91.8 Other nonspecific abnormal finding of lung field
CPT/HCPCS: 71250

== ENCOUNTER 2025-02-18 14:00 | Outpatient (CLI) | payer MEDICARE, MEDICAID, SELFPAY ==
--- NOTE | ~2025-02-18 | XR_ITS ---
XR hip LT 2V w AP pelvis Ordering provider: Mayra Waite History: . Osteoarthritis of lt hip . Comparison: October 22, 2018 FINDINGS: BONES: No acute fracture or dislocation. Postoperative changes in the left femoral neck and proximal femur. HIP JOINT SPACES: Normal. SACROILIAC JOINT SPACES/LUMBAR SPINE: The sacroiliac joint spaces are normal. Mild degenerative powell es of the visualized lower lumbar spine. PUBIC SYMPHYSIS: Normal. SOFT TISSUES: Normal. IMPRESSION: No acute osseous abnormality pelvis and left hip. Postoperative changes in the proximal left femur. Reviewed, dictated and finalized at location A.
--- OUTSIDE RECORDS SUMMARY | 2025-02-18 14:15 | XMS_ITS | Clinical Summary ---
Author Organization [facility] [employer] Address [address] [place] [address] Care Team Providers Care Cigar Roller Name Role Phone Karl Cates MD Primary Care Provider Source Comments [facility]non-owned Affiliates and Associated Physician Practices is amultiple site organization consisting of ambulatory clinics and hospital sitesin [place], [place] and [place]. This disclosure is being madepursuant to the Care Everywhere program and may not contain all information available regarding this patient. Last updated 18.[facility] [employer] Allergies Active Allergy Reactions Criticality Noted Date Comments Erythromycin Diarrhea,Other Low 01/23/2016 STOMACH PAINS Phenobarbital Unknown 03/04/2023 Medications * This document contains information received from the source organization and may not represent a complete record from that organization. * Be aware that medications may not be up to date on this document. Alwaysverify current medications with the patient. aspirin (ASPIRIN) 81 MG chew tablet Take [...] once daily Active Naloxone HCl (NARCAN NA) [place] 1 Each into the nose as needed [...] Active Problems Problem Noted Date Diagnosed Date Contracture, unspecified hand 12/18/2024 Acute embolism and thrombosi s of unspecified deep veins of unspecified lower extremity 10/02/2024 Anemia, unspecified 10/02/2024 Sacroiliitis 03/18/2024 Spinal stenosis of lumbar re gion without neurogenic claudication 01/07/2024 Lumbar radiculopathy 12/26/2023 Encounter for other preprocedural examination 09/16/2023 Hemiplegia and hemiparesis f ollowing cerebral infarction affecting left non-dominant side 09/16/2023 09/16/2023 Hyperglycemia, unspecified 09/16/202309/16 Orthostatic hypotension 09/16/2023 09/16/20 23 Other constipation 09/16/2023 09/16/2023 Solitary pulmonary nodule [...] cerebral infarction without residual deficits 07/12/2016 09/16/20 23 PVD (peripheral vascular disease) 07/12/2016 09/16/2023 Other [...] Encounters Date Type Department Care Team Description 12/14/2024 2:00 PM TODDLER NANNY Procedure visit [facility] - Neurology [address] [place] [address] [place] [address] Cynthia Schmitz MD Spasm of muscle 12/14/2024 Travel from Last 3 Months Immunizations Immunization Administration Dates Next Due [email or web address] primary monoval ent 12+ yr 0.3mL Purple [...] of Binge Drinking Not on file 09/03 Comments No Sex and Gender Information Value Date Recorded Sex Assigned at Female 06/02/2023 4:57 PM CDT Legal Sex Female 5:16 AM TODDLER NANNY Gender Identity Female 06/02/2023 4:57 PM CDT Sexual Orientation Not on file Last Filed Vital Signs Vital Sign Reading Time Taken Comments Blood Pressure 108/68 12/14/2024 2:19 PM TODDLER NANNY Pulse 73 12/14/2024 2:19 PM TODDLER NANNY Temperature 37 C (98.6 F) 12/23/2023 10:55 AM TODDLER NANNY Respiratory Rate 13 09/04/2018 6:20 PM CDT Oxygen Saturation 96% 12/23/2023 10:55 AM TODDLER NANNY Inhaled Oxygen Concentration - - Weight 71 kg (156 lb 9.6 oz) 12/23/2023 10:55 AM TODDLER NANNY Height 165.1 cm (5' 5 ) 09/16/2023 10:52 AM TODDLER NANNY Body Mass Index 26.06 09/16/2023 10:52 AM TODDLER NANNY Plan of Treatment Upcoming Encounters Date Type Department Care Team (Late st Contact Info) Description 03/22/2025 1:00 PM CDT Procedure visit [facility] - Neurology [address] [place] [address], [place] [address] Cynthia Schmitz MD [address] [place] [address] [place] [phone] 06/21/2025 2:00 PM CDT Procedure visit [facility] - Neurology [address] [place] [address], [place] [phone] Cynthia Schmitz MD [address] [place] [address] [place] [phone] Health Maintenance Due Date Last Done Comments [...] - PCV) 09/02/2018 09/02/2017 COVID-19 VACCINE ( season) 2024 09/18/2021, 02/12/2021, 01/16/2021 DEPRESSION SCREENING 11/03/2024 MEDICARE AWV CALENDAR YEAR 2024 INFLUENZA VACCINE (Season Ended) 2025 09/18/2021, 08/21/2020, 08/24/2019, Additional history exists DTAP/TDAP/TD VACCINES (2 - Td or Tdap) [...] complete this topic MENINGOCOCCAL (Group B) VACCINE SHARED DECISION-MAKING Aged Out No longer eligible based on patient's age to complete this topic MENINGOCOCCAL GROUPS A/C/Y/W VACCINE Aged Out No longer eligible based on patient's age to complete this topic Procedures Procedure Name Priority Date/Time Associated Diagnosis Comments PROC INJECTION - BOTOX Routine 12/14/2024 2:46 PM TODDLER NANNY Spasm of muscle HEPATITIS C ANTIBODY Routine 06/25/2016 12:38 AM CDT from Last 3 Months or Most Recently Relevant to Health Maintenance Results * PROC INJECTION - BOTOX (12/14/2024 2:46 PM TODDLER NANNY) Narrative Cynthia Schmitz MD - 12/14/2024 2:46 PM TODDLER NANNY Cynthia Schmitz MD 12/18/2024 6:13 AM Botulinum Toxin A Procedure Note Current Date: 12/14/2024 Medications: Current Outpatient Medications Medication Sig Dispense Refill albuterol HFA (Proventil; Ventolin; Proair) 108 (90 Base) MCG/ACT inhaler Inhale 2 (two) puffs by mouth every 6 hours as needed ANORO ELLIPTA 62.5-25 MCG/INH inhaler 1 (one) puff once daily apixaban (Eliquis) 5 MG tablet aspirin (ASPIRIN) 81 MG chew tablet Take 1 (one) tablet by mouth atorvastatin (LIPITOR) 20 MG tablet TK 1 T PO QD HS 1 busPIRone (Buspar) 5 MG tablet Take 1 (one) tablet by mouth 2 times daily with morning and evening meal Cyanocobalamin (VITAMIN B 12 PO) DULoxetine (Cymbalta) 30 MG capsule Take 1 (one) capsule by mouth once daily (Patient not taking: Reported on 09/28/2024) escitalopram (LEXAPRO) 10 MG tablet Take 1 (one) tablet by mouth once daily famotidine (PEPCID) 20 MG tablet TK 1 T PO D 0 folic acid (FOLVITE) 1 MG tablet TK 1 T PO QD 0 incobotulinumtoxin A (Xeomin) 200 units injection Inject 400 (four hundred) Units into muscle once for 1 dose 400 Units 0 levETIRAcetam (Keppra) 500 MG tablet TAKE 3 TABLETS BY MOUTH TWICE DAILY 540 tablet 4 lubiprostone (AMITIZA) 24 MCG capsule Take 1 (one) capsule by mouth 2 times daily with morning and evening meal (Patient not taking: Reported on 09/28/2024) midodrine (PROAMATINE) 2.5 MG tablet Take 1 (one) tablet by mouth 3 times daily multivitamin daily tablet Take 1 (one) tablet by mouth daily with food Naloxone HCl (NARCAN NA) [place] 1 Each into the nose as needed (Patient not taking: Reported on 09/28/2024) omeprazole (PriLOSEC) 40 MG capsule Take 1 (one) capsule by mouth once daily ondansetron (ZOFRAN) 8 MG tablet TK 1 T PO Q 8 H FOR 2 DAYS PRN (Patient not taking: Reported on 09/28/2024) 0 tiZANidine (ZANAFLEX) 4 MG tablet Take 1 (one) tablet by mouth every 8 hours as needed for Muscle Spasms Current Facility-Administered Medications Medication Dose Route Frequency Provider Last Rate Last Admin incobotulinumtoxin A (Xeomin) injection 200 Units 200 Units Intramuscular Once Cynthia Schmitz MD Date of last injection: 09/28/24 Duration of benefit: ?? Present Complaints: Tightness in the leg and left arm.Does not remember how long did the effect last , but did help. Also caregiver noticed it. Functional Response: Good Adverse effects: Other: None Exam: Pressurred speech,Left hemiparesis, Brisk reflexes on the left side Impression: limb spasticity Plan: Xeomin 400 units Description of Operation/Procedure: The risks, benefits, indications, potential complications, and alternatives were explained to the patient and informed consent obtained. I injected her Xeomin: A=10 units/0.1cc in the following distribution: L Flexor Digitorum Longus 60 units L Tibialis Posterior 60 units L Gastrocnemius 80 units L Hamstring 80 units L FDS 40 units L FDP 40 units L Biceps 40 units Units drawn: 400 Units wasted: Zero Complications: The patient did tolerate the procedure well and no complications were noted. Cynthia Schmitz MD Cynthia Schmitz MD PROCEDURE/MINOR SURGICAL ORDE JUANITA Final Result * HEPATITIS C ANTIBODY (06/25/2016 12:38 AM CDT) Hepatitis C Antibody Non-react [facility] Comment: Hepatitis C Antibody screen indicates no [...] 12:38 AM CDT 06/25/2016 12:49 AM CDT [facility] Jason Benavidez MD LAB - CHEMISTRY ORDERABLE S Final Result [address] [phone] from Last 3 Months or Most Recently Relevant to Health Maintenance Insurance MEDICAID - OUT OF STATE [employer] MEDICARE [facility] Advance Directives Documents on File Type Date Recorded 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
--- OUTSIDE RECORDS SUMMARY | 2025-02-18 14:15 | XMS_ITS | Encounter Summary ---
Author Organization [facility] Address [address] [place] [address] Care Team Providers Care Wheel Worker Name Role Phone Karl Cates MD Primary Care Provider Reason for Visit * Reason Onset Date Comments Appointment 04/26/2024 Encounter Details Date Type Department Care Team (Late st Contact Info) Description 04/26/2024 Telephone [facility] - Neurology [address] [place] [address], [facility] [place] [place] [address] Cynthia Shcmitz MD [address] [place] [address] [place] [phone] Appointment Social History Tobacco Use Types Packs/Day [...] PM CDT 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 Patient Call Back Number: [phone] documented in this encounter Plan of Treatment Upcoming Encounters Date Type Department Care Team (Late st Contact Info) Description 03/22/2025 1:00 PM CDT Procedure visit [facility] - Neurology [address] [place] [phone] Cynthia Schmitz MD [address] [place] [address] [address] [place] [address] 06/21/2025 2:00 PM CDT Procedure visit [facility] - Neurology [address] [place] [phone] Cynthia Schmitz MD [address] [place] [address] [address] [place] [address] documented as of this encounter Visit Diagnoses Not on filedocumented in this encounter Care Teams Wheel Worker Relationship Specialty Start Date End Date Karl Cates MD [address] [place] [address] PCP - General 09/08/18 documented as of this encounter
--- OUTSIDE RECORDS SUMMARY | 2025-02-18 14:15 | XMS_ITS | Patient Health Record ---
Author Organization [facility] [employer] Address [address] [place] [address] Care Team Providers Care Land Acquisition Analyst Name Role Phone Khai Clark Unavailable [phone] Therese Holt Unavailable [phone] Migration, Provider Unavailable Unavailable Allergies Allergen (clinical drug ingredient) Drug/Non Drug Allergy documented on EMR Reaction Allergy Type Onset Date Status erythromycin Erythromycin Base Unknown Drug Allergy 2021 Active Reason For Referral No Information Medications Medication SIG (Take, Route, Frequency, Duration) Notes Start Date End Date Status Escitalopram Oxalate 20 MG TAKE 1 TABLET BY MOUTH DAILY for 90 Active busPIRone HCl 5 MG TAKE 1 TABLET BY EVARISTO TH TWICE DAILY for 90 Active Omeprazole 40 MG TAKE 1 CAPSULE BY MO UTH DAILY Oral for 90 Days Active tiZANidine HCl 4 MG TAKE 1 CAPSULE BY MO UTH THREE TIMES DAILY NEEDED FOR MUSCLE SPASTICITY Oral for 90 Days Active Escitalopram Oxalate 20 MG 1 tablet Oral once a day for 90 days Active Clobetasol Propionate 0.05 % APPLY 2-3 D ROPS TO RASH AREAS ON SCALP/EARS TWICE DAILY FOR 4 WEEKS. DO NOT APPLY TO FACE. MUST TAKE 2 WEEK BREAK BEFORE RESTARTING External for 30 Days Active busPIRone HCl 5 MG 1 tablet Orally Twic e a day for 90 days Active Midodrine HCl 2.5 MG TAKE 1 TABLET BY MO UTH THREE TIMES DAILY Oral for 90 Days Active levETIRAcetam 500 MG TAKE 3 TABLETS BY M OUTH TWICE DAILY Oral for 90 Days Active Folic Acid 1 MG TAKE 1 TABLET BY EVARISTO TH DAILY Oral for 90 Days Active Atorvastatin Calcium 20 MG Oral for 90 Days Active Immunizations Vaccine Route Administration Date Status Comme nts Influenza virus vaccine, quadrivalent (IIV4), split virus, 0.25 mL dosage Unknown 08/24/2020 Administered Influenza, injectable, MDCK, preservative free Unknown 08/23/2020 Administered Influenza, seasonal, injecta ble, preservative free, 3 yrs and above Unknown 08/30/2013 Administered Novel [id number], preservative free Unknown 08/14/2018 Administered Novel [id number], preservative free Unknown 08/24/2019 Administered Pfizer Biontech Covid-19 Vac cine 2nd dose Unknown 01/16/2021 Administered Pfizer Biontech Covid-19 Vac cine 2nd dose Unknown 02/12/2021 Administered Pfizer Biontech Covid-19 Vac cine 2nd dose Unknown 09/18/2021 Administered Tdap Unknown 08/23/2020 Administered Social History Tobacco Use: Social History Observation Description Date Details (start date - stop date) Never Smoker NA - NA Sex Assigned At : Social History Observation Description Sex Assigned At Female Tobacco Control (Standard) Question Answer Notes Tobacco use: Nonsmoker AUDIT-C (Standard) Question Answer Notes Did you have a drink containing alcohol in the p ast year? No Points 0 Interpretation Negative Problems Problem Type SNOMED Code ICD Code Onset Dates Problem Status W/U Status Risk Notes Problem Mild recurrent major depression (01691605) Major depressive disorder, recurrent, mild (F33.0) 4 Active confirmed Problem Generalized anxiety disorder (66692460) Generalized anxiety disorder (F41.1) 4 Active confirmed Problem Generalized anxiety disorder (00509348) ERICK (generalized anxiety disorder) (F41.1) Active confirmed Vital Signs Heart Rate 87 /min 12/29/2024 Height-cm 165.10 cm 12/29/2024 Blood pressure diastolic 70 mm Hg 12/29/2024 Weight-kg 72.12 kg 12/29/2024 Height 65.00 in 12/29/2024 Blood pressure systolic 110 mm Hg 12/29/2024 Weight 159 lbs 12/29/2024 BMI 26.46 kg/m2 12/29/2024 Encounters Encounter Location Date Provider Diagnosis [facility] [address] [place] [id number] 04/22/2024 Khai Clark Generalized anxiety disorder F41.1 and Major depressive disorder, recurrent, mild F33.0 [facility] [address] [place] [address] 06/28/2024 Khai Eduardo Generalized anxiety disorder F41.1 and Major depressive disorder, recurrent, mild F33.0 [facility] [address] [place] [address] 09/02/2024 Khai Eduardo [facility], [facility] [address] [facility] [address] [place] [address] 09/06/2024 Khai Eduardo Generalized anxiety disorder F41.1 and Major depressive disorder, recurrent, mild F33.0 [facility] [address] [facility] [address] [place] [address] 12/29/2024 Khaibraxton Clark Major depressive disorder, recurrent, mild F33.0 and Generalized anxiety disorder F41.1 [facility] [address] [address] 03/20/2024 Provider Migration [facility], [facility] [address] [address] 03/21/2024 Provider Migration [facility], [place] [address] [address] 03/24/2024 Provider Migration [facility], [facility] [address] [address] 09/02/2024 Therese Holt [place] [id number] [address] 10/19/2024 Assessments Encounter Date Diagnosis (ICD Code) Assessment Notes Treatment Notes Treatment Clinical Notes Section Notes 06/28/2024 Generalized anxiety disorder (ICD-10 - F41.1) Anemia - Assessment: Patient is currently taking iron tablets as prescribed for anemia management. - Plan: - Encourage patient to follow up with Dr. Gonsalez for monitoring and management of anemia. Chronic Pain and Decreased Mobility - Assessment: Patient has been in a wheelchair for 18 years, reports loss of muscle mass, strength, and feeling confined due to pain. Pain management doctor is involved. - Plan: - Encourage patient to continue following up with pain management. - Explore options for physical therapy or interventions to improve mobility and strength. Depression - Assessment: Patient is taking Lexapro 20 mg and had side effects with previous duloxetine trial. - Plan: - Continue Lexapro 20 mg. - Encourage monitoring of mood and reporting any changes or concerns. Anxiety - Assessment: Patient reports anxiety related to loss of function, pain, and other concerns. - Plan: - Start buspirone 5 mg twice daily for anxiety management. - Instruct patient to monitor side effects and effectiveness. - Follow up in two months to assess response. Possible Cellulitis - Assessment: Patient reports possible cellulitis in leg related to DVT and recently started Eliquis. - Plan: - Encourage follow up with primary care or specialist for evaluation and treatment. Migraine Headaches - Assessment: Patient inquired about migraine treatment. - Plan: - Advise discussing migraine management with primary care or neurologist. Follow-up Appointment - Plan: Schedule follow-up in two months to assess buspirone response and mental health status. Additional Concerns - Assessment: Patient reports feeling drained and difficulty with daily activities. - Plan: Encourage continued communication with providers about these concerns. 04/22/2024 Generalized anxiety disorder (ICD-10 - F41.1) Chronic Pain and Morphine Pump Issues - Assessment: Patient had morphine pump replaced and experienced increased pain levels, leading to immobility and difficulty getting out of bed. The patient is currently undergoing a gradual increase in morphine dosage to reach the optimal level. - Plan: - Continue to closely monitor the patient's pain levels and adjust morphine dosage as needed under the guidance of the lead painter. - Encourage the patient to follow up with the pain clinic for further evaluation and management. Degenerative Disc Disease and Facet Joint Osteoarthritis - Assessment: MRI revealed problems with discs 1-2, 2-3, 3-4, 4-5, and 5-S1, as well as facet joint degenerative osteoarthritis. - Plan: - Continue with the current pain management plan. - Consider referral to a selling specialist for further evaluation and potential treatment options. - Encourage the patient to engage in physical therapy as appropriate. Blood Clot in the Leg - Assessment: Patient was diagnosed with a blood clot in the leg and is currently taking Eliquis. - Plan: - Continue Eliquis as prescribed. - Monitor for any signs of worsening symptoms. - Encourage the patient to follow up with their primary care physician for regular monitoring. Cataracts and Vascular Degeneration - Assessment: Patient has been diagnosed with early cataracts and vascular degeneration. - Plan: - Continue taking prescribed vitamins for vascular degeneration. - Schedule regular follow-ups with an landscape engineer to monitor the progression of cataracts and vascular degeneration. Skin Picking and Possible Tactile Hallucinations - Assessment: Patient has been picking at their face and experiencing tactile sensations, possibly related to medication side effects. - Plan: - Monitor for any worsening of symptoms. - Consider referral to a tag machine operator if skin issues persist. - Discuss the possibility of medication side effects with the patient's lead painter and consider adjusting medications if necessary. Duloxetine Side Effects - Assessment: Patient experienced significant side effects from an increase in duloxetine dosage. - Plan: - Discontinue duloxetine 30 mg. - Increase escitalopram to 20 mg once daily. - Monitor the patient for any adverse effects or withdrawal symptoms from the medication change. Sleep Disturbance - Assessment: Patient reports difficulty sleeping and staying asleep, leading to staying awake for extended periods. - Plan: - Encourage the patient to establish a regular sleep schedule and practice good sleep hygiene. - Consider referral to a sleep specialist if sleep issues persist or worsen. 06/28/2024 Major depressive disorder, recurrent, mild (ICD-10 - F33.0) Anemia - Assessment: Patient is currently taking iron tablets as prescribed for anemia management. - Plan: - Encourage patient to follow up with Dr. Gonsalez for monitoring and management of anemia. Chronic Pain and Decreased Mobility - Assessment: Patient has been in a wheelchair for 18 years, reports loss of muscle mass, strength, and feeling confined due to pain. Pain management doctor is involved. - Plan: - Encourage patient to continue following up with pain management. - Explore options for physical therapy or interventions to improve mobility and strength. Depression - Assessment: Patient is taking Lexapro 20 mg and had side effects with previous duloxetine trial. - Plan: - Continue Lexapro 20 mg. - Encourage monitoring of mood and reporting any changes or concerns. Anxiety - Assessment: Patient reports anxiety related to loss of function, pain, and other concerns. - Plan: - Start buspirone 5 mg twice daily for anxiety management. - Instruct patient to monitor side effects and effectiveness. - Follow up in two months to assess response. Possible Cellulitis - Assessment: Patient reports possible cellulitis in leg related to DVT and recently started Eliquis. - Plan: - Encourage follow up with primary care or specialist for evaluation and treatment. Migraine Headaches - Assessment: Patient inquired about migraine treatment. - Plan: - Advise discussing migraine management with primary care or neurologist. Follow-up Appointment - Plan: Schedule follow-up in two months to assess buspirone response and mental health status. Additional Concerns - Assessment: Patient reports feeling drained and difficulty with daily activities. - Plan: Encourage continued communication with providers about these concerns. 09/06/2024 Generalized anxiety disorder (ICD-10 - F41.1) Anxiety - Plan: - Continue Lexapro 20 mg and BoostBot 5 mg twice a day. - Reassess in 2 months during the follow-up appointment. Chronic pain - Plan: - Encourage the patient to explore options for improving sleep and comfort, such as a recliner. - Reassess pain management during the follow-up appointment in 2 months. Sleep disturbances - Plan: - Encourage the patient to explore options for improving sleep and comfort, such as a recliner. - Reassess sleep quality during the follow-up appointment in 2 months. Anemia - Plan: - Continue monitoring the patient's anemia status. - Consider further iron infusions if necessary. Bruising and bleeding - Plan: - Monitor for any signs of excessive bleeding or complications related to blood thinners. - Encourage the patient to report any significant changes or concerns. Follow-up appointment - Plan: - Schedule a follow-up appointment for the patient in 2 months, around November 17. - Reassess anxiety, pain management, sleep quality, and overall well-being. - Refill Lexapro 20 mg and BoostBot 5 mg twice a day prescriptions until the follow-up appointment. 12/29/2024 Major depressive disorder, recurrent, mild (ICD-10 - F33.0) 04/22/2024 Major depressive disorder, recurrent, mild (ICD-10 - F33.0) Chronic Pain and Morphine Pump Issues - Assessment: Patient had morphine pump replaced and experienced increased pain levels, leading to immobility and difficulty getting out of bed. The patient is currently undergoing a gradual increase in morphine dosage to reach the optimal level. - Plan: - Continue to closely monitor the patient's pain levels and adjust morphine dosage as needed under the guidance of the lead painter. - Encourage the patient to follow up with the pain clinic for further evaluation and management. Degenerative Disc Disease and Facet Joint Osteoarthritis - Assessment: MRI revealed problems with discs 1-2, 2-3, 3-4, 4-5, and 5-S1, as well as facet joint degenerative osteoarthritis. - Plan: - Continue with the current pain management plan. - Consider referral to a selling specialist for further evaluation and potential treatment options. - Encourage the patient to engage in physical therapy as appropriate. Blood Clot in the Leg - Assessment: Patient was diagnosed with a blood clot in the leg and is currently taking Eliquis. - Plan: - Continue Eliquis as prescribed. - Monitor for any signs of worsening symptoms. - Encourage the patient to follow up with their primary care physician for regular monitoring. Cataracts and Vascular Degeneration - Assessment: Patient has been diagnosed with early cataracts and vascular degeneration. - Plan: - Continue taking prescribed vitamins for vascular degeneration. - Schedule regular follow-ups with an landscape engineer to monitor the progression of cataracts and vascular degeneration. Skin Picking and Possible Tactile Hallucinations - Assessment: Patient has been picking at their face and experiencing tactile sensations, possibly related to medication side effects. - Plan: - Monitor for any worsening of symptoms. - Consider referral to a tag machine operator if skin issues persist. - Discuss the possibility of medication side effects with the patient's lead painter and consider adjusting medications if necessary. Duloxetine Side Effects - Assessment: Patient experienced significant side effects from an increase in duloxetine dosage. - Plan: - Discontinue duloxetine 30 mg. - Increase escitalopram to 20 mg once daily. - Monitor the patient for any adverse effects or withdrawal symptoms from the medication change. Sleep Disturbance - Assessment: Patient reports difficulty sleeping and staying asleep, leading to staying awake for extended periods. - Plan: - Encourage the patient to establish a regular sleep schedule and practice good sleep hygiene. - Consider referral to a sleep specialist if sleep issues persist or worsen. 12/29/2024 Generalized anxiety disorder (ICD-10 - F41.1) 09/06/2024 Major depressive disorder, recurrent, mild (ICD-10 - F33.0) Anxiety - Plan: - Continue Lexapro 20 mg and BoostBot 5 mg twice a day. - Reassess in 2 months during the follow-up appointment. Chronic pain - Plan: - Encourage the patient to explore options for improving sleep and comfort, such as a recliner. - Reassess pain management during the follow-up appointment in 2 months. Sleep disturbances - Plan: - Encourage the patient to explore options for improving sleep and comfort, such as a recliner. - Reassess sleep quality during the follow-up appointment in 2 months. Anemia - Plan: - Continue monitoring the patient's anemia status. - Consider further iron infusions if necessary. Bruising and bleeding - Plan: - Monitor for any signs of excessive bleeding or complications related to blood thinners. - Encourage the patient to report any significant changes or concerns. Follow-up appointment - Plan: - Schedule a follow-up appointment for the patient in 2 months, around November 17. - Reassess anxiety, pain management, sleep quality, and overall well-being. - Refill Lexapro 20 mg and BoostBot 5 mg twice a day prescriptions until the follow-up appointment. 12/29/2024 Other referral to the local chapter or national office of the Alzheimer's Association (8-393-495-390 0; http://www.alz .org), the Alzheimer's Disease Education and Referral Center (ADEAR) (3-637-691-438 0; http://www.julian .nih.gov/Alzhe imers/), Obesity - Plan: - Encourage patient to engage in a healthy diet and increase physical activity as tolerated. - Consider referral to a chief medical technologist for further guidance. Anxiety - Plan: - Continue current medications (citalopram, Lexapro 20 mg daily, and buspirone 5 mg twice a day). - Monitor for any changes in anxiety levels and adjust treatment as needed. Chronic Pain - Plan: - Explore alternative pain management options, such as physical therapy or referral to a pain specialist. - Discuss the possibility of obtaining an MRI to further evaluate the cause of pain. - Address the patient's emotional and psychological well-being. Sleep Disturbance - Plan: - Consider referral to a sleep specialist for further evaluation and management. Cognitive Decline - Plan: - Monitor cognitive function. - Consider referral to a neurologist if cognitive decline progresses. Abnormal Imaging Findings - Plan: - Schedule a follow-up appointment to discuss the findings. - Determine appropriate course of action, including further imaging or referral to a specialist. Anemia - Plan: - Continue monitoring hemoglobin levels and iron status. - Encourage a diet rich in iron. Pending Tests - Plan: - Schedule bone density test, footwork, and CT scan of the head. - Follow up on the results. Depression - Plan: - Continue current medications (citalopram, Lexapro 20 mg daily, and buspirone 5 mg twice a day). - Monitor for any changes in depressive symptoms and adjust treatment as needed. - Maintain the same 3-month appointment schedule. Emotional and Financial Support - Plan: - Consider discussing potential resources for financial assistance and emotional support, including counseling or support groups. Plan Of Treatment No Information Insurance Providers Payer Name Payer Address Payer Phone Subscriber Number Group Number Insured Name Patient Relationship to Insured Coverage Start Date Coverage End Date [employer] Medicare Replacemen t/Advantag e - Ppo [address] [place] [address] [id number] FRANCI BLACKWOOD Self - patient is the insured Medicaid-I l Medicaid [address] [address] [place] [address] [id number] FRANCI BLACKWOOD Self - patient is the insured Medical (General) History Medical History History ICD Code Problems: Cigarette smoker Generalized anxiety disorder Mild recurrent major depression Tonic-clonic seizure , Surgical History Surgery Date(Month/Year) Hand plastic operation with graft (52783 9006) spider bite Removal of gallbladder (27155) Cholecystectomy (19978934) Any surgical history 11/17/2006 Tonsilectomy/adenoids 01/17/1959 Hysterectomy (98561) 04/03/1999 Appendectomy (92452) 08/14/1976
--- OUTSIDE RECORDS SUMMARY | 2025-02-18 14:15 | XMS_ITS ---
Author Name Jaden Brown Address [address] [place] [address] Phone [phone] Sontra ice Address [address] [place] [address] Phone [phone] Care Team Providers Care Cyber Systems Engineer Name Role Phone Shad Brownnaz Galindo Unavailable Functional Status No Results Mental Status No Results Allergies and Intolerances Name Onset Date Reaction Severity erythromycin base (Allergy) FriJul 12 23:12:00 EDT 20 16 Diarrhea Moderate Medications Medication Directions Start Date End Date Calcium 600 + D(3) 600 mg (1,500 mg)-200 unit tablet 1 tab TABLET Oral 2 Times Daily FriAug 12 11:00:00 EDT 2015Aug 12 01:00:00 EDT 2015 acetaminophen 325 mg tablet 650mg TABLET Oral PRN (Max 4 Doses) FriAug 04 07:00:00 EDT 2015Aug 12 01:00:00 EDT 2015 Linzess 145 mcg capsule 145 mcg Oral Adelina ry 1 Day IBS FriAug 02 07:00:00 EDT 2015Aug 12 01:00:00 EDT 2015 nicotine 7 mg/24 hr daily transdermal patch 7mg PATCH, TRANSDERMAL 24 HOURS Transdermal 1 Time Daily for 14 Days FriAug 02 10:00:00 EDT 2015Aug 12 01:00:00 EDT 2015 nicotine 21 mg/24 hr daily transdermal patch 1 patch PATCH, TRANSDERMAL 24 HOURS Topical Every 1 Day smoking cessation FriJul 23 18:00:00 EDT 2015Aug 02 16:29:00 EDT 2015 nicotine 14 mg/24 hr daily transdermal patch 1 patch PATCH, TRANSDERMAL 24 HOURS Topical Every 1 Day remove old patchDx smoking cessation Fri 24 09:00:00 EDT 2015Aug 02 16:29:00 EDT 2015 alendronate 70 mg tablet 1 tab Oral 1 Time Weekl y Sun Sep 18 15:00:00 EDT 2015 10 01:00:00 EDT 2015 nicotine 21 mg/24 hr daily transdermal patch 21mg PATCH, TRANSDERMAL 24 HOURS Topical Every 1 Day Fri 17 07:00:00 EDT 2015 20 16:44:00 EDT 2015 venlafaxine ER 75 mg capsule,extended release 24 hr 75mg CAPSULE, EXT RELEASE 24 HR Oral Every 1 Day Fri Sep 14 10:00:00 EDT 2015Aug 12 01:00:00 EDT 2015 Aspirin Childrens 81 mg chewable tablet 81mg TABLET, CHEWABLE Oral 1 Time Daily Dx: heart health FriJul 16 10:00:00 EDT 2015Aug 12 01:00:00 EDT 2015 dronabinol 5 mg capsule 5mg CAPSULE Oral 2 Times Daily for 10 Days Dx: appetite stimulant FriJul 16 10:00:00 EDT 2015Jul 26 09:59:00 EDT 2015 Linzess 145 mcg capsule 1 tab Oral Every 1 Day IBS FriJul 16 11:00:00 EDT 2015Aug 02 02:18:00 EDT 2016 Amitiza 24 mcg capsule 24mcg CAPSULE Ora l 2 Times Daily Dx: constipation FriJul 16 13:00:00 EDT 2015Jul 16 19:26:00 EDT 2016 TUBErsol 5 tub. unit/0.1 mL intradermal injection solution 0.1 ml VIAL (ML) Intradermal 1 Time Weekly for 2 Weeks (PPD) 1st injection upon admission. Read after 72 hours and give 2nd injection 1 week after the 1st if result is negative. If positive result, proceed with chest x-ray to rule out active disease. FriJul 16 13:00:00 EDT 2015Jul 30 12:59:00 EDT 2016 TUBErsol 5 tub. unit/0.1 mL intradermal injection solution Read Results VIAL (ML) Other 1 Time Weekly for 2 Weeks Read results 72 hours after 1st and 2nd 1 week apart. If positive do chest x-ray to rule out active disease. FriJul 19 13:00:00 EDT 2015Aug 02 12:59:00 EDT 2015 Vitamin D3 1,000 unit capsule 1000u CAPSULE Oral 2 Times Daily Fri 10 07:00:00 EDT 2015Aug 12 01:00:00 EDT 2016 midodrine 2.5 mg tablet 2.5mg TABLET Ora l 3 Times Daily FriJul 12 07:00:00 ED2015Aug 12 01:00:00 EDT 2016 levETIRAcetam 500 mg tablet 1500mg TABLET Oral 2 Times Daily FriJul 12 07:00:00 ED2015Aug 12 01:00:00 EDT 2016 Aspir-81 81 mg tablet,delayed release 81mg TABLET, DELAYED RELEASE (ENTERIC COATED) Oral Every 1 Day FriJul 12 07:00:00 EDT 2015Jul 16 09:52:00 EDT 2016 dronabinol 5 mg capsule 5 mg 5mg CAPSULE Oral 2 Times Daily FriJul 13 07:00:00 EDT 2015 13 09:58:00 EDT 2016 ibuprofen 600 mg tablet 600mg TABLET Ora l PRN (Max 4 Doses) FriJul 12 07:00:00 ED2015Aug 12 01:00:00 EDT 2016 Senna Plus 8.6 mg-50 mg tablet 1 TABLET Oral 2 Times Daily FriJul 12 07:00:00 ED2015Aug 05 13:26:00 EDT 2016 famotidine 20 mg tablet 20mg TABLET Oral Every 1 Day FriJul 12 07:00:00 ED2015Aug 12 01:00:00 EDT 2016 folic acid 1 mg tablet 1mg TABLET Oral E very 1 Day FriJul 12 07:00:00 EDT 2015Aug 12 01:00:00 EDT 2016 escitalopram 20 mg tablet 20mg TABLET Or al Every 1 Day FriJul 12 07:00:00 ED2015Aug 12 01:00:00 EDT 2016 Tab-A-Jesus Alberto tablet 1 TABLET Oral 1 Time Daily FriJul 12 07:00:00 ED2015Aug 12 01:00:00 EDT 2016 promethazine 25 mg tablet 25mg TABLET Or al PRN (Max 4 Doses) FriJul 12 07:00:00 EDT 2015Aug 12 01:00:00 EDT 2016 clorazepate dipotassium 3.75 mg tablet 3.75 mg 3.75mg TABLET Oral 2 Times Daily FriJul 12 07:00:00 EDT 2015Aug 12 01:00:00 EDT 2016 Amitiza 24 mcg capsule 24mcg CAPSULE Ora l 2 Times Daily FriJul 12 07:00:00 EDT 2016 Tue Sep 13 11:07:00 EDT 2016 ibandronate 150 mg tablet 150mg TABLET O ral 1 Time Monthly for 12 Months FriJul 17 07:00:00 EDT 2015Jul 21 14:45:00 EDT 2015 Problems Active Concerns * Cerebellar stroke syndrome* Code: * Start Date: FriJul 12 00:00:00 EDT 2015 * End Date: * Text: * Homonymous bilateral field defects, left side* Code: * Start Date: FriJul 12 00:00:00 EDT 2015 * End Date: * Text: * Cerebral aneurysm, nonruptured* Code: * Start Date: FriJul 12 00:00:00 EDT 2015 * End Date: * Text: * Major depressive disorder, single episode, unspecified* Code: * Start Date: FriJul 12 00:00:00 EDT 2015 * End Date: * Text: * Fracture of unspecified part of neck of unspecified femur, subsequent encounter for closed fracturewith routine healing* Code: * Start Date: FriJul 12 00:00:00 EDT 2015 * End Date: * Text: * Peripheral vascular disease, unspecified* Code: * Start Date: FriJul 12 00:00:00 EDT 2015 * End Date: * Text: * Personal history of transient ischemic attack (TIA), and cerebral infarction without residual deficits* Code: * Start Date: FriJul 12 00:00:00 EDT 2015 * End Date: * Text: * Other specified postprocedural states* Code: * Start Date: FriJul 12 00:00:00 EDT 2015 * End Date: * Text: * Anxiety disorder due to known physiological condition* Code: * Start Date: FriJul 12 00:00:00 EDT 2015 * End Date: * Text: * Other seizures* Code: * Start Date: FriJul 12 00:00:00 EDT 2015 * End Date: * Text: Reason for Referral Past Medical History
== END 2025-02-18 14:01 | disposition home or self-care (01) ==
PROVIDERS: PCP Family Medicine
DX: M16.12 Unilateral primary osteoarthritis, left hip (principal)
CPT/HCPCS: 73502

== ENCOUNTER 2025-02-26 14:03 | Emergency (ER) | payer MEDICARE, MEDICAID, SELFPAY ==
--- OUTSIDE RECORDS SUMMARY | 2025-02-26 14:05 | XMS_ITS ---
Author Name Auto Generated, Auto Generated Organization [employer] [facility] Address [address] [place] [address] Phone [phone] Care Team Providers Care Winter Sports Manager Name Role Phone Jaden Brown Functional Status No Results Mental Status No [...] 04 07:00:00 EDT 2015Aug 12 01:00:00 EDT 2016 Linzess 145 mcg capsule 145 mcg Oral [...] HOURS Topical Every 1 Day smoking cessation Tue Sep 20 18:00:00 EDT 2015Aug 02 16:29:00 EDT 2015 nicotine 14 mg/24 hr daily transdermal patch 1 patch PATCH, TRANSDERMAL 24 HOURS Topical Every 1 Day remove old patchDx smoking cessation Sat Sep 24 09:00:00 EDT 2015Aug 02 16:29:00 EDT 2015 alendronate 70 mg tablet 1 tab Oral 1 Time Weekl y FriJul 21 15:00:00 EDT 2015Aug 12 01:00:00 EDT 2015 nicotine [...] 16 11:00:00 EDT 2015Aug 02 02:18:00 EDT 2015 Amitiza 24 mcg capsule 24mcg CAPSULE Ora [...] 16 13:00:00 EDT 2015Jul 30 12:59:00 EDT 2015 TUBErsol 5 tub. unit/0.1 mL intradermal injection solution Read Results VIAL (ML) Other 1 Time Weekly for 2 Weeks Read results 72 hours after 1st and 2nd 1 week apart. If positive do chest x-ray to rule out active disease. FriJul 19 13:00:00 EDT 2015Aug 02 12:59:00 EDT 2016 Vitamin D3 1,000 unit capsule 1000u CAPSULE Oral 2 Times Daily Fri 10 07:00:00 EDT 2015Aug 12 01:00:00 EDT 2015 midodrine 2.5 mg tablet 2.5mg TABLET Ora l 3 Times Daily FriJul 12 07:00:00 EDT 2015Aug 12 01:00:00 EDT 2016 levETIRAcetam 500 mg tablet 1500mg TABLET Oral 2 Times Daily FriJul 12 07:00:00 EDT 2015Aug 12 01:00:00 EDT 2016 Aspir-81 81 mg tablet,delayed release 81mg TABLET, DELAYED RELEASE (ENTERIC COATED) Oral Every 1 Day FriJul 12 07:00:00 EDT 2015 13 09:52:00 EDT 2016 dronabinol 5 mg capsule 5 mg 5mg CAPSULE Oral 2 Times Daily FriJul 13 07:00:00 EDT 2015 13 09:58:00 EDT 2016 ibuprofen 600 mg tablet 600mg TABLET Ora l PRN (Max 4 Doses) FriJul 12 07:00:00 EDT 2015Aug 12 01:00:00 EDT 2016 Senna Plus 8.6 mg-50 mg tablet 1 TABLET Oral 2 Times Daily FriJul 12 07:00:00 EDT 2015Aug 05 13:26:00 EDT 2016 famotidine 20 mg tablet 20mg TABLET Oral Every 1 Day FriJul 12 07:00:00 ED2015Aug 12 01:00:00 EDT 2016 folic acid 1 mg tablet 1mg TABLET Oral E very 1 Day FriJul 12 07:00:00 ED2015Aug 12 01:00:00 EDT 2016 escitalopram 20 mg tablet 20mg TABLET Or al Every 1 Day FriJul 12 07:00:00 ED2015Aug 12 01:00:00 EDT 2016 Tab-A-Jesus Alberto tablet 1 TABLET Oral 1 Time Daily FriJul 12 07:00:00 ED2015Aug 12 01:00:00 EDT 2016 promethazine 25 mg tablet 25mg TABLET Or al PRN (Max 4 Doses) FriJul 12 07:00:00 ED2015Aug 12 01:00:00 EDT 2016 clorazepate dipotassium 3.75 mg tablet 3.75 mg 3.75mg TABLET Oral 2 Times Daily FriJul 12 07:00:00 ED2015Aug 12 01:00:00 EDT 2016 Amitiza 24 mcg capsule 24mcg CAPSULE Ora l 2 Times Daily FriJul 12 07:00:00 EDT 2015 13 11:07:00 EDT 2016 ibandronate 150 mg tablet 150mg TABLET O ral 1 Time Monthly for 12 Months Fri 14 07:00:00 EDT 2016 Fri 18 14:45:00 EDT 2016 Problems Active Concerns * Cerebellar stroke syndrome* [...]
--- OUTSIDE RECORDS SUMMARY | 2025-02-26 14:05 | XMS_ITS | Patient Health Record ---
Author Organization [facility] Address [address] [place] [address] Care Team Providers Care Student Support Advisor Name Role Phone Khai Clark Unavailable [phone] Therese Holt Unavailable [phone] Migration, Provider Unavailable Unavailable Allergies Allergen (clinical [...] Vaccine Route Administration Date Status Comme nts Tdap Unknown 08/23/2020 Administered Pfizer Biontech Covid-19 Vac cine 2nd dose Unknown 01/16/2021 Administered Pfizer Biontech Covid-19 Vac cine 2nd dose Unknown 02/12/2021 Administered Pfizer Biontech Covid-19 Vac cine 2nd dose Unknown 09/18/2021 Administered Novel [id number], preservative free Unknown 08/14/2018 Administered Novel [id number], preservative free Unknown 08/24/2019 Administered Influenza, seasonal, injecta ble, preservative free, 3 yrs and above Unknown 08/30/2013 Administered Influenza, injectable, MDCK, preservative free Unknown 08/23/2020 Administered Influenza virus vaccine, quadrivalent (IIV4), split virus, 0.25 mL dosage Unknown 08/24/2020 Administered Social History Tobacco Use: Social History [...] Risk Notes Problem Mild recurrent major depression (00942201) Major depressive disorder, recurrent, mild (F33.0) 4 Active confirmed Problem Generalized anxiety disorder (64405090) Generalized anxiety disorder (F41.1) 4 Active confirmed Problem Generalized anxiety disorder (11405313) ERICK (generalized anxiety disorder) (F41.1) Active confirmed Vital Signs Heart Rate 87 /min 12/29/2024 Height-cm 165.10 cm 12/29/2024 Blood pressure diastolic 70 mm Hg 12/29/2024 Weight-kg 72.12 kg 12/29/2024 Height 65.00 in 12/29/2024 Blood pressure systolic 110 mm Hg 12/29/2024 Weight 159 lbs 12/29/2024 BMI 26.46 kg/m2 12/29/2024 Encounters Encounter Location Date Provider Diagnosis [facility] [address] [place] [phone] 04/22/2024 Khai Clark Generalized anxiety disorder F41.1 and Major depressive disorder, recurrent, mild F33.0 [facility] [address] [place] [address] 06/28/2024 Khai Eduardo Generalized anxiety disorder F41.1 and Major depressive disorder, recurrent, mild F33.0 [facility] [address] [place] [address] 09/02/2024 Khai Eduardo [facility], [facility] [address] [facility] [address] [place] [address] 09/06/2024 Khai Eduardo Generalized anxiety disorder F41.1 and Major depressive disorder, recurrent, mild F33.0 [facility] [address] [facility] [address] [place] [address] 12/29/2024 Khaibraxton Clark Major depressive disorder, recurrent, mild F33.0 and Generalized anxiety disorder F41.1 [facility] [address] [address] 03/20/2024 Provider Migration [facility], [facility] [address] [address] 03/21/2024 Provider Migration [facility], [place] [address] [address] 03/24/2024 Provider Migration [facility], [facility] [address] [address] 09/02/2024 Therese Holt [place] [address] [address] 10/19/2024 Assessments Encounter Date Diagnosis (ICD Code) [...] continued communication with providers about these concerns. 12/29/2024 Major depressive disorder, recurrent, mild (ICD-10 - F33.0) 09/06/2024 Generalized anxiety disorder (ICD-10 - F41.1) [...] a day prescriptions until the follow-up appointment. 06/28/2024 Major depressive disorder, recurrent, mild (ICD-10 [...] as needed under the guidance of the ski edge painter. - Encourage the patient to follow up with the pain clinic for further evaluation and management. Degenerative Disc Disease and Facet Joint Osteoarthritis - Assessment: MRI revealed problems with discs 1-2, 2-3, 3-4, 4-5, and 5-S1, as well as facet joint degenerative osteoarthritis. - Plan: - Continue with the current pain management plan. - Consider referral to a university extension specialist for further evaluation and potential treatment [...] degeneration. - Schedule regular follow-ups with an potable water treatment operator to monitor the progression of cataracts and vascular degeneration. Skin Picking and Possible Tactile Hallucinations - Assessment: Patient has been picking at their face and experiencing tactile sensations, possibly related to medication side effects. - Plan: - Monitor for any worsening of symptoms. - Consider referral to a it applications developer if skin issues persist. - Discuss the possibility of medication side effects with the patient's ski edge painter and consider adjusting medications if necessary. [...] a day prescriptions until the follow-up appointment. 04/22/2024 Major depressive disorder, recurrent, mild (ICD-10 [...] as needed under the guidance of the ski edge painter. - Encourage the patient to follow up with the pain clinic for further evaluation and management. Degenerative Disc Disease and Facet Joint Osteoarthritis - Assessment: MRI revealed problems with discs 1-2, 2-3, 3-4, 4-5, and 5-S1, as well as facet joint degenerative osteoarthritis. - Plan: - Continue with the current pain management plan. - Consider referral to a university extension specialist for further evaluation and potential treatment [...] degeneration. - Schedule regular follow-ups with an potable water treatment operator to monitor the progression of cataracts and vascular degeneration. Skin Picking and Possible Tactile Hallucinations - Assessment: Patient has been picking at their face and experiencing tactile sensations, possibly related to medication side effects. - Plan: - Monitor for any worsening of symptoms. - Consider referral to a it applications developer if skin issues persist. - Discuss the possibility of medication side effects with the patient's ski edge painter and consider adjusting medications if necessary. [...] if sleep issues persist or worsen. 12/29/2024 Other referral to the local chapter or national office of the Alzheimer's Association (4-968-452-390 0; http://www.alz .org), the Alzheimer's Disease Education and Referral Center (ADEAR) (2-650-224-438 0; http://www.julian .nih.gov/Alzhe imers/), Obesity - Plan: - Encourage patient to engage in a healthy diet and increase physical activity as tolerated. - Consider referral to a automobile lights assembler for further guidance. Anxiety - Plan: - [...] Replacemen t/Advantag e - Ppo [address] [place] [address] [id number] FRANCI BLACKWOOD Self - patient is the insured Medicaid-[place] l Medicaid [address] [address] [place] [address] [id number] FRANCI BLACKWOOD Self - patient is the insured Medical (General) History Medical History History ICD Code Problems: Cigarette smoker Generalized anxiety disorder Mild recurrent major depression Tonic-clonic seizure , Surgical History Surgery Date(Month/Year) Hand plastic operation with graft (43694 9006) spider bite Removal of gallbladder (11218) Cholecystectomy (28414871) Any surgical history 11/17/2006 Tonsilectomy/adenoids 01/17/1959 Hysterectomy (59253) 04/03/1999 Appendectomy (58762) 08/14/1976
--- OUTSIDE RECORDS SUMMARY | 2025-02-26 14:05 | XMS_ITS | Clinical Summary ---
Author Organization [facility] Address [address] [place] [address] Care Team Providers Care Cloud Infrastructure Architect Name Role Phone Karl Cates MD Primary Care Provider Source Comments [facility],non-owned Affiliates and Associated Physician Practices is amultiple site organization consisting of ambulatory clinics and hospital sitesin [place], [place], [place] and [place]. This disclosure is being madepursuant to the Care Everywhere program and may not contain all information available regarding this patient. Last updated 18.[facility] Allergies Active Allergy Reactions Criticality Noted Date [...] once daily Active Naloxone HCl (NARCAN NA) Hancock 1 Each into the nose as needed [...] Department Care Team Description 12/14/2024 2:00 PM JAILER Procedure visit [facility] - Neurology [address] [place] [address] [place] [address] Cynthia Schmitz MD Spasm of muscle 12/14/2024 Travel from Last 3 Months Immunizations Immunization Administration Dates Next Due [facility] primary monoval ent 12+ yr 0.3mL Purple [...] PM CDT Legal Sex Female 5:16 AM JAILER Gender Identity Female 06/02/2023 4:57 PM CDT Sexual Orientation Not on file Last Filed Vital Signs Vital Sign Reading Time Taken Comments Blood Pressure 108/68 12/14/2024 2:19 PM JAILER Pulse 73 12/14/2024 2:19 PM JAILER Temperature 37 C (98.6 F) 12/23/2023 10:55 AM JAILER Respiratory Rate 13 09/04/2018 6:20 PM CDT Oxygen Saturation 96% 12/23/2023 10:55 AM JAILER Inhaled Oxygen Concentration - - Weight 71 kg (156 lb 9.6 oz) 12/23/2023 10:55 AM JAILER Height 165.1 cm (5' 5 ) 09/16/2023 10:52 AM JAILER Body Mass Index 26.06 09/16/2023 10:52 AM JAILER Plan of Treatment Upcoming Encounters Date Type Department Care Team (Late st Contact Info) Description 03/22/2025 1:00 PM CDT Procedure visit [facility] - Neurology [address] [place] [address], [place] [address] Cynthia Schmitz MD [address] [place] [address] [place] [address] 06/21/2025 2:00 PM CDT Procedure visit [facility] - Neurology [address] [place] [address], [place] [phone] Cynthia Schmitz MD [address] [place] [address] [place] [address] Health Maintenance Due Date Last Done Comments [...] INJECTION - BOTOX Routine 12/14/2024 2:46 PM JAILER Spasm of muscle HEPATITIS C ANTIBODY Routine 06/25/2016 12:38 AM CDT from Last 3 Months or Most Recently Relevant to Health Maintenance Results * PROC INJECTION - BOTOX (12/14/2024 2:46 PM JAILER) Narrative Cynthia Schmitz MD - 12/14/2024 2:46 PM JAILER Cynthia Schmitz MD 12/18/2024 6:13 AM Botulinum [...] daily with food Naloxone HCl (NARCAN NA) Hancock 1 Each into the nose as needed [...] 12:38 AM CDT) Hepatitis C Antibody Non-react [facility] Comment: Hepatitis C Antibody screen indicates [...] 12:38 AM CDT 06/25/2016 12:49 AM CDT [facility] Jason Benavidez MD LAB - CHEMISTRY ORDERABLE S Final Result [address] [phone] from Last 3 Months or Most Recently Relevant to Health Maintenance Insurance MEDICAID - OUT OF STATE AETNA MEDICARE [facility] Advance Directives Documents on File Type Date Recorded Patient Configuration Specialist Expl anation Advance Directives and Livin g Will 06/19/2016 12:00 AM Care Teams Cloud Infrastructure Architect Relationship Specialty Start Date End Date Karl Cates MD [address] [place] [address] PCP - General 09/08/18
--- OUTSIDE RECORDS SUMMARY | 2025-02-26 14:05 | XMS_ITS | Encounter Summary ---
Author Organization [facility] Address [address] [place] [address] Care Team Providers Care Oral And Maxillofacial Surgeon Name Role Phone Karl Cates MD Primary Care Provider Reason for Visit * Reason Onset Date Comments Appointment 04/26/2024 Encounter Details Date Type Department Care Team (Late st Contact Info) Description 04/26/2024 Telephone [facility] - Neurology [address] [place] [address], [facility], [facility] [place] [address] Cynthia Schmitz MD [address] [place] [address] [place] [phone] Appointment Social History Tobacco Use Types Packs/Day [...] PM CDT Legal Sex Female 5:16 AM CHARGEMASTER SPECIALIST Gender Identity Female 06/02/2023 4:57 PM CDT [...] reschedule apt please. Patient Call Back Number: [phone] documented in this encounter Plan of Treatment Upcoming Encounters Date Type Department Care Team (Late st Contact Info) Description 03/22/2025 1:00 PM CDT Procedure visit [facility] - Neurology [address] [place] [phone] Cynthia Schmitz MD [address] [place] [address] [address] [place] [address] 06/21/2025 2:00 PM CDT Procedure visit [facility] - Neurology [address] [place] [address] Cynthia Schmitz MD [address] [place] [address] [address] [place] [address] documented as of this encounter Visit Diagnoses Not on filedocumented in this encounter Care Teams Oral And Maxillofacial Surgeon Relationship Specialty Start Date End Date Karl Cates MD [address] [place] [address] PCP - General 09/08/18 documented as of this encounter
--- OUTSIDE RECORDS SUMMARY | 2025-02-26 14:05 | XMS_ITS ---
Author Name Auto Generated, Auto Generated Organization [employer] [facility] Address [address] [place] [address] Phone [phone] Care Team Providers Care Brace Maker Name Role Phone Jaden Brown Functional Status [...]
[2025-02-26 14:40] VITALS: BP 154/63; PULSE 86; RESP 16; TEMP 36.3; O2SAT 95
--- OUTSIDE RECORDS SUMMARY | 2025-02-26 16:01 | XMS_ITS ---
Author Name Auto Generated, Auto Generated Organization [employer] [facility] Address [address] [place] [address] Phone [phone] Care Team Providers Care Forming Machine Tender Name Role Phone Jaden Brown Functional Status [...]
--- OUTSIDE RECORDS SUMMARY | 2025-02-26 16:01 | XMS_ITS | Encounter Summary ---
Author Organization [facility] Health Address [address] [place] [address] Care Team Providers Care Spud Driller Name Role Phone Karl Cates MD Primary Care Provider Reason for Visit * Reason Onset Date Comments Appointment 04/26/2024 Encounter Details Date Type Department Care Team (Late st Contact Info) Description 04/26/2024 Telephone [facility] - Neurology [address] [place] [address], [facility] [place] [address] Cynthia Schmitz MD [address] [place] [address] [place] [phone] Appointment Social History Tobacco Use Types Packs/Day [...] PM CDT Legal Sex Female 5:16 AM CIGARETTE PAPER TESTER Gender Identity Female 06/02/2023 4:57 PM CDT [...] reschedule apt please. Patient Call Back Number: [phone] documented in this encounter Plan of Treatment Upcoming Encounters Date Type Department Care Team (Late st Contact Info) Description 03/22/2025 1:00 PM CDT Procedure visit [facility] - Neurology [address] [place] [phone] Cynthia Schmitz MD [address] [place] [address] 1L [place] [address] 06/21/2025 2:00 PM CDT Procedure visit [facility] - Neurology [address] [place] [phone] Cynthia Schmitz MD [address] [place] [address] 1L DIV [place] [address] documented as of this encounter Visit Diagnoses Not on filedocumented in this encounter Care Teams Spud Driller Relationship Specialty Start Date End Date Karl Cates MD [address] [place] [address] PCP - General 09/08/18 documented as of this encounter
--- OUTSIDE RECORDS SUMMARY | 2025-02-26 16:01 | XMS_ITS ---
Author Name Auto Generated, Auto Generated Organization [facility] Address [address] [place] [address] Phone [phone] Care Team Providers Care Client Renewal Specialist Name Role Phone Jaden Brown [phone] Functional Status No Results Mental Status No [...]
--- OUTSIDE RECORDS SUMMARY | 2025-02-26 16:01 | XMS_ITS | Clinical Summary ---
Author Organization [facility] Address [address] [facility] [place] [address] Care Team Providers Care Adult Parole Officer Name Role Phone Karl Cates MD Primary Care Provider Source Comments [facility],non-owned Affiliates and Associated Physician Practices is amultiple site organization consisting of ambulatory clinics and hospital sitesin [place], [place], [place] and [place]. This disclosure is being madepursuant to the Care Everywhere program and may not contain all information available regarding this patient. Last updated 18.[facility] Allergies Active Allergy Reactions Criticality Noted Date [...] once daily Active Naloxone HCl (NARCAN NA) [place] 1 Each into the nose as needed [...] Department Care Team Description 12/14/2024 2:00 PM SOCIAL ORGANIZATION PROFESSOR Procedure visit [facility] - Neurology [address] [place] [address] [place] [address] Cynthia Schmitz MD Spasm of muscle 12/14/2024 Travel from Last 3 Months Immunizations Immunization Administration Dates Next Due Fanli website primary monoval ent 12+ yr 0.3mL Purple [...] PM CDT Legal Sex Female 5:16 AM SOCIAL ORGANIZATION PROFESSOR Gender Identity Female 06/02/2023 4:57 PM CDT Sexual Orientation Not on file Last Filed Vital Signs Vital Sign Reading Time Taken Comments Blood Pressure 108/68 12/14/2024 2:19 PM SOCIAL ORGANIZATION PROFESSOR Pulse 73 12/14/2024 2:19 PM SOCIAL ORGANIZATION PROFESSOR Temperature 37 C (98.6 F) 12/23/2023 10:55 AM SOCIAL ORGANIZATION PROFESSOR Respiratory Rate 13 09/04/2018 6:20 PM CDT Oxygen Saturation 96% 12/23/2023 10:55 AM SOCIAL ORGANIZATION PROFESSOR Inhaled Oxygen Concentration - - Weight 71 kg (156 lb 9.6 oz) 12/23/2023 10:55 AM SOCIAL ORGANIZATION PROFESSOR Height 165.1 cm (5' 5 ) 09/16/2023 10:52 AM SOCIAL ORGANIZATION PROFESSOR Body Mass Index 26.06 09/16/2023 10:52 AM SOCIAL ORGANIZATION PROFESSOR Plan of Treatment Upcoming Encounters Date Type Department Care Team (Late st Contact Info) Description 03/22/2025 1:00 PM CDT Procedure visit [facility] - Neurology [address] [place] [address], [place] [address] Cynthia Schmitz MD [address] [place] [address] [place] [phone] 06/21/2025 2:00 PM CDT Procedure visit [facility] Neurology [address] [place] [address], [place] [phone] Cynthia Schmitz MD [address] [place] [address] [place] [phone] Health Maintenance Due Date Last Done Comments [...] INJECTION - BOTOX Routine 12/14/2024 2:46 PM SOCIAL ORGANIZATION PROFESSOR Spasm of muscle HEPATITIS C ANTIBODY Routine 06/25/2016 12:38 AM CDT from Last 3 Months or Most Recently Relevant to Health Maintenance Results * PROC INJECTION - BOTOX (12/14/2024 2:46 PM SOCIAL ORGANIZATION PROFESSOR) Narrative Cynthia Schmitz MD - 12/14/2024 2:46 PM SOCIAL ORGANIZATION PROFESSOR Cynthia Schmitz MD 12/18/2024 6:13 AM Botulinum [...] daily with food Naloxone HCl (NARCAN NA) [place] 1 Each into the nose as needed [...] 12:38 AM CDT) Hepatitis C Antibody Non-react [facility] Comment: Hepatitis C Antibody screen indicates [...] 12:38 AM CDT 06/25/2016 12:49 AM CDT [facility] Jason Benavidez MD LAB - CHEMISTRY ORDERABLE S Final Result [address] [phone] from Last 3 Months or Most Recently Relevant to Health Maintenance Insurance MEDICAID - OUT OF STATE AETNA MEDICARE [facility] Advance Directives Documents on File Type Date Recorded Patient National Opelint Analyst Expl anation Advance Directives and Livin g Will 06/19/2016 12:00 AM Care Teams Adult Parole Officer Relationship Specialty Start Date End Date Karl Cates MD [address] [place] [address] PCP - General 09/08/18
[2025-02-26 16:12] VITALS: O2SAT 95
[2025-02-26 16:14] VITALS: BP 169/78; PULSE 72; RESP 18; O2SAT 95
--- NOTE | 2025-02-26 16:28 | ED.GENADULT ---
HPI - General Adult General Chief complaint: Unspecified Stated complaint: generalized pain Time Seen by Provider: 02/26/25 15:51 History of Present Illness HPI narrative: 69-year-old female with history pain pump presents emergency department for evaluation for worsening back pain. Patient has had some nausea and vomiting. Patient is somnolent upon arrival emergency department. Patient states she was supposed to have follow-up with her pain specialist on the to have an injection for her back but patient was unable to get a ride. Patient presents emergency department today complaining of worsening pain. Patient is somnolent and and no apparent distress. Related Data Home Medications ?Medication ?Instructions ?Recorded ?Confirmed ?Last Taken ?Type naloxone 4 mg/actuation nasal 1 spray intranasal Q2M 03/16/20 01/31/25 Unknown History spray (Narcan) multivitamin with minerals-folic 200 mcg PO DAILY 07/12/20 01/31/25 Unknown History acid 200 mcg chewable tablet (Women's Multivitamin Gummies) cholecalciferol (vitamin D3) 50 25 mcg PO DAILY 01/10/21 01/31/25 Unknown History mcg (2,000 unit) capsule aspirin 81 mg chewable tablet 81 mg PO DAILY 04/01/24 01/31/25 Unknown History cyanocobalamin (vitamin B-12) 500 1,500 mcg PO DAILY 04/01/24 01/31/25 Unknown History mcg tablet (Vitamin B-12) adapalene 0.1 % topical cream 1 applic topical QHS 04/16/24 01/31/25 Unknown History ferrous sulfate 325 mg (65 mg 325 mg PO DAILY 06/29/24 01/31/25 Unknown History iron) tablet (FeroSul) apixaban 2.5 mg tablet (Eliquis) 2.5 mg PO BID 12/20/24 01/31/25 Unknown History buspirone 5 mg tablet 5 mg PO BID 12/20/24 01/31/25 Unknown History clobetasol 0.05 % scalp solution 2 - 3 ml topical BID PRN 12/20/24 01/31/25 Unknown History escitalopram oxalate 20 mg tablet 20 mg PO DAILY 12/20/24 01/31/25 Unknown History famotidine 20 mg tablet 20 mg PO QHS 12/20/24 01/31/25 Unknown History levetiracetam 500 mg tablet See Rx Instructions PO BID 12/20/24 01/31/25 Unknown History (Keppra) lidocaine 4 % topical patch 2 patch topical BID PRN 12/20/24 01/31/25 Unknown History (Aspercreme (lidocaine)) midodrine 2.5 mg tablet 2.5 mg PO BID 12/20/24 01/31/25 Unknown History Allergies Allergy/AdvReac Type Severity Reaction Status Date / Time erythromycin base Allergy Unknown ABDOMINAL Verified 02/26/25 16:14 CRAMPING, LOOSE STOOLS dial soap Allergy Mild ITCHING Uncoded 02/26/25 16:14 Review of Systems Review of Systems: All systems reviewed & are unremarkable except as noted in HPI and below PMFSH Past Medical History Medical History Acquired left foot drop Left arm swelling COPD (chronic obstructive pulmonary disease) UTI (urinary tract infection) History of deep venous thrombosis (DVT) of distal vein of left lower extremity (~11/2006) OAB (overactive bladder) Chronic pain pain pump--hydrocodone Hemiparesis affecting left side as late effect of cerebrovascular accident Postural hypotension Vitamin D deficiency Opiate use oxycodone and pain pump Anxiety DJD (degenerative joint disease) Arthritis Osteoporosis GERD (gastroesophageal reflux disease) Colitis Chronic constipation Emphysema lung DVT (deep venous thrombosis) HTN (hypertension) Seizure Brain aneurysm 2006 with craniotomy 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 TMJ (dislocation of temporomandibular joint) Surgical History Surgical History History of craniotomy 2006 - aneurysm repair H/O tubal ligation (~01/17/89) History of orthopedic surgery (~2009) Left leg and hip with megan 2009 History of bladder surgery (Unknown) bladder suspension H/O mastectomy (~1994) Hx of hysterectomy (~04/03/99) H/O section (~08/1976) Hx of cholecystectomy (~2009) Hx of appendectomy (~08/1976) Hx of tonsillectomy (~1958) Family History Family History Father Cerebral aneurysm Cerebrovascular accident Heart disease Hypertension Mother Lung cancer Colon ulcer Unknown Thyroid disease Other Lung cancer Colon ulcer Sibling Lung cancer Social History Social History Social History: used to smoke for 48 years Smoking packs per day: 0.75 Smoking cigarettes per day: 15.0 Years smoked: 52 Smoking pack-years: 39.00 Smoking status: Current every day smoker Tobacco type: cigarettes Second hand tobacco smoke exposure: No Alcohol intake: never Substance use: never Substance use type: opiates Other substance usage details: Morphine Do You Feel Safe in your Home?: Yes Lack of Transportation: No Lack of Food: Sometimes True Current Housing: I Have Housing Concerned About Future Housing: No Difficulty Paying Gas/Electric Bills: No Difficulty Paying for Meds: No Currently Unemployed: No Education: Bachelor's Degree Difficulty w/ Childcare or Family Care: No Living arrangements: alone Occupation/Education: retired Spiritual care concerns: No Agree to blood products: Yes Exam Narrative: APPEARANCE: Well appearing, no pain, no distress, well-nourished. HEAD: normocephalic, atraumatic. EYES: PERRLA/EOMI, conjunctivae clear. NOSE: Normal no drainage EARS:TMS clear with good light reflex. THROAT: Pharynx clear, no exudate. NECK: Supple. No adenopathy, no masses. RESPIRATORY: Airway patent, respirations nonlabored. Clear to auscultation bilaterally, no rales, rhonchi, wheezing. CARDIOVASCULAR: Regular rate and rhythm without murmurs rubs or gallops. ABDOMINAL: Soft, nontender, nondistended, normal bowel sounds MUSCULOSKELETAL: Moves all extremities. Strength/ROM intact, No edema, No calf tenderness. NEURO: Alert. Cranial nerves II through XII intact. Good gait. Good coordination SKIN: Warm, dry. Normal Color Course Vital Signs Vital signs: Vital Signs Temperature 97.4 F L 02/26/25 14:40 Pulse Rate 86 02/26/25 14:40 Respiratory Rate 16 02/26/25 14:40 Blood Pressure 154/63 H 02/26/25 14:40 Pulse Oximetry 95 02/26/25 14:40 Oxygen Delivery Room Air 02/26/25 14:40 Temperature 97.4 F L 02/26/25 14:40 Pulse Rate 97 02/26/25 17:49 Respiratory Rate 20 02/26/25 17:49 Blood Pressure 176/76 H 02/26/25 17:49 Pulse Oximetry 95 02/26/25 17:49 Oxygen Delivery Room Air 02/26/25 14:40 Medical Decision Making [facility] Narrative Medical decision making narrative: 61-year-old female presents emergency department for evaluation for report of uncontrolled pain. Patient is in no distress at time of evaluation. Patient is afebrile but does have a leukocytosis of 11.2 and a stable hemoglobin of 14.6. INR 1.1 patient's potassium was 2.9 is replaced orally. Patient has no acute kidney injury. Patient did have a mildly elevated lactic acid of 2.2 but patient was treated with a L of fluids. No evidence of urinary tract infection patient was negative for COVID fluid RSV. On re-evaluation patient does easily wake up to verbal stimuli. Once again patient does not appear to be in any distress. Patient's family was comfortable to plan on taking the patient back home states this is a normal level of mentation for her. Differential Diagnosis Differential Diagnosis: Dehydration, COVID, RSV, influenza, UTI Vital Signs Vital Signs: Vital Signs Temperature 97.4 F L 02/26/25 14:40 Pulse Rate 86 02/26/25 14:40 Respiratory Rate 16 02/26/25 14:40 Blood Pressure 154/63 H 02/26/25 14:40 Pulse Oximetry 95 02/26/25 14:40 Oxygen Delivery Room Air 02/26/25 14:40 Temperature 97.4 F L 02/26/25 14:40 Pulse Rate 97 02/26/25 17:49 Respiratory Rate 20 02/26/25 17:49 Blood Pressure 176/76 H 02/26/25 17:49 Pulse Oximetry 95 02/26/25 17:49 Oxygen Delivery Room Air 02/26/25 14:40 Lab Data Lab results reviewed: Yes I reviewed the patient's lab results. 02/26/25 16:43 02/26/25 16:43 Labs: Lab Results 02/26/25 02/26/25 Range/Units 16:43 17:05 WBC 11.2 H (4.5-10.0) K/mm3 RBC 4.73 (4.2-5.4) M/mm3 Hgb 14.6 (12.0-15.0) g/dL Hct 44.6 (37.0-47.0) % MCV 94.3 (80-100) fl MCH 30.9 (26-34) pg MCHC 32.7 (32-36) g/dl RDW 12.0 (11.5-14.5) % Plt Count 168 (150-375) k/mm3 MPV 10.1 (7.4-10.4) fl Immature Gran % (Auto) Not Reportable Neut % (Auto) Not Reportable Lymph % (Auto) Not Reportable Dolores % (Auto) Not Reportable Eos % (Auto) Not Reportable Baso % (Auto) Not Reportable Lymph # (Auto) Not Reportable Dolores # (Auto) Not Reportable Eos # (Auto) Not Reportable Baso # (Auto) Not Reportable Abs Immat Gran (auto) Not Reportable Absolute Neuts (auto) Not Reportable Absolute Nucleated RBC Not Reportable Total Counted 100 Neutrophils % (Manual) 81 H (46-73) % Band Neutrophils % 4 (0-6) % Lymphocytes % (Manual) 8.0 L (18-44) % Monocytes % (Manual) 7 (3-9) % Nucleated RBC % Not Reportable Abs Neuts (Manual) 9.52 H (1.7-7.2) K/mm3 Abs Lymphs (Manual) 0.89 L (1.1-4.5) K/mm3 Abs Monocytes (Manual) 0.78 (0.1-0.90) K/mm3 Platelet Estimate Adequate (Adequate) Schistocytes None seen PT 14.4 (11.1-14.7) Seconds INR 1.1 APTT 30.2 (22.3-36.8) Seconds Sodium 143 (137-145) mmol/L Potassium 2.9 L (3.4-5.0) mmol/L Chloride 107 (98-107) mmol/L Carbon Dioxide 31 H (22-30) mmol/L Anion Gap 5 (4-12) mmol/L BUN 11 D (7-17) mg/dL Creatinine 0.54 L (0.7-1.0) mg/dL Estim Creat Clear Calc 79 ml/min Estimated GFR > 60 (59 - ) Glucose 139 H (65-110) mg/dL Lactic Acid 2.2 H (0.7-2.0) mmol/L Calcium 8.8 (8.4-10.2) mg/dL Total Bilirubin 0.7 (0.2-1.3) mg/dL AST 19 (14-36) U/L ALT 25 (6-35) U/L Alkaline Phosphatase 127 H (38-126) U/L Total Protein 7.0 (6.3-8.2) g/dL Albumin 3.7 (3.5-5.1) g/dL Lipase 39 (23-300) U/L Urine Color Yellow (Yellow) Urine Appearance Clear (Clear) Urine pH 8.0 (5.0-9.0) Ur Specific [place] 1.012 (1.001-1.035) Urine Protein Negative (Negative) mg/dL Urine Glucose (UA) Negative (Negative) mg/dL Urine Ketones 1+ H (Negative) mg/dL Ur Blood (Man) Negative (Negative) Urine Nitrate Negative (Negative) Urine Bilirubin Negative (Negative) Urine Urobilinogen 1.0 (<2.0) mg/dL Leukocyte Esterase Rfl Negative (Negative) NEHA/UL Influenza A (RT-PCR) Negative (Negative) Influenza B (RT-PCR) Negative (Negative) RSV (RT-PCR) Negative (Negative) SARS-CoV-2 RNA (RT-PCR) Negative (Negative) Discharge Plan Discharge Clinical Impression: Chronic pain Patient Disposition: Home Condition: Stable Instructions: Antibiotic Form Additional Instructions: Have close follow-up with your primary care physician and with your pain specialist. If you have any worsening symptoms then please call or return to the emergency department. Patient Language: Citizen Of [place] Prescriptions: No Action Narcan 4 mg/actuation spray,non-aerosol 1 spray NASAL Q2M Rx Instructions: spray 1 dose into ONE nostril; alternate nostrils w each dose until help arrives Women's Multivitamin Gummies 200 mcg tablet,chewable 200 mcg PO DAILY levetiracetam [Keppra] 500 mg tablet See Rx Instructions PO BID Rx Instructions: 2 tabs qam and 3 tabs qpm orally twice a day; adapalene 0.1 % cream 1 applic topical QHS cholecalciferol (vitamin D3) 50 mcg (2,000 unit) capsule 25 mcg PO DAILY Eliquis 2.5 mg tablet 2.5 mg PO BID lidocaine [Aspercreme (lidocaine)] 4 % adhesive patch,medicated 2 patch topical BID PRN midodrine 2.5 mg tablet 2.5 mg PO BID famotidine 20 mg tablet 20 mg PO QHS escitalopram oxalate 20 mg tablet 20 mg PO DAILY buspirone 5 mg tablet 5 mg PO BID solifenacin [Vesicare] 5 mg tablet 5 mg PO DAILY Qty: 100 1RF ferrous sulfate [FeroSul] 325 mg (65 mg iron) tablet 325 mg PO DAILY amoxicillin-pot clavulanate [Augmentin] 500-125 mg tablet 1 tablet PO Q12H Qty: 20 1RF Rx Instructions: take 1 tablet b.i.d. cyanocobalamin (vitamin B-12) [Vitamin B-12] 500 mcg Tablet 1,500 mcg PO DAILY aspirin 81 mg Tablet,Chewable 81 mg PO DAILY clobetasol 0.05 % solution 2 - 3 ml TOPICAL BID PRN diphenhydramine HCl [Benadryl Allergy] 25 mg tablet 25 mg PO TID PRN (Reason: itching) Qty: 20 0RF (DME) Roho cushion 18 inch See Rx Instructions .Route .MEDSUPPLY Qty: 1 0RF Rx Instructions: As directed albuterol sulfate 90 mcg/actuation HFA aerosol inhaler See Rx Instructions .ROUTE .COMPLEX Qty: 8.5 5RF Dose Instruction: INHALE 2 PUFFS BY MOUTH FOUR TIMES DAILY NEEDED FOR SHORTNESS OF BREATH OR WHEEZING Rx Instructions: INHALE 2 PUFFS BY MOUTH FOUR TIMES DAILY NEEDED FOR SHORTNESS OF BREATH OR WHEEZING Anoro Ellipta 62.5-25 mcg/actuation blister with device 1 inh inhalation Q24H Qty: 60 1RF atorvastatin 20 mg tablet 20 mg PO QHS Qty: 90 1RF folic acid 1 mg tablet 1 mg PO DAILY Qty: 90 1RF ergocalciferol (vitamin D2) 1,250 mcg (50,000 unit) capsule 1,250 mcg PO WEEKLY Qty: 12 1RF tizanidine 4 mg capsule See Rx Instructions .ROUTE .COMPLEX Qty: 270 0RF Dose Instruction: TAKE 1 CAPSULE BY MOUTH THREE TIMES DAILY NEEDED FOR MUSCLE SPASTICITY Rx Instructions: TAKE 1 CAPSULE BY MOUTH THREE TIMES DAILY NEEDED FOR MUSCLE SPASTICITY (DME) shoes See Rx Instructions .Route .MEDSUPPLY Qty: 2 0RF Rx Instructions: As directed omeprazole 40 mg capsule,delayed release(DR/EC) See Rx Instructions .ROUTE .COMPLEX Qty: 90 1RF Dose Instruction: TAKE 1 CAPSULE BY MOUTH DAILY Rx Instructions: TAKE 1 CAPSULE BY MOUTH DAILY clotrimazole 10 mg tommy 10 mg mucous membrane TID Qty: 30 0RF Follow-up/Referrals: Martha Cates MD [Primary Care Provider] -
[2025-02-26] MEDS: SODIUM CHLORIDE 0.9% IV 1,000 ML 999 ML IV CONT (16:31)
[2025-02-26] MEDS: KETOROLAC 30 MG/ML VIAL (*BKC) IV PUSH (16:32)
[2025-02-26 17:01] LABS: Hematocrit 44.6 % (37.0-47.0); Hemoglobin 14.6 g/dL (12.0-15.0); Mean Corpuscular HGB Conc 32.7 g/dl (32-36); Mean Corpuscular Hemoglobin 30.9 pg (26-34); Mean Corpuscular Volume 94.3 fl (80-100); Mean Platelet Volume 10.1 fl (7.4-10.4); Platelet Count Result 168 k/mm3 (150-375); Red Blood Count 4.73 M/mm3 (4.2-5.4); White Blood Count 11.2 K/mm3 (4.5-10.0)
[2025-02-26 17:11] LABS: Lactic Acid Reflex 2.2 mmol/L (0.7-2.0)
[2025-02-26 17:12] LABS: Alanine Aminotransferase 25 U/L (6-35); Albumin Level 3.7 g/dL (3.5-5.1); Alkaline Phosphatase 127 U/L (38-126); Anion Gap 5 mmol/L (4-12); Aspartate Amino Transferase 19 U/L (14-36); Bilirubin,Total 0.7 mg/dL (0.2-1.3); Blood Urea Nitrogen 11 mg/dL (7-17); Calcium 8.8 mg/dL (8.4-10.2); Carbon Dioxide 31 mmol/L (22-30); Chloride 107 mmol/L (98-107); Estimated CRCL calculation 79 ml/min; Estimated Glomerular Filt Rate > 60; Glucose 139 mg/dL (65-110); Lipase 39 U/L (23-300); Potassium 2.9 mmol/L (3.4-5.0); Sodium 143 mmol/L (137-145)
[2025-02-26 17:17] LABS: Add Urine Microscopic? NO; Appearance Urine Clear (Clear); Bilirubin Urine Negative (Negative); Blood Urine Negative (Negative); Color Urine Yellow (Yellow); Glucose Urine UA Negative (Negative); Ketones Urine 1+ mg/dL (Negative); Leukocyte Esterase Ur Negative LEU/UL (Negative); Nitrate Urine Negative (Negative); Protein Urine Negative (Negative); Specific Grav Ur 1.012 (1.001-1.035)
[2025-02-26 17:24] LABS: INR 1.1; Prothrombin Time 14.4 Seconds (11.1-14.7)
[2025-02-26 17:25] LABS: Partial Thromboplastin Time 30.2 Seconds (22.3-36.8)
[2025-02-26] MEDS: POTASSIUM CHLORIDE 20 MEQ PACKET (FOR LIQUID) 40 MEQ PO (17:44)
[2025-02-26 17:47] LABS: Band Neutrophils Percent 4 % (0-6); Lymphocytes Absolute Manual 0.89 K/mm3 (1.1-4.5); Monocytes Absolute Manual 0.78 K/mm3 (0.1-0.90); Monocytes Percent Manual 7 % (3-9); Neutrophils Absolute Manual 9.52 K/mm3 (1.7-7.2); Neutrophils Percent Manual 81 % (46-73); Total Cells Counted 100
[2025-02-26 17:48] LABS: Platelet Estimate Adequate (Adequate); Schistocytes None Seen
[2025-02-26 17:49] VITALS: BP 176/76; PULSE 97; RESP 20; O2SAT 95
[2025-02-26 17:51] LABS: Influenza A QL RT-PCR Negative (Negative); Influenza B QL RT-PCR Negative (Negative); RSV RNA, RT-PCR Negative (Negative); SARS-CoV-2 RNA PCR Negative (Negative)
[2025-02-26 18:58] LABS: Reflex Lactic Acid Yes or No Add Lactic
== END 2025-02-26 18:20 | disposition home or self-care (01) ==
PROVIDERS: Emergency Provider Emergency Medicine; PCP Family Medicine
DX: M54.9 Dorsalgia, unspecified (principal); G89.29 Other chronic pain; Z20.822 Contact with and (suspected) exposure to COVID-19; J43.9 Emphysema, unspecified; I10 Essential (primary) hypertension; I69.954 Hemiplegia and hemiparesis following unspecified cerebrovascular disease affecting left non-dominant side; N32.81 Overactive bladder; K21.9 Gastro-esophageal reflux disease without esophagitis; M81.0 Age-related osteoporosis without current pathological fracture; M19.90 Unspecified osteoarthritis, unspecified site; F17.210 Nicotine dependence, cigarettes, uncomplicated; Z87.440 Personal history of urinary (tract) infections; Z86.718 Personal history of other venous thrombosis and embolism; Z90.10 Acquired absence of unspecified breast and nipple; Z90.710 Acquired absence of both cervix and uterus; Z90.49 Acquired absence of other specified parts of digestive tract; Z79.01 Long term (current) use of anticoagulants; Z79.899 Other long term (current) drug therapy; Z79.82 Long term (current) use of aspirin
CPT/HCPCS: 36415; 80053; 81003; 83605; 83690; 85025; 85610; 85730; 87637; 96361; 96374; 99284; A9270; J1885; J7030

== ENCOUNTER 2025-03-01 11:54 | Outpatient (CLI) | payer MEDICARE, MEDICAID, SELFPAY ==
--- OUTSIDE RECORDS SUMMARY | 2025-03-01 13:09 | XMS_ITS ---
Author Name Auto Generated, Auto Generated Organization [facility] [employer] [facility] Address [address] [place] [address] Phone [phone] Care Team Providers Care Metal Bonding Assembler Name Role Phone Jaden Brown Functional Status [...]
--- OUTSIDE RECORDS SUMMARY | 2025-03-01 13:09 | XMS_ITS | Clinical Summary ---
Author Organization [facility] Address [address] [place] [address] Care Team Providers Care Customer Service Agent Name Role Phone Karl Cates MD Primary Care Provider Source Comments [facility],non-owned Affiliates and Associated Physician Practices is amultiple site organization consisting of ambulatory clinics and hospital sitesin [place], [place], [place] and [place]. This disclosure is being madepursuant to the Care Everywhere program and may not contain all information available regarding this patient. Last updated 18.[facility] Allergies Active Allergy Reactions Criticality Noted Date [...] once daily Active Naloxone HCl (NARCAN NA) [place] 1 Each into the nose as needed [...] Department Care Team Description 12/14/2024 2:00 PM CHANNELER Procedure visit [facility] - Neurology [address] [place] [address] [place] [address] Cynthia Schmitz MD Spasm of muscle 12/14/2024 Travel from Last 3 Months Immunizations Immunization Administration Dates Next Due Oculo Therapy primary monoval ent 12+ yr 0.3mL Purple [...] PM CDT Legal Sex Female 5:16 AM CHANNELER Gender Identity Female 06/02/2023 4:57 PM CDT Sexual Orientation Not on file Last Filed Vital Signs Vital Sign Reading Time Taken Comments Blood Pressure 108/68 12/14/2024 2:19 PM CHANNELER Pulse 73 12/14/2024 2:19 PM CHANNELER Temperature 37 C (98.6 F) 12/23/2023 10:55 AM CHANNELER Respiratory Rate 13 09/04/2018 6:20 PM CDT Oxygen Saturation 96% 12/23/2023 10:55 AM CHANNELER Inhaled Oxygen Concentration - - Weight 71 kg (156 lb 9.6 oz) 12/23/2023 10:55 AM CHANNELER Height 165.1 cm (5' 5 ) 09/16/2023 10:52 AM CHANNELER Body Mass Index 26.06 09/16/2023 10:52 AM CHANNELER Plan of Treatment Upcoming Encounters Date Type Department Care Team (Late st Contact Info) Description 03/22/2025 1:00 PM CDT Procedure visit [facility] - Neurology [address] [place] [address], [place] [address] Cynthia Schmitz MD [address] [place] [address] [place] [address] 06/21/2025 2:00 PM CDT Procedure visit [facility] - Neurology [address] [place] [address], [place] [phone] Cynthia Schmitz MD [address] [place] [address] [place] [address] Health Maintenance Due Date Last Done Comments [...] INJECTION - BOTOX Routine 12/14/2024 2:46 PM CHANNELER Spasm of muscle HEPATITIS C ANTIBODY Routine 06/25/2016 12:38 AM CDT from Last 3 Months or Most Recently Relevant to Health Maintenance Results * PROC INJECTION - BOTOX (12/14/2024 2:46 PM CHANNELER) Narrative Cynthia Schmitz MD - 12/14/2024 2:46 PM CHANNELER Cynthia Schmitz MD 12/18/2024 6:13 AM Botulinum [...] daily with food Naloxone HCl (NARCAN NA) [place] 1 Each into the nose as needed [...] 12:38 AM CDT 06/25/2016 12:49 AM CDT [facility] Jason Benavidez MD LAB - CHEMISTRY ORDERABLE S Final Result [address] [phone] from Last 3 Months or Most Recently Relevant to Health Maintenance Insurance MEDICAID - OUT OF STATE AETNA MEDICARE [facility] Advance Directives Documents on File Type Date Recorded Patient Certified Ophthalmic Medical Technician Expl anation Advance Directives and Livin g Will 06/19/2016 12:00 AM Care Teams Customer Service Agent Relationship Specialty Start Date End Date Karl Cates MD [address] [place] [address] PCP - General 09/08/18
--- OUTSIDE RECORDS SUMMARY | 2025-03-01 13:09 | XMS_ITS | Encounter Summary ---
Author Organization [facility] Health Address [address] [facility] [place] [address] Care Team Providers Care Shoe Stamper Name Role Phone Karl Cates MD Primary Care Provider Reason for Visit * Reason Onset Date Comments Appointment 04/26/2024 Encounter Details Date Type Department Care Team (Late st Contact Info) Description 04/26/2024 Telephone [facility] Neurology [address] [place] [address], [facility] [place] [address] Cynthia Schmitz MD [address] [place] [address] [place] [phone] Appointment Social History Tobacco Use Types Packs/Day [...] PM CDT Legal Sex Female 5:16 AM WASH CREW PERSON Gender Identity Female 06/02/2023 4:57 PM CDT [...] reschedule apt please. Patient Call Back Number: [phone] documented in this encounter Plan of Treatment Upcoming Encounters Date Type Department Care Team (Late st Contact Info) Description 03/22/2025 1:00 PM CDT Procedure visit [facility] - Neurology [address] [place] [phone] Cynthia Schmitz MD [address] [place] [address] 1L [place] [address] 06/21/2025 2:00 PM CDT Procedure visit [facility] - Neurology [address] [place] [phone] Cynthia Schmitz MD [address] [place] [address] 1[address] [place] [address] documented as of this encounter Visit Diagnoses Not on filedocumented in this encounter Care Teams Shoe Stamper Relationship Specialty Start Date End Date Karl Cates MD [address] [place] [address] PCP - General 09/08/18 documented as of this encounter
--- OUTSIDE RECORDS SUMMARY | 2025-03-01 13:09 | XMS_ITS ---
Author Name Auto Generated, Auto Generated Organization [facility] Address [address] [place] [address] Phone [phone] Care Team Providers Care Art Sales Consultant Name Role Phone Jaden Brown Functional Status [...]
[2025-03-01 20:26] LABS: Basophils Percent Auto 0.6 % (0.2-1.2); Eosinophils Absolute Auto 0.3 K/mm3 (0-0.3); Eosinophils Percent Auto 4.7 % (0-4.4); Hematocrit 42.4 % (37.0-47.0); Hemoglobin 13.2 g/dL (12.0-15.0); Immature Granulocyte Absolute 0.02 K/mm3 (0.00-0.031); Immature Granulocyte Percent A 0.3 % (0-0.5); Lymphocytes Absolute Auto 1.21 K/mm3 (0.9-3.2); Lymphocytes Percent Auto 17.8 % (18.3-44.2); Mean Corpuscular HGB Conc 31.1 g/dl (32-36); Mean Corpuscular Hemoglobin 30.7 pg (26-34); Mean Corpuscular Volume 98.6 fl (80-100); Mean Platelet Volume 10.3 fl (7.4-10.4); Monocytes Absolute Auto 0.3 K/mm3 (0.1-0.6); Monocytes Percent Auto 4.9 % (2.6-8.5); Neutrophils Absolute Auto 4.9 K/mm3 (1.3-6.7); Neutrophils Percent Auto 71.7 % (45.5-73.1); Platelet Count Result 164 k/mm3 (150-375); Red Cell Distribution Width 12.3 % (11.5-14.5); White Blood Count 6.8 K/mm3 (4.5-10.0)
[2025-03-01 20:32] LABS: Alanine Aminotransferase 25 U/L (6-35); Albumin Level 3.3 g/dL (3.5-5.1); Alkaline Phosphatase 105 U/L (38-126); Anion Gap 4 mmol/L (4-12); Aspartate Amino Transferase 21 U/L (14-36); Bilirubin,Total 0.6 mg/dL (0.2-1.3); Blood Urea Nitrogen 14 mg/dL (7-17); Calcium 8.5 mg/dL (8.4-10.2); Carbon Dioxide 32 mmol/L (22-30); Chloride 103 mmol/L (98-107); Estimated Glomerular Filt Rate > 60; Glucose 90 mg/dL (65-110); Potassium 3.7 mmol/L (3.4-5.0); Sodium 139 mmol/L (137-145)
[2025-03-01 20:41] LABS: Add Urine Microscopic? YES; Appearance Urine Turbid (Clear); Bacteria Urine None Seen /hpf; Bilirubin Urine Negative (Negative); Blood Urine Negative (Negative); Calcium Oxalate Crystals Urine Present /hpf; Color Urine Dark Yellow (Yellow); Glucose Urine UA Negative (Negative); Ketones Urine Trace mg/dL (Negative); Leukocyte Esterase Ur 1+ LEU/UL (Negative); Need Manual Microscopic Reviewed; Nitrate Urine Negative (Negative); Non Pathogenic Casts 0-2; Protein Urine 1+ mg/dL (Negative); Specific Grav Ur 1.032 (1.001-1.035); Squamous Epithelial Cell Urine Occasional /hpf (Few)
== END 2025-03-01 11:55 | disposition home or self-care (01) ==
LOC: ANHGOSHLAB 11:54
PROVIDERS: PCP Family Medicine; Visit Provider Family Medicine
DX: E87.6 Hypokalemia (principal); I95.1 Orthostatic hypotension; Z00.00 Encounter for general adult medical examination without abnormal findings; N39.0 Urinary tract infection, site not specified; R53.83 Other fatigue
CPT/HCPCS: 36415; 80053; 81001; 85025; 87086

== ENCOUNTER 2025-03-01 13:20 | Outpatient (CLI) | payer MEDICARE, MEDICAID, SELFPAY ==
--- NOTE | ~2025-03-01 | XR_ITS ---
Left foot Technique: AP, oblique, and lateral views were obtained. Clinical History: Injury Findings: No acute fracture or dislocation is seen. There is generalized osteopenia. Osseous alignmen t is anatomic. Joint spaces are preserved without erosive or degenerative change. Soft tissues are un remarkable. Impression: No acute abnormality seen. Severe generalized osteopenia. Reviewed, dictated and finalized at [facility]. Impression: No acute abnormality seen. Severe generalized osteopenia.
--- OUTSIDE RECORDS SUMMARY | 2025-03-01 14:46 | XMS_ITS ---
Author Name Auto Generated, Auto Generated Organization [facility] Address [address] [place] [address] Phone [phone] Care Team Providers Care Recruitment Officer Name Role Phone Jaden Brown [phone] Functional Status No Results Mental Status No [...]
--- OUTSIDE RECORDS SUMMARY | 2025-03-01 14:46 | XMS_ITS | Encounter Summary ---
Author Organization [facility] Health Address [address] [facility] [place] [address] Care Team Providers Care Consumer Safety Officer Name Role Phone Karl Cates MD Primary Care Provider Reason for Visit * Reason Onset Date Comments Appointment 04/26/2024 Encounter Details Date Type Department Care Team (Late st Contact Info) Description 04/26/2024 Telephone [facility] Neurology [address] [place] [address], [facility] [place] [address] Cynthia Schmitz MD [address] [place] [address] [place] [phone] Appointment Social History Tobacco Use Types Packs/Day [...] PM CDT Legal Sex Female 5:16 AM HEAT TREAT INSPECTOR Gender Identity Female 06/02/2023 4:57 PM CDT [...] reschedule apt please. Patient Call Back Number: [phone] documented in this encounter Plan of Treatment Upcoming Encounters Date Type Department Care Team (Late st Contact Info) Description 03/22/2025 1:00 PM CDT Procedure visit [facility] - Neurology [address] [place] [phone] Cynthia Schmitz MD [address] [place] [address] 1L [place] [address] 06/21/2025 2:00 PM CDT Procedure visit [facility] - Neurology [address] [place] [phone] Cynthia Schmitz MD [address] [place] [address] 1L [place] [address] documented as of this encounter Visit Diagnoses Not on filedocumented in this encounter Care Teams Consumer Safety Officer Relationship Specialty Start Date End Date Karl Cates MD [address] [place] [address] PCP - General 09/08/18 documented as of this encounter
--- OUTSIDE RECORDS SUMMARY | 2025-03-01 14:46 | XMS_ITS | Clinical Summary ---
Author Organization [email or web address] Address [address] [facility] [place] [address] Care Team Providers Care Paradichlorobenzene Machine Operator Name Role Phone Karl Cates MD Primary Care Provider Source Comments [email or web address],non-owned Affiliates and Associated Physician Practices is amultiple site organization consisting of ambulatory clinics and hospital sitesin [place], [place], [place] and [place]. This disclosure is being madepursuant to the Care Everywhere program and may not contain all information available regarding this patient. Last updated 18.[email or web address] Allergies Active Allergy Reactions Criticality Noted Date [...] once daily Active Naloxone HCl (NARCAN NA) [place] 1 Each into the nose as needed [...] Department Care Team Description 12/14/2024 2:00 PM REPAIRER GENERAL Procedure visit [facility] - Neurology [address] [place] [address] [place] [address] Cynthia Schmitz MD Spasm of muscle 12/14/2024 Travel from Last 3 Months Immunizations Immunization Administration Dates Next Due [employer] primary monoval ent 12+ yr 0.3mL Purple [...] PM CDT Legal Sex Female 5:16 AM REPAIRER GENERAL Gender Identity Female 06/02/2023 4:57 PM CDT Sexual Orientation Not on file Last Filed Vital Signs Vital Sign Reading Time Taken Comments Blood Pressure 108/68 12/14/2024 2:19 PM REPAIRER GENERAL Pulse 73 12/14/2024 2:19 PM REPAIRER GENERAL Temperature 37 C (98.6 F) 12/23/2023 10:55 AM REPAIRER GENERAL Respiratory Rate 13 09/04/2018 6:20 PM CDT Oxygen Saturation 96% 12/23/2023 10:55 AM REPAIRER GENERAL Inhaled Oxygen Concentration - - Weight 71 kg (156 lb 9.6 oz) 12/23/2023 10:55 AM REPAIRER GENERAL Height 165.1 cm (5' 5 ) 09/16/2023 10:52 AM REPAIRER GENERAL Body Mass Index 26.06 09/16/2023 10:52 AM REPAIRER GENERAL Plan of Treatment Upcoming Encounters Date Type Department Care Team (Late st Contact Info) Description 03/22/2025 1:00 PM CDT Procedure visit [facility] - Neurology [address] [place] [address], [place] [address] Cynthia Schmitz MD [address] [place] [address] [place] [phone] 06/21/2025 2:00 PM CDT Procedure visit [facility] Neurology [address] [place] [address], [place] [phone] Cynthia Schmitz MD [address] [place] [address] [place] [phone] Health Maintenance Due Date Last Done Comments [...] INJECTION - BOTOX Routine 12/14/2024 2:46 PM REPAIRER GENERAL Spasm of muscle HEPATITIS C ANTIBODY Routine 06/25/2016 12:38 AM CDT from Last 3 Months or Most Recently Relevant to Health Maintenance Results * PROC INJECTION - BOTOX (12/14/2024 2:46 PM REPAIRER GENERAL) Narrative Cynthia Schmitz MD - 12/14/2024 2:46 PM REPAIRER GENERAL Cynthia Schmitz MD 12/18/2024 6:13 AM Botulinum [...] daily with food Naloxone HCl (NARCAN NA) [place] 1 Each into the nose as needed [...] 12:38 AM CDT) Hepatitis C Antibody Non-react [facility] Comment: Hepatitis C Antibody screen indicates [...] 12:38 AM CDT 06/25/2016 12:49 AM CDT [facility] Jason Benavidez MD LAB - CHEMISTRY ORDERABLE S Final Result [address] [phone] from Last 3 Months or Most Recently Relevant to Health Maintenance Insurance MEDICAID - OUT OF STATE AETNA MEDICARE [facility] Advance Directives Documents on File Type Date Recorded Patient Acid Washer Operator Expl anation Advance Directives and Livin g Will 06/19/2016 12:00 AM Care Teams Paradichlorobenzene Machine Operator Relationship Specialty Start Date End Date Karl Cates MD [address] [place] [address] PCP - General 09/08/18
== END 2025-03-01 13:21 | disposition home or self-care (01) ==
PROVIDERS: PCP Family Medicine; Visit Provider Family Medicine
DX: M79.675 Pain in left toe(s) (principal); S99.921A Unspecified injury of right foot, initial encounter; X58.XXXA Exposure to other specified factors, initial encounter
CPT/HCPCS: 73630

== ENCOUNTER 2025-05-28 12:01 | Outpatient (CLI) | payer MEDICARE, MEDICAID, SELFPAY ==
--- OUTSIDE RECORDS SUMMARY | 2025-05-28 12:06 | XMS_ITS | Clinical Summary ---
Author Organization [facility] Address [address] [facility] [place] [address] Care Team Providers Care Retail Planning Manager Name Role Phone Karl Cates MD Primary Care Provider Source Comments [facility],non-owned Affiliates and Associated Physician Practices is amultiple site organization consisting of ambulatory clinics and hospital sitesin [place], [place], [place] and [place]. This disclosure is being madepursuant to the Care Everywhere program and may not contain all information available regarding this patient. Last updated 18.[facility] Allergies Active Allergy Reactions Criticality Noted Date [...] once daily Active Naloxone HCl (NARCAN NA) [place] 1 Each into the nose as needed [...] Encounters Date Type Department Care Team Description 03/22/2025 1:00 PM CDT Procedure visit [facility] - [facility]rology [facility] [place] [address] Cynthia Schmitz MD Spasm of muscle 03/22/2025 Travel from Last 3 Months Immunizations Immunization Administration Dates Next Due [employer] primary monoval ent 12+ yr 0.3mL Purple [...] PM CDT Legal Sex Female 5:16 AM PLASTER MAKER Gender Identity Female 06/02/2023 4:57 PM CDT Sexual Orientation Not on file Last Filed Vital Signs Vital Sign Reading Time Taken Comments Blood Pressure 105/69 03/22/2025 1:05 PM CDT Pulse 74 03/22/2025 1:05 PM CDT Temperature 37 C (98.6 F) 12/23/2023 10:55 AM PLASTER MAKER Respiratory Rate 13 09/04/2018 6:20 PM CDT Oxygen Saturation 95% 03/22/2025 1:05 PM CDT Inhaled Oxygen Concentration - - Weight 71 kg (156 lb 9.6 oz) 12/23/2023 10:55 AM PLASTER MAKER Height 165.1 cm (5' 5) 09/16/2023 10:52 AM PLASTER MAKER Body Mass Index 26.06 09/16/2023 10:52 AM PLASTER MAKER Plan of Treatment Upcoming Encounters Date Type Department Care Team (Late st Contact Info) Description 06/21/2025 2:00 PM CDT Procedure visit [facility] - Neurology [address] [place] [address], [place] [address] Cynthia Schmitz MD [address] [place] [address] [place] [phone] 09/27/2025 2:00 PM PLASTER MAKER Procedure visit [facility] Neurology [address] [place] [address], [place] [phone] Cynthia Schmitz MD [address] [facility] 1L [place] [phone] Health Maintenance Due Date Last Done Comments [...] - 2023- season) 2024 09/18/2021, 02/12/2021, 01/16/2021 DEPRESSION SCREENING 11/03/2024 MEDICARE AWV CALENDAR YEAR 2024 INFLUENZA VACCINE (#1) 2025 , 08/24/2020, 08/23/2020, Additional history exists DTAP/TDAP/TD VACCINES (2 - [...] Procedure Name Priority Date/Time Associated Diagnosis Comments [place] CHEMODENERV 1 EXTREM 1-4 EA Routine 03/22/2025 1:35 PM CDT Spasm of muscle [place] CHEMODENERV ONE EXTREM 1-4 MUSCLES Routine 03/22/2025 1:35 PM CDT Spasm of muscle HEPATITIS C ANTIBODY Routine 06/25/2016 12:38 AM CDT from Last 3 Months or Most Recently Relevant to Health Maintenance Results * MN CHEMODENERV ONE EXTREM 1-4 MUSCLES, [place] CHEMODENERV 1 EXTREM 1-4 EA (03/22/2025 1:35 PM CDT) Narrative Cynthia Schmitz MD - 03/22/2025 1:35 PM CDT Cynthia Schmitz MD 03/22/2025 2:00 PM Botulinum Toxin A Procedure Note Current Date: 03/22/2025 Medications: Medications[1] Date of last injection: Duration of benefit: 10weeks Present Complaints: Tightness in left arm and leg Functional Response: Good Adverse effects: Other: None Exam: Left hemiparesis with spasticity. Impression: limb spasticity Plan: Xeomin 400 units [...] no complications were noted. Cynthia Schmitz MD [1] Current Outpatient Medications Medication Sig Dispense Refill [...] daily with food Naloxone HCl (NARCAN NA) [place] 1 Each into the nose as needed [...] Rate Last Admin incobotulinumtoxin A (Xeomin) injection 400 Units 400 Units Intramuscular Once Cynthia Schmitz MD Cynthia Schmitz MD PROCEDURE/MINOR SURGICAL ORDE JUANITA Final Result * HEPATITIS C ANTIBODY (06/25/2016 12:38 AM CDT) Hepatitis C Antibody Non-react [facility] Non-reac tive [facility] Comment: Hepatitis C Antibody screen indicates no serologic evidence of past or current infection with Hepatitis C Virus. Patients with unexplained liver disease who are immunocompromised or suspected of having acute Hepatitis C infection may benefit from Nucleic Acid Test (MANLOO) for Hepatitis C Viral RNA to confirm Hepatitis C status. Blood specimen (specimen) BLOOD SPECIMEN / Unknown 06/25/2016 12:38 AM CDT 06/25/2016 12:49 AM CDT Rm Benavidez MD LAB - CHEMISTRY ORDERABLE S Final Result [address] [phone] from Last 3 Months or Most Recently Relevant to Health Maintenance Insurance MEDICAID - OUT OF STATE AETNA MEDICARE [facility] Advance Directives Documents on File Type Date Recorded Patient System Trainer Expl anation Advance Directives and Livin g Will 06/19/2016 12:00 AM Care Teams Retail Planning Manager Relationship Specialty Start Date End Date Karl Cates MD [address] [place] [address] PCP - General 09/08/18
--- OUTSIDE RECORDS SUMMARY | 2025-05-28 12:06 | XMS_ITS ---
Author Name Auto Generated, Auto Generated Organization [facility] Address [address] [place] [address] Phone [phone] Care Team Providers Care Supply Chain Planner Name Role Phone Jaden Brown [phone] Functional Status No Results Mental Status No [...]
--- OUTSIDE RECORDS SUMMARY | 2025-05-28 12:06 | XMS_ITS ---
Author Name Auto Generated, Auto Generated Organization [facility] Address [address] [place] [address] Phone [phone] Care Team Providers Care Trouble Shooting Mechanic Name Role Phone Jaden Brown Functional Status [...]
--- OUTSIDE RECORDS SUMMARY | 2025-05-28 12:06 | XMS_ITS | Clinical Summary ---
Author Organization [facility] Address [address] [place] [place] [address] Care Team Providers Care Electric Shipyard Operator Name Role Phone Unavailable Primary Care Provider Unavailabl e Allergies Active Allergy Reactions Criticality Noted Date Comments Erythromycin Diarrhea,Other (See Comments) Low 01/02 STOMACH PAINS Medications albuterol sulfate HFA 90 mcg/actuation aerosol inhaler Take 2 Puffs by inhalation. Active clobetasoL (TEMOVATE) 0.05 % Solution APPLY 2-3 DROPS TO RASH AREAS ON SCALP/EARS TWICE DAILY FOR 4 WEEKS. DO NOT APPLY TO FACE. MUST TAKE 2 WEEK BREAK BEFORE RESTARTING 4 Active escitalopram oxalate (LEXAPRO) 10 mg tablet Take 20 mg by mouth daily at bedtime. 2 Active folic acid (FOLVITE) 1 mg tablet Take 1,000 mcg by mouth. 2 Active ibandronate (BONIVA) 150 mg tablet Take 150 mg by mouth. Active levETIRAcetam (KEPPRA) 500 mg tablet Take 500 mg by mouth 2 times daily. 2 Active Adapalene 0.1 % Cream Apply to affected area daily at bedtime. Active atorvastatin (LIPITOR) 20 mg tablet Take 20 mg by mouth daily. 4 Active docusate sodium (COLACE) 100 mg capsule Take 100 mg by mouth 2 times daily. Active imiquimod (ALDARA) 5 % Cream in Packet Apply to affected area. 4 Active ketoconazole (NIZORAL) 2 % Cream Apply to affected area. 3 Active morphine 100 % Powder 4 Active midodrine (PROAMATINE) 2.5 mg Tablet Take 2.5 mg by mouth 2 times daily. 2 Active ondansetron (ZOFRAN) 4 mg Tablet Take 4 mg by mouth. 3 Active oxyCODONE-aceta minophen (PERCOCET) 5-325 mg tablet Take 1 Tablet by mouth. 3 Active pimecrolimus (ELIDEL) 1 % Cream APPLY TO THE AFFECTED AREA ON FACE TWICE DAILY 4 Active tiZANidine (ZANAFLEX) 4 mg Tablet Take 4 mg by mouth. Active vit C,H-Mr-mcpwb-jared tein-zeaxan 250-90-40-1 mg Capsule Take 2 Capsules by mouth 2 times daily. Active amoxicillin-cla vulanate (AUGMENTIN) 875-125 mg tablet TAKE 1 TABLET BY MOUTH EVERY 12 HOURS FOR UTI 4 Active apixaban (ELIQUIS) 2.5 mg tablet Take 1 Tablet (2.5 mg) by mouth 2 times daily. 60 Tablet 5 5 Active Active Problems No known active problems Encounters Date Type Department Care Team Description 05/18/2025 External Device Data ST[facility] ABSTRACTION Provider, Abstract 05/17/2025 External Device Data ST[facility] ABSTRACTION Provider, Abstract 04/26/2025 External Device Data [facility] ABSTRACTION Provider, Abstract 03/23/2025 External Device Data [facility] ABSTRACTION Provider, Abstract 03/22/2025 External Device Data [facility] ABSTRACTION Provider, Abstract from Last 3 Months Family History Medical History Relation Name Comments No Known Problems Brother 1 No Known Problems Brother 2 No Known Problems Brother 3 No Known Problems Child No Known Problems Father Cancer Mother Cancer Sister 1 Cancer Sister 2 Relation Name Status Comments Brother 1 Brother 2 Alive Brother 3 Alive Child Alive Father Mother Sister 1 Sister 2 Alive Social History Tobacco Use Types Packs/Day Years Used Date Smoking Tobacco: Every Day Cigarettes Tobacco Cessation:Ready to Q uit: Not Asked; Counseling Given: Not Answered Alcohol Use Standard Drinks/Week Comments Never 0 (1 standard drink = 0.6 oz pur e alcohol) Comments Unknown Sex and Gender Information Value Date Recorded Sex Assigned at Not on file Legal Sex Female 8:55 AM CDT Gender Identity Not on file Sexual Orientation Not on file Last Filed Vital Signs Vital Sign Reading Time Taken Comments Blood Pressure 129/68 11/30/2024 11:45 AM PAVING CONTRACTOR Pulse 75 11/30/2024 11:45 AM PAVING CONTRACTOR Temperature 36.3 C (97.4 F) 11/30/2024 11:45 AM PAVING CONTRACTOR Respiratory Rate 15 11/30/2024 11:45 AM PAVING CONTRACTOR Oxygen Saturation 93% 11/30/2024 11:45 AM PAVING CONTRACTOR Inhaled Oxygen Concentration - - Weight 74.2 kg (163 lb 9.6 oz) 11/30/2024 11:45 AM PAVING CONTRACTOR Height 165.1 cm (5' 5) 05/26/2024 1:53 PM CDT Body Mass Index 27.22 05/26/2024 1:53 PM CDT Plan of Treatment Upcoming Encounters Date Type Department Care Team (Late st Contact Info) Description 05/30/2025 1:15 PM CDT Office Visit [facility] Oncology and Hematology [place] [address] [place] [address] [facility] [address] [place] [address] Conor Alex MD [address] [facility] [address] [place] [address] Health Maintenance Due Date Last Done Comments Pre-Diabetes and Diabetes Screening 1956 BREAST CANCER SCREENING 1996 COLORECTAL SCREENING 2001 Colorectal Cancer Screening 2001 FIT-DNA Q 3 years 2001 FIT/FOBT Q 1 year 2001 Flex Sig/CT Colonography Q 5 years 2001 ZOSTER VACCINE (1 of 2) 2006 PNEUMOCOCCAL VACCINE 50+ YEA RS (2 of 2 - PCV) 09/02/2018 09/02/2017 OSTEOPOROSIS SCREENING 2021 INFLUENZA VACCINE (#1) 2025 0, 08/24/2019, 08/14/2018, Additional history exists DTAP/TDAP/TD VACCINES (2 - T d or Tdap) 08/21/2030 08/21/2020 RSV VACCINE (60+ or ) (1 - 1-dose 75+ series) 2031 Insurance AETNA [facility] MEDICAID [place]
--- OUTSIDE RECORDS SUMMARY | 2025-05-28 12:06 | XMS_ITS | Encounter Summary ---
Author Organization [facility] Health Address [address] [facility] [address] Care Team Providers Care Swim Instructor Name Role Phone Karl Cates MD Primary Care Provider Reason for Visit * Reason Onset Date Comments Appointment 04/26/2024 Encounter Details Date Type Department Care Team (Late st Contact Info) Description 04/26/2024 Telephone [facility] - Neurology [address] [place] [address], [facility] [place] [address] Cynthia Schmitz MD [address] [place] [address] [place] [phone] Appointment Social History Tobacco Use Types Packs/Day [...] PM CDT Legal Sex Female 5:16 AM BASE LOADER Gender Identity Female 06/02/2023 4:57 PM CDT [...] reschedule apt please. Patient Call Back Number: [phone] documented in this encounter Plan of Treatment Upcoming Encounters Date Type Department Care Team (Late st Contact Info) Description 06/21/2025 2:00 PM CDT Procedure visit [facility] - Neurology [address] [place] [address] Cynthia Schmitz MD [address] [place] [address] 1L [place] [address] 09/27/2025 2:00 PM BASE LOADER Procedure visit [facility] - Neurology [address] [place] [address] Cynthia Schmitz MD [address] [place] [address] 1L [place] [address] documented as of this encounter Visit Diagnoses Not on filedocumented in this encounter Care Teams Swim Instructor Relationship Specialty Start Date End Date Karl Cates MD [address] [place] [address] PCP - General 09/08/18 documented as of this encounter
--- OUTSIDE RECORDS SUMMARY | 2025-05-28 12:06 | XMS_ITS | Patient Health Record ---
Author Organization [facility] Address [address] [place] [address] Care Team Providers Care Slip Cover Cutter Name Role Phone Khai Clark Unavailable [phone] Therese Holt Unavailable [phone] Allergies Allergen (clinical drug ingredient) Drug/Non Drug Allergy documented on EMR Reaction Allergy Type Onset Date Status erythromycin Erythromycin Base Unknown Drug Allergy 2021 Active Reason For Referral No Information Medications Medication SIG (Take, Route, Frequency, Duration) Notes Start Date End Date Status Escitalopram Oxalate 20 MG TAKE 1 TABLET BY MOUTH DAILY; Duration: 90 Active busPIRone HCl 5 MG TAKE 1 TABLET BY EVARISTO TH TWICE DAILY; Duration: 90 Active Omeprazole 40 MG TAKE 1 CAPSULE BY MO UTH DAILY Oral; Duration: 90 Days Active tiZANidine HCl 4 MG TAKE 1 CAPSULE BY MO UTH THREE TIMES DAILY NEEDED FOR MUSCLE SPASTICITY Oral; Duration: 90 Days Active Escitalopram Oxalate 20 MG 1 tablet Oral once a day; Duration: 90 days Active Clobetasol Propionate 0.05 % APPLY 2-3 D ROPS TO RASH AREAS ON SCALP/EARS TWICE DAILY FOR 4 WEEKS. DO NOT APPLY TO FACE. MUST TAKE 2 WEEK BREAK BEFORE RESTARTING External; Duration: 30 Days Active busPIRone HCl 5 MG 1 tablet Orally Twic e a day; Duration: 90 days Active Midodrine HCl 2.5 MG TAKE 1 TABLET BY MO UTH THREE TIMES DAILY Oral; Duration: 90 Days Active levETIRAcetam 500 MG TAKE 3 TABLETS BY M OUTH TWICE DAILY Oral; Duration: 90 Days Active Folic Acid 1 MG TAKE 1 TABLET BY EVARISTO TH DAILY Oral; Duration: 90 Days Active Atorvastatin Calcium 20 MG Oral; Duration: 90 Days Active Immunizations Vaccine Route Administration Date Status Comme nts Influenza virus vaccine, quadrivalent (IIV4), split virus, 0.25 mL dosage Unknown 08/24/2020 Administered Influenza, injectable, MDCK, preservative free Unknown 08/23/2020 Administered Influenza, seasonal, injecta ble, preservative free, 3 yrs and above Unknown 08/30/2013 Administered Novel [id number], preservative free Unknown 08/14/2018 Administered Novel [id number]-[id number], preservative free Unknown 08/24/2019 Administered Pfizer Biontech [...] Risk Notes Problem Mild recurrent major depression (01313109) Major depressive disorder, recurrent, mild (F33.0) 4 Active confirmed Problem Generalized anxiety disorder (84376615) Generalized anxiety disorder (F41.1) 4 Active confirmed Problem Generalized anxiety disorder (58446955) ERICK (generalized anxiety disorder) (F41.1) Active confirmed Vital Signs Heart Rate 87 /min 12/29/2024 Blood pressure diastolic 70 mm Hg 12/29/2024 Height-cm 165.10 cm 12/29/2024 Weight-kg 72.12 kg 12/29/2024 Height 65.00 in 12/29/2024 Blood pressure systolic 110 mm Hg 12/29/2024 Weight 159 lbs 12/29/2024 BMI 26.46 kg/m2 12/29/2024 Encounters Encounter Location Date Provider Diagnosis [facility] [address] [facility] [address] [place] [address] 06/28/2024 Khai Clark Generalized anxiety disorder F41.1 and Major depressive disorder, recurrent, mild F33.0 [place] [address] [address] 09/02/2024 Khai Eduardo [facility] [address] [address] 09/06/2024 Khai Eduardo Generalized anxiety disorder F41.1 and Major depressive disorder, recurrent, mild F33.[address] [address] 12/29/2024 Khai Eduardo Major depressive disorder, recurrent, mild F33.0 and Generalized anxiety disorder F41.[address] [address] 09/02/2024 Therese Holt [address] [address] 10/19/2024 Assessments Encounter Date Diagnosis (ICD Code) [...] continued communication with providers about these concerns. 06/28/2024 Major depressive disorder, recurrent, mild (ICD-10 [...] depressive disorder, recurrent, mild (ICD-10 - F33.0) 12/29/2024 Generalized anxiety disorder (ICD-10 - F41.1) [...] or national office of the Alzheimer's Association (5-854-422-390 0; http://www.alz .org), the Alzheimer's Disease Education and Referral Center (ADEAR) (6-244-773-438 0; http://www.julian .nih.gov/Alzhe imers/), Obesity - Plan: - Encourage patient to engage in a healthy diet and increase physical activity as tolerated. - Consider referral to a gas engine performance engineer for further guidance. Anxiety - Plan: - [...] Replacemen t/Advantag e - Ppo [address] [place] [address] [id number] FRANCI BLACKWOOD Self - patient is the insured Medicaid-[place] l Medicaid [address] [address] [place] [address] [id number] FRANCI BLACKWOOD Self - patient is the insured Medical (General) History Medical History History ICD Code Problems: Cigarette smoker Generalized anxiety disorder Mild recurrent major depression Tonic-clonic seizure , Surgical History Surgery Date(Month/Year) Hand plastic operation with graft (25024 9006) spider bite Removal of gallbladder (64510) Cholecystectomy (86798449) Any surgical history 11/17/2006 Tonsilectomy/adenoids 01/17/1959 Hysterectomy (95518) 04/03/1999 Appendectomy (09405) 08/14/1976
[2025-05-28 12:44] LABS: Hematocrit 40.6 % (37.0-47.0); Hemoglobin 13.2 g/dL (12.0-15.0); Mean Corpuscular HGB Conc 32.5 g/dl (32-36); Mean Corpuscular Hemoglobin 32.0 pg (26-34); Mean Corpuscular Volume 98.3 fl (80-100); Platelet Count Result 160 k/mm3 (150-375); Red Blood Count 4.13 M/mm3 (4.2-5.4); White Blood Count 5.3 K/mm3 (4.5-10.0)
[2025-05-28 13:00] LABS: Iron 67 ug/dL (37-170)
[2025-05-28 13:08] LABS: Anion Gap 2 mmol/L (4-12); Blood Urea Nitrogen 13 mg/dL (7-17); Calcium 9.1 mg/dL (8.4-10.2); Carbon Dioxide 34 mmol/L (22-30); Chloride 99 mmol/L (98-107); Estimated Glomerular Filt Rate > 60; Glucose 83 mg/dL (65-110); Potassium 3.7 mmol/L (3.4-5.0); Sodium 135 mmol/L (137-145)
[2025-05-28 13:09] LABS: Percent Iron Saturation 26 % (20-50)
[2025-05-28 13:41] LABS: Ferritin 53.40 ng/mL (11.1-264)
[2025-05-28 14:23] LABS: Vitamin B12 > 1000.0 pg/mL (239-931)
== END 2025-05-28 12:02 | disposition home or self-care (01) ==
LOC: ANHLAB 12:04
PROVIDERS: PCP Family Medicine; Visit Provider Internal Medicine Hematology & Oncology
DX: D64.9 Anemia, unspecified (principal)
CPT/HCPCS: 36415; 80048; 82607; 82728; 82746; 83540; 83550; 85027

== ENCOUNTER 2025-06-14 16:07 | Inpatient (IN) | payer MEDICARE, MEDICAID, SELFPAY ==
--- NOTE | ~2025-06-14 | XR_ITS ---
CHEST RADIOGRAPH CLINICAL HISTORY: swelling of legs, sepsis w/u . COMPARISON: 02/15/2023. Reference was made to multiple cross-sectional imaging evaluations of the chest performed most recent ly on 12/24/2024 and dating back to 09/20/2022 TECHNIQUE: Single portable view of the chest. FINDINGS The cardiomediastinal silhouette is unremarkable. Biapical scarring. The remainder of the lungs are clear. IMPRESSION: No focal infiltrate or effusion. Reviewed, dictated and finalized at location A.
--- NOTE | ~2025-06-14 | US_ITS ---
EXAMINATION: US venous doppler [facility] DATE: 06/14/2025 17:53 INDICATION: Pain and swelling TECHNIQUE: Grayscale ultrasound images without and with compression and Doppler ultrasound images of the left lower extremity veins were obtained. COMPARISON: 06/09/2024 FINDINGS: The visualized portions of left common femoral vein, profunda (deep) femoral vein, femoral vein, popl iteal vein and greater saphenous vein outflow are patent. Limited visualization of the left peroneal and posterior tibial veins, given patient's inability to m ove her left leg along with poor acoustic penetration. IMPRESSION: 1. No deep venous thrombosis within the visualized veins of the left lower extremity, as detailed ab ove. Reviewed, dictated and finalized at location A. IMPRESSION: 1. No deep venous thrombosis within the visualized veins of the left lower ext remity, as detailed above.
--- OUTSIDE RECORDS SUMMARY | 2025-06-14 16:09 | XMS_ITS ---
Author Name Auto Generated, Auto Generated Organization [facility] Address [address] [place] [address] Phone [phone] Care Team Providers Care Internal Combustion Engine Assembler Name Role Phone Jaden Brown Functional [...]
--- OUTSIDE RECORDS SUMMARY | 2025-06-14 16:09 | XMS_ITS | Encounter Summary ---
Author Organization [facility] Address [address] [facility] [place] [address] Care Team Providers Care Irrigator Valve Pipe Name Role Phone Karl Cates MD Primary Care Provider Reason for Visit * Reason Onset Date Comments Appointment 04/26/2024 Encounter Details Date Type Department Care Team (Late st Contact Info) Description 04/26/2024 Telephone [facility] - Neurology [address] [place] [address], [facility] [place] [address] Cynthia Schmitz MD [address] [place] [address] [place] [address] Appointment Social History Tobacco Use Types Packs/Day [...] PM CDT Legal Sex Female 5:16 AM PLAY LEADER Gender Identity Female 06/02/2023 4:57 PM CDT [...] reschedule apt please. Patient Call Back Number: [phone] documented in this encounter Plan of Treatment Upcoming Encounters Date Type Department Care Team (Late st Contact Info) Description 06/21/2025 2:00 PM CDT Procedure visit [facility] - Neurology [address] [place] [address] Cynthia Schmitz MD [address] [place] [address] [address] [place] [address] 09/27/2025 2:00 PM PLAY LEADER Procedure visit [facility] - Neurology [address] [place] [address] Cynthia Schmitz MD [address] [place] [address] [address] [place] [address] documented as of this encounter Visit Diagnoses Not on filedocumented in this encounter Care Teams Irrigator Valve Pipe Relationship Specialty Start Date End Date Karl Cates MD [address] [place] [address] PCP - General 09/08/18 documented as of this encounter
--- OUTSIDE RECORDS SUMMARY | 2025-06-14 16:09 | XMS_ITS ---
Author Name Auto Generated, Auto Generated Organization [facility] Address [address] [place] [address] Phone [phone] Care Team Providers Care Statement Services Representative Name Role Phone Jaden Brown [phone] Functional Status No Results Mental Status No [...]
--- OUTSIDE RECORDS SUMMARY | 2025-06-14 16:10 | XMS_ITS | Patient Health Record ---
Author Organization [facility] Address [address] [place] [address] Care Team Providers Care Experiential Therapist Name Role Phone Khai Clark Unavailable [phone] Therese Holt Unavailable [phone] Allergies Allergen (clinical drug ingredient) Drug/Non Drug [...] cine 2nd dose Unknown 09/18/2021 Administered Novel [id number], preservative free Unknown 08/14/2018 Administered Novel [id number]-[id number], preservative free Unknown 08/24/2019 Administered Influenza, seasonal, [...] Risk Notes Problem Mild recurrent major depression (04448995) Major depressive disorder, recurrent, mild (F33.0) 4 Active confirmed Problem Generalized anxiety disorder (08866563) Generalized anxiety disorder (F41.1) 4 Active confirmed Problem Generalized anxiety disorder (11425958) ERICK (generalized anxiety disorder) (F41.1) Active confirmed Vital Signs Heart Rate 87 /min 12/29/2024 Blood pressure diastolic 70 mm Hg 12/29/2024 Height-cm 165.10 cm 12/29/2024 Weight-kg 72.12 kg 12/29/2024 Height 65.00 in 12/29/2024 Blood pressure systolic 110 mm Hg 12/29/2024 Weight 159 lbs 12/29/2024 BMI 26.46 kg/m2 12/29/2024 Encounters Encounter Location Date Provider Diagnosis [facility] [address] [facility] [address] [place] [address] 06/28/2024 Khai Clark Generalized anxiety disorder F41.1 and Major depressive disorder, recurrent, mild F33.0 [place] [address] [address] 09/02/2024 Khai Eduardo [facility] [address] [address] 09/06/2024 Khai Eduardo Generalized anxiety disorder F41.1 and Major depressive disorder, recurrent, mild F33.[address] [address] 12/29/2024 Khai Eduardo Major depressive disorder, recurrent, mild F33.0 and Generalized anxiety disorder F41.[address] [address] 09/02/2024 Therese Holt [address] [address] 10/19/2024 Assessments Encounter Date Diagnosis (ICD Code) [...] or national office of the Alzheimer's Association (5-689-698-390 0; http://www.alz .org), the Alzheimer's Disease Education and Referral Center (ADEAR) ([phone] 0; http://www.julian .nih.gov/Alzhe imers/), Obesity - Plan: - Encourage patient to engage in a healthy diet and increase physical activity as tolerated. - Consider referral to a sccm administrator for further guidance. Anxiety - Plan: - [...] Replacemen t/Advantag e - Ppo [address] [place] [address] [id number] FRANCI BLACKWOOD Self - patient is the insured Medicaid-[place] l Medicaid [address] [address] [place] [address] [id number] FRANCI BLACKWOOD Self - patient is the insured Medical (General) History Medical History History ICD Code Problems: Cigarette smoker Generalized anxiety disorder Mild recurrent major depression Tonic-clonic seizure , Surgical History Surgery Date(Month/Year) Hand plastic operation with graft (39561 9006) spider bite Removal of gallbladder (42429) Cholecystectomy (23286348) Any surgical history 11/17/2006 Tonsilectomy/adenoids 01/17/1959 Hysterectomy (54567) 04/03/1999 Appendectomy (86639) 08/14/1976
--- OUTSIDE RECORDS SUMMARY | 2025-06-14 16:10 | XMS_ITS | Clinical Summary ---
Author Organization [facility] Address [address] [place] [address] Care Team Providers Care Collateral Analyst Name Role Phone Unavailable Primary Care Provider [...] MUST TAKE 2 WEEK BREAK BEFORE RESTARTING 02/26/20 24 Active escitalopram oxalate (LEXAPRO) 10 mg tablet Take 20 mg by mouth daily at bedtime. 07/22/20 22 Active folic acid (FOLVITE) 1 mg tablet Take 1,000 mcg by mouth. 08/18/20 22 Active ibandronate (BONIVA) 150 mg tablet Take 150 mg by mouth. Active levETIRAcetam (KEPPRA) 500 mg tablet Take 500 mg by mouth 2 times daily. 08/20/20 22 Active Adapalene 0.1 % Cream Apply to affected area daily at bedtime. Active atorvastatin (LIPITOR) 20 mg tablet Take 20 mg by mouth daily. 03/12/20 24 Active docusate sodium (COLACE) 100 mg capsule Take 100 mg by mouth 2 times daily. Active imiquimod (ALDARA) 5 % Cream in Packet Apply to affected area. 01/16/20 24 Active ketoconazole (NIZORAL) 2 % Cream Apply to affected area. 07/13/20 23 Active morphine 100 % Powder 02/24/20 24 Active midodrine (PROAMATINE) 2.5 mg Tablet Take 2.5 mg by mouth 2 times daily. 07/31/20 22 Active ondansetron (ZOFRAN) 4 mg Tablet Take 4 mg by mouth. 08/20/20 23 Active oxyCODONE-acet aminophen (PERCOCET) 5-325 mg tablet Take 1 Tablet by mouth. 08/20/20 23 Active pimecrolimus (ELIDEL) 1 % Cream APPLY TO THE AFFECTED AREA ON FACE TWICE DAILY 03/10/20 24 Active tiZANidine (ZANAFLEX) 4 mg Tablet Take 4 mg by mouth. Active vit C,G-Yo-kqngt-l utein-zeaxan 250-90-40-1 mg Capsule Take 2 Capsules by mouth 2 times daily. Active amoxicillin-cl avulanate (AUGMENTIN) 875-125 mg tablet TAKE 1 TABLET BY MOUTH EVERY 12 HOURS FOR UTI 04/01/20 24 Active Eliquis 2.5 mg tablet TAKE 1 TABLET(2.5 MG) BY MOUTH TWICE DAILY 60 Tablet 5 06/03/20 25 Active apixaban (ELIQUIS) 2.5 mg tablet Take 1 Tablet (2.5 mg) by mouth 2 times daily. 60 Tablet 5 11/30/19 25 025 Discontinued Active Problems No known active problems Encounters Date Type Department Care Team Description 06/07/2025 External Device Data STL ABSTRACTION Provider, Abstract 06/03/2025 Refill [facility] Oncology and Hematology - [place] [address] [place] [address] Conor Alex MD 05/31/2025 Orders Only [facility] Oncology and Hematology - [place] [address] [place] [address] Conor Alex MD 05/30/2025 1:15 PM CDT Office Visit [facility] Oncology and Hematology - [place] [address] [place] [address] Conor Alex MD Chronic anemia (Primary Dx) 05/18/2025 External Device Data STL ABSTRACTION Provider, [...] Sign Reading Time Taken Comments Blood Pressure 119/62 05/30/2025 1:12 PM CDT Pulse 87 05/30/2025 1:12 PM CDT Temperature 36.8 C (98.2 F) 05/30/2025 1:12 PM CDT Respiratory Rate 16 05/30/2025 1:12 PM CDT Oxygen Saturation 90% 05/30/2025 1:12 PM CDT Inhaled Oxygen Concentration - - Weight 69.9 kg (154 lb) 05/30/2025 1:12 PM CDT Height 165.1 cm (5' 5) 05/26/2024 1:53 PM CDT Body Mass Index 25.63 05/26/2024 1:53 PM CDT Plan of Treatment Upcoming Encounters Date Type Department Care Team (Late st Contact Info) Description 11/30/2025 2:15 PM CAN PILER Office Visit [facility] Oncology and Hematology - [place] [address] [facility] [facility] [place] [address] Conor Alex MD [address] [facility] [address] [place] [address] Health Maintenance Due Date Last [...] ) (1 - 1-dose 75+ series) 2031 Procedures Procedure Name Priority Date/Time Associated Diagnosis Comments BASIC METABOLIC PANEL Routine 05/28/2025 3:54 PM CDT from Last 3 Months Results * BASIC METABOLIC PANEL (05/28/2025 3:54 PM CDT) Blood Conor Alex MD CHEMISTRY ORDERABLES Final Resu lt from Last 3 Months Insurance AETNA [facility] MEDICAID [place]
--- OUTSIDE RECORDS SUMMARY | 2025-06-14 16:10 | XMS_ITS | Clinical Summary ---
Author Organization [facility] Address [address] [facility] [address] Care Team Providers Care Tensioning Machine Operator Name Role Phone Karl Cates MD Primary Care Provider Source Comments [facility],non-owned Affiliates and Associated Physician Practices is amultiple site organization consisting of ambulatory clinics and hospital sitesin [place], [place], [place] and [place]. This disclosure is being madepursuant to the Care Everywhere program and may not contain all information available regarding this patient. Last updated 18.[facility] Allergies Active Allergy Reactions Criticality Noted Date [...] once daily Active Naloxone HCl (NARCAN NA) Nazlini 1 Each into the nose as needed [...] Description 03/22/2025 1:00 PM CDT Procedure visit [facility] - Neurology [facility] 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 Gender Identity Female 06/02/2023 4:57 PM CDT Sexual Orientation Not on file Last Filed Vital Signs Vital Sign Reading Time Taken Comments Blood Pressure 105/69 03/22/2025 1:05 PM CDT Pulse 74 03/22/2025 1:05 PM CDT Temperature 37 C (98.6 F) 12/23/2023 10:55 AM HAZARDOUS MATERIALS HANDLER Respiratory Rate 13 09/04/2018 6:20 PM CDT Oxygen Saturation 95% 03/22/2025 1:05 PM CDT Inhaled Oxygen Concentration - - Weight 71 kg (156 lb 9.6 oz) 12/23/2023 10:55 AM HAZARDOUS MATERIALS HANDLER Height 165.1 cm (5' 5) 09/16/2023 10:52 AM HAZARDOUS MATERIALS HANDLER Body Mass Index 26.06 09/16/2023 10:52 AM HAZARDOUS MATERIALS HANDLER Plan of Treatment Upcoming Encounters Date Type Department Care Team (Late st Contact Info) Description 06/21/2025 2:00 PM CDT Procedure visit [facility] - Neurology [address] [place] [address], [place] [address] Cynthia Schmitz MD [address] [place] [address] [place] [address] 09/27/2025 2:00 PM HAZARDOUS MATERIALS HANDLER Procedure visit [facility] - Neurology [address] [place] [address], [place] [address] Cynthia Schmitz MD [address] [facility] 1L [place] [address] Health Maintenance Due Date Last Done Comments [...] Procedure Name Priority Date/Time Associated Diagnosis Comments [place] CHEMODENERV 1 EXTREM 1-4 EA Routine 03/22/2025 1:35 PM CDT Spasm of muscle [place] CHEMODENERV ONE EXTREM 1-4 MUSCLES Routine 03/22/2025 1:35 PM CDT Spasm of muscle HEPATITIS C ANTIBODY Routine 06/25/2016 12:38 AM CDT from Last 3 Months or Most Recently Relevant to Health Maintenance Results * [place] CHEMODENERV ONE EXTREM 1-4 MUSCLES, [place] CHEMODENERV 1 EXTREM 1-4 EA (03/22/2025 1:35 [...] daily with food Naloxone HCl (NARCAN NA) Nazlini 1 Each into the nose as needed [...] Hepatitis C Antibody Non-react sundeep Non-reac tive [facility] Comment: Hepatitis C Antibody screen indicates [...] LAB - CHEMISTRY ORDERABLE S Final Result [address] [phone] from Last 3 Months or Most Recently Relevant to Health Maintenance Insurance MEDICAID - OUT OF STATE AETNA MEDICARE [facility] Advance Directives Documents on File Type Date Recorded Patient Patient Safety Coordinator Expl anation Advance Directives and Livin g Will 06/19/2016 12:00 AM Care Teams Tensioning Machine Operator Relationship Specialty Start Date End Date Karl Cates MD [address] [place] [address] PCP - General 09/08/18
[2025-06-14 16:21] VITALS: BP 92/48; PULSE 72; RESP 16; TEMP 36.8; O2SAT 100
--- OUTSIDE RECORDS SUMMARY | 2025-06-14 17:40 | XMS_ITS | Clinical Summary ---
Author Organization [facility] Madelaine Cross Address [address] [address] Care Team Providers Care Material Handling Warehouse Supervisor Name Role Phone Unavailable Primary Care Provider [...] Take 4 mg by mouth. Active vit C,N-Gj-lpjve-l utein-zeaxan 250-90-40-1 mg Capsule Take 2 Capsules [...] Data STL ABSTRACTION Provider, Abstract 06/03/[address] [facility] Oncology and Hematology - [place] [address] [place] [address] Conor Alex MD 05/31/[address] [facility] Oncology and Hematology - [place] [address] [place] [address] Conor Alex MD 05/30/2025 1:15 PM CDT Office Visit [facility] Oncology and Hematology - [place] [address] [place] [address] Conor Alex MD Chronic anemia (Primary Dx) [...] st Contact Info) Description 11/30/2025 2:15 PM SENIOR MOBILE APPLICATION DEVELOPER Office Visit [facility] Oncology and Hematology - [place] [address] [place] [address] Conor Alex MD [address] [facility] [address] [place] [address] Health Maintenance Due Date Last [...] lt from Last 3 Months Insurance AETNA [facility] MEDICAID [place]
--- OUTSIDE RECORDS SUMMARY | 2025-06-14 17:40 | XMS_ITS | Clinical Summary ---
Author Organization [facility] [employer] Address [address] [place] [address] Care Team Providers Care Ham Sawyer Name Role Phone Karl Cates MD Primary Care Provider Source Comments [facility] [employer],non-owned Affiliates and Associated Physician Practices is amultiple site organization consisting of ambulatory clinics and hospital sitesin [place], [place], [place] and [place]. This disclosure is being madepursuant to the Care Everywhere program and may not contain all information available regarding this patient. Last updated 18.[facility] [employer] Allergies Active Allergy Reactions Criticality Noted Date [...] once daily Active Naloxone HCl (NARCAN NA) [place]ard 1 Each into the nose as needed [...] Description 03/22/2025 1:00 PM CDT Procedure visit [facility] - Neurology [facility] [facility] [place] [address] Cynthia Schmitz MD Spasm of muscle 03/22/2025 Travel from Last 3 Months Immunizations Immunization Administration Dates Next Due [employer] primary monoval ent 12+ yr 0.3mL Purple [...] PM CDT Legal Sex Female 5:16 AM MANAGER CAR Gender Identity Female 06/02/2023 4:57 PM CDT Sexual Orientation Not on file Last Filed Vital Signs Vital Sign Reading Time Taken Comments Blood Pressure 105/69 03/22/2025 1:05 PM CDT Pulse 74 03/22/2025 1:05 PM CDT Temperature 37 C (98.6 F) 12/23/2023 10:55 AM MANAGER CAR Respiratory Rate 13 09/04/2018 6:20 PM CDT Oxygen Saturation 95% 03/22/2025 1:05 PM CDT Inhaled Oxygen Concentration - - Weight 71 kg (156 lb 9.6 oz) 12/23/2023 10:55 AM MANAGER CAR Height 165.1 cm (5' 5) 09/16/2023 10:52 AM MANAGER CAR Body Mass Index 26.06 09/16/2023 10:52 AM MANAGER CAR Plan of Treatment Upcoming Encounters Date Type Department Care Team (Late st Contact Info) Description 06/21/2025 2:00 PM CDT Procedure visit [facility] - Neurology [address] [place] [address], [place] [address] Cynthia Schmitz MD [address] [place] [address] [place] [address] 09/27/2025 2:00 PM MANAGER CAR Procedure visit [facility] - Neurology [address] [place] [address], [place] [address] Cynthia Schmitz MD [address] [facility] 1L [place] [address] Health Maintenance Due Date Last Done Comments [...] Procedure Name Priority Date/Time Associated Diagnosis Comments [place] CHEMODENERV 1 EXTREM 1-4 EA Routine 03/22/2025 1:35 PM CDT Spasm of muscle [place] CHEMODENERV ONE EXTREM 1-4 MUSCLES Routine 03/22/2025 1:35 PM CDT Spasm of muscle HEPATITIS C ANTIBODY Routine 06/25/2016 12:38 AM CDT from Last 3 Months or Most Recently Relevant to Health Maintenance Results * [place] CHEMODENERV ONE EXTREM 1-4 MUSCLES, [place] CHEMODENERV 1 EXTREM 1-4 EA (03/22/2025 1:35 [...] daily with food Naloxone HCl (NARCAN NA) [place] 1 Each into the nose as needed [...] Hepatitis C Antibody Non-react sundeep Non-reac tive [facility] Comment: Hepatitis C Antibody screen indicates [...] LAB - CHEMISTRY ORDERABLE S Final Result [address] [phone] from Last 3 Months or Most Recently Relevant to Health Maintenance Insurance MEDICAID - OUT OF STATE AETNA MEDICARE [facility] Advance Directives Documents on File Type Date Recorded Patient Fiber Optics Supervisor Expl anation Advance Directives and Livin g Will 06/19/2016 12:00 AM Care Teams Ham Sawyer Relationship Specialty Start Date End Date Karl Cates MD [address] [place] [address] PCP - General 09/08/18
--- OUTSIDE RECORDS SUMMARY | 2025-06-14 17:40 | XMS_ITS | Encounter Summary ---
Author Organization [facility] Health Address [address] [place] [address] Care Team Providers Care Elevated Guard Name Role Phone Karl Cates MD Primary Care Provider Reason for Visit * Reason Onset Date Comments Appointment 04/26/2024 Encounter Details Date Type Department Care Team (Late st Contact Info) Description 04/26/2024 Telephone [facility] - Neurology [address] [place] [address], [facility] [place] [address] Cynthia Schmitz MD [address] [place] [address] [place] [phone] Appointment Social History Tobacco Use Types Packs/Day [...] PM CDT Legal Sex Female 5:16 AM 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 Patient Call Back Number: [phone] documented in this encounter Plan of Treatment Upcoming Encounters Date Type Department Care Team (Late st Contact Info) Description 06/21/2025 2:00 PM CDT Procedure visit [facility] - Neurology [address] [place] [phone] Cynthia Schmitz MD [address] [place] [address] [address] [place] [address] 09/27/2025 2:00 PM [employer] BRANCH CHIEF Procedure visit [facility] - Neurology [address] [place] [phone] Cynthia Schmitz MD [address] [place] [address] [address] [place] [phone] documented as of this encounter Visit Diagnoses Not on filedocumented in this encounter Care Teams Elevated Guard Relationship Specialty Start Date End Date Karl Cates MD [address] [place] [address] PCP - General 09/08/18 documented as of this encounter
--- OUTSIDE RECORDS SUMMARY | 2025-06-14 17:40 | XMS_ITS ---
Author Name Auto Generated, Auto Generated Organization [facility] Address [address] [place] [address] Phone [phone] Care Team Providers Care Lean Coach Name Role Phone Jaden Brown Functional Status [...]
--- OUTSIDE RECORDS SUMMARY | 2025-06-14 17:40 | XMS_ITS ---
Author Name Auto Generated, Auto Generated Organization [email or web address] Address [address] [place] [address] Phone [phone] Care Team Providers Care Author Agent Name Role Phone Jaden Brown Functional Status [...]
--- NOTE | 2025-06-14 17:47 | ECG_ITS ---
Test Date: 2025-06-14 18:32:38 Measurements Intervals Cornish Rate: 73 P: 43 NM: 167 QRS: 23 QRSD: 90 T: 14 QT: 393 QTc: 435 Interpretive Statements SINUS RHYTHM BASELINE ARTIFACT- III, AVL, V2 NORMAL ECG No previous ECG available for comparison Electronically Signed On 06-14-2025 20:40:19 CDT by Ke Sargent D.O.
[2025-06-14 18:24] LABS: Hematocrit 46.5 % (37.0-47.0); Hemoglobin 15.0 g/dL (12.0-15.0); Immature Granulocyte Percent A 0.3 % (0-0.5); Lymphocytes Absolute Auto 1.11 K/mm3 (0.9-3.2); Mean Corpuscular HGB Conc 32.3 g/dl (32-36); Mean Corpuscular Hemoglobin 31.7 pg (26-34); Mean Corpuscular Volume 98.3 fl (80-100); Nucleated Red Blood Cells Absolute Auto 0.000 K/mm3 (0.0-0.012); Nucleated Red Blood Cells Perc 0.0 % (0.0-0.2); Platelet Count Result 173 k/mm3 (150-375); Red Blood Count 4.73 M/mm3 (4.2-5.4); White Blood Count 6.3 K/mm3 (4.5-10.0)
[2025-06-14] MEDS: SODIUM CHLORIDE 0.9% IV 500 ML 999 ML IV CONT (18:26)
[2025-06-14 18:36] LABS: INR 1.1; Prothrombin Time 14.2 Seconds (11.1-14.7)
[2025-06-14 18:37] LABS: Partial Thromboplastin Time 36.5 Seconds (22.3-36.8)
[2025-06-14] MEDS: ceFAZolin 1 GM in SODIUM CHLORIDE 0.9% IV 50 ML 100 ML IVPB (18:37)
[2025-06-14 18:40] LABS: Alanine Aminotransferase 16 U/L (6-35); Albumin Level 4.1 g/dL (3.5-5.1); Alkaline Phosphatase 107 U/L (38-126); Anion Gap 5 mmol/L (4-12); Aspartate Amino Transferase 25 U/L (14-36); Bilirubin,Total 0.9 mg/dL (0.2-1.3); Blood Urea Nitrogen 13 mg/dL (7-17); CRP 1.0 mg/dL (<1.0); Calcium 9.7 mg/dL (8.4-10.2); Carbon Dioxide 31 mmol/L (22-30); Chloride 103 mmol/L (98-107); Estimated CRCL calculation 80 ml/min; Estimated Glomerular Filt Rate > 60; Glucose 88 mg/dL (65-110); Potassium 4.3 mmol/L (3.4-5.0); Sodium 139 mmol/L (137-145); Total Protein 6.9 g/dL (6.3-8.2)
[2025-06-14 18:44] LABS: NT Pro B Type Natriuretic Pept 112 pg/mL (19.9-100)
--- NOTE | 2025-06-14 18:53 | ED_ITS ---
HPI - Extremity Injury (Lower) General Chief Complaint: Extremity Injury, Lower <Fadia Florence PA-C - Last Filed: 06/14/25 21:16> Stated Complaint: left leg swelling and pain <Fadia Florence PA-C - Last Filed: 06/14/25 21:16> Time Seen by Provider: 06/14/25 17:10 <Fadia Florence PA-C - Last Filed: 06/14/25 21:16> Source: patient <CARISSA Crockett Last Filed: 06/14/25 21:16> Mode of arrival: EMS <CARISSA Crockett Last Filed: 06/14/25 21:16> Limitations: no limitations <CARISSA Crockett Last Filed: 06/14/25 21:16> History of Present Illness HPI Narrative: Patient is a 69-year-old female who presents the ED via EMS with report of left lower extremity redness, swelling, warmth. Patient lives at home alone. She has several caregivers. Patient has history of previous brain aneurysm and is paralyzed from the waist down. Had his left foot drop and wears a brace on her left leg. Reports over last 5 days, she has had increased swelling, redness, pain throughout her left lower extremity. Reports her brace has been rubbing the back of her left leg and causing abrasions. Her caregiver today was unable to place the brace back on her foot due to the amount of swelling. They were concerned for infection. Prompted here for further evaluation. Patient denies fevers. Denies shortness of breath. <Fadia Florence PA-C - Last Filed: 06/14/25 21:16> Related Data Home Medications: Home Medications ?Medication ?Instructions ?Recorded ?Confirmed ?Last Taken ?Type naloxone 4 mg/actuation nasal 1 spray intranasal Q2M 03/16/20 05/18/25 Unknown History spray (Narcan) multivitamin with minerals-folic 200 mcg PO DAILY 07/12/20 05/18/25 Unknown History acid 200 mcg chewable tablet (Women's Multivitamin Gummies) cholecalciferol (vitamin D3) 50 25 mcg PO DAILY 01/10/21 05/18/25 Unknown History mcg (2,000 unit) capsule aspirin 81 mg chewable tablet 81 mg PO DAILY 04/01/24 05/18/25 Unknown History cyanocobalamin (vitamin B-12) 500 1,500 mcg PO DAILY 04/01/24 05/18/25 Unknown History mcg tablet (Vitamin B-12) adapalene 0.1 % topical cream 1 applic topical QHS 04/16/24 05/18/25 Unknown History apixaban 2.5 mg tablet (Eliquis) 2.5 mg PO BID 12/20/24 05/18/25 Unknown History buspirone 5 mg tablet 5 mg PO BID 12/20/24 05/18/25 Unknown History clobetasol 0.05 % scalp solution 2 - 3 ml topical BID PRN 12/20/24 05/18/25 Unknown History escitalopram oxalate 20 mg tablet 20 mg PO DAILY 12/20/24 05/18/25 Unknown History famotidine 20 mg tablet 20 mg PO QHS 12/20/24 05/18/25 Unknown History levetiracetam 500 mg tablet See Rx Instructions PO BID 12/20/24 05/18/25 Unknown History (Keppra) lidocaine 4 % topical patch 2 patch topical BID PRN 12/20/24 05/18/25 Unknown History (Aspercreme (lidocaine)) pimecrolimus 1 % topical cream applic topical 05/18/25 05/18/25 Unknown History <Fadia Florence PA-C - Last Filed: 06/14/25 21:16> Allergies/Adverse Reactions: Allergies Allergy/AdvReac Type Severity Reaction Status Date / Time erythromycin base Allergy Unknown ABDOMINAL Verified 05/18/25 15:11 CRAMPING, LOOSE STOOLS dial soap Allergy Mild ITCHING Uncoded 05/18/25 15:11 <CARISSA Crockett Last Filed: 06/14/25 21:16> Review of Systems 2 Review of Systems: All systems reviewed & are unremarkable except as noted in HPI. <CARISSA Crockett Last Filed: 06/14/25 21:16> All systems reviewed & are unremarkable except as noted in HPI and below < CARISSA Crockett Last Filed: 06/14/25 21:16> [facility] Past Medical History Medical History: Medical History Acquired left foot drop Left arm swelling COPD (chronic obstructive pulmonary disease) UTI (urinary tract infection) History of deep venous thrombosis (DVT) of distal vein of left lower extremity (~11/2006) OAB (overactive bladder) Chronic pain pain pump--hydrocodone Hemiparesis affecting left side as late effect of cerebrovascular accident Postural hypotension Vitamin D deficiency Opiate use oxycodone and pain pump Anxiety DJD (degenerative joint disease) Arthritis Osteoporosis GERD (gastroesophageal reflux disease) Colitis Chronic constipation Emphysema lung DVT (deep venous thrombosis) HTN (hypertension) Seizure Brain aneurysm 2006 with craniotomy 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 TMJ (dislocation of temporomandibular joint) <Fadia Florence PA-C - Last Filed: 06/14/25 21:16> Surgical History Surgical History: Surgical History History of craniotomy 2007 - aneurysm repair H/O tubal ligation (~01/17/89) History of orthopedic surgery (~2009) Left leg and hip with megan 2009 History of bladder surgery (Unknown) bladder suspension H/O mastectomy (~1994) Hx of hysterectomy (~04/03/99) H/O section (~08/1976) Hx of cholecystectomy (~2009) Hx of appendectomy (~08/1976) Hx of tonsillectomy (~1958) <Fadia Florence PA-C - Last Filed: 06/14/25 21:16> Family History Family History: Family History Father Cerebral aneurysm Cerebrovascular accident Heart disease Hypertension Mother Lung cancer Colon ulcer Unknown Thyroid disease Other Lung cancer Colon ulcer Sibling Lung cancer <Fadia Florence PA-C - Last Filed: 06/14/25 21:16> Social History Social History: Social History Social History: used to smoke for 48 years Smoking packs per day: 0.75 Smoking cigarettes per day: 15.0 Years smoked: 52 Smoking pack-years: 39.00 Smoking status: Current every day smoker Tobacco type: cigarettes Second hand tobacco smoke exposure: No Alcohol intake: never Substance use: never Substance use type: opiates Other substance usage details: Morphine Do You Feel Safe in your Home?: Yes Lack of Transportation: No Lack of Food: Sometimes True Current Housing: I Have Housing Concerned About Future Housing: No Difficulty Paying Gas/Electric Bills: No Difficulty Paying for Meds: No Currently Unemployed: No Education: Bachelor's Degree Difficulty w/ Childcare or Family Care: No Living arrangements: alone Occupation/Education: retired Spiritual care concerns: No Agree to blood products: Yes <Fadia Florence PA-C - Last Filed: 06/14/25 21:16> Exam 2 Narrative: GENERAL: Elderly, chronically ill-appearing, frail, non-toxic, in no acute distress. HEAD: Normocephalic, atraumatic. RESPIRATORY: Airway patent, respirations nonlabored. Clear to auscultation bilaterally, no rales, rhonchi, wheezing. CARDIOVASCULAR: Regular rate and rhythm without murmurs, rubs, or gallops. Pedal pulses are intact MUSCULOSKELETAL: Limited ROM of BLE d/t hemiparesis. Diffuse swelling of LLE with circumferential erythema, warmth, weeping. Small abrasions to posterior calf region w/o large wounds or lacerations. Diffuse tenderness and hypersensitivity throughout LLE. Slight erythema throughout RLE w/o significant warmth or abrasions. SKIN: Warm, dry, normal color. NEURO: A&O X3. Speech clear. No ataxic movements. PSYCHIATRIC: Appropriate mood and affect. Normal interaction. <Fadia Florence PA-C - Last Filed: 06/14/25 21:16> Course JAVASCRIPT APPLICATION DEVELOPER/PA Physician Supervision For this patient encounter, I reviewed the JAVASCRIPT APPLICATION DEVELOPER or PA documentation, treatment plan, and medical decision making; and I had [id number] time with this patient. <Ravinder Aquino MD - Last Filed: 06/14/25 21:34> Vital Signs Vital signs: Vital Signs Temperature 98.3 F 06/14/25 16:21 Pulse Rate 72 06/14/25 16:21 Respiratory Rate 16 08/12/25 16:21 Blood Pressure 92/48 L 06/14/25 16:21 Pulse Oximetry 100 06/14/25 16:21 Temperature 98.2 F 06/14/25 21:22 Pulse Rate 78 06/14/25 21:22 Respiratory Rate 23 H 06/14/25 21:22 Blood Pressure 106/61 06/14/25 21:22 Pulse Oximetry 95 06/14/25 21:22 <Fadia Florence PA-C - Last Filed: 06/14/25 21:16> Vital Signs Temperature 98.3 F 06/14/25 16:21 Pulse Rate 72 06/14/25 16:21 Respiratory Rate 16 06/14/25 16:21 Blood Pressure 92/48 L 06/14/25 16:21 Pulse Oximetry 100 06/14/25 16:21 Temperature 98.2 F 06/14/25 21:22 Pulse Rate 78 06/14/25 21:22 Respiratory Rate 23 H 06/14/25 21:22 Blood Pressure 106/61 06/14/25 21:22 Pulse Oximetry 95 06/14/25 21:22 <Ravinder Aquino MD - Last Filed: 06/14/25 21:34> MDM - Extremity Injury (Lower) MDM Narrative Medical decision making narrative: Patient presented to ED via EMS from home with report of pain/swelling/redness to LLE over past several days. Hx of brain aneurysm/CVA, hemiparesis, L foot drop. Lives at home alone. Patient borderline hypotensive upon arrival, this is improved by the time of my evaluation. She does have history of orthostatic hypotension per records and is on midodrine at home. Vitals are otherwise stable. Patient is afebrile. Exam is concerning for likely component of cellulitis within left lower extremity. CBC without leukocytosis. Stable H&H. Stable electrolytes. Stable kidney function. Lactic acid 1.2. BNP within normal range. CRP within normal range. No evidence of sepsis at this time. Venous Doppler ultrasound negative for DVT. Patient does have history of previous DVT, on Eliquis 2.5 mg b.i.d.. Chest x- ray is clear. Blood cultures were obtained. Patient started on Ancef for cellulitis. Will be admitted for further evaluation, continued IV antibiotics, care coordination consult for better at home care for patient versus fci placement. Discussed case with [facility] hospitalist, accepted patient for admission. Patient and family in agreement with plan. <Fadia Florence PA-C - Last Filed: 06/14/25 21:16> Medical Records Attestation: I reviewed the patient's medical records. <Fadia Florence PA-C - Last Filed: 06/14/25 21:16> Lab Data Attestation: I reviewed the patient's lab results. <Fadia Florence PA-C - Last Filed: 06/14/25 21:16> Result diagrams: 06/14/25 18:14 06/14/25 18:14 <CARISSA Crockett Last Filed: 06/14/25 21:16> Labs: Lab Results 06/14/25 06/14/25 Range/Units 18:14 18:14 WBC 6.3 (4.5-10.0) K/mm3 RBC 4.73 (4.2-5.4) M/mm3 Hgb 15.0 (12.0-15.0) g/dL Hct 46.5 (37.0-47.0) % MCV 98.3 (80-100) fl MCH 31.7 (26-34) pg MCHC 32.3 (32-36) g/dl RDW 12.2 (11.5-14.5) % Plt Count 173 (150-375) k/mm3 MPV 10.1 (7.4-10.4) fl Immature Gran % (Auto) 0.3 (0-0.5) % Neut % (Auto) 72.6 (45.5-73.1) % Lymph % (Auto) 17.6 L (18.3-44.2) % Lewis % (Auto) 5.9 (2.6-8.5) % Eos % (Auto) 3.0 (0-4.4) % Baso % (Auto) 0.6 (0.2-1.2) % Lymph # (Auto) 1.11 (0.9-3.2) K/mm3 Lewis # (Auto) 0.4 (0.1-0.6) K/mm3 Eos # (Auto) 0.2 (0-0.3) K/mm3 Baso # (Auto) 0.0 (0.0-0.1) K/mm3 Abs Immat Gran (auto) 0.02 (0.00-0.031) K/mm3 Absolute Neuts (auto) 4.6 (1.3-6.7) K/mm3 Absolute Nucleated RBC 0.000 (0.0-0.012) K/mm3 Nucleated RBC % 0.0 (0.0-0.2) % PT 14.2 (11.1-14.7) Seconds INR 1.1 APTT 36.5 (22.3-36.8) Seconds Sodium 139 (137-145) mmol/L Potassium 4.3 (3.4-5.0) mmol/L Chloride 103 (98-107) mmol/L Carbon Dioxide 31 H (22-30) mmol/L Anion Gap 5 (4-12) mmol/L BUN 13 (7-17) mg/dL Creatinine 0.53 L (0.7-1.0) mg/dL Estim Creat Clear Calc 80 ml/min Estimated GFR > 60 (59 - ) Glucose 88 (65-110) mg/dL Lactic Acid 1.2 (0.7-2.0) mmol/L Calcium 9.7 (8.4-10.2) mg/dL Total Bilirubin 0.9 (0.2-1.3) mg/dL AST 25 (14-36) U/L ALT 16 (6-35) U/L Alkaline Phosphatase 107 (38-126) U/L C-Reactive Protein 1.0 (<1.0) mg/dL NT-Pro-B Natriuret Pep 112 H Cancelled (19.9-100) pg/mL Total Protein 6.9 (6.3-8.2) g/dL Albumin 4.1 (3.5-5.1) g/dL <Fadia Florence PA-C - Last Filed: 06/14/25 21:16> Lab Results 06/14/25 06/14/25 Range/Units 18:14 18:14 WBC 6.3 (4.5-10.0) K/mm3 RBC 4.73 (4.2-5.4) M/mm3 Hgb 15.0 (12.0-15.0) g/dL Hct 46.5 (37.0-47.0) % MCV 98.3 (80-100) fl MCH 31.7 (26-34) pg MCHC 32.3 (32-36) g/dl RDW 12.2 (11.5-14.5) % Plt Count 173 (150-375) k/mm3 MPV 10.1 (7.4-10.4) fl Immature Gran % (Auto) 0.3 (0-0.5) % Neut % (Auto) 72.6 (45.5-73.1) % Lymph % (Auto) 17.6 L (18.3-44.2) % Lewis % (Auto) 5.9 (2.6-8.5) % Eos % (Auto) 3.0 (0-4.4) % Baso % (Auto) 0.6 (0.2-1.2) % Lymph # (Auto) 1.11 (0.9-3.2) K/mm3 Lewis # (Auto) 0.4 (0.1-0.6) K/mm3 Eos # (Auto) 0.2 (0-0.3) K/mm3 Baso # (Auto) 0.0 (0.0-0.1) K/mm3 Abs Immat Gran (auto) 0.02 (0.00-0.031) K/mm3 Absolute Neuts (auto) 4.6 (1.3-6.7) K/mm3 Absolute Nucleated RBC 0.000 (0.0-0.012) K/mm3 Nucleated RBC % 0.0 (0.0-0.2) % PT 14.2 (11.1-14.7) Seconds INR 1.1 APTT 36.5 (22.3-36.8) Seconds Sodium 139 (137-145) mmol/L Potassium 4.3 (3.4-5.0) mmol/L Chloride 103 (98-107) mmol/L Carbon Dioxide 31 H (22-30) mmol/L Anion Gap 5 (4-12) mmol/L BUN 13 (7-17) mg/dL Creatinine 0.53 L (0.7-1.0) mg/dL Estim Creat Clear Calc 80 ml/min Estimated GFR > 60 (59 - ) Glucose 88 (65-110) mg/dL Lactic Acid 1.2 (0.7-2.0) mmol/L Calcium 9.7 (8.4-10.2) mg/dL Total Bilirubin 0.9 (0.2-1.3) mg/dL AST 25 (14-36) U/L ALT 16 (6-35) U/L Alkaline Phosphatase 107 (38-126) U/L C-Reactive Protein 1.0 (<1.0) mg/dL NT-Pro-B Natriuret Pep 112 H Cancelled (19.9-100) pg/mL Total Protein 6.9 (6.3-8.2) g/dL Albumin 4.1 (3.5-5.1) g/dL <Ravinder Aquino MD - Last Filed: 06/14/25 21:34> Imaging Data Attestation: I personally reviewed and interpreted this imaging study as follows: < Fadia Florence PA-C - Last Filed: 06/14/25 21:16> Radiologist's impression: ITS Impressions Venous Doppler Study 06/14/25 18:14 IMPRESSION: 1. No deep venous thrombosis within the visualized veins of the left lower extremity, as detailed above. Chest X-Ray 06/14/25 18:33 IMPRESSION: No focal infiltrate or effusion. <Fadia Florence PA-C - Last Filed: 06/14/25 21:16> ECG Data EKG #1: Attestation: I personally reviewed and interpreted this ECG as follows: <Fadia Florence PA-C - Last Filed: 06/14/25 21:16> ECG completion date: 06/14/25 <Fadia Florence PA-C - Last Filed: 06/14/25 21:16> ECG completion time: 18:32 <Fadia Florence PA-C - Last Filed: 06/14/25 21:16> EKG Interpretation: normal rate (73), sinus rhythm and non-specific ST changes <Fadia Florence PA-C - Last Filed: 06/14/25 21:16> Discharge Plan Discharge Clinical Impression: Cellulitis of left lower extremity, Acquired left foot drop, History of hemiparesis <Fadia Florence PA-C - Last Filed: 06/14/25 21:16> Patient Disposition: Still a Patient <Fadia Florence PA-C - Last Filed: 06/14/25 21:16> Condition: Stable <Fadia Florence PA-C - Last Filed: 06/14/25 21:16>
[2025-06-14] MEDS: SODIUM CHLORIDE 0.9% IV 1,000 ML 999 ML IV CONT (19:54)
[2025-06-14] MEDS: HYDROcodone/acetaminophen (*CRX) 5-325 MG TABLET 1 TAB PO (19:54)
[2025-06-14] MEDS: NICOTINE (*PBKC) 14 MG PATCH 1 PATCH TRANSDERM (19:55)
--- NOTE | 2025-06-14 19:57 | PC.NURSE ---
Pt asked to give urine sample multiples times and cannot. Asked to straight cath and pt denies.
[2025-06-14 20:30] VITALS: BP 102/67
[2025-06-14 21:00] VITALS: BP 104/61
[2025-06-14 21:18] VITALS: BP 106/61
[2025-06-14 21:22] VITALS: BP 106/61; PULSE 78; RESP 23; TEMP 36.8; O2SAT 95
[2025-06-14 21:52] LABS: Add Urine Microscopic? YES; Appearance Urine Clear (Clear); Glucose Urine UA Negative (Negative); Leukocyte Esterase Ur 2+ LEU/UL (Negative); Nitrate Urine Positive (Negative); Non Pathogenic Casts 0-2; Specific Grav Ur 1.017 (1.001-1.035)
[2025-06-14 21:59] VITALS: BMI 26.1
[2025-06-14 22:00] VITALS: BP 127/46; PULSE 127; RESP 18; TEMP 36.5; O2SAT 91
--- NOTE | 2025-06-14 22:01 | ADMGEN ---
This patient, Terra Gastelum, was admitted to Medical Room 243-01. Patient/family oriented to hospital policies and general routines including ID bracelet, bed and alarms, visiting hours, pain management, procedures, bathroom and other care routines, personal items, smoking policy, room service/diet, and visiting hours. Information on how to activate the Rapid Response Team has been discussed. Patient/Family are encouraged to report perceived risks to care and to ask questions if they do not understand what they are told or what they should do.
[2025-06-14 23:08] LABS: CRP 1.0 mg/dL (<1.0)
[2025-06-14] MEDS: APIXABAN 2.5 MG TABLET PO (23:15)
[2025-06-14 23:20] LABS: Procalcitonin 0.0 ng/mL
--- NOTE | 2025-06-15 00:01 | P.HP_ITS ---
H&P: HPI History of Present Illness Date/Time: 06/15/25 02:01 Chief Complaint: Left leg cellulitis, UTI, nausea Narrative: This is a 69-year-old female patient lives at home alone and is wheelchair-bound due to left-sided hemiparesis from prior CVA. Patient has resultant footdrop on the left side requiring use of a brace. Family member instructed patient not to wrap the leg too tightly and to change the wrap frequently but when this family member stop by to check on the patient the leg was still wrapped very tightly and there was swelling and erythema along with pain once the dressing was taken down. Patient brought to the emergency department for evaluation likely cellulitis. Labs generally unremarkable white blood cell count 6.3 normal H&H normal renal function minimally increased proBNP to 112. Urinalysis positive for nitrates with 2+ leukocyte esterase 21-50 WBC 2+ urine bacteria. Patient received IV Ancef in the emergency department for cellulitis. Review of prior microbiology urine cultures shows that E coli fairly sensitive, only resistant to fluoroquinolones and intermittent to Unasyn. Patient complained of feeling exceedingly nauseated and having pain all over. She has an implanted pain pump chronically due to chronic pain. Patient is very upset that when she was brought to the hospital her wheelchair was left at home so it is not available here. Patient states she usually sleeps in the wheelchair because she cannot get comfortable in a bed. This likely increases lower extremity edema. Ultrasound obtained in the emergency department was negative for DVT. Review of Systems Review of Systems: Pain all over, severe nausea, anxiety, unable to get comfortable, depressed PMFSH Past Medical History Medical History (Updated 06/15/25 @ 04:56 by Markus Bojorquez, LATRELL) Acute deep vein thrombosis of tibial vein Acquired left foot drop Left arm swelling COPD (chronic obstructive pulmonary disease) UTI (urinary tract infection) History of deep venous thrombosis (DVT) of distal vein of left lower extremity (~11/2006) OAB (overactive bladder) Chronic pain pain pump--hydrocodone Hemiparesis affecting left side as late effect of cerebrovascular accident Postural hypotension Vitamin D deficiency Opiate use oxycodone and pain pump Anxiety DJD (degenerative joint disease) Arthritis Osteoporosis GERD (gastroesophageal reflux disease) Colitis Chronic constipation Emphysema lung DVT (deep venous thrombosis) HTN (hypertension) Seizure Brain aneurysm 2006 with craniotomy 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 TMJ (dislocation of temporomandibular joint) Surgical History Surgical History History of craniotomy 2006 - aneurysm repair H/O tubal ligation (~01/17/89) History of orthopedic surgery (~2009) Left leg and hip with megan 2009 History of bladder surgery (Unknown) bladder suspension H/O mastectomy (~1994) Hx of hysterectomy (~04/03/99) H/O section (~08/1976) Hx of cholecystectomy (~2009) Hx of appendectomy (~08/1976) Hx of tonsillectomy (~1958) Family History Family History Father Cerebral aneurysm Cerebrovascular accident Heart disease Hypertension Mother Lung cancer Colon ulcer Unknown Thyroid disease Other Lung cancer Colon ulcer Sibling Lung cancer Social History Social History Social History: used to smoke for 48 years Smoking packs per day: 0.75 Smoking cigarettes per day: 15.0 Years smoked: 56 Smoking pack-years: 42.00 Smoking status: Current every day smoker Tobacco type: cigarettes Second hand tobacco smoke exposure: No Alcohol intake: never Substance use: never Substance use type: opiates Other substance usage details: Morphine Do You Feel Safe in your Home?: Yes Lack of Transportation: No Lack of Food: Sometimes True Current Housing: I Have Housing Concerned About Future Housing: No Difficulty Paying Gas/Electric Bills: No Difficulty Paying for Meds: No Currently Unemployed: No Education: Bachelor's Degree Difficulty w/ Childcare or Family Care: No Living arrangements: alone Occupation/Education: retired Spiritual care concerns: No Agree to blood products: Yes Meds Home Medications and Allergies Home Medications ?Medication ?Instructions ?Recorded ?Confirmed ?Type naloxone 4 mg/actuation nasal 1 spray intranasal Q2M PRN opioid 03/16/20 06/14/25 History spray (Narcan) overdose multivitamin with minerals-folic 200 mcg PO DAILY 07/12/20 06/14/25 History acid 200 mcg chewable tablet (Women's Multivitamin Gummies) cholecalciferol (vitamin D3) 50 25 mcg PO DAILY 01/10/21 06/14/25 History mcg (2,000 unit) capsule aspirin 81 mg chewable tablet 81 mg PO DAILY 04/01/24 06/14/25 History cyanocobalamin (vitamin B-12) 500 500 mcg PO DAILY 04/01/24 06/14/25 History mcg tablet (Vitamin B-12) apixaban 2.5 mg tablet (Eliquis) 2.5 mg PO BID 12/20/24 06/14/25 History buspirone 5 mg tablet 5 mg PO BID 12/20/24 06/14/25 History escitalopram oxalate 20 mg tablet 20 mg PO HS 12/20/24 06/14/25 History famotidine 20 mg tablet 20 mg PO QHS 12/20/24 06/14/25 History levetiracetam 500 mg tablet See Rx Instructions PO BID 12/20/24 06/14/25 History (Keppra) lidocaine 4 % topical patch 2 patch topical BID PRN pain 12/20/24 06/14/25 History (Aspercreme (lidocaine)) albuterol sulfate 90 mcg/actuation See Rx Instructions .Route 12/22/24 06/14/25 Rx aerosol inhaler .COMPLEX #8.5 grams atorvastatin 20 mg tablet 20 mg PO QHS #90 tabs 12/23/24 06/14/25 Rx folic acid 1 mg tablet 1 mg PO DAILY #90 tabs 12/30/24 06/14/25 Rx shoes #2 ea 01/24/25 05/18/25 Rx tizanidine 4 mg capsule See Rx Instructions .Route 01/24/25 06/14/25 Rx .COMPLEX #270 caps omeprazole 40 mg capsule,delayed See Rx Instructions .Route 02/04/25 06/14/25 Rx release .COMPLEX #90 caps Roho cushion #1 ea 03/08/25 05/18/25 Rx midodrine 2.5 mg tablet 2.5 mg PO BID #180 tabs 03/21/25 06/14/25 Rx clindamycin HCl 300 mg capsule 300 mg PO Q6H #28 caps 06/14/25 06/14/25 Rx (Cleocin HCl) solifenacin 5 mg tablet (Vesicare) 5 mg PO HS 06/14/25 06/14/25 History Allergies Allergy/AdvReac Type Severity Reaction Status Date / Time erythromycin base Allergy Unknown ABDOMINAL Verified 06/14/25 22:21 CRAMPING, LOOSE STOOLS dial soap Allergy Mild ITCHING Uncoded 06/14/25 22:21 Vital Signs Vital Signs - 24 hr 06/14/25 16:21 06/14/25 20:30 06/14/25 21:00 Temperature 36.8 C Pulse Rate 72 Respiratory Rate 16 Blood Pressure 92/48 L 102/67 104/61 Pulse Oximetry 100 06/14/25 21:18 06/14/25 21:22 06/14/25 22:00 Temperature 36.8 C 36.5 C Pulse Rate 78 127 H Respiratory Rate 23 H 18 Blood Pressure 106/61 106/61 127/46 L Pulse Oximetry 95 91 Exam Narrative: GENERAL: Appears older than stated age, chronically ill-appearing, frail, non- toxic, very uncomfortable appearing HEAD: Normocephalic, atraumatic. RESPIRATORY: Airway patent, respirations nonlabored. Clear to auscultation bilaterally, no rales, rhonchi, wheezing. CARDIOVASCULAR: Regular rate and rhythm without murmurs, rubs, or gallops. Pedal pulses are intact MUSCULOSKELETAL: Limited ROM of LLE d/t hemiparesis. Diffuse swelling of LLE with circumferential erythema, warmth, weeping. Small abrasions to posterior calf region w/o large wounds or lacerations. Callous appearance on plantar surface of left foot. Diffuse tenderness and hypersensitivity throughout LLE. Slight erythema throughout RLE w/o significant warmth or abrasions. SKIN: Warm, dry, normal color. NEURO: A&O X3. Speech clear. Left sided upper and lower hemiparesis PSYCHIATRIC: highly anxious and sharp interaction H&P: Results Labs Labs: Short CBC 06/14/25 Range/Units 18:14 WBC 6.3 (4.5-10.0) K/mm3 Hgb 15.0 (12.0-15.0) g/dL Hct 46.5 (37.0-47.0) % Plt Count 173 (150-375) k/mm3 BMP 06/14/25 18:14 Sodium 139 Potassium 4.3 Chloride 103 Carbon Dioxide 31 H BUN 13 Creatinine 0.53 L Glucose 88 Calcium 9.7 Liver Function 06/14/25 Range/Units 18:14 Total Bilirubin 0.9 (0.2-1.3) mg/dL AST 25 (14-36) U/L ALT 16 (6-35) U/L Alkaline Phosphatase 107 (38-126) U/L Albumin 4.1 (3.5-5.1) g/dL Urine 06/14/25 Range/Units 21:40 Urine Color Yellow (Yellow) Urine Appearance Clear (Clear) Urine pH 6.0 (5.0-9.0) Ur Specific [place] 1.017 (1.001-1.035) Urine Protein Negative (Negative) mg/dL Urine Glucose (UA) Negative (Negative) mg/dL Pulse Oximetry SpO2 results: 91-95% on room air Attestation: I personally reviewed and interpreted this pulse oximetry as follows: Interpretation: No need for supplemental oxygenation at this time ECG Attestation: I personally reviewed and interpreted this ECG as follows: ECG completion date: 06/14/25 ECG completion time: 18:32 Prior ECG tracings: not available for review Interpretation: Sinus rhythm rate of 73 OK interval 167 QRS duration 90 QTC 435 QRS axis 23 no STEMI or acute ischemic changes Imaging Chest x-ray: Radiologist's impression: CHEST RADIOGRAPH CLINICAL HISTORY: swelling of legs, sepsis w/u . COMPARISON: 02/15/2023. Reference was made to multiple cross-sectional imaging evaluations of the chest performed most recently on 12/24/2024 and dating back to 09/20/2022 TECHNIQUE: Single portable view of the chest. FINDINGS The cardiomediastinal silhouette is unremarkable. Biapical scarring. The remainder of the lungs are clear. IMPRESSION: No focal infiltrate or effusion. Reviewed, dictated and finalized at location A. Venous US: Radiologist's impression: EXAMINATION: US venous doppler [facility] DATE: 06/14/2025 17:53 INDICATION: Pain and swelling TECHNIQUE: Grayscale ultrasound images without and with compression and Doppler ultrasound images of the left lower extremity veins were obtained. COMPARISON: 06/09/2024 FINDINGS: The visualized portions of left common femoral vein, profunda (deep) femoral vein, femoral vein, popliteal vein and greater saphenous vein outflow are patent. Limited visualization of the left peroneal and posterior tibial veins, given patient's inability to move her left leg along with poor acoustic penetration. IMPRESSION: 1. No deep venous thrombosis within the visualized veins of the left lower extremity, as detailed above. Reviewed, dictated and finalized at location A. Assessment and Plan Assessment and plan (1) Cellulitis of left lower extremity: Code(s): L03.116 - Cellulitis of left lower limb Status: Acute Assessment and Plan: -LLE with abrasions, swelling, tenderness, warmth and erythema -IV Ancef started in ER, continue for now--consider ABX change with concurrent suspected UTI with nausea -Swelling may be partially dependent edema from staying in wheelchair around the clock including to sleep (2) UTI (urinary tract infection): Code(s): N39.0 - Urinary tract infection, site not specified Status: Acute Assessment and Plan: -Abnormal UA with Nitrates, leukocyte esterase, urine bacteria and WBCs present without juan contamination -Prior E.coli infection not resistant to Ancef (3) Hemiparesis affecting left side as late effect of cerebrovascular accident: Code(s): I69.354 - Hemiplegia and hemiparesis following cerebral infarction affecting left non-dominant side Status: Chronic Assessment and Plan: -Prior CVA and brain aneurysm rupture leaving patient with left hemiparesis and wheelchair bound status (4) Narcotic dependence: Code(s): F11.20 - Opioid dependence, uncomplicated Status: Chronic Assessment and Plan: -Implanted intrathecal pain pump -Pain all over reported but worse with swollen leg and back -Severe nausea also reported -IV morphine 2 mg every 4 hour PRN severe pain for now (5) Wheelchair bound: Code(s): Z99.3 - Dependence on wheelchair Status: Acute Assessment and Plan: -Patient unable to care for self well, case management consult for possible placement needs (6) Tobacco dependence due to cigarettes: Code(s): F17.210 - Nicotine dependence, cigarettes, uncomplicated Status: Acute Assessment and Plan: -Nicotine patch available Quality VTE Prophylaxis VTE prophylaxis: pharmacologic ordered (apixaban) Hospitalist MIPS Advance Care Plan I have confirmed that the patient's Advanced Care Plan is present, code status is documented, or surrogate decision maker is listed in patient medical record.: Yes Medication Reconciliation I have utilized all available resources to obtain, update and review the patients current medications (includes all prescriptions, OTC, herbals, cannabis, and nutritional supplements).: Yes
[2025-06-15] MEDS: MIDODRINE HCL 2.5 MG TABLET PO ×3 (00:39→20:53)
[2025-06-15] MEDS: ESCITALOPRAM OXALATE 10 MG TABLET 20 MG PO ×2 (00:39→20:53)
[2025-06-15] MEDS: SOLIFENACIN 5 MG TABLET PO ×2 (00:39→20:53)
[2025-06-15] MEDS: FAMOTIDINE 20 MG TABLET PO ×2 (00:40→20:52)
[2025-06-15] MEDS: ATORVASTATIN 20 MG TABLET PO ×2 (00:40→20:52)
[2025-06-15] MEDS: ONDANSETRON INJ 4 MG/2 ML VIAL IV PUSH (00:48)
[2025-06-15] MEDS: LIDOCAINE 5% PATCH 2 PATCH TRANSDERM (00:48)
[2025-06-15] MEDS: HALOPERIDOL LACTATE 5 MG/ML VIAL 2.5 MG IV PUSH (02:33)
[2025-06-15] MEDS: ceFAZolin 1 GM in SODIUM CHLORIDE 0.9% IV 50 ML 100 ML IVPB ×3 (02:34→18:17)
[2025-06-15] MEDS: MORPHINE SULFATE (*CRX) 2 MG/ML INJ IV PUSH ×3 (02:34→21:21)
[2025-06-15 04:00] VITALS: BP 148/66; PULSE 89; RESP 18; TEMP 36.2; O2SAT 92
[2025-06-15 05:42] LABS: Cannabinoid Screen Urine Negative (Negative)
[2025-06-15 05:58] LABS: Hematocrit 40.2 % (37.0-47.0); Hemoglobin 13.1 g/dL (12.0-15.0); Immature Granulocyte Percent A 0.3 % (0-0.5); Immature Platelet Fraction Pct 2.5 % (0.9-11.2); Lymphocytes Absolute Auto 0.43 K/mm3 (0.9-3.2); Mean Corpuscular HGB Conc 32.6 g/dl (32-36); Mean Corpuscular Hemoglobin 31.9 pg (26-34); Mean Corpuscular Volume 97.8 fl (80-100); Nucleated Red Blood Cells Absolute Auto 0.000 K/mm3 (0.0-0.012); Nucleated Red Blood Cells Perc 0.0 % (0.0-0.2); Platelet Count Result 132 k/mm3 (150-375); Red Blood Count 4.11 M/mm3 (4.2-5.4); White Blood Count 5.9 K/mm3 (4.5-10.0)
[2025-06-15 06:19] LABS: Alanine Aminotransferase 14 U/L (6-35); Albumin Level 3.2 g/dL (3.5-5.1); Alkaline Phosphatase 100 U/L (38-126); Anion Gap 3 mmol/L (4-12); Aspartate Amino Transferase 29 U/L (14-36); Bilirubin,Total 0.5 mg/dL (0.2-1.3); Blood Urea Nitrogen 8 mg/dL (7-17); Calcium 8.4 mg/dL (8.4-10.2); Carbon Dioxide 29 mmol/L (22-30); Chloride 106 mmol/L (98-107); Estimated CRCL calculation 94 ml/min; Estimated Glomerular Filt Rate > 60; Glucose 130 mg/dL (65-110); Magnesium 1.7 mg/dL (1.6-2.3); Potassium 3.7 mmol/L (3.4-5.0); Sodium 138 mmol/L (137-145); Total Protein 5.6 g/dL (6.3-8.2)
--- NOTE | 2025-06-15 06:56 | PM.IMPN ---
Progress Note: A&P Assessment and Plan (1) Cellulitis of left lower extremity: Code(s): L03.116 - Cellulitis of left lower limb Status: Acute Assessment and Plan: LLE with abrasions, swelling, tenderness, warmth and erythema IV Ancef started in ER, continue for now--consider ABX change with concurrent suspected UTI with nausea Swelling may be partially dependent edema from staying in wheelchair around the clock including to sleep Will discuss with ID Pharm regarding oral coverage of cellulitis Pending blood cultures (2) UTI (urinary tract infection): Code(s): N39.0 - Urinary tract infection, site not specified Status: Acute Assessment and Plan: Abnormal UA with Nitrates, leukocyte esterase, urine bacteria and WBCs present without juan contamination Prior E.coli infection not resistant to Ancef Pending urine culture - continue IV abx (3) Hemiparesis affecting left side as late effect of cerebrovascular accident: Code(s): I69.354 - Hemiplegia and hemiparesis following cerebral infarction affecting left non-dominant side Status: Chronic Assessment and Plan: Prior CVA and brain aneurysm rupture leaving patient with left hemiparesis and wheelchair bound status (4) Narcotic dependence: Code(s): F11.20 - Opioid dependence, uncomplicated Status: Chronic Assessment and Plan: Implanted intrathecal pain pump Pain all over reported but worse with swollen leg and back Severe nausea also reported IV morphine 2 mg every 4 hour PRN severe pain for now (5) Wheelchair bound: Code(s): Z99.3 - Dependence on wheelchair Status: Acute Assessment and Plan: Patient unable to care for self well, case management consult for possible placement needs (6) Tobacco dependence due to cigarettes: Code(s): F17.210 - Nicotine dependence, cigarettes, uncomplicated Status: Acute Assessment and Plan: Nicotine patch available Subjective Date/time seen: 06/15/25 06:56 Interval history: 69-year-old female patient lives at home alone and is wheelchair-bound due to left-sided hemiparesis from prior CVA. Patient has resultant footdrop on the left side requiring use of a brace. Family member instructed patient not to wrap the leg too tightly and to change the wrap frequently but when this family member stop by to check on the patient the leg was still wrapped very tightly and there was swelling and erythema along with pain once the dressing was taken down. 06/15/2025 Patient sitting comfortably in bed at time of exam. Denies any chest pain, SOB, n/v or abd pain. Complaining of continued left lower leg and back pain, but pt states this is chronic but worse than usual. Currently being treated with Ancef for cellulitis of LLE - will discuss with ID pharmacist regarding oral options for coverage but will continue IV option today. Remains afebrile without leukocytosis, A&Ox3, no major electrolyte imbalances. Review of Systems Review of Systems: Pain all over, severe nausea, anxiety, unable to get comfortable, depressed Exam Narrative: GENERAL: Appears older than stated age, chronically ill-appearing, frail, non-toxic, very uncomfortable appearing HEAD: Normocephalic, atraumatic. RESPIRATORY: Airway patent, respirations nonlabored. Clear to auscultation bilaterally, no rales, rhonchi, wheezing. CARDIOVASCULAR: Regular rate and rhythm without murmurs, rubs, or gallops. Pedal pulses are intact MUSCULOSKELETAL: Limited ROM of LLE d/t hemiparesis. Diffuse swelling of LLE with circumferential erythema, warmth, weeping. Small abrasions to posterior calf region w/o large wounds or lacerations. Callous appearance on plantar surface of left foot. Diffuse tenderness and hypersensitivity throughout LLE. Slight erythema throughout RLE w/o significant warmth or abrasions. SKIN: Warm, dry, normal color. NEURO: A&O X3. Speech clear. Left sided upper and lower hemiparesis PSYCHIATRIC: highly anxious and sharp interaction Objective Data Vital Signs Vital Signs: Vital Signs - 24 hr 06/14/25 16:21 06/14/25 20:30 06/14/25 21:00 Temperature 98.3 F Pulse Rate 72 Respiratory Rate 16 Blood Pressure 92/48 L 102/67 104/61 Pulse Oximetry 100 Oxygen Delivery 06/14/25 21:18 06/14/25 21:22 06/14/25 22:00 Temperature 98.2 F 97.7 F Pulse Rate 78 127 H Respiratory Rate 23 H 18 Blood Pressure 106/61 106/61 127/46 L Pulse Oximetry 95 91 Oxygen Delivery 06/14/25 22:46 06/15/25 04:00 Temperature 97.2 F L Pulse Rate 89 Respiratory Rate 18 Blood Pressure 148/66 H Pulse Oximetry 92 Oxygen Delivery Room Air Intake/Output Intake/Output: Intake & Output 06/12/25 06/13/25 06/14/25 06/15/25 23:59 23:59 23:59 23:59 Intake Total 1550 0 Output Total 400 Balance 1550 -400 Meds/Results Medications: Active Medications Generic Name Dose Route Start Last Admin Trade Name Freq PRN Reason Stop Dose Admin Acetaminophen 650 mg 06/14/25 20:07 Acetaminophen 325 Mg Tablet PO Q4H PRN Mild Pain (1-3) or Fever Albuterol 2 puff 06/14/25 23:44 Albuterol Sulfate (*Sp) Aerosol 1 Puff INHALATION Q6HRT PRN Shortness Of Breath Or Wheezing Apixaban 2.5 mg 06/14/25 21:40 06/14/25 23:15 Apixaban 2.5 Mg Tablet PO 2.5 mg Q12HR KEIRY Administration Aspirin 81 mg 06/15/25 08:00 Aspirin 81 Mg Chewable Tablet PO DAILY@0800 KEIRY Atorvastatin Calcium 20 mg 06/14/25 23:55 06/15/25 00:40 Atorvastatin 20 Mg Tablet PO 20 mg QHS KEIRY Administration Buspirone HCl 5 mg 06/14/25 23:55 06/15/25 00:39 Buspirone Hcl 5 Mg Tablet PO 5 mg Q12HR KEIRY Administration Cyanocobalamin 500 mcg 06/15/25 09:00 Cyanocobalamin 500 Mcg Tablet PO DAILY [facility] Dextrose 12.5 gm 06/14/25 20:07 Dextrose 50% 25 Gm/50 Ml Syringe IV PUSH PRN PRN Hypoglycemia Protocol Escitalopram Oxalate 20 mg 06/14/25 23:55 06/15/25 00:39 Escitalopram Oxalate 10 Mg Tablet PO 20 mg HS KEIRY Administration Famotidine 20 mg 06/15/25 00:05 06/15/25 00:40 Famotidine 20 Mg Tablet PO 20 mg QHS KEIRY Administration Folic Acid 1 mg 06/15/25 09:00 Folic Acid 1 Mg Tablet PO DAILY KEIRY Glucagon 1 mg 06/14/25 20:07 Glucagon For Inj 1 Mg Vial IM PRN PRN Hypoglycemia Protocol Glucose 15 gm 06/14/25 20:07 Glucose Oral Gel 15 Gm Of Glucse In 37.5 Gm Tube PO PRN PRN Hypoglycemia Protocol Cefazolin Sodium 1 gm/ Sodium 50 mls @ 100 mls/hr 06/15/25 03:00 06/15/25 02:34 Chloride IVPB 100 mls/hr Q8H KEIRY Administration Dextrose 1,000 mls @ 100 mls/hr 06/14/25 20:07 Dextrose 5% 1,000 Ml IVPB PRN PRN Hypoglycemia Protocol Levetiracetam 1,000 mg 06/15/25 09:00 Levetiracetam 500 Mg Tablet PO QAM [facility] Levetiracetam 1,500 mg 06/14/25 23:55 06/15/25 00:38 Levetiracetam 500 Mg Tablet PO 1,500 mg QHS KEIRY Administration Lidocaine 2 patch 06/15/25 00:03 06/15/25 00:48 Lidocaine 5% Patch TRANSDERM 2 patch DAILY PRN Administration pain Midodrine 2.5 mg 06/15/25 00:05 06/15/25 00:39 Midodrine Hcl 2.5 Mg Tablet PO 2.5 mg Q12HR KEIRY Administration Morphine Sulfate 2 mg 06/15/25 02:16 06/15/25 02:34 Morphine Sulfate (*Crx) 2 Mg/Ml Inj IV PUSH 2 mg Q4H PRN Administration Pain Rated 7-10 Multivitamins/Minerals 1 tablet 06/15/25 09:00 Multivits W-Fe,Min Chewable Tablet PO DAILY [facility] Nicotine 1 patch 06/15/25 09:00 Nicotine (*Pbkc) 21 Mg Patch TRANSDERM DAILY [facility] Ondansetron HCl 4 mg 06/14/25 20:07 06/15/25 00:48 Ondansetron Inj 4 Mg/2 Ml Vial IV PUSH 4 mg Q4H PRN Administration Nausea Pantoprazole Sodium 40 mg 06/15/25 09:00 Pantoprazole 40 Mg Tablet PO QAM [facility] Solifenacin 5 mg 06/14/25 23:55 06/15/25 00:39 Solifenacin 5 Mg Tablet PO 5 mg HS [facility] Administration Tizanidine HCl 4 mg 06/15/25 00:00 Tizanidine Hcl 4 Mg Tablet PO TID PRN MUSCLE SPASMS Vitamin D 25 mcg 06/15/25 09:00 Cholecalciferol (Vitamin D3) 25 Mcg (1,000 Units) Tablet PO DAILY [facility] Radiology Results: ITS Impressions Venous Doppler Study 06/14/25 18:14 IMPRESSION: 1. No deep venous thrombosis within the visualized veins of the left lower extremity, as detailed above. Chest X-Ray 06/14/25 18:33 IMPRESSION: No focal infiltrate or effusion. Labs Labs: Laboratory Results - last 24 hr 06/14/25 06/14/25 06/14/25 18:13 18:14 18:14 WBC 6.3 RBC 4.73 Hgb 15.0 Hct 46.5 MCV 98.3 MCH 31.7 MCHC 32.3 RDW 12.2 Plt Count 173 MPV 10.1 Immature Gran % (Auto) 0.3 Neut % (Auto) 72.6 Lymph % (Auto) 17.6 L [place] % (Auto) 5.9 Eos % (Auto) 3.0 Baso % (Auto) 0.6 Lymph # (Auto) 1.11 [place] # (Auto) 0.4 Eos # (Auto) 0.2 Baso # (Auto) 0.0 Abs Immat Gran (auto) 0.02 Absolute Neuts (auto) 4.6 Absolute Nucleated RBC 0.000 Nucleated RBC % 0.0 % Immature Plt Fraction ESR 16 PT 14.2 INR 1.1 APTT 36.5 Sodium 139 Potassium 4.3 Chloride 103 Carbon Dioxide 31 H Anion Gap 5 BUN 13 Creatinine 0.53 L Estim Creat Clear Calc 80 Estimated GFR > 60 Glucose 88 Lactic Acid 1.2 Calcium 9.7 Magnesium Total Bilirubin 0.9 AST 25 ALT 16 Alkaline Phosphatase 107 C-Reactive Protein 1.0 NT-Pro-B Natriuret Pep 112 H Cancelled Total Protein 6.9 Albumin 4.1 Procalcitonin Urine Color Urine Appearance Urine pH Ur Specific [place] Urine Protein Urine Glucose (UA) Urine Ketones Ur Blood (Man) Urine Nitrate Urine Bilirubin Urine Urobilinogen Leukocyte Esterase Rfl Urine RBC Urine WBC Ur Squamous Epith Cells Urine Bacteria Urine Casts Urine Opiates Screen Urine Methadone Screen Ur Barbiturates Screen Ur Phencyclidine Scrn Ur Amphetamine Screen U Benzodiazepines Scrn Urine Cocaine Screen U Cannabinoids Screen 06/14/25 06/14/25 06/15/25 21:40 22:33 05:14 WBC RBC Hgb Hct MCV MCH MCHC RDW Plt Count MPV Immature Gran % (Auto) Neut % (Auto) Lymph % (Auto) [place] % (Auto) Eos % (Auto) Baso % (Auto) Lymph # (Auto) [place] # (Auto) Eos # (Auto) Baso # (Auto) Abs Immat Gran (auto) Absolute Neuts (auto) Absolute Nucleated RBC Nucleated RBC % % Immature Plt Fraction ESR PT INR APTT Sodium Potassium Chloride Carbon Dioxide Anion Gap BUN Creatinine Estim Creat Clear Calc Estimated GFR Glucose Lactic Acid Calcium Magnesium Total Bilirubin AST ALT Alkaline Phosphatase C-Reactive Protein 1.0 NT-Pro-B Natriuret Pep Total Protein Albumin Procalcitonin 0.0 Urine Color Yellow Urine Appearance Clear Urine pH 6.0 Ur Specific [place] 1.017 Urine Protein Negative Urine Glucose (UA) Negative Urine Ketones 1+ H Ur Blood (Man) Negative Urine Nitrate Positive H Urine Bilirubin Negative Urine Urobilinogen 0.2 Leukocyte Esterase Rfl 2+ H Urine RBC 0-2 Urine WBC 21-50 H Ur Squamous Epith Cells None seen Urine Bacteria 2+ H Urine Casts 0-2 Urine Opiates Screen Positive A Urine Methadone Screen Negative Ur Barbiturates Screen Negative Ur Phencyclidine Scrn Negative Ur Amphetamine Screen Negative U Benzodiazepines Scrn Negative Urine Cocaine Screen Negative U Cannabinoids Screen Negative 06/15/25 05:20 WBC 5.9 RBC 4.11 L Hgb 13.1 Hct 40.2 MCV 97.8 MCH 31.9 MCHC 32.6 RDW 12.0 Plt Count 132 L MPV 10.8 H Immature Gran % (Auto) 0.3 Neut % (Auto) 89.5 H Lymph % (Auto) 7.3 L [place] % (Auto) 2.7 Eos % (Auto) 0.0 Baso % (Auto) 0.2 Lymph # (Auto) 0.43 L [place] # (Auto) 0.2 Eos # (Auto) 0.0 Baso # (Auto) 0.0 Abs Immat Gran (auto) 0.02 Absolute Neuts (auto) 5.3 Absolute Nucleated RBC 0.000 Nucleated RBC % 0.0 % Immature Plt Fraction 2.5 ESR PT INR APTT Sodium 138 Potassium 3.7 Chloride 106 Carbon Dioxide 29 Anion Gap 3 L BUN 8 D Creatinine 0.44 L Estim Creat Clear Calc 94 Estimated GFR > 60 Glucose 130 H Lactic Acid Calcium 8.4 Magnesium 1.7 Total Bilirubin 0.5 AST 29 ALT 14 Alkaline Phosphatase 100 C-Reactive Protein NT-Pro-B Natriuret Pep Total Protein 5.6 L Albumin 3.2 L Procalcitonin Urine Color Urine Appearance Urine pH Ur Specific [place] Urine Protein Urine Glucose (UA) Urine Ketones Ur Blood (Man) Urine Nitrate Urine Bilirubin Urine Urobilinogen Leukocyte Esterase Rfl Urine RBC Urine WBC Ur Squamous Epith Cells Urine Bacteria Urine Casts Urine Opiates Screen Urine Methadone Screen Ur Barbiturates Screen Ur Phencyclidine Scrn Ur Amphetamine Screen U Benzodiazepines Scrn Urine Cocaine Screen U Cannabinoids Screen Quality VTE Prophylaxis VTE prophylaxis: pharmacologic ordered (apixaban)
[2025-06-15 08:00] VITALS: BP 144/60; PULSE 79; RESP 16; O2SAT 97
[2025-06-15] MEDS: CHOLECALCIFEROL (VITAMIN D3) 25 MCG (1,000 UNITS) TABLET PO (09:53)
[2025-06-15] MEDS: CYANOCOBALAMIN 500 MCG TABLET PO (09:53)
[2025-06-15] MEDS: APIXABAN 2.5 MG TABLET PO ×2 (09:53→20:53)
[2025-06-15] MEDS: NICOTINE (*PBKC) 21 MG PATCH 1 PATCH TRANSDERM (09:53)
[2025-06-15] MEDS: ASPIRIN 81 MG CHEWABLE TABLET PO (09:53)
[2025-06-15] MEDS: FOLIC ACID 1 MG TABLET PO (09:53)
[2025-06-15] MEDS: MULTIVITS W-FE,MIN CHEWABLE TABLET 1 TABLET PO (09:54)
[2025-06-15] MEDS: PANTOPRAZOLE 40 MG TABLET PO (09:54)
[2025-06-15 11:59] VITALS: BP 126/60; PULSE 65; RESP 16; O2SAT 99
[2025-06-15 15:28] VITALS: BP 131/48; PULSE 66; O2SAT 100
[2025-06-15 20:00] VITALS: BP 121/46; PULSE 63; RESP 18; TEMP 36.4; O2SAT 99
[2025-06-16] VITALS: BP 122/51; PULSE 62; RESP 18; TEMP 36.5; O2SAT 97
[2025-06-16] MEDS: ceFAZolin 1 GM in SODIUM CHLORIDE 0.9% IV 50 ML 100 ML IVPB ×3 (02:58→18:18)
[2025-06-16 04:00] VITALS: BP 125/59; PULSE 60; RESP 18; TEMP 36.6; O2SAT 98
[2025-06-16 04:27] LABS: Hematocrit 38.2 % (37.0-47.0); Hemoglobin 12.0 g/dL (12.0-15.0); Immature Granulocyte Percent A 0.2 % (0-0.5); Immature Platelet Fraction Pct 2.5 % (0.9-11.2); Lymphocytes Absolute Auto 0.96 K/mm3 (0.9-3.2); Mean Corpuscular HGB Conc 31.4 g/dl (32-36); Mean Corpuscular Hemoglobin 31.6 pg (26-34); Mean Corpuscular Volume 100.5 fl (80-100); Nucleated Red Blood Cells Absolute Auto 0.000 K/mm3 (0.0-0.012); Nucleated Red Blood Cells Perc 0.0 % (0.0-0.2); Platelet Count Result 124 k/mm3 (150-375); Red Blood Count 3.80 M/mm3 (4.2-5.4); White Blood Count 5.1 K/mm3 (4.5-10.0)
[2025-06-16 04:38] LABS: Alanine Aminotransferase 23 U/L (6-35); Albumin Level 2.8 g/dL (3.5-5.1); Alkaline Phosphatase 93 U/L (38-126); Anion Gap -2 mmol/L (4-12); Aspartate Amino Transferase 46 U/L (14-36); Bilirubin,Total 0.4 mg/dL (0.2-1.3); Blood Urea Nitrogen 5 mg/dL (7-17); Calcium 8.4 mg/dL (8.4-10.2); Carbon Dioxide 34 mmol/L (22-30); Chloride 107 mmol/L (98-107); Estimated CRCL calculation 92 ml/min; Estimated Glomerular Filt Rate > 60; Glucose 96 mg/dL (65-110); Magnesium 1.9 mg/dL (1.6-2.3); Potassium 3.4 mmol/L (3.4-5.0); Sodium 139 mmol/L (137-145); Total Protein 4.9 g/dL (6.3-8.2)
--- NOTE | 2025-06-16 07:05 | P.PNIM_ITS ---
Progress Note: A&P Assessment and Plan (1) Cellulitis of left lower extremity: Code(s): L03.116 - Cellulitis of left lower limb Status: Acute Assessment and Plan: * LLE with abrasions, swelling, tenderness, warmth and erythema * IV Ancef started in ER, continue for now--consider ABX change with concurrent suspected UTI with nausea * Swelling may be partially dependent edema from staying in wheelchair around th e clock including to sleep * Will discuss with ID Pharm regarding oral coverage of cellulitis * Pending blood cultures (2) UTI (urinary tract infection): Code(s): N39.0 - Urinary tract infection, site not specified Status: Acute Assessment and Plan: * Abnormal UA with Nitrates, leukocyte esterase, urine bacteria and WBCs present without juan contamination * Prior E.coli infection not resistant to Ancef * Pending urine culture - continue IV abx (3) Hemiparesis affecting left side as late effect of cerebrovascular accident: Code(s): I69.354 - Hemiplegia and hemiparesis following cerebral infarction affecting left non-dominant side Status: Chronic Assessment and Plan: * Prior CVA and brain aneurysm rupture leaving patient with left hemiparesis and wheelchair bound status (4) Narcotic dependence: Code(s): F11.20 - Opioid dependence, uncomplicated Status: Chronic Assessment and Plan: * Implanted intrathecal pain pump * Pain all over reported but worse with swollen leg and back * Severe nausea also reported * IV morphine 2 mg every 4 hour PRN severe pain for now (5) Wheelchair bound: Code(s): Z99.3 - Dependence on wheelchair Status: Acute Assessment and Plan: * Patient unable to care for self well, case management consult for possible placement needs (6) Tobacco dependence due to cigarettes: Code(s): F17.210 - Nicotine dependence, cigarettes, uncomplicated Status: Acute Assessment and Plan: * Nicotine patch available Subjective Date/time seen: 06/16/25 07:05 Interval history: 69-year-old female patient lives at home alone and is wheelchair-bound due to left-sided hemiparesis from prior CVA. Patient has resultant footdrop on the left side requiring use of a brace. Family member instructed patient not to wrap the leg too tightly and to change the wrap frequently but when this family member stop by to check on the patient the leg was still wrapped very tightly and there was swelling and erythema along with pain once the dressing was taken down. 06/16/2025 Patient sitting comfortably in bed at time of exam. Denies any chest pain, SOB, n/v or abd pain today. Actually reports her LLE feels better today. Swelling and redness has improved as well, remains neurovascularly intact. Pending urine/blood cultures - can likely d/c once these have resulted. No other complaints or concerns. Remains afebrile without leukocytosis, A&Ox3. Review of Systems Review of Systems: Pain all over, mild nausea, unable to get comfortable, depressed Exam Narrative: GENERAL: Appears older than stated age, chronically ill-appearing, frail, non- toxic, very uncomfortable appearing HEAD: Normocephalic, atraumatic. RESPIRATORY: Airway patent, respirations nonlabored. Clear to auscultation bilaterally, no rales, rhonchi, wheezing. CARDIOVASCULAR: Regular rate and rhythm without murmurs, rubs, or gallops. Pedal pulses are intact MUSCULOSKELETAL: Limited ROM of LLE d/t hemiparesis. Reduced swelling of LLE with circumferential erythema, warmth, without weeping. Small abrasions to posterior calf region w/o large wounds or lacerations. Callous appearance on plantar surface of left foot. Improved tenderness and hypersensitivity throughout LLE. Slight erythema throughout RLE w/o significant warmth or abrasions. SKIN: Warm, dry, normal color. NEURO: A&O X3. Speech clear. Left sided upper and lower hemiparesis PSYCHIATRIC: highly anxious and sharp interaction Objective Data Vital Signs Vital Signs: Vital Signs - 24 hr 06/15/25 08:00 06/15/25 09:54 06/15/25 11:59 Temperature Pulse Rate 79 65 Respiratory Rate 16 16 Blood Pressure 144/60 H 126/60 Pulse Oximetry 97 99 Oxygen Delivery Room Air 06/15/25 15:28 06/15/25 20:00 06/15/25 20:00 Temperature 97.5 F L Pulse Rate 66 63 Respiratory Rate 18 Blood Pressure 131/48 L 121/46 L Pulse Oximetry 100 99 Oxygen Delivery Room Air 06/16/25 00:00 06/16/25 04:00 Temperature 97.7 F 97.8 F Pulse Rate 62 60 Respiratory Rate 18 18 Blood Pressure 122/51 L 125/59 L Pulse Oximetry 97 98 Oxygen Delivery Intake/Output Intake/Output: Intake & Output 06/13/25 06/14/25 06/15/25 06/16/25 23:59 23:59 23:59 23:59 Intake Total 1550 740 250 Output Total 1150 Balance 1550 -410 250 Meds/Results Medications: Active Medications Generic Name Dose Route Start Last Admin Trade Name Freq PRN Reason Stop Dose Admin Acetaminophen 650 mg 06/14/25 20:07 Acetaminophen 325 Mg Tablet PO Q4H PRN Mild Pain (1-3) or Fever Albuterol 2 puff 06/14/25 23:44 Albuterol Sulfate (*Sp) Aerosol 1 Puff INHALATION Q6HRT PRN Shortness Of Breath Or Wheezing Apixaban 2.5 mg 06/14/25 21:40 06/15/25 20:53 Apixaban 2.5 Mg Tablet PO 2.5 mg Q12HR KEIRY Administration Aspirin 81 mg 06/15/25 08:00 06/15/25 09:53 Aspirin 81 Mg Chewable Tablet PO 81 mg DAILY@0800 KEIRY Administration Atorvastatin Calcium 20 mg 06/14/25 23:55 06/15/25 20:52 Atorvastatin 20 Mg Tablet PO 20 mg QHS KEIRY Administration Buspirone HCl 5 mg 06/14/25 23:55 06/15/25 20:53 Buspirone Hcl 5 Mg Tablet PO 5 mg Q12HR KEIRY Administration Cyanocobalamin 500 mcg 06/15/25 09:00 06/15/25 09:53 Cyanocobalamin 500 Mcg Tablet PO 500 mcg DAILY KEIRY Administration Dextrose 12.5 gm 06/14/25 20:07 Dextrose 50% 25 Gm/50 Ml Syringe IV PUSH PRN PRN Hypoglycemia Protocol Escitalopram Oxalate 20 mg 06/14/25 23:55 06/15/25 20:53 Escitalopram Oxalate 10 Mg Tablet PO 20 mg HS KEIRY Administration Famotidine 20 mg 06/15/25 00:05 06/15/25 20:52 Famotidine 20 Mg Tablet PO 20 mg QHS KEIRY Administration Folic Acid 1 mg 06/15/25 09:00 06/15/25 09:53 Folic Acid 1 Mg Tablet PO 1 mg DAILY KEIRY Administration Glucagon 1 mg 06/14/25 20:07 Glucagon For Inj 1 Mg Vial IM PRN PRN Hypoglycemia Protocol Glucose 15 gm 06/14/25 20:07 Glucose Oral Gel 15 Gm Of Glucse In 37.5 Gm Tube PO PRN PRN Hypoglycemia Protocol Cefazolin Sodium 1 gm/ Sodium 50 mls @ 100 mls/hr 06/15/25 03:00 06/16/25 03:28 Chloride IVPB Infused Q8H KEIRY Infusion Dextrose 1,000 mls @ 100 mls/hr 06/14/25 20:07 Dextrose 5% 1,000 Ml IVPB PRN PRN Hypoglycemia Protocol Levetiracetam 1,000 mg 06/15/25 09:00 06/15/25 09:54 Levetiracetam 500 Mg Tablet PO 1,000 mg QAM KEIRY Administration Levetiracetam 1,500 mg 06/14/25 23:55 06/15/25 20:53 Levetiracetam 500 Mg Tablet PO 1,500 mg QHS KEIRY Administration Lidocaine 2 patch 06/15/25 00:03 06/15/25 00:48 Lidocaine 5% Patch TRANSDERM 2 patch DAILY PRN Administration pain Midodrine 2.5 mg 06/15/25 00:05 06/15/25 20:53 Midodrine Hcl 2.5 Mg Tablet PO 2.5 mg Q12HR KEIRY Administration Morphine Sulfate 2 mg 06/15/25 02:16 06/15/25 21:21 Morphine Sulfate (*Crx) 2 Mg/Ml Inj IV PUSH 2 mg Q4H PRN Administration Pain Rated 7-10 Multivitamins/Minerals 1 tablet 06/15/25 09:00 06/15/25 09:54 Multivits W-Fe,Min Chewable Tablet PO 1 tablet DAILY KEIRY Administration Nicotine 1 patch 06/15/25 09:00 06/15/25 09:53 Nicotine (*Pbkc) 21 Mg Patch TRANSDERM 1 patch DAILY KEIRY Administration Ondansetron HCl 4 mg 06/14/25 20:07 06/15/25 00:48 Ondansetron Inj 4 Mg/2 Ml Vial IV PUSH 4 mg Q4H PRN Administration Nausea Pantoprazole Sodium 40 mg 06/15/25 09:00 06/15/25 09:54 Pantoprazole 40 Mg Tablet PO 40 mg QAM KEIRY Administration Solifenacin 5 mg 06/14/25 23:55 06/15/25 20:53 Solifenacin 5 Mg Tablet PO 5 mg HS KEIRY Administration Tizanidine HCl 4 mg 06/15/25 00:00 Tizanidine Hcl 4 Mg Tablet PO TID PRN MUSCLE SPASMS Vitamin D 25 mcg 06/15/25 09:00 06/15/25 09:53 Cholecalciferol (Vitamin D3) 25 Mcg (1,000 Units) Tablet PO 25 mcg DAILY KEIRY Administration Radiology Results: ITS Impressions Venous Doppler Study 06/14/25 18:14 IMPRESSION: 1. No deep venous thrombosis within the visualized veins of the left lower extremity, as detailed above. Chest X-Ray 06/14/25 18:33 IMPRESSION: No focal infiltrate or effusion. Labs Labs: Laboratory Results - last 24 hr 06/16/25 04:01 WBC 5.1 RBC 3.80 L Hgb 12.0 Hct 38.2 MCV 100.5 H MCH 31.6 MCHC 31.4 L RDW 12.0 Plt Count 124 L MPV 10.2 Immature Gran % (Auto) 0.2 Neut % (Auto) 69.8 Lymph % (Auto) 19.0 [place] % (Auto) 5.3 Eos % (Auto) 5.3 H Baso % (Auto) 0.4 Lymph # (Auto) 0.96 [place] # (Auto) 0.3 Eos # (Auto) 0.3 Baso # (Auto) 0.0 Abs Immat Gran (auto) 0.01 Absolute Neuts (auto) 3.5 Absolute Nucleated RBC 0.000 Nucleated RBC % 0.0 % Immature Plt Fraction 2.5 Sodium 139 Potassium 3.4 Chloride 107 Carbon Dioxide 34 H Anion Gap -2 L BUN 5 L Creatinine 0.45 L Estim Creat Clear Calc 92 Estimated GFR > 60 Glucose 96 Calcium 8.4 Magnesium 1.9 Total Bilirubin 0.4 AST 46 H ALT 23 Alkaline Phosphatase 93 Total Protein 4.9 L Albumin 2.8 L Quality VTE Prophylaxis VTE prophylaxis: pharmacologic ordered (apixaban)
[2025-06-16] MEDS: NICOTINE (*PBKC) 21 MG PATCH 1 PATCH TRANSDERM (09:01)
[2025-06-16] MEDS: CHOLECALCIFEROL (VITAMIN D3) 25 MCG (1,000 UNITS) TABLET PO (09:02)
[2025-06-16] MEDS: MIDODRINE HCL 2.5 MG TABLET PO ×2 (09:02→20:20)
[2025-06-16] MEDS: PANTOPRAZOLE 40 MG TABLET PO (09:02)
[2025-06-16] MEDS: FOLIC ACID 1 MG TABLET PO (09:02)
[2025-06-16] MEDS: MULTIVITS W-FE,MIN CHEWABLE TABLET 1 TABLET PO (09:02)
[2025-06-16] MEDS: ASPIRIN 81 MG CHEWABLE TABLET PO (09:02)
[2025-06-16] MEDS: CYANOCOBALAMIN 500 MCG TABLET PO (09:03)
[2025-06-16] MEDS: APIXABAN 2.5 MG TABLET PO ×2 (09:03→20:20)
[2025-06-16 12:00] VITALS: BP 122/58; PULSE 60; RESP 17; TEMP 36.5; O2SAT 97
[2025-06-16 16:00] VITALS: BP 120/56; PULSE 66; RESP 17; TEMP 36.4; O2SAT 97
[2025-06-16 20:00] VITALS: BP 128/51; PULSE 73; RESP 18; TEMP 36.1; O2SAT 96
[2025-06-16] MEDS: ATORVASTATIN 20 MG TABLET PO (20:20)
[2025-06-16] MEDS: FAMOTIDINE 20 MG TABLET PO (20:20)
[2025-06-16] MEDS: ESCITALOPRAM OXALATE 10 MG TABLET 20 MG PO (20:20)
[2025-06-16] MEDS: SOLIFENACIN 5 MG TABLET PO (20:21)
[2025-06-17] VITALS: BP 123/59; PULSE 71; RESP 18; TEMP 36.2; O2SAT 95
[2025-06-17] MEDS: ceFAZolin 1 GM in SODIUM CHLORIDE 0.9% IV 50 ML 100 ML IVPB (03:00)
[2025-06-17 04:00] VITALS: BP 122/59; PULSE 77; RESP 16; TEMP 36.4; O2SAT 94
--- NOTE | 2025-06-17 05:00 | PC.NURSE ---
COMPUTER DOWN TIME FROM [id number]
[2025-06-17 05:49] LABS: Hematocrit 37.0 % (37.0-47.0); Hemoglobin 11.7 g/dL (12.0-15.0); Immature Granulocyte Percent A 0.2 % (0-0.5); Lymphocytes Absolute Auto 1.34 K/mm3 (0.9-3.2); Mean Corpuscular HGB Conc 31.6 g/dl (32-36); Mean Corpuscular Hemoglobin 31.7 pg (26-34); Mean Corpuscular Volume 100.3 fl (80-100); Nucleated Red Blood Cells Absolute Auto 0.000 K/mm3 (0.0-0.012); Nucleated Red Blood Cells Perc 0.0 % (0.0-0.2); Platelet Count Result 121 k/mm3 (150-375); Red Blood Count 3.69 M/mm3 (4.2-5.4); White Blood Count 4.4 K/mm3 (4.5-10.0)
[2025-06-17 07:06] LABS: Alanine Aminotransferase 14 U/L (6-35); Albumin Level 2.6 g/dL (3.5-5.1); Alkaline Phosphatase 85 U/L (38-126); Anion Gap 0 mmol/L (4-12); Aspartate Amino Transferase 22 U/L (14-36); Bilirubin,Total 0.4 mg/dL (0.2-1.3); Blood Urea Nitrogen 11 mg/dL (7-17); Calcium 8.2 mg/dL (8.4-10.2); Carbon Dioxide 34 mmol/L (22-30); Chloride 104 mmol/L (98-107); Estimated CRCL calculation 89 ml/min; Estimated Glomerular Filt Rate > 60; Glucose 80 mg/dL (65-110); Magnesium 2.0 mg/dL (1.6-2.3); Potassium 3.4 mmol/L (3.4-5.0); Sodium 138 mmol/L (137-145); Total Protein 4.7 g/dL (6.3-8.2)
[2025-06-17 08:00] VITALS: BP 126/58; PULSE 74; RESP 16; TEMP 36.5; O2SAT 94
[2025-06-17] MEDS: MIDODRINE HCL 2.5 MG TABLET PO ×2 (09:14→20:58)
[2025-06-17] MEDS: APIXABAN 2.5 MG TABLET PO ×2 (09:14→20:58)
[2025-06-17] MEDS: PANTOPRAZOLE 40 MG TABLET PO (09:15)
[2025-06-17] MEDS: CHOLECALCIFEROL (VITAMIN D3) 25 MCG (1,000 UNITS) TABLET PO (09:15)
[2025-06-17] MEDS: CYANOCOBALAMIN 500 MCG TABLET PO (09:15)
[2025-06-17] MEDS: FOLIC ACID 1 MG TABLET PO (09:15)
[2025-06-17] MEDS: ASPIRIN 81 MG CHEWABLE TABLET PO (09:15)
[2025-06-17] MEDS: MULTIVITS W-FE,MIN CHEWABLE TABLET 1 TABLET PO (09:15)
[2025-06-17] MEDS: NICOTINE (*PBKC) 21 MG PATCH 1 PATCH TRANSDERM (09:20)
--- NOTE | 2025-06-17 10:49 | P.PNIM_ITS ---
Progress Note: A&P Assessment and Plan (1) Cellulitis of left lower extremity: Code(s): L03.116 - Cellulitis of left lower limb Status: Acute Assessment and Plan: * LLE with abrasions, swelling, tenderness, warmth and erythema * IV Ancef started in ER, continue for now--consider ABX change with concurrent suspected UTI with nausea * Swelling may be partially dependent edema from staying in wheelchair around th e clock including to sleep * Will discuss with ID Pharm regarding oral coverage of cellulitis * Pending blood cultures * Remains afebrile without leukocytosis (2) UTI (urinary tract infection): Code(s): N39.0 - Urinary tract infection, site not specified Status: Acute Assessment and Plan: * Abnormal UA with Nitrates, leukocyte esterase, urine bacteria and WBCs present without juan contamination * Prior E.coli infection not resistant to Ancef * Urine cultures shows growth of Gram (-) bacilli * Discussed with ID pharmacist - agree like Augmentin will be best coverage for UTI as well as Cellulitis (3) Hemiparesis affecting left side as late effect of cerebrovascular accident: Code(s): I69.354 - Hemiplegia and hemiparesis following cerebral infarction affecting left non-dominant side Status: Chronic Assessment and Plan: * Prior CVA and brain aneurysm rupture leaving patient with left hemiparesis and wheelchair bound status (4) Narcotic dependence: Code(s): F11.20 - Opioid dependence, uncomplicated Status: Chronic Assessment and Plan: * Implanted intrathecal pain pump * Pain all over reported but worse with swollen leg and back * Severe nausea also reported * IV morphine 2 mg every 4 hour PRN severe pain for now (5) Wheelchair bound: Code(s): Z99.3 - Dependence on wheelchair Status: Acute Assessment and Plan: * Patient unable to care for self well, case management consult for possible placement needs (6) Tobacco dependence due to cigarettes: Code(s): F17.210 - Nicotine dependence, cigarettes, uncomplicated Status: Acute Assessment and Plan: * Nicotine patch available Subjective Date/time seen: 06/17/25 10:49 Interval history: 69-year-old female patient lives at home alone and is wheelchair-bound due to left-sided hemiparesis from prior CVA. Patient has resultant footdrop on the left side requiring use of a brace. Family member instructed patient not to wrap the leg too tightly and to change the wrap frequently but when this family member stop by to check on the patient the leg was still wrapped very tightly and there was swelling and erythema along with pain once the dressing was taken down. 06/17/2025 Patient sitting comfortably in bed at time of exam. Denies any chest pain, SOB, n/v or abd pain today. Erythema/swelling continues to improve. Remains afebrile without leukocytosis. Urine culture shows growth of Gram (-) bacilli - discussed with ID pharmacist, agree that switching to Augmentin would be best coverage for UTI and Cellulitis. Continue to work with CC regarding SNF placement. Review of Systems Review of Systems: Pain all over, mild nausea, unable to get comfortable, depressed Exam Narrative: GENERAL: Appears older than stated age, chronically ill-appearing, frail, non- toxic, very uncomfortable appearing HEAD: Normocephalic, atraumatic. RESPIRATORY: Airway patent, respirations nonlabored. Clear to auscultation bilaterally, no rales, rhonchi, wheezing. CARDIOVASCULAR: Regular rate and rhythm without murmurs, rubs, or gallops. Pedal pulses are intact MUSCULOSKELETAL: Limited ROM of LLE d/t hemiparesis. Reduced swelling of LLE with circumferential erythema, warmth, without weeping. Small abrasions to posterior calf region w/o large wounds or lacerations. Callous appearance on plantar surface of left foot. Improved tenderness and hypersensitivity throughout LLE. Slight erythema throughout RLE w/o significant warmth or abrasions. SKIN: Warm, dry, normal color. NEURO: A&O X3. Speech clear. Left sided upper and lower hemiparesis PSYCHIATRIC: highly anxious and sharp interaction Objective Data Vital Signs Vital Signs: Vital Signs - 24 hr 06/16/25 12:00 06/16/25 16:00 06/16/25 20:00 Temperature 97.7 F 97.6 F 97 F L Pulse Rate 60 66 73 Respiratory Rate 17 17 18 Blood Pressure 122/58 L 120/56 L 128/51 L Pulse Oximetry 97 97 96 06/17/25 00:00 06/17/25 04:00 06/17/25 08:00 Temperature 97.2 F L 97.5 F L 97.7 F Pulse Rate 71 77 74 Respiratory Rate 18 16 16 Blood Pressure 123/59 L 122/59 L 126/58 L Pulse Oximetry 95 94 94 Intake/Output Intake/Output: Intake & Output 06/14/25 06/15/25 06/16/25 06/17/25 23:59 23:59 23:59 23:59 Intake Total 1550 740 350 970 Output Total 1150 400 600 Balance 1037 -515 -66 370 Meds/Results Medications: Active Medications Generic Name Dose Route Start Last Admin Trade Name Freq PRN Reason Stop Dose Admin Acetaminophen 650 mg 06/14/25 20:07 Acetaminophen 325 Mg Tablet PO Q4H PRN Mild Pain (1-3) or Fever Albuterol 2 puff 06/14/25 23:44 Albuterol Sulfate (*Sp) Aerosol 1 Puff INHALATION Q6HRT PRN Shortness Of Breath Or Wheezing Amoxicillin/Clavulanate Potassium 1 tablet 06/17/25 09:00 06/17/25 09:14 Amoxicillin/Clavulanate K 875-125 Mg Tab PO 06/21/25 21:01 1 tablet Q12HR KEIRY Administration Apixaban 2.5 mg 06/14/25 21:40 06/17/25 09:14 Apixaban 2.5 Mg Tablet PO 2.5 mg Q12HR KEIRY Administration Aspirin 81 mg 06/15/25 08:00 06/17/25 09:15 Aspirin 81 Mg Chewable Tablet PO 81 mg DAILY@0800 KEIRY Administration Atorvastatin Calcium 20 mg 06/14/25 23:55 06/16/25 20:20 Atorvastatin 20 Mg Tablet PO 20 mg QHS KEIRY Administration Buspirone HCl 5 mg 06/14/25 23:55 06/17/25 09:15 Buspirone Hcl 5 Mg Tablet PO 5 mg Q12HR KEIRY Administration Cyanocobalamin 500 mcg 06/15/25 09:00 06/17/25 09:15 Cyanocobalamin 500 Mcg Tablet PO 500 mcg DAILY KEIRY Administration Dextrose 12.5 gm 06/14/25 20:07 Dextrose 50% 25 Gm/50 Ml Syringe IV PUSH PRN PRN Hypoglycemia Protocol Escitalopram Oxalate 20 mg 06/14/25 23:55 06/16/25 20:20 Escitalopram Oxalate 10 Mg Tablet PO 20 mg HS KEIRY Administration Famotidine 20 mg 06/15/25 00:05 06/16/25 20:20 Famotidine 20 Mg Tablet PO 20 mg QHS KEIRY Administration Folic Acid 1 mg 06/15/25 09:00 06/17/25 09:15 Folic Acid 1 Mg Tablet PO 1 mg DAILY KEIRY Administration Glucagon 1 mg 06/14/25 20:07 Glucagon For Inj 1 Mg Vial IM PRN PRN Hypoglycemia Protocol Glucose 15 gm 06/14/25 20:07 Glucose Oral Gel 15 Gm Of Glucse In 37.5 Gm Tube PO PRN PRN Hypoglycemia Protocol Dextrose 1,000 mls @ 100 mls/hr 06/14/25 20:07 Dextrose 5% 1,000 Ml IVPB PRN PRN Hypoglycemia Protocol Levetiracetam 1,000 mg 06/15/25 09:00 06/17/25 09:15 Levetiracetam 500 Mg Tablet PO 1,000 mg QAM KEIRY Administration Levetiracetam 1,500 mg 06/14/25 23:55 06/16/25 20:20 Levetiracetam 500 Mg Tablet PO 1,500 mg QHS KEIRY Administration Lidocaine 2 patch 06/15/25 00:03 06/15/25 00:48 Lidocaine 5% Patch TRANSDERM 2 patch DAILY PRN Administration pain Midodrine 2.5 mg 06/15/25 00:05 06/17/25 09:14 Midodrine Hcl 2.5 Mg Tablet PO 2.5 mg Q12HR KEIRY Administration Morphine Sulfate 2 mg 06/15/25 02:16 06/15/25 21:21 Morphine Sulfate (*Crx) 2 Mg/Ml Inj IV PUSH 2 mg Q4H PRN Administration Pain Rated 7-10 Multivitamins/Minerals 1 tablet 06/15/25 09:00 06/17/25 09:15 Multivits W-Fe,Min Chewable Tablet PO 1 tablet DAILY KEIRY Administration Nicotine 1 patch 06/15/25 09:00 06/17/25 09:20 Nicotine (*Pbkc) 21 Mg Patch TRANSDERM 1 patch DAILY KEIRY Administration Ondansetron HCl 4 mg 06/14/25 20:07 06/15/25 00:48 Ondansetron Inj 4 Mg/2 Ml Vial IV PUSH 4 mg Q4H PRN Administration Nausea Pantoprazole Sodium 40 mg 06/15/25 09:00 06/17/25 09:15 Pantoprazole 40 Mg Tablet PO 40 mg QAM KEIRY Administration Solifenacin 5 mg 06/14/25 23:55 06/16/25 20:21 Solifenacin 5 Mg Tablet PO 5 mg HS KEIRY Administration Tizanidine HCl 4 mg 06/15/25 00:00 Tizanidine Hcl 4 Mg Tablet PO TID PRN MUSCLE SPASMS Vitamin D 25 mcg 06/15/25 09:00 06/17/25 09:15 Cholecalciferol (Vitamin D3) 25 Mcg (1,000 Units) Tablet PO 25 mcg DAILY KEIRY Administration Radiology Results: ITS Impressions Venous Doppler Study 06/14/25 18:14 IMPRESSION: 1. No deep venous thrombosis within the visualized veins of the left lower extremity, as detailed above. Chest X-Ray 06/14/25 18:33 IMPRESSION: No focal infiltrate or effusion. Labs Labs: Laboratory Results - last 24 hr 06/17/25 04:48 WBC 4.4 L RBC 3.69 L Hgb 11.7 L Hct 37.0 MCV 100.3 H MCH 31.7 MCHC 31.6 L RDW 11.9 Plt Count 121 L MPV 10.8 H Immature Gran % (Auto) 0.2 Neut % (Auto) 51.5 Lymph % (Auto) 30.4 [place] % (Auto) 6.1 Eos % (Auto) 11.1 H Baso % (Auto) 0.7 Lymph # (Auto) 1.34 [place] # (Auto) 0.3 Eos # (Auto) 0.5 H Baso # (Auto) 0.0 Abs Immat Gran (auto) 0.01 Absolute Neuts (auto) 2.3 Absolute Nucleated RBC 0.000 Nucleated RBC % 0.0 Sodium 138 Potassium 3.4 Chloride 104 Carbon Dioxide 34 H Anion Gap 0 L BUN 11 D Creatinine 0.47 L Estim Creat Clear Calc 89 Estimated GFR > 60 Glucose 80 Calcium 8.2 L Magnesium 2.0 Total Bilirubin 0.4 AST 22 ALT 14 Alkaline Phosphatase 85 Total Protein 4.7 L Albumin 2.6 L Quality VTE Prophylaxis VTE prophylaxis: pharmacologic ordered (apixaban)
[2025-06-17 16:00] VITALS: BP 122/59; PULSE 63; RESP 17; TEMP 36.4; O2SAT 97
[2025-06-17] MEDS: HYDROcodone/acetaminophen (*CRX) 5-325 MG TABLET 1 TAB PO (17:01)
[2025-06-17 20:00] VITALS: BP 119/58; PULSE 65; RESP 18; TEMP 36.6; O2SAT 97; O2SAT 98
[2025-06-17] MEDS: ESCITALOPRAM OXALATE 10 MG TABLET 20 MG PO (20:58)
[2025-06-17] MEDS: ATORVASTATIN 20 MG TABLET PO (20:58)
[2025-06-17] MEDS: LIDOCAINE 5% PATCH 2 PATCH TRANSDERM (20:59)
[2025-06-17] MEDS: SOLIFENACIN 5 MG TABLET PO (20:59)
[2025-06-17] MEDS: FAMOTIDINE 20 MG TABLET PO (20:59)
[2025-06-18] VITALS: BP 121/55; PULSE 61; RESP 16; TEMP 36.8; O2SAT 95
[2025-06-18 04:00] VITALS: BP 121/60; PULSE 62; RESP 18; TEMP 36.6; O2SAT 96
[2025-06-18 04:49] LABS: Hematocrit 36.8 % (37.0-47.0); Hemoglobin 11.9 g/dL (12.0-15.0); Immature Granulocyte Percent A 0.2 % (0-0.5); Immature Platelet Fraction Pct 2.3 % (0.9-11.2); Lymphocytes Absolute Auto 1.21 K/mm3 (0.9-3.2); Mean Corpuscular HGB Conc 32.3 g/dl (32-36); Mean Corpuscular Hemoglobin 32.1 pg (26-34); Mean Corpuscular Volume 99.2 fl (80-100); Nucleated Red Blood Cells Absolute Auto 0.000 K/mm3 (0.0-0.012); Nucleated Red Blood Cells Perc 0.0 % (0.0-0.2); Platelet Count Result 132 k/mm3 (150-375); Red Blood Count 3.71 M/mm3 (4.2-5.4); White Blood Count 4.6 K/mm3 (4.5-10.0)
[2025-06-18 05:17] LABS: Alanine Aminotransferase 13 U/L (6-35); Albumin Level 2.7 g/dL (3.5-5.1); Alkaline Phosphatase 73 U/L (38-126); Anion Gap 1 mmol/L (4-12); Aspartate Amino Transferase 24 U/L (14-36); Bilirubin,Total 0.4 mg/dL (0.2-1.3); Blood Urea Nitrogen 12 mg/dL (7-17); Calcium 8.2 mg/dL (8.4-10.2); Carbon Dioxide 32 mmol/L (22-30); Chloride 105 mmol/L (98-107); Estimated CRCL calculation 80 ml/min; Estimated Glomerular Filt Rate > 60; Glucose 136 mg/dL (65-110); Magnesium 1.8 mg/dL (1.6-2.3); Potassium 3.5 mmol/L (3.4-5.0); Sodium 138 mmol/L (137-145); Total Protein 4.9 g/dL (6.3-8.2)
--- NOTE | 2025-06-18 07:13 | P.PNIM_ITS ---
Progress Note: A&P Assessment and Plan (1) Cellulitis of left lower extremity: Code(s): L03.116 - Cellulitis of left lower limb Status: Acute Assessment and Plan: * LLE with abrasions, swelling, tenderness, warmth and erythema * IV Ancef started in ER, continue for now--consider ABX change with concurrent suspected UTI with nausea * Swelling may be partially dependent edema from staying in wheelchair around th e clock including to sleep * Will discuss with ID Pharm regarding oral coverage of cellulitis * Preliminary results from blood cultures shows growth to date * Remains afebrile without leukocytosis * Continues to improve (2) UTI (urinary tract infection): Code(s): N39.0 - Urinary tract infection, site not specified Status: Acute Assessment and Plan: * Abnormal UA with Nitrates, leukocyte esterase, urine bacteria and WBCs present without juan contamination * Prior E.coli infection not resistant to Ancef * Urine cultures shows growth of Gram (-) bacilli * Discussed with ID pharmacist - agree like Augmentin will be best coverage for UTI as well as Cellulitis (3) Hemiparesis affecting left side as late effect of cerebrovascular accident: Code(s): I69.354 - Hemiplegia and hemiparesis following cerebral infarction affecting left non-dominant side Status: Chronic Assessment and Plan: * Prior CVA and brain aneurysm rupture leaving patient with left hemiparesis and wheelchair bound status (4) Narcotic dependence: Code(s): F11.20 - Opioid dependence, uncomplicated Status: Chronic Assessment and Plan: * Implanted intrathecal pain pump * Pain all over reported but worse with swollen leg and back * Severe nausea also reported * IV morphine 2 mg every 4 hour PRN severe pain for now (5) Wheelchair bound: Code(s): Z99.3 - Dependence on wheelchair Status: Acute Assessment and Plan: * Patient unable to care for self well, case management consult for possible placement needs (6) Tobacco dependence due to cigarettes: Code(s): F17.210 - Nicotine dependence, cigarettes, uncomplicated Status: Acute Assessment and Plan: * Nicotine patch available Subjective Date/time seen: 06/18/25 07:13 Interval history: 69-year-old female patient lives at home alone and is wheelchair-bound due to left-sided hemiparesis from prior CVA. Patient has resultant footdrop on the left side requiring use of a brace. Family member instructed patient not to wrap the leg too tightly and to change the wrap frequently but when this family member stop by to check on the patient the leg was still wrapped very tightly and there was swelling and erythema along with pain once the dressing was taken down. 06/18/2025 Patient sitting comfortably in bed at time of exam. Continues to endorse chronic systemic pain in the upper/lower extremities but otherwise has no new complaints. Denies any chest pain, shortness off breath, nausea/vomiting. Blood work remains stable/unremarkable. Vital signs remained stable. Daughter has expressed interest in wanting a psychiatrist consult as she states that the patient has been experiencing hallucinations at home, reporting that the patient has been seeing spiders crawling around on her skin. Patient remains A&O x3 and denies any hallucinations upon my exam. At no point throughout her hospitalization has she expressed any concerns for hallucinations. Will continue to monitor this situation, hold off on psychiatry evaluation at this time. Review of Systems Review of Systems: Pain all over, mild nausea, unable to get comfortable, depressed Exam Narrative: GENERAL: Appears older than stated age, chronically ill-appearing, frail, non- toxic, very uncomfortable appearing HEAD: Normocephalic, atraumatic. RESPIRATORY: Airway patent, respirations nonlabored. Clear to auscultation bilaterally, no rales, rhonchi, wheezing. CARDIOVASCULAR: Regular rate and rhythm without murmurs, rubs, or gallops. Pedal pulses are intact MUSCULOSKELETAL: Limited ROM of LLE d/t hemiparesis. Reduced swelling of LLE with circumferential erythema, warmth, without weeping. Small abrasions to posterior calf region w/o large wounds or lacerations. Callous appearance on plantar surface of left foot. Improved tenderness and hypersensitivity throughout LLE. Slight erythema throughout RLE w/o significant warmth or abrasions. SKIN: Warm, dry, normal color. NEURO: A&O X3. Speech clear. Left sided upper and lower hemiparesis PSYCHIATRIC: highly anxious and sharp interaction Objective Data Vital Signs Vital Signs: Vital Signs - 24 hr 06/17/25 08:00 06/17/25 11:09 06/17/25 11:36 Temperature 97.7 F Pulse Rate 74 Respiratory Rate 16 Blood Pressure 126/58 L Pulse Oximetry 94 Oxygen Delivery Nasal Cannula Nasal Cannula Oxygen Flow Rate 2 2 06/17/25 16:00 06/17/25 20:00 06/17/25 20:00 Temperature 97.6 F 98 F Pulse Rate 63 65 Respiratory Rate 17 18 Blood Pressure 122/59 L 119/58 L Pulse Oximetry 97 97 98 Oxygen Delivery Nasal Cannula Oxygen Flow Rate 2 06/18/25 00:00 06/18/25 04:00 Temperature 98.2 F 97.9 F Pulse Rate 61 62 Respiratory Rate 16 18 Blood Pressure 121/55 L 121/60 Pulse Oximetry 95 96 Oxygen Delivery Oxygen Flow Rate Intake/Output Intake/Output: Intake & Output 06/15/25 06/16/25 06/17/25 06/18/25 23:59 23:59 23:59 23:59 Intake Total 917 325 2568 200 Output Total 1150 400 900 900 Balance -410 -50 670 -700 Meds/Results Medications: Active Medications Generic Name Dose Route Start Last Admin Trade Name Freq PRN Reason Stop Dose Admin Acetaminophen 650 mg 06/14/25 20:07 Acetaminophen 325 Mg Tablet PO Q4H PRN Mild Pain (1-3) or Fever Hydrocodone Bitart/Acetaminophen 1 tab 06/17/25 16:54 06/17/25 17:01 Hydrocodone/Acetaminophen (*Crx) 5-325 Mg Tablet PO 1 tab Q6H PRN Administration Pain Rated 4-6 Albuterol 2 puff 06/14/25 23:44 Albuterol Sulfate (*Sp) Aerosol 1 Puff INHALATION Q6HRT PRN Shortness Of Breath Or Wheezing Amoxicillin/Clavulanate Potassium 1 tablet 06/17/25 09:00 06/17/25 21:04 Amoxicillin/Clavulanate K 875-125 Mg Tab PO 06/21/25 21:01 1 tablet Q12HR KEIRY Administration Apixaban 2.5 mg 06/14/25 21:40 06/17/25 20:58 Apixaban 2.5 Mg Tablet PO 2.5 mg Q12HR KEIRY Administration Aspirin 81 mg 06/15/25 08:00 06/17/25 09:15 Aspirin 81 Mg Chewable Tablet PO 81 mg DAILY@0800 KEIRY Administration Atorvastatin Calcium 20 mg 06/14/25 23:55 06/17/25 20:58 Atorvastatin 20 Mg Tablet PO 20 mg QHS KEIRY Administration Buspirone HCl 5 mg 06/14/25 23:55 06/17/25 20:59 Buspirone Hcl 5 Mg Tablet PO 5 mg Q12HR KEIRY Administration Cyanocobalamin 500 mcg 06/15/25 09:00 06/17/25 09:15 Cyanocobalamin 500 Mcg Tablet PO 500 mcg DAILY KEIRY Administration Dextrose 12.5 gm 06/14/25 20:07 Dextrose 50% 25 Gm/50 Ml Syringe IV PUSH PRN PRN Hypoglycemia Protocol Escitalopram Oxalate 20 mg 06/14/25 23:55 06/17/25 20:58 Escitalopram Oxalate 10 Mg Tablet PO 20 mg HS KEIRY Administration Famotidine 20 mg 06/15/25 00:05 06/17/25 20:59 Famotidine 20 Mg Tablet PO 20 mg QHS KEIRY Administration Folic Acid 1 mg 06/15/25 09:00 06/17/25 09:15 Folic Acid 1 Mg Tablet PO 1 mg DAILY KEIRY Administration Glucagon 1 mg 06/14/25 20:07 Glucagon For Inj 1 Mg Vial IM PRN PRN Hypoglycemia Protocol Glucose 15 gm 06/14/25 20:07 Glucose Oral Gel 15 Gm Of Glucse In 37.5 Gm Tube PO PRN PRN Hypoglycemia Protocol Dextrose 1,000 mls @ 100 mls/hr 06/14/25 20:07 Dextrose 5% 1,000 Ml IVPB PRN PRN Hypoglycemia Protocol Levetiracetam 1,000 mg 06/15/25 09:00 06/17/25 09:15 Levetiracetam 500 Mg Tablet PO 1,000 mg QAM KEIRY Administration Levetiracetam 1,500 mg 06/14/25 23:55 06/17/25 20:59 Levetiracetam 500 Mg Tablet PO 1,500 mg QHS KEIRY Administration Lidocaine 2 patch 06/15/25 00:03 06/17/25 20:59 Lidocaine 5% Patch TRANSDERM 2 patch DAILY PRN Administration pain Midodrine 2.5 mg 06/15/25 00:05 06/17/25 20:58 Midodrine Hcl 2.5 Mg Tablet PO 2.5 mg Q12HR KEIRY Administration Morphine Sulfate 2 mg 06/15/25 02:16 06/15/25 21:21 Morphine Sulfate (*Crx) 2 Mg/Ml Inj IV PUSH 2 mg Q4H PRN Administration Pain Rated 7-10 Multivitamins/Minerals 1 tablet 06/15/25 09:00 06/17/25 09:15 Multivits W-Fe,Min Chewable Tablet PO 1 tablet DAILY KEIRY Administration Nicotine 1 patch 06/15/25 09:00 06/17/25 09:20 Nicotine (*Pbkc) 21 Mg Patch TRANSDERM 1 patch DAILY KEIRY Administration Ondansetron HCl 4 mg 06/14/25 20:07 06/15/25 00:48 Ondansetron Inj 4 Mg/2 Ml Vial IV PUSH 4 mg Q4H PRN Administration Nausea Pantoprazole Sodium 40 mg 06/15/25 09:00 06/17/25 09:15 Pantoprazole 40 Mg Tablet PO 40 mg QAM KEIRY Administration Solifenacin 5 mg 06/14/25 23:55 06/17/25 20:59 Solifenacin 5 Mg Tablet PO 5 mg HS KEIRY Administration Tizanidine HCl 4 mg 06/15/25 00:00 Tizanidine Hcl 4 Mg Tablet PO TID PRN MUSCLE SPASMS Vitamin D 25 mcg 06/15/25 09:00 06/17/25 09:15 Cholecalciferol (Vitamin D3) 25 Mcg (1,000 Units) Tablet PO 25 mcg DAILY KEIRY Administration Radiology Results: ITS Impressions Venous Doppler Study 06/14/25 18:14 IMPRESSION: 1. No deep venous thrombosis within the visualized veins of the left lower extremity, as detailed above. Chest X-Ray 06/14/25 18:33 IMPRESSION: No focal infiltrate or effusion. Labs Labs: Laboratory Results - last 24 hr 06/18/25 04:33 WBC 4.6 RBC 3.71 L Hgb 11.9 L Hct 36.8 L MCV 99.2 MCH 32.1 MCHC 32.3 RDW 11.8 Plt Count 132 L MPV 10.8 H Immature Gran % (Auto) 0.2 Neut % (Auto) 53.8 Lymph % (Auto) 26.4 [place] % (Auto) 6.3 Eos % (Auto) 12.9 H Baso % (Auto) 0.4 Lymph # (Auto) 1.21 [place] # (Auto) 0.3 Eos # (Auto) 0.6 H Baso # (Auto) 0.0 Abs Immat Gran (auto) 0.01 Absolute Neuts (auto) 2.5 Absolute Nucleated RBC 0.000 Nucleated RBC % 0.0 % Immature Plt Fraction 2.3 Sodium 138 Potassium 3.5 Chloride 105 Carbon Dioxide 32 H Anion Gap 1 L BUN 12 Creatinine 0.53 L Estim Creat Clear Calc 80 Estimated GFR > 60 Glucose 136 H Calcium 8.2 L Magnesium 1.8 Total Bilirubin 0.4 AST 24 ALT 13 Alkaline Phosphatase 73 Total Protein 4.9 L Albumin 2.7 L Quality VTE Prophylaxis VTE prophylaxis: pharmacologic ordered (apixaban)
[2025-06-18 08:00] VITALS: O2SAT 98
[2025-06-18 08:51] VITALS: BP 132/49; PULSE 62; RESP 18; TEMP 36.3; O2SAT 98
[2025-06-18] MEDS: NICOTINE (*PBKC) 21 MG PATCH 1 PATCH TRANSDERM (09:28)
[2025-06-18] MEDS: APIXABAN 2.5 MG TABLET PO ×2 (09:29→21:53)
[2025-06-18] MEDS: CHOLECALCIFEROL (VITAMIN D3) 25 MCG (1,000 UNITS) TABLET PO (09:29)
[2025-06-18] MEDS: CYANOCOBALAMIN 500 MCG TABLET PO (09:29)
[2025-06-18] MEDS: FOLIC ACID 1 MG TABLET PO (09:29)
[2025-06-18] MEDS: PANTOPRAZOLE 40 MG TABLET PO (09:29)
[2025-06-18] MEDS: TIZANIDINE HCL 4 MG TABLET PO ×2 (09:29→17:44)
[2025-06-18] MEDS: ASPIRIN 81 MG CHEWABLE TABLET PO (09:29)
[2025-06-18] MEDS: MIDODRINE HCL 2.5 MG TABLET PO ×2 (09:29→21:53)
[2025-06-18] MEDS: MULTIVITS W-FE,MIN CHEWABLE TABLET 1 TABLET PO (09:29)
[2025-06-18] MEDS: LIDOCAINE 5% PATCH 2 PATCH TRANSDERM (09:35)
[2025-06-18 14:38] VITALS: BP 123/47; PULSE 67; RESP 18; TEMP 36.3; O2SAT 97
[2025-06-18] MEDS: ESCITALOPRAM OXALATE 10 MG TABLET 20 MG PO (21:52)
[2025-06-18] MEDS: ATORVASTATIN 20 MG TABLET PO (21:53)
[2025-06-18] MEDS: SOLIFENACIN 5 MG TABLET PO (21:53)
[2025-06-18] MEDS: FAMOTIDINE 20 MG TABLET PO (21:53)
[2025-06-18 22:27] VITALS: BP 114/41; PULSE 62; RESP 18; TEMP 36.4; O2SAT 98
[2025-06-19] VITALS (8 sets, daily range): BP systolic 82–145; BP diastolic 40–52; PULSE 52–61; RESP 18–20; TEMP 36.1–36.7; O2SAT 94–99
[2025-06-19 04:56] LABS: Hematocrit 36.9 % (37.0-47.0); Hemoglobin 12.1 g/dL (12.0-15.0); Immature Granulocyte Percent A 0.3 % (0-0.5); Lymphocytes Absolute Auto 1.21 K/mm3 (0.9-3.2); Mean Corpuscular HGB Conc 32.8 g/dl (32-36); Mean Corpuscular Hemoglobin 32.0 pg (26-34); Mean Corpuscular Volume 97.6 fl (80-100); Nucleated Red Blood Cells Absolute Auto 0.000 K/mm3 (0.0-0.012); Nucleated Red Blood Cells Perc 0.0 % (0.0-0.2); Platelet Count Result 148 k/mm3 (150-375); Red Blood Count 3.78 M/mm3 (4.2-5.4); White Blood Count 5.8 K/mm3 (4.5-10.0)
[2025-06-19 05:17] LABS: Alanine Aminotransferase 11 U/L (6-35); Albumin Level 2.7 g/dL (3.5-5.1); Alkaline Phosphatase 89 U/L (38-126); Anion Gap 2 mmol/L (4-12); Aspartate Amino Transferase 20 U/L (14-36); Bilirubin,Total 0.5 mg/dL (0.2-1.3); Blood Urea Nitrogen 11 mg/dL (7-17); Calcium 8.4 mg/dL (8.4-10.2); Carbon Dioxide 33 mmol/L (22-30); Chloride 102 mmol/L (98-107); Estimated CRCL calculation 87 ml/min; Estimated Glomerular Filt Rate > 60; Glucose 87 mg/dL (65-110); Magnesium 1.9 mg/dL (1.6-2.3); Potassium 3.6 mmol/L (3.4-5.0); Sodium 137 mmol/L (137-145); Total Protein 5.0 g/dL (6.3-8.2)
--- NOTE | 2025-06-19 09:08 | P.DS_ITS ---
DS: Admitting Diagnosis Discharge Date 06/19/2025 Admitting Diagnosis Cellulitis, UTI DS: Discharge Diagnosis Discharge Diagnosis (1) Cellulitis of left lower extremity: Code(s): L03.116 - Cellulitis of left lower limb Status: Acute Assessment and Plan: * LLE with abrasions, swelling, tenderness, warmth and erythema * IV Ancef started in ER, continue for now--consider ABX change with concurrent suspected UTI with nausea * Swelling may be partially dependent edema from staying in wheelchair around the clock including to sleep * Will discuss with ID Pharm regarding oral coverage of cellulitis * Preliminary results from blood cultures shows growth to date * Remains afebrile without leukocytosis * Continues to improve (2) UTI (urinary tract infection): Code(s): N39.0 - Urinary tract infection, site not specified Status: Acute Assessment and Plan: * Abnormal UA with Nitrates, leukocyte esterase, urine bacteria and WBCs present without juan contamination * Prior E.coli infection not resistant to Ancef * Urine cultures shows growth of Gram (-) bacilli * Discussed with ID pharmacist - agree like Augmentin will be best coverage for UTI as well as Cellulitis (3) Hemiparesis affecting left side as late effect of cerebrovascular accident: Code(s): I69.354 - Hemiplegia and hemiparesis following cerebral infarction affecting left non-dominant side Status: Chronic Assessment and Plan: * Prior CVA and brain aneurysm rupture leaving patient with left hemiparesis and wheelchair bound status (4) Narcotic dependence: Code(s): F11.20 - Opioid dependence, uncomplicated Status: Chronic Assessment and Plan: * Implanted intrathecal pain pump * Pain all over reported but worse with swollen leg and back * Severe nausea also reported * IV morphine 2 mg every 4 hour PRN severe pain for now (5) Wheelchair bound: Code(s): Z99.3 - Dependence on wheelchair Status: Acute Assessment and Plan: * Patient unable to care for self well, case management consult for possible placement needs (6) Tobacco dependence due to cigarettes: Code(s): F17.210 - Nicotine dependence, cigarettes, uncomplicated Status: Acute Assessment and Plan: * Nicotine patch available DS: Summary Time Spent with Patient Time attestation: Total time spent providing and/or coordinating discharge services: Exam Narrative: GENERAL: Appears older than stated age, chronically ill-appearing, frail, non- toxic, very uncomfortable appearing HEAD: Normocephalic, atraumatic. RESPIRATORY: Airway patent, respirations nonlabored. Clear to auscultation bilaterally, no rales, rhonchi, wheezing. CARDIOVASCULAR: Regular rate and rhythm without murmurs, rubs, or gallops. Pedal pulses are intact MUSCULOSKELETAL: Limited ROM of LLE d/t hemiparesis. Reduced swelling of LLE with circumferential erythema, warmth, without weeping. Small abrasions to posterior calf region w/o large wounds or lacerations. Callous appearance on plantar surface of left foot. Improved tenderness and hypersensitivity throughout LLE. Slight erythema throughout RLE w/o significant warmth or abrasions. SKIN: Warm, dry, normal color. NEURO: A&O X3. Speech clear. Left sided upper and lower hemiparesis PSYCHIATRIC: highly anxious and sharp interaction DS: Data Data Completed and Pending Labs on day of discharge: Labs from last 24 hours 06/19/25 04:23 WBC 5.8 RBC 3.78 L Hgb 12.1 Hct 36.9 L MCV 97.6 MCH 32.0 MCHC 32.8 RDW 11.8 Plt Count 148 L MPV 10.6 H Immature Gran % (Auto) 0.3 Neut % (Auto) 64.4 Lymph % (Auto) 20.8 [place] % (Auto) 5.3 Eos % (Auto) 8.9 H Baso % (Auto) 0.3 Lymph # (Auto) 1.21 [place] # (Auto) 0.3 Eos # (Auto) 0.5 H Baso # (Auto) 0.0 Abs Immat Gran (auto) 0.02 Absolute Neuts (auto) 3.8 Absolute Nucleated RBC 0.000 Nucleated RBC % 0.0 Sodium 137 Potassium 3.6 Chloride 102 Carbon Dioxide 33 H Anion Gap 2 L BUN 11 Creatinine 0.48 L Estim Creat Clear Calc 87 Estimated GFR > 60 Glucose 87 Calcium 8.4 Magnesium 1.9 Total Bilirubin 0.5 AST 20 ALT 11 Alkaline Phosphatase 89 Total Protein 5.0 L Albumin 2.7 L Preliminary micro results at discharge 06/14/25 18:14 Blood Culture - Preliminary Blood 06/14/25 18:14 Blood Culture - Preliminary Blood 06/14/25 21:40 - Preliminary Urine Catheterized Gram negative bacilli isolated Discharge Plan Discharge Attending physician on discharge: Zayda Nelson Consulting providers: Conor Almaguer Discharging Clinician: Conor Almaguer Anticipated Discharge Date/Time: 06/19/25 08:58 Patient Disposition: SNF Activity: no straining Diet: heart healthy Discharge Instructions: Discharge disposition: [facility] Take medications as prescribed. You will be prescribed Augmentin to take for an additional 6 days. Take twice daily, once in the morning and once in the evening. Monitor blood pressures Take caution while standing, rising, or moving Change positions slowly taking a break between each position change If you standing feel dizzy sit back down and take a break Encouraged to continue with yearly vaccinations Return to the emergency department if he developed sudden shortness of breath, chest pain, nausea, vomiting, upset stomach or intractable diarrhea Return to the emergency department if you develop fever greater than 101.5 Follow-up with the primary care physician within 1-2 weeks Thank you for [facility] for your healthcare needs Patient Instructions: Apixaban (By mouth) Patient Language: American Stand Alone Forms: General Discharge Information Follow-up/Referrals: Martha Cates MD [Primary Care Provider] - Discharge Medications: New amoxicillin-pot clavulanate 875-125 mg tablet 1 tablet PO Q12H 6 Days Qty: 12 0RF Continued naloxone [Narcan] 4 mg/actuation spray,non-aerosol 1 spray NASAL Q2M PRN (Reason: opioid overdose) Rx Instructions: spray 1 dose into ONE nostril; alternate nostrils w each dose until help arrives Women's Multivitamin Gummies 200 mcg tablet,chewable 200 mcg PO DAILY levetiracetam [Keppra] 500 mg tablet See Rx Instructions PO BID Rx Instructions: 2 tabs qam and 3 tabs qpm orally twice a day; (DME) Shaniao cushion 18 inch See Rx Instructions .Route .MEDSUPPLY Qty: 1 0RF Rx Instructions: As directed cholecalciferol (vitamin D3) 50 mcg (2,000 unit) capsule 25 mcg PO DAILY Eliquis 2.5 mg tablet 2.5 mg PO BID lidocaine [Aspercreme (lidocaine)] 4 % adhesive patch,medicated 2 patch topical BID PRN (Reason: pain) Rx Instructions: Apply to lower back famotidine 20 mg tablet 20 mg PO QHS escitalopram oxalate 20 mg tablet 20 mg PO HS buspirone 5 mg tablet 5 mg PO BID cyanocobalamin (vitamin B-12) [Vitamin B-12] 500 mcg Tablet 500 mcg PO DAILY aspirin 81 mg Tablet,Chewable 81 mg PO DAILY solifenacin [Vesicare] 5 mg tablet 5 mg PO HS albuterol sulfate 90 mcg/actuation HFA aerosol inhaler See Rx Instructions .ROUTE .COMPLEX Qty: 8.5 5RF Dose Instruction: INHALE 2 PUFFS BY MOUTH FOUR TIMES DAILY NEEDED FOR SHORTNESS OF BREATH OR WHEEZING Rx Instructions: INHALE 2 PUFFS BY MOUTH FOUR TIMES DAILY NEEDED FOR SHORTNESS OF BREATH OR WHEEZING atorvastatin 20 mg tablet 20 mg PO QHS Qty: 90 1RF folic acid 1 mg tablet 1 mg PO DAILY Qty: 90 1RF tizanidine 4 mg capsule See Rx Instructions .ROUTE .COMPLEX Qty: 270 0RF Dose Instruction: TAKE 1 CAPSULE BY MOUTH THREE TIMES DAILY NEEDED FOR MUSCLE SPASTICITY Rx Instructions: TAKE 1 CAPSULE BY MOUTH THREE TIMES DAILY NEEDED FOR MUSCLE SPASTICITY (DME) shoes See Rx Instructions .Route .MEDSUPPLY Qty: 2 0RF Rx Instructions: As directed omeprazole 40 mg capsule,delayed release(DR/EC) See Rx Instructions .ROUTE .COMPLEX Qty: 90 1RF Dose Instruction: TAKE 1 CAPSULE BY MOUTH DAILY Rx Instructions: TAKE 1 CAPSULE BY MOUTH DAILY midodrine 2.5 mg tablet 2.5 mg PO BID Qty: 180 0RF Date of admission: 06/15/25 13:49 Primary Care Provider: Martha Cates Admitting Provider: Jaleel Zavala Attending physician on admission: Jaleel Zavala Condition: Stable Quality VTE Prophylaxis VTE prophylaxis: pharmacologic ordered (apixaban)
[2025-06-19] MEDS: PANTOPRAZOLE 40 MG TABLET PO (09:25)
[2025-06-19] MEDS: CHOLECALCIFEROL (VITAMIN D3) 25 MCG (1,000 UNITS) TABLET PO (09:26)
[2025-06-19] MEDS: TIZANIDINE HCL 4 MG TABLET PO (09:26)
[2025-06-19] MEDS: MIDODRINE HCL 2.5 MG TABLET PO ×2 (09:26→20:30)
[2025-06-19] MEDS: FOLIC ACID 1 MG TABLET PO (09:26)
[2025-06-19] MEDS: ASPIRIN 81 MG CHEWABLE TABLET PO (09:26)
[2025-06-19] MEDS: APIXABAN 2.5 MG TABLET PO ×2 (09:26→20:31)
[2025-06-19] MEDS: MULTIVITS W-FE,MIN CHEWABLE TABLET 1 TABLET PO (09:26)
[2025-06-19] MEDS: HYDROcodone/acetaminophen (*CRX) 5-325 MG TABLET 1 TAB PO ×2 (09:27→20:40)
[2025-06-19] MEDS: CYANOCOBALAMIN 500 MCG TABLET PO (09:27)
[2025-06-19] MEDS: NICOTINE (*PBKC) 21 MG PATCH 1 PATCH TRANSDERM (09:58)
[2025-06-19] MEDS: LIDOCAINE 5% PATCH 2 PATCH TRANSDERM (09:59)
[2025-06-19] MEDS: SODIUM CHLORIDE 0.9% IV 1,000 ML 125 ML IV CONT (10:37)
--- NOTE | 2025-06-19 14:13 | P.PNIM_ITS ---
Progress Note: A&P Assessment and Plan (1) Cellulitis of left lower extremity: Code(s): L03.116 - Cellulitis of left lower limb Status: Acute Assessment and Plan: * LLE with abrasions, swelling, tenderness, warmth and erythema * IV Ancef started in ER, continue for now--consider ABX change with concurrent suspected UTI with nausea * Swelling may be partially dependent edema from staying in wheelchair around th e clock including to sleep * Will discuss with ID Pharm regarding oral coverage of cellulitis * Preliminary results from blood cultures shows growth to date * Remains afebrile without leukocytosis * Continues to improve (2) UTI (urinary tract infection): Code(s): N39.0 - Urinary tract infection, site not specified Status: Acute Assessment and Plan: * Abnormal UA with Nitrates, leukocyte esterase, urine bacteria and WBCs present without juan contamination * Prior E.coli infection not resistant to Ancef * Urine cultures shows growth of Gram (-) bacilli * Discussed with ID pharmacist - agree like Augmentin will be best coverage for UTI as well as Cellulitis (3) Hemiparesis affecting left side as late effect of cerebrovascular accident: Code(s): I69.354 - Hemiplegia and hemiparesis following cerebral infarction affecting left non-dominant side Status: Chronic Assessment and Plan: * Prior CVA and brain aneurysm rupture leaving patient with left hemiparesis and wheelchair bound status (4) Narcotic dependence: Code(s): F11.20 - Opioid dependence, uncomplicated Status: Chronic Assessment and Plan: * Implanted intrathecal pain pump * Pain all over reported but worse with swollen leg and back * Severe nausea also reported * IV morphine 2 mg every 4 hour PRN severe pain for now (5) Wheelchair bound: Code(s): Z99.3 - Dependence on wheelchair Status: Acute Assessment and Plan: * Patient unable to care for self well, case management consult for possible placement needs (6) Tobacco dependence due to cigarettes: Code(s): F17.210 - Nicotine dependence, cigarettes, uncomplicated Status: Acute Assessment and Plan: * Nicotine patch available Subjective Date/time seen: 06/19/25 14:13 Interval history: 69-year-old female patient lives at home alone and is wheelchair-bound due to left-sided hemiparesis from prior CVA. Patient has resultant footdrop on the left side requiring use of a brace. Family member instructed patient not to wrap the leg too tightly and to change the wrap frequently but when this family member stop by to check on the patient the leg was still wrapped very tightly and there was swelling and erythema along with pain once the dressing was taken down. 06/19/2025 Patient sitting comfortably in bed at time of exam. Continues to endorse chronic systemic pain in the upper/lower extremities but otherwise has no new complaints. Denies any chest pain, shortness off breath, nausea/vomiting. Patient up for discharge today, however blood pressure was found to be 82/42 this a.m.. 1 L normal saline was ordered and [facility] through bag, repeat BP was found to be in the 100s/50s. Will continue to monitor today with hopeful discharge tomorrow. Cellulitis continues to improve. Patient otherwise has no complaints and blood work remained stable. Review of Systems Review of Systems: Pain all over, mild nausea, unable to get comfortable, depressed Exam Narrative: GENERAL: Appears older than stated age, chronically ill-appearing, frail, non- toxic, very uncomfortable appearing HEAD: Normocephalic, atraumatic. RESPIRATORY: Airway patent, respirations nonlabored. Clear to auscultation bilaterally, no rales, rhonchi, wheezing. CARDIOVASCULAR: Regular rate and rhythm without murmurs, rubs, or gallops. Pedal pulses are intact MUSCULOSKELETAL: Limited ROM of LLE d/t hemiparesis. Reduced swelling of LLE with circumferential erythema, warmth, without weeping. Small abrasions to posterior calf region w/o large wounds or lacerations. Callous appearance on pl adria surface of left foot. Improved tenderness and hypersensitivity throughout LLE. Slight erythema throughout RLE w/o significant warmth or abrasions. SKIN: Warm, dry, normal color. NEURO: A&O X3. Speech clear. Left sided upper and lower hemiparesis PSYCHIATRIC: highly anxious and sharp interaction Objective Data Vital Signs Vital Signs: Vital Signs - 24 hr 06/18/25 14:38 06/18/25 22:27 06/19/25 00:00 Temperature 97.3 F L 97.5 F L 98.1 F Pulse Rate 67 62 52 L Respiratory Rate 18 18 18 Blood Pressure 123/47 L 114/41 L 145/50 H Pulse Oximetry 97 98 98 Oxygen Delivery Oxygen Flow Rate 08/17/25 03:31 06/19/25 08:00 06/19/25 10:17 Temperature 97.1 F L 97.7 F Pulse Rate 56 L 61 61 Respiratory Rate 20 20 20 Blood Pressure 122/52 L 82/42 L Pulse Oximetry 97 94 95 Oxygen Delivery Nasal Cannula Oxygen Flow Rate 2 06/19/25 10:39 Temperature Pulse Rate Respiratory Rate Blood Pressure Pulse Oximetry 94 Oxygen Delivery Nasal Cannula Oxygen Flow Rate 2 Intake/Output Intake/Output: Intake & Output 06/16/25 06/17/25 06/18/25 06/19/25 23:59 23:59 23:59 23:59 Intake Total 350 1570 600 110 Output Total 921 014 1780 100 Balance -50 670 -975 10 Meds/Results Medications: Active Medications Generic Name Dose Route Start Last Admin Trade Name Freq PRN Reason Stop Dose Admin Acetaminophen 650 mg 06/14/25 20:07 Acetaminophen 325 Mg Tablet PO Q4H PRN Mild Pain (1-3) or Fever Hydrocodone Bitart/Acetaminophen 1 tab 06/17/25 16:54 06/19/25 09:27 Hydrocodone/Acetaminophen (*Crx) 5-325 Mg Tablet PO 1 tab Q6H PRN Administration Pain Rated 4-6 Albuterol 2 puff 06/14/25 23:44 Albuterol Sulfate (*Sp) Aerosol 1 Puff INHALATION Q6HRT PRN Shortness Of Breath Or Wheezing Amoxicillin/Clavulanate Potassium 1 tablet 06/17/25 09:00 06/19/25 09:26 Amoxicillin/Clavulanate K 875-125 Mg Tab PO 06/21/25 21:01 1 tablet Q12HR KEIRY Administration Apixaban 2.5 mg 06/14/25 21:40 06/19/25 09:26 Apixaban 2.5 Mg Tablet PO 2.5 mg Q12HR KEIRY Administration Aspirin 81 mg 06/15/25 08:00 06/19/25 09:26 Aspirin 81 Mg Chewable Tablet PO 81 mg DAILY@0800 KEIRY Administration Atorvastatin Calcium 20 mg 06/14/25 23:55 06/18/25 21:53 Atorvastatin 20 Mg Tablet PO 20 mg QHS KEIRY Administration Buspirone HCl 5 mg 06/14/25 23:55 06/19/25 09:26 Buspirone Hcl 5 Mg Tablet PO 5 mg Q12HR KEIRY Administration Cyanocobalamin 500 mcg 06/15/25 09:00 06/19/25 09:27 Cyanocobalamin 500 Mcg Tablet PO 500 mcg DAILY KEIRY Administration Dextrose 12.5 gm 06/14/25 20:07 Dextrose 50% 25 Gm/50 Ml Syringe IV PUSH PRN PRN Hypoglycemia Protocol Escitalopram Oxalate 20 mg 06/14/25 23:55 06/18/25 21:52 Escitalopram Oxalate 10 Mg Tablet PO 20 mg HS KEIRY Administration Famotidine 20 mg 06/15/25 00:05 06/18/25 21:53 Famotidine 20 Mg Tablet PO 20 mg QHS KEIRY Administration Folic Acid 1 mg 06/15/25 09:00 06/19/25 09:26 Folic Acid 1 Mg Tablet PO 1 mg DAILY KEIRY Administration Glucagon 1 mg 06/14/25 20:07 Glucagon For Inj 1 Mg Vial IM PRN PRN Hypoglycemia Protocol Glucose 15 gm 06/14/25 20:07 Glucose Oral Gel 15 Gm Of Glucse In 37.5 Gm Tube PO PRN PRN Hypoglycemia Protocol Dextrose 1,000 mls @ 100 mls/hr 06/14/25 20:07 Dextrose 5% 1,000 Ml IVPB PRN PRN Hypoglycemia Protocol Sodium Chloride 1,000 mls @ 125 mls/hr 06/19/25 10:30 06/19/25 10:37 Normal Saline Iv IV CONT 125 mls/hr .Q8H KEIRY Administration Levetiracetam 1,000 mg 06/15/25 09:00 06/19/25 09:26 Levetiracetam 500 Mg Tablet PO 1,000 mg QAM KEIRY Administration Levetiracetam 1,500 mg 06/14/25 23:55 06/18/25 21:53 Levetiracetam 500 Mg Tablet PO 1,500 mg QHS KEIRY Administration Lidocaine 2 patch 06/15/25 00:03 06/19/25 09:59 Lidocaine 5% Patch TRANSDERM 2 patch DAILY PRN Administration pain Midodrine 2.5 mg 06/15/25 00:05 06/19/25 09:26 Midodrine Hcl 2.5 Mg Tablet PO 2.5 mg Q12HR KEIRY Administration Morphine Sulfate 2 mg 06/15/25 02:16 06/15/25 21:21 Morphine Sulfate (*Crx) 2 Mg/Ml Inj IV PUSH 2 mg Q4H PRN Administration Pain Rated 7-10 Multivitamins/Minerals 1 tablet 06/15/25 09:00 06/19/25 09:26 Multivits W-Fe,Min Chewable Tablet PO 1 tablet DAILY KEIRY Administration Nicotine 1 patch 06/15/25 09:00 06/19/25 09:58 Nicotine (*Pbkc) 21 Mg Patch TRANSDERM 1 patch DAILY KEIRY Administration Ondansetron HCl 4 mg 06/14/25 20:07 06/15/25 00:48 Ondansetron Inj 4 Mg/2 Ml Vial IV PUSH 4 mg Q4H PRN Administration Nausea Pantoprazole Sodium 40 mg 06/15/25 09:00 06/19/25 09:25 Pantoprazole 40 Mg Tablet PO 40 mg QAM KEIRY Administration Solifenacin 5 mg 06/14/25 23:55 06/18/25 21:53 Solifenacin 5 Mg Tablet PO 5 mg HS KEIRY Administration Tizanidine HCl 4 mg 06/15/25 00:00 06/19/25 09:26 Tizanidine Hcl 4 Mg Tablet PO 4 mg TID PRN Administration MUSCLE SPASMS Vitamin D 25 mcg 06/15/25 09:00 06/19/25 09:26 Cholecalciferol (Vitamin D3) 25 Mcg (1,000 Units) Tablet PO 25 mcg DAILY KEIRY Administration Radiology Results: ITS Impressions Venous Doppler Study 06/14/25 18:14 IMPRESSION: 1. No deep venous thrombosis within the visualized veins of the left lower extremity, as detailed above. Chest X-Ray 06/14/25 18:33 IMPRESSION: No focal infiltrate or effusion. Labs Labs: Laboratory Results - last 24 hr 06/19/25 04:23 WBC 5.8 RBC 3.78 L Hgb 12.1 Hct 36.9 L MCV 97.6 MCH 32.0 MCHC 32.8 RDW 11.8 Plt Count 148 L MPV 10.6 H Immature Gran % (Auto) 0.3 Neut % (Auto) 64.4 Lymph % (Auto) 20.8 [place] % (Auto) 5.3 Eos % (Auto) 8.9 H Baso % (Auto) 0.3 Lymph # (Auto) 1.21 [place] # (Auto) 0.3 Eos # (Auto) 0.5 H Baso # (Auto) 0.0 Abs Immat Gran (auto) 0.02 Absolute Neuts (auto) 3.8 Absolute Nucleated RBC 0.000 Nucleated RBC % 0.0 Sodium 137 Potassium 3.6 Chloride 102 Carbon Dioxide 33 H Anion Gap 2 L BUN 11 Creatinine 0.48 L Estim Creat Clear Calc 87 Estimated GFR > 60 Glucose 87 Calcium 8.4 Magnesium 1.9 Total Bilirubin 0.5 AST 20 ALT 11 Alkaline Phosphatase 89 Total Protein 5.0 L Albumin 2.7 L Quality VTE Prophylaxis VTE prophylaxis: pharmacologic ordered (apixaban)
[2025-06-19] MEDS: ESCITALOPRAM OXALATE 10 MG TABLET 20 MG PO (20:30)
[2025-06-19] MEDS: FAMOTIDINE 20 MG TABLET PO (20:30)
[2025-06-19] MEDS: ATORVASTATIN 20 MG TABLET PO (20:31)
[2025-06-19] MEDS: SOLIFENACIN 5 MG TABLET PO (20:31)
[2025-06-20] VITALS: BP 100/42; PULSE 60; RESP 18; TEMP 36.1; O2SAT 97
[2025-06-20 03:55] VITALS: BP 159/51; PULSE 60; RESP 18; TEMP 36.3; O2SAT 96
[2025-06-20] MEDS: HYDROcodone/acetaminophen (*CRX) 5-325 MG TABLET 1 TAB PO (04:37)
[2025-06-20 04:48] LABS: Hematocrit 39.8 % (37.0-47.0); Hemoglobin 12.7 g/dL (12.0-15.0); Immature Granulocyte Percent A 0.2 % (0-0.5); Lymphocytes Absolute Auto 1.29 K/mm3 (0.9-3.2); Mean Corpuscular HGB Conc 31.9 g/dl (32-36); Mean Corpuscular Hemoglobin 31.6 pg (26-34); Mean Corpuscular Volume 99.0 fl (80-100); Nucleated Red Blood Cells Absolute Auto 0.000 K/mm3 (0.0-0.012); Nucleated Red Blood Cells Perc 0.0 % (0.0-0.2); Platelet Count Result 136 k/mm3 (150-375); Red Blood Count 4.02 M/mm3 (4.2-5.4); White Blood Count 4.1 K/mm3 (4.5-10.0)
[2025-06-20 05:03] LABS: Alanine Aminotransferase 11 U/L (6-35); Albumin Level 2.8 g/dL (3.5-5.1); Alkaline Phosphatase 82 U/L (38-126); Anion Gap 1 mmol/L (4-12); Aspartate Amino Transferase 19 U/L (14-36); Bilirubin,Total 0.4 mg/dL (0.2-1.3); Blood Urea Nitrogen 10 mg/dL (7-17); Calcium 8.4 mg/dL (8.4-10.2); Carbon Dioxide 34 mmol/L (22-30); Chloride 104 mmol/L (98-107); Estimated CRCL calculation 86 ml/min; Estimated Glomerular Filt Rate > 60; Glucose 82 mg/dL (65-110); Magnesium 2.0 mg/dL (1.6-2.3); Potassium 3.8 mmol/L (3.4-5.0); Sodium 139 mmol/L (137-145); Total Protein 5.0 g/dL (6.3-8.2)
[2025-06-20 08:00] VITALS: BP 107/52; PULSE 67; RESP 18; TEMP 36.3; O2SAT 94
--- NOTE | 2025-06-20 08:46 | PCOTNOTE ---
Attempted to see Patient at this time. Patient declined, states she is waiting for her sister to bring her LORRAINE cushion here before she moves from the is bed. Patient states she needs more time this morning, is not ready for therapy.
[2025-06-20] MEDS: FOLIC ACID 1 MG TABLET PO (08:49)
[2025-06-20] MEDS: CYANOCOBALAMIN 500 MCG TABLET PO (08:49)
[2025-06-20] MEDS: APIXABAN 2.5 MG TABLET PO (08:49)
[2025-06-20] MEDS: MIDODRINE HCL 2.5 MG TABLET PO (08:49)
[2025-06-20] MEDS: ASPIRIN 81 MG CHEWABLE TABLET PO (08:49)
[2025-06-20] MEDS: PANTOPRAZOLE 40 MG TABLET PO (08:50)
[2025-06-20] MEDS: CHOLECALCIFEROL (VITAMIN D3) 25 MCG (1,000 UNITS) TABLET PO (08:50)
[2025-06-20] MEDS: MULTIVITS W-FE,MIN CHEWABLE TABLET 1 TABLET PO (08:51)
[2025-06-20] MEDS: NICOTINE (*PBKC) 21 MG PATCH 1 PATCH TRANSDERM (08:53)
--- NOTE | 2025-06-20 10:29 | P.DS_ITS ---
DS: Admitting Diagnosis Discharge Date 06/20/2025 Admitting Diagnosis Cellulitis, UTI DS: Discharge Diagnosis Discharge Diagnosis (1) Cellulitis of left lower extremity: Code(s): L03.116 - Cellulitis of left lower limb Status: Acute Assessment and Plan: * LLE with abrasions, swelling, tenderness, warmth and erythema * IV Ancef started in ER, continue for now--consider ABX change with concurrent suspected UTI with nausea * Swelling may be partially dependent edema from staying in wheelchair around the clock including to sleep * Will discuss with ID Pharm regarding oral coverage of cellulitis * Preliminary results from blood cultures shows growth to date * Remains afebrile without leukocytosis * Continues to improve (2) UTI (urinary tract infection): Code(s): N39.0 - Urinary tract infection, site not specified Status: Acute Assessment and Plan: * Abnormal UA with Nitrates, leukocyte esterase, urine bacteria and WBCs present without juan contamination * Prior E.coli infection not resistant to Ancef * Urine cultures shows growth of Gram (-) bacilli * Discussed with ID pharmacist - agree like Augmentin will be best coverage for UTI as well as Cellulitis (3) Hemiparesis affecting left side as late effect of cerebrovascular accident: Code(s): I69.354 - Hemiplegia and hemiparesis following cerebral infarction affecting left non-dominant side Status: Chronic Assessment and Plan: * Prior CVA and brain aneurysm rupture leaving patient with left hemiparesis and wheelchair bound status (4) Narcotic dependence: Code(s): F11.20 - Opioid dependence, uncomplicated Status: Chronic Assessment and Plan: * Implanted intrathecal pain pump * Pain all over reported but worse with swollen leg and back * Severe nausea also reported * IV morphine 2 mg every 4 hour PRN severe pain for now (5) Wheelchair bound: Code(s): Z99.3 - Dependence on wheelchair Status: Acute Assessment and Plan: * Patient unable to care for self well, case management consult for possible placement needs (6) Tobacco dependence due to cigarettes: Code(s): F17.210 - Nicotine dependence, cigarettes, uncomplicated Status: Acute Assessment and Plan: * Nicotine patch available DS: Summary Hospital Course Reason for hospitalization: Lower extremity infection Hospital Course: This is a 69-year-old female patient lives at home alone and is wheelchair-bound due to left-sided hemiparesis from prior CVA. Patient has resultant footdrop on the left side requiring use of a brace. Family member instructed patient not to wrap the leg too tightly and to change the wrap frequently but when this family member stop by to check on the patient the leg was still wrapped very tightly and there was swelling and erythema along with pain once the dressing was taken down. Patient brought to the emergency department for evaluation likely cellulitis. Labs generally unremarkable white blood cell count 6.3 normal H&H normal renal function minimally increased proBNP to 112. Urinalysis positive for nitrates with 2+ leukocyte esterase 21-50 WBC 2+ urine bacteria. Patient received IV Ancef in the emergency department for cellulitis. Review of prior microbiology urine cultures shows that E coli fairly sensitive, only resistant to fluoroquinolones and intermittent to Unasyn. Patient complained of feeling exceedingly nauseated and having pain all over. She has an implanted pain pump chronically due to chronic pain. Patient is very upset that when she was brought to the hospital her wheelchair was left at home so it is not available here. Patient states she usually sleeps in the wheelchair because she cannot get comfortable in a bed. This likely increases lower extremity edema. Ultrasound obtained in the emergency department was negative for DVT. 06/15/2025 Patient sitting comfortably in bed at time of exam. Denies any chest pain, SOB, n/v or abd pain. Complaining of continued left lower leg and back pain, but pt states this is chronic but worse than usual. Currently being treated with Ancef for cellulitis of LLE - will discuss with ID pharmacist regarding oral options for coverage but will continue IV option today. Remains afebrile without leukocytosis, A&Ox3, no major electrolyte imbalances. 06/16/2025 Patient sitting comfortably in bed at time of exam. Denies any chest pain, SOB, n/v or abd pain today. Actually reports her LLE feels better today. Swelling and redness has improved as well, remains neurovascularly intact. Pending urine/blood cultures - can likely d/c once these have resulted. No other complaints or concerns. Remains afebrile without leukocytosis, A&Ox3. 06/17/2025 Patient sitting comfortably in bed at time of exam. Denies any chest pain, SOB, n/v or abd pain today. Erythema/swelling continues to improve. Remains afebrile without leukocytosis. Urine culture shows growth of Gram (-) bacilli - discussed with ID pharmacist, agree that switching to Augmentin would be best coverage for UTI and Cellulitis. Continue to work with CC regarding SNF placement. 06/18/2025 Patient sitting comfortably in bed at time of exam. Continues to endorse chronic systemic pain in the upper/lower extremities but otherwise has no new complaints. Denies any chest pain, shortness off breath, nausea/vomiting. Blood work remains stable/unremarkable. Vital signs remained stable. Daughter has expressed interest in wanting a psychiatrist consult as she states that the patient has been experiencing hallucinations at home, reporting that the patient has been seeing spiders crawling around on her skin. Patient remains A&O x3 and denies any hallucinations upon my exam. At no point throughout her hospitalization has she expressed any concerns for hallucinations. Will gabriela premae to monitor this situation, hold off on psychiatry evaluation at this time. 06/19/2025 Patient sitting comfortably in bed at time of exam. Continues to endorse chronic systemic pain in the upper/lower extremities but otherwise has no new complaints. Denies any chest pain, shortness off breath, nausea/vomiting. Patient up for discharge today, however blood pressure was found to be 82/42 this a.m.. 1 L normal saline was ordered and alf through bag, repeat BP was found to be in the 100s/50s. Will continue to monitor today with hopeful discharge tomorrow. Cellulitis continues to improve. Patient otherwise has no complaints and blood work remained stable. On 06/20, patient's blood pressure in the a.m. was 159/51. Morning blood work shows no leukocytosis or major electrolyte abnormalities. Patient reports her pain is at a minimal level at this point and is manageable. Blood cultures show no growth to date. In the afternoon, however her blood pressure dropped to 85/40. Patient however is nonsymptomatic at this time. She is already on midodrine 2.5 mg p.o. q.12 hours. Patient is accompanied by sister who states that her blood pressures usually drop in the late morning/afternoons and is typically 9 asymptomatic to her hypotension. Patient uses a wheelchair to move around her house and generally only gets up to transition to and from the heelchair. She will be discharged to a detention facility who can help monitor her ambulation/positional changes. As patient is asymptomatic and already on appropriate medication and is a low fall risk as she uses a wheelchair to move around, she can be safely discharged at this time. Urine culture has resulted which shows intermediate resistance to Augmentin but otherwise has brasher susceptibility. Discussed with ID pharmacist regarding treatment options for cellulitis and urinary tract infection, agree with Bactrim for 5 additional days. [facility] at [facility] time. Pt is amenable to this plan Status at Discharge Functional status at discharge: wheelchair bound Overall status at discharge: patient is progressing back to baseline Time Spent with Patient Time attestation: Total time spent providing and/or coordinating discharge services: 45 Exam Narrative: GENERAL: Appears older than stated age, chronically ill-appearing, frail, non- toxic, very uncomfortable appearing HEAD: Normocephalic, atraumatic. RESPIRATORY: Airway patent, respirations nonlabored. Clear to auscultation bilaterally, no rales, rhonchi, wheezing. CARDIOVASCULAR: Regular rate and rhythm without murmurs, rubs, or gallops. Pedal pulses are intact MUSCULOSKELETAL: Limited ROM of LLE d/t hemiparesis. No swelling of LLE with minimal erythema, no warmth, without weeping. Small abrasions to posterior calf region w/o large wounds or lacerations. Callous appearance on plantar surface of left foot. Improved tenderness and hypersensitivity throughout LLE. Slight erythema throughout RLE w/o significant warmth or abrasions. SKIN: Warm, dry, normal color. NEURO: A&O X3. Speech clear. Left sided upper and lower hemiparesis PSYCHIATRIC: highly anxious and sharp interaction DS: Data Data Completed and Pending Labs on day of discharge: Labs from last 24 hours 06/20/25 03:55 WBC 4.1 L RBC 4.02 L Hgb 12.7 Hct 39.8 MCV 99.0 MCH 31.6 MCHC 31.9 L RDW 11.9 Plt Count 136 L MPV 10.7 H Immature Gran % (Auto) 0.2 Neut % (Auto) 47.1 Lymph % (Auto) 31.6 Peach % (Auto) 6.9 Eos % (Auto) 13.5 H Baso % (Auto) 0.7 Lymph # (Auto) 1.29 Peach # (Auto) 0.3 Eos # (Auto) 0.6 H Baso # (Auto) 0.0 Abs Immat Gran (auto) 0.01 Absolute Neuts (auto) 1.9 Absolute Nucleated RBC 0.000 Nucleated RBC % 0.0 Sodium 139 Potassium 3.8 Chloride 104 Carbon Dioxide 34 H Anion Gap 1 L BUN 10 Creatinine 0.49 L Estim Creat Clear Calc 86 Estimated GFR > 60 Glucose 82 Calcium 8.4 Magnesium 2.0 Total Bilirubin 0.4 AST 19 ALT 11 Alkaline Phosphatase 82 Total Protein 5.0 L Albumin 2.8 L Preliminary micro results at discharge 06/14/25 18:14 Blood Culture - Preliminary Blood 06/14/25 18:14 Blood Culture - Preliminary Blood 06/14/25 21:40 - Preliminary Urine Catheterized Gram negative bacilli isolated Discharge Plan Discharge Attending physician on discharge: Zayda Nelson Consulting providers: Conor Almaguer Discharging Clinician: Conor Almaguer Anticipated Discharge Date/Time: 06/19/25 08:58 Patient Disposition: SNF Activity: no straining Diet: heart healthy Discharge Instructions: Discharge disposition: [facility] Take medications as prescribed. You will be prescribed Bactrim to take for an additional 5 days. Take twice daily, once in the morning and once in the evening. Monitor blood pressures Take caution while standing, rising, or moving Change positions slowly taking a break between each position change If you standing feel dizzy sit back down and take a break Encouraged to continue with yearly vaccinations Return to the emergency department if he developed sudden shortness of breath, chest pain, nausea, vomiting, upset stomach or intractable diarrhea Return to the emergency department if you develop fever greater than 101.5 Follow-up with the primary care physician within 1-2 weeks Thank you for [facility] for your healthcare needs Patient Instructions: Apixaban (By mouth) Patient Language: Senegalese Stand Alone Forms: General Discharge Information Follow-up/Referrals: Martha Cates MD [Primary Care Provider] - Discharge Medications: New sulfamethoxazole-trimethoprim [Bactrim] 400-80 mg tablet 1 tablet PO BID 5 Days Qty: 10 0RF Continued naloxone [Narcan] 4 mg/actuation spray,non-aerosol 1 spray NASAL Q2M PRN (Reason: opioid overdose) Rx Instructions: spray 1 dose into ONE nostril; alternate nostrils w each dose until help arrives Women's Multivitamin Gummies 200 mcg tablet,chewable 200 mcg PO DAILY levetiracetam [Keppra] 500 mg tablet See Rx Instructions PO BID Rx Instructions: 2 tabs qam and 3 tabs qpm orally twice a day; (DME) Dao mcdonnell 18 inch See Rx Instructions .Route .MEDSUPPLY Qty: 1 0RF Rx Instructions: As directed cholecalciferol (vitamin D3) 50 mcg (2,000 unit) capsule 25 mcg PO DAILY Eliquis 2.5 mg tablet 2.5 mg PO BID lidocaine [Aspercreme (lidocaine)] 4 % adhesive patch,medicated 2 patch topical BID PRN (Reason: pain) Rx Instructions: Apply to lower back famotidine 20 mg tablet 20 mg PO QHS escitalopram oxalate 20 mg tablet 20 mg PO HS buspirone 5 mg tablet 5 mg PO BID cyanocobalamin (vitamin B-12) [Vitamin B-12] 500 mcg Tablet 500 mcg PO DAILY aspirin 81 mg Tablet,Chewable 81 mg PO DAILY solifenacin [Vesicare] 5 mg tablet 5 mg PO HS albuterol sulfate 90 mcg/actuation HFA aerosol inhaler See Rx Instructions .ROUTE .COMPLEX Qty: 8.5 5RF Dose Instruction: INHALE 2 PUFFS BY MOUTH FOUR TIMES DAILY NEEDED FOR SHORTNESS OF BREATH OR WHEEZING Rx Instructions: INHALE 2 PUFFS BY MOUTH FOUR TIMES DAILY NEEDED FOR SHORTNESS OF BREATH OR WHEEZING atorvastatin 20 mg tablet 20 mg PO QHS Qty: 90 1RF folic acid 1 mg tablet 1 mg PO DAILY Qty: 90 1RF tizanidine 4 mg capsule See Rx Instructions .ROUTE .COMPLEX Qty: 270 0RF Dose Instruction: TAKE 1 CAPSULE BY MOUTH THREE TIMES DAILY NEEDED FOR MUSCLE SPASTICITY Rx Instructions: TAKE 1 CAPSULE BY MOUTH THREE TIMES DAILY NEEDED FOR MUSCLE SPASTICITY (DME) shoes See Rx Instructions .Route .MEDSUPPLY Qty: 2 0RF Rx Instructions: As directed omeprazole 40 mg capsule,delayed release(DR/EC) See Rx Instructions .ROUTE .COMPLEX Qty: 90 1RF Dose Instruction: TAKE 1 CAPSULE BY MOUTH DAILY Rx Instructions: TAKE 1 CAPSULE BY MOUTH DAILY midodrine 2.5 mg tablet 2.5 mg PO BID Qty: 180 0RF Date of admission: 06/15/25 13:49 Primary Care Provider: Martha Cates Admitting Provider: Jaleel Zvaala Attending physician on admission: Jaleel Zavala Condition: Stable Quality VTE Prophylaxis VTE prophylaxis: pharmacologic ordered (apixaban)
[2025-06-20 11:50] VITALS: BP 85/40; PULSE 61; RESP 20; TEMP 36.2; O2SAT 94
[2025-06-20 13:00] VITALS: BP 81/40
--- NOTE | 2025-06-20 14:33 | PCOTNOTE ---
Attempted to see Patient this afternoon. Patient refused to participate, states she already did therapy and it was hard and she is to weak and can not do anymore today. Patient refused to participate in any activity.
== END 2025-06-20 15:30 | DRG 603 ==
LOC: ANHED 21:16 → ANH2MED 21:31
PROVIDERS: Nurse Practitioner; Admitting Provider General Practice; Emergency Provider Physician Assistant; PCP Family Medicine; Visit Provider Physician Assistant
DX: L03.116 Cellulitis of left lower limb (principal); I69.354 Hemiplegia and hemiparesis following cerebral infarction affecting left non-dominant side; F11.20 Opioid dependence, uncomplicated; N39.0 Urinary tract infection, site not specified; Z16.23 Resistance to quinolones and fluoroquinolones; Z99.3 Dependence on wheelchair; I10 Essential (primary) hypertension; J44.9 Chronic obstructive pulmonary disease, unspecified; M21.372 Foot drop, left foot; M81.0 Age-related osteoporosis without current pathological fracture; B96.20 Unspecified Escherichia coli [E. coli] as the cause of diseases classified elsewhere; K21.9 Gastro-esophageal reflux disease without esophagitis; K52.9 Noninfective gastroenteritis and colitis, unspecified; N32.81 Overactive bladder; Z97.8 Presence of other specified devices; E55.9 Vitamin D deficiency, unspecified; F17.210 Nicotine dependence, cigarettes, uncomplicated; M26.609 Unspecified temporomandibular joint disorder, unspecified side; G89.29 Other chronic pain; Z86.718 Personal history of other venous thrombosis and embolism; I95.1 Orthostatic hypotension; M19.90 Unspecified osteoarthritis, unspecified site; H54.62 Unqualified visual loss, left eye, normal vision right eye; Z79.82 Long term (current) use of aspirin; Z98.890 Other specified postprocedural states; Z86.79 Personal history of other diseases of the circulatory system; Z86.69 Personal history of other diseases of the nervous system and sense organs; Z86.59 Personal history of other mental and behavioral disorders
CPT/HCPCS: 36415; 71045; 80053; 80307; 81001; 83605; 83735; 83880; 84145; 85025; 85055; 85610; 85652; 85730; 86140; 87040; 87086; 93005; 93971; 96361; 96365; 96375; 97110; 97162; 97166; 97530; 99285; A9270; G0378; J0690; J1630; J2270; J2405; J7030; J7040

== ENCOUNTER 2025-08-19 15:39 | Outpatient (NON) | payer MEDICARE, MEDICAID, SELFPAY ==
--- OUTSIDE RECORDS SUMMARY | 2009-06-21 07:45 | XMS_ITS | Continuity of Care Document ---
Author Organization [facility] Address [address] [place] [address] [facility] [address] [place] [address] Phone Care Team Providers Care Art Education Professor Name Role Phone Augustin Del Real Unavailable Unavailable Procedures Procedure Date Office/outpatient Visit, [facility] Advance Directives Directive Yes / No Effective Date File Name No Information Encounters Encounter Description Practice Location Reason(s) For Visit Diagnoses Date Provider Providers Copied on Encounter Office/outpa tient Visit, [facility], [address] [place], [place], [id number], [place] tel:[phone] [facility] No Information 9[address] [employer] [facility] [address], [address], [place]. tel:[phone] Referring Provider: Thomas Kincaid, [address], [place], [address]. tel:[phone] Family History Family Member Type Diagnosis Age At Onset No Information Payers Payer name Insurance type Covered green party ID Authoriza tion(s) No Information Social History Type Description Quantity Date Captured Comments Sex Female Smoking Status No Information Chief Complaint And Reason For Visit No Information Reason For Referral Reason For Referral No Information History Of Present Illness Encounter Date Complaint History Of Prese nt Illness No Information Functional Status Date Functional Assessmen t No Information Instructions Date Instruction Additional Infor mation No Information Assessments Type Assessment Date No Information Patient Care Teams Name Effective Dates (start - stop) Status Members No Information
--- OUTSIDE RECORDS SUMMARY | 2025-08-19 15:42 | XMS_ITS | Encounter Summary ---
Author Organization [facility] Health Address [address] [place] [address] Care Team Providers Care Driver Salesman Name Role Phone Karl Cates MD Primary Care Provider Reason for Visit * Reason Onset Date Comments Appointment 04/26/2024 Encounter Details Date Type Department Care Team (Late st Contact Info) Description 04/26/2024 Telephone [facility] - Neurology [address] [place] [address], [facility] [place] [address] Cynthia Schmitz MD [address] [place] [address] [place] [id number] Appointment Social History Tobacco Use Types Packs/Day [...] PM CDT Legal Sex Female 5:16 AM GAS CUTTER Gender Identity Female 06/02/2023 4:57 PM CDT [...] reschedule apt please. Patient Call Back Number: [phone] documented in this encounter Plan of Treatment Upcoming Encounters Date Type Department Care Team (Late st Contact Info) Description 09/27/2025 2:00 PM GAS CUTTER Procedure visit [facility] - Neurology [address] [place] [address], [place] [address] Cynthia Schmitz MD [address] [place] [address] [place] [address] documented as of this encounter Visit Diagnoses Not on filedocumented in this encounter Care Teams Driver Salesman Relationship Specialty Start Date End Date Karl Cates MD [address] [place] [address] PCP - General 09/08/18 documented as of this encounter
--- OUTSIDE RECORDS SUMMARY | 2025-08-19 15:43 | XMS_ITS | Clinical Summary ---
Author Organization [facility] Address [address] [place] [address] Care Team Providers Care Certified Ophthalmic Assistant Name Role Phone Karl Cates MD Primary Care Provider Source Comments [facility],non-owned Affiliates and Associated Physician Practices is amultiple site organization consisting of ambulatory clinics and hospital sitesin [place], [place], [place] and [place]. This disclosure is being madepursuant to the Care Everywhere program and may not contain all information available regarding this patient. Last updated 18.[facility] Allergies Active Allergy Reactions Criticality Noted Date [...] once daily Active Naloxone HCl (NARCAN NA) [place] 1 Each into the nose as needed [...] Wound care reviewed, post-cryo handout given Immunizations Immunization Administration Dates Next Due [employer] primary monoval ent 12+ yr 0.3mL Purple [...] PM CDT Legal Sex Female 5:16 AM MOLD RELEASE WORKER Gender Identity Female 06/02/2023 4:57 PM CDT Sexual Orientation Not on file Last Filed Vital Signs Vital Sign Reading Time Taken Comments Blood Pressure 105/69 03/22/2025 1:05 PM CDT Pulse 74 03/22/2025 1:05 PM CDT Temperature 37 C (98.6 F) 12/23/2023 10:55 AM MOLD RELEASE WORKER Respiratory Rate 13 09/04/2018 6:20 PM CDT Oxygen Saturation 95% 03/22/2025 1:05 PM CDT Inhaled Oxygen Concentration - - Weight 71 kg (156 lb 9.6 oz) 12/23/2023 10:55 AM MOLD RELEASE WORKER Height 165.1 cm (5' 5) 09/16/2023 10:52 AM MOLD RELEASE WORKER Body Mass Index 26.06 09/16/2023 10:52 AM MOLD RELEASE WORKER Plan of Treatment Upcoming Encounters Date Type Department Care Team (Late st Contact Info) Description 09/27/2025 2:00 PM MOLD RELEASE WORKER Procedure visit [facility] - Neurology [address] [place] [id number] Cynthia Schmitz MD [address] [place] [address] [place] [phone] Health Maintenance Due Date Last Done Comments [...] (2 of 2 - PCV) 09/02/2018 09/02/2017 DEPRESSION SCREENING 11/03/2024 MEDICARE AWV CALENDAR YEAR 2024 COVID-19 VACCINE ( season) 2025 09/18/2021, 02/12/2021, 01/16/2021 INFLUENZA VACCINE (#1) 2025 , 08/24/2020, 08/23/2020, [...] Procedure Name Priority Date/Time Associated Diagnosis Comments HEPATITIS C ANTIBODY Routine 06/25/2016 12:38 AM CDT from Last 3 Months or Most Recently Relevant to Health Maintenance Results * HEPATITIS C ANTIBODY (06/25/2016 12:38 AM CDT) Hepatitis C Antibody Non-react [facility] Comment: Hepatitis C Antibody screen indicates no [...] LAB - CHEMISTRY ORDERABLE S Final Result [address] [phone] from Last 3 Months or Most Recently Relevant to Health Maintenance Insurance MEDICAID [facility] AETNA MEDICARE [facility] MEDICA[facility] - [place] Advance Directives Documents on File Type Date Recorded Patient Car Lot Attendant Expl anation Advance Directives and Livin g Will 06/19/2016 12:00 AM Care Teams Certified Ophthalmic Assistant Relationship Specialty Start Date End Date Karl Cates MD [address] [place] [address] PCP - General 09/08/18
--- OUTSIDE RECORDS SUMMARY | 2025-08-19 15:43 | XMS_ITS | Clinical Summary ---
Author Organization [facility] Address [address] [place] [address] Care Team Providers Care Continuous Weld Pipe Mill Supervisor Name Role Phone Unavailable Primary Care [...] Take 4 mg by mouth. Active vit C,P-Bi-fcbup-jared tein-zeaxan 250-90-40-1 mg Capsule Take 2 Capsules by mouth 2 times daily. Active amoxicillin-cla vulanate (AUGMENTIN) 875-125 mg tablet TAKE 1 TABLET BY MOUTH EVERY 12 HOURS FOR UTI 4 Active Eliquis 2.5 mg tablet TAKE 1 TABLET(2.5 MG) BY MOUTH TWICE DAILY 60 Tablet 5 5 Active Active Problems No known active problems Encounters Date Type Department Care Team Description 07/19/2025 External Device Data STL ABSTRACTION Provider, Abstract 06/07/2025 External Device Data ST[facility] ABSTRACTION Provider, Abstract 06/03/2025 Refill [facility] [address] [place] [address] Conor Alex MD 05/31/2025 Orders Only [facility] [place] [address] [place] [address] Conor Alex MD 05/30/2025 1:15 PM CDT Office Visit [facility] [place] [address] [place] [address] Conor Alex MD Chronic anemia (Primary Dx) from Last 3 Months Family History Medical [...] st Contact Info) Description 11/30/2025 2:15 PM CDL SERVICE TECHNICIAN Office Visit [facility] [address] [facility] [address] [place] [address] Conor Alex MD [address] [facility] [address] [place] [address] Health Maintenance Due Date Last [...] METABOLIC PANEL (05/28/2025 3:54 PM CDT) Blood us Conor Alex MD CHEMISTRY ORDERABLES Final Resu lt from Last 3 Months Insurance [employer]ETNA [facility] MEDICAID [place]
--- OUTSIDE RECORDS SUMMARY | 2025-08-19 15:43 | XMS_ITS | Patient Health Record ---
Author Organization [facility] [employer] Address [address] [place] [address] Care Team Providers Care Braid Pattern Setter Name Role Phone Khai Clark Unavailable [phone] Therese Holt Unavailable [phone] Allergies Allergen (clinical drug ingredient) Drug/Non Drug Allergy documented on EMR Reaction Allergy Type Onset Date Status erythromycin Erythromycin Base Unknown Drug Allergy 2021 Active Reason For Referral No Information Medications Medication SIG (Take, Route, Frequency, Duration) Notes Start Date End Date Status Escitalopram Oxalate 20 MG Tablet TAKE 1 TABLET BY MOUTH DAILY; Duration: 90 Active busPIRone HCl 5 MG Tablet TAKE 1 TABLET BY MOUTH TWICE DAILY; Duration: 90 Active Omeprazole 40 MG Capsule Delayed Release TAKE 1 CAPSULE BY MOUTH DAILY Oral; Duration: 90 Days Active tiZANidine HCl 4 MG Capsule TAKE 1 CAPSU LE BY MOUTH THREE TIMES DAILY NEEDED FOR MUSCLE SPASTICITY Oral; Duration: 90 Days Active Escitalopram Oxalate 20 MG Tablet 1 tablet Oral once a day; Duration: 90 days Active Clobetasol Propionate 0.05 % Solution APPLY 2-3 DROPS TO RASH AREAS ON SCALP/EARS TWICE DAILY FOR 4 WEEKS. DO NOT APPLY TO FACE. MUST TAKE 2 WEEK BREAK BEFORE RESTARTING External; Duration: 30 Days Active busPIRone HCl 5 MG Tablet 1 tablet Orall y Twice a day; Duration: 90 days Active Midodrine HCl 2.5 MG Tablet TAKE 1 TABLE T BY MOUTH THREE TIMES DAILY Oral; Duration: 90 Days Active levETIRAcetam 500 MG Tablet TAKE 3 TABLE TS BY MOUTH TWICE DAILY Oral; Duration: 90 Days Active Folic Acid 1 MG Tablet TAKE 1 TABLET BY MOUTH DAILY Oral; Duration: 90 Days Active Atorvastatin Calcium 20 MG Tablet Oral; Duration: 90 Days Acti ve Immunizations Vaccine Route Administration Date Status Comme nts Influenza virus vaccine, quadrivalent (IIV4), split virus, 0.25 mL dosage Unknown 08/24/2020 Administered Influenza, injectable, MDCK, preservative free Unknown 08/23/2020 Administered Influenza, seasonal, injecta ble, preservative free, 3 yrs and above Unknown 08/30/2013 Administered Novel [id number]-[id number], preservative free Unknown 08/14/2018 Administered Novel [id number]-[id number], preservative free Unknown 08/24/2019 Administered Pfizer Biontech [...] History Observation Description Sex Assigned At Female Social History Drug/Alcohol: Social Info Question Answer Notes AUDIT-C (Standard) Did you have a drink containing alcohol in the past year? No Points 0 Interpretation Negative Tobacco Use: Social Info Question Answer Notes Tobacco Control (Standard) Tobacco use: Nonsmoker Problems Problem Type SNOMED Code ICD Code Onset Dates Problem Status W/U Status Risk Notes Problem Mild recurrent major depression (77264413) Major depressive disorder, recurrent, mild (F33.0) 4 Active confirmed Problem Generalized anxiety disorder (89871042) Generalized anxiety disorder (F41.1) 4 Active confirmed Problem Generalized anxiety disorder (46065864) ERICK (generalized anxiety disorder) (F41.1) Active confirmed Vital Signs Heart Rate 87 /min 12/29/2024 Height-cm 165.10 cm 12/29/2024 Blood pressure diastolic 70 mm Hg 12/29/2024 Weight-kg 72.12 kg 12/29/2024 Height 65.00 in 12/29/2024 Blood pressure systolic 110 mm Hg 12/29/2024 Weight 159 lbs 12/29/2024 BMI 26.46 kg/m2 12/29/2024 Encounters Encounter Location Date [facility] [address] [place] [id number] 09/02/2024 Therese Najerakassyveronica [facility] [address] [address] 10/19/2024 [place] [id number] [address] 12/29/2024 Khai Clark Major depressive disorder, recurrent, mild F33.0 and Generalized anxiety disorder F41.[address] [address] 09/02/2024 Khai Eduardo [place] [id number] [address] 09/06/2024 Khai Eduardo Generalized anxiety disorder F41.1 and Major depressive disorder, recurrent, mild F33.0 Assessments Encounter Date Diagnosis (ICD Code) Assessment Notes Treatment Notes Treatment Clinical Notes Section Notes 09/06/2024 Generalized anxiety disorder (ICD-10 - F41.1) [...] or national office of the Alzheimer's Association ([phone] 0; http://www.alz .org), the Alzheimer's Disease Education and Referral Center (ADEAR) ([phone] 0; http://www.julian .nih.gov/Alzhe imers/), Obesity - Plan: - Encourage patient to engage in a healthy diet and increase physical activity as tolerated. - Consider referral to a regional account director for further guidance. Anxiety - Plan: - [...] Replacemen t/Advantag e - Ppo [address] [place] [address] [id number] FRANCI BLACKWOOD Self - patient is the insured Medicaid-[place] l Medicaid [address] [address] [place] [address] [id number] JAISON, FRANCI Self - patient is the insured Medical (General) History Medical History History ICD Code Problems: Cigarette smoker Generalized anxiety disorder Mild recurrent major depression Tonic-clonic seizure , Surgical History Surgery Date(Month/Year) Hand plastic operation with graft (63936 9006) spider bite Removal of gallbladder (26909) Cholecystectomy (49411568) Any surgical history 11/17/2006 Tonsilectomy/adenoids 01/17/1959 Hysterectomy (26074) 04/03/1999 Appendectomy (82208) 08/14/1976
--- OUTSIDE RECORDS SUMMARY | 2025-08-19 15:43 | XMS_ITS | Clinical Summary ---
Author Organization [facility] [address] [facility] [place] [address] Care Team Providers Care White Washer Piler Name Role Phone Karl Cates MD Primary Care Provider Darren Iverson NP Unavailable [phone] Diego Lamb MD Unavailable iDego Lamb MD Unavailable Allergies Active Allergy Reactions Criticality Noted Date Comments Erythromycin Diarrhea,Other (See comments) Low 01/23/2016 STOMACH PAINS Erythromycin Base Diarrhea Medium 10/01/2022 Medications MULTIVITAMIN ORALIndications: supplement Take 1 tablet/capsule by mouth every morning Activ e atorvastatin (LIPITOR) 20 mg tabletIndication s:hyperlipidemia Take 1 tablet (20 mg total) by mouth nightly 02/27/20 19 Active aspirin 81 mg chewable tabletIndication s:cad Take 1 tablet (81 mg total) by mouth every morning 07/12/20 16 Active cholecalciferol (VITAMIN D-3) 25 mcg (1,000 unit) tabletIndication s:supplement Take 1 tablet (1,000 Units total) by mouth every morning 07/13/20 16 Active escitalopram (LEXAPRO) 10 mg tabletIndication s:major depressive disorder Take 2 tablets (20 mg total) by mouth nightly 07/22/20 22 Active folic acid (FOLVITE) 1 mg tabletIndication s:supplement Take 1 tablet (1,000 mcg total) by mouth every morning 08/18/20 22 Active levETIRAcetam (KEPPRA) 500 mg tabletIndication s:seizures Take by mouth 2 (two) times a day 2 tablets in the a.m. & 3 tablets in the p.m. 08/20/20 22 Active midodrine (PROAMATINE) 2.5 mg tabletIndication s:Symptomatic Orthostatic Hypotension Take 1 tablet (2.5 mg total) by mouth 2 (two) times a day 07/31/20 22 Active omeprazole (PriLOSEC) 40 mg capsuleIndicatio ns:Mucositis Prophylaxis Take 1 capsule (40 mg total) by mouth every morning 07/18/20 22 Active tiZANidine (ZANAFLEX) 4 mg tabletIndication s:Muscle Spasm Take 1 tablet (4 mg total) by mouth nightly as needed Active umeclidinium-alberto anteroL (Anoro Ellipta) 62.5-25 mcg/actuation blister with deviceIndication s:Bronchospasm Prevention with COPD Inhale 1 puff nightly 03/05/[address] (CYMBALTA) 30 mg capsuleIndicatio ns:major depressive disorder Take 2 capsules (60 mg total) by mouth every morning 10/18/20 22 Active naloxone (NARCAN) 4 mg/actuation spray,non-aeroso lIndications:Opi [...] infection of skin Apply topically as needed 07/13/20 23 Active docusate sodium (COLACE) 100 mg capsuleIndicatio ns:constipation Take 1 capsule (100 mg total) by mouth 2 (two) times a day Activ e CYANOCOBALAMIN, VITAMIN B-12, ORALIndications: supplement Take 1,500 mcg by mouth every morning Activ e ondansetron (ZOFRAN) 4 mg tabletIndication s:nausea/vomitin g Take 1 tablet (4 mg total) by mouth every 12 (twelve) hours as needed for nausea or vomiting 30 tablet 1 08/20/20 23 Active calcium carbonate (CALCIUM 500 ORAL)Indications :supplement Take 500 mg by mouth daily Two 500mg gummies once a day Active clobetasoL (TEMOVATE) 0.05 % external solutionIndicati ons:Dermatosis of the Scalp APPLY 2-3 DROPS TO RASH AREAS ON SCALP/EARS TWICE DAILY FOR 4 WEEKS. DO NOT APPLY TO FACE. MUST TAKE 2 WEEK BREAK BEFORE RESTARTING 02/26/20 24 Active imiquimod (ALDARA) 5 % cream 2 x a day to face 01/16/20 24 Active pimecrolimus (ELIDEL) 1 % creamIndications :Atopic Dermatitis APPLY TO THE AFFECTED AREA ON FACE TWICE DAILY 03/10/20 24 Active vit C,C-Vu-kcbxx-lut ein-zeaxan 250-90-40-1 mg capsuleIndicatio ns:eye health Take 2 capsules by mouth 2 (two) times a day Active adapalene (DIFFERIN) 0.1 % creamIndications :Acne Vulgaris Apply topically nightly Active UNABLE TO FINDIndications: pain 495.9 mcg by intrathecal route daily. Pain pump morphine 4000 micrograms/millilit er, clonidine 400 micrograms/millilit er, bupivacaine 25989 micrograms/millilit er. The pump is set for continuous simple flow of 495.9.1 mcg in 24 hours, flex bolus of morphine at 8:30 a.m 40 mcg, 1:00 p.m. flex bolus of 15 mcg. and 11:59 p.m. bolus of 25 mcg Indications: pain Active apixaban (ELIQUIS) 5 mg tabletIndication s:Venous Thrombosis Take 0.5 tablets by mouth 2 (two) times a day. Indications: blood clot formation in vein 04/01/20 24 Active ibandronate (BONIVA) 150 mg tabletIndication s:Post-Menopausa l Osteoporosis Prevention Take 1 tablet (150 mg total) by mouth every 30 (thirty) days Active morphine sulfate (morphine, bulk,) 100 % powder 0 02/24/20 24 Active busPIRone (BUSPAR) 10 mg tabletIndication s:Generalized Anxiety Disorder Take 0.5 tablets by mouth 2 (two) times a day. Indications: repeated episodes of anxiety Active acetaminophen (TYLENOL) 500 mg tabletIndication s:Pain Take 2 tablets (1,000 mg total) by mouth every 6 (six) hours as needed for pain Active solifenacin (VESIcare) 5 mg tabletIndication s:Urinary Urge Incontinence Take 1 tablet by mouth daily 12/20/19 25 Active fluticasone propionate (FLONASE) 50 mcg/actuation nasal sprayIndications :Allergic Rhinitis Administer 2 sprays into each nostril daily. Indications: inflammation of the nose due to an allergy 05/25/20 25 Active ofloxacin (FLOXIN) 0.3 % otic solutionIndicati ons:Otitis Externa Administer 5 drops into each ear 3 (three) times a day. Indications: outer ear inflammation due to allergy or infection 05/25/20 25 Active famotidine (PEPCID) 20 mg tabletIndication s:gastroesophage al reflux disease Take 20 mg by mouth nightly. Indications: gastroesophageal reflux disease 05/25/20 25 Active ferrous sulfate 325 mg (65 mg of elemental iron) tabletIndication s:Iron Deficiency Anemia Take 65 mg of elemental iron by mouth daily with breakfast. Indications: anemia from inadequate iron 05/25/20 Active Active Problems Problem Noted Date Diagnosed Date Lumbar radiculopathy 04/12/2025 Sacroiliitis 03/18/2024 Myofascial pain 02/26/2024 Spinal stenosis of lumbar re gion without neurogenic claudication 01/07/2024 Lumbar radiculopathy 12/26/2023 Presence of intrathecal pump 02/21/2023 Left hemiplegia 10/01/2022 Chronic bilateral low back pain without [...] of part of neck of femur 014 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 Encounters Date Type Department Care Team Description 08/02/2025 Telephone [facility] [address] [place] [address] Amalia Nicole 07/26/2025 Telephone [facility] Pain Management [address] [place] [address] Lien Caruso 06/21/2025 Home Care Visit [address] [place] [address] Mai Busch, PT PT VIRTUAL OASIS DISCHARGE 06/19/2025 Home Care Visit [address] [place] [address] Benedicto Goyal RN SN TRIAGE ENCOUNTER 06/14/2025 Home Care Visit [address] [place] [address] Lindsay Torres, BETZY SN TRIAGE ENCOUNTER 06/09/2025 1:30 PM CDT Home Care Visit [address] [place] [address] Sruthi Lua, MELIZA PT HOME VISIT 06/02/2025 2:00 PM CDT Home Care Visit [address] [place] [address] Sruthi Lua, MELIZA PT HOME VISIT 05/31/2025 Home Care Visit [address] [place] [address] Mai Busch, PT CARE CONFERENCE 05/26/2025 Home Care Visit [address] [place] [address] Christy Davis, RN NURSE MED [facility] 05/25/2025 10:00 AM CDT Home Care Visit [address] [place] [address] Adriane Handley, PT PT OASIS START OF CARE 05/25/2025 Plan of Care Documentation [address] [place] [address] 05/25/2025 Telephone [facility] [address] [place] [id number] Sydney Chavarria 05/24/2025 Travel 05/24/[address] [place] [phone] Nancy Chacon RN 05/23/2025 2:15 PM CDT - 05/23/2025 11:59 PM CDT Hospital Encounter [facility] [address] [place] [id number] Darren Iverson NP Lumbar radiculopathy (Primary Dx); Spinal stenosis of lumbar region without neurogenic claudication; Chronic pain syndrome Discharge Disposition: Discharge to home or self care from Last 3 Months Surgical History Surgery Date Site/Laterality Comments HYSTERECTOMY BRAIN SURGERY INTRATHECAL PUMP IMPLANTATION 12/13/2022 battery replacement and pocket revision; original pump done 2016; FRACTURE SURGERY Left megan and screws Medical History Medical History Date Comments Hx Other Medical grand mal seizu res Pneumonia pneumonia Hx Other Medical Craniotomy Hx Other Medical Bleeding aneury sm Cerebrovascular accident (CVA) (HCC) Cerebrovascular accident Osteoporosis Osteoporosis Sleep apnea Nerve pain chronic Left hemiplegia (HCC) COPD (chronic obstructive pulmonary disease) GERD (gastroesophageal reflux disease) Seizures (HCC) last seizure celestine onesimo 10 yrs ago [...] of experiencing loneliness or isolatio n Sometimes 06/21/2025 OASIS A1250: Transportation Answer Date Recorded Lack of Transportation (Medical) No 06/21/2025 Lack of Transportation (Non-Medical) No 06/21/2025 Patient Unable or Declines to Respond No 06/21/2025 OASIS B1300: Health Literacy Answer Berto e Recorded Frequency of needing help to read materials from doctor or pharmacy Never 06/21/2025 AUDIT-C Answer Date Recorded Q1: How often [...] on file Legal Sex Female 1:07 AM ABSTRACTER Gender Identity Not on file Sexual Orientation Not on file Obstetrics History Last Filed Vital Signs Vital Sign Reading Time Taken Comments Blood Pressure 118/64 06/09/2025 1:56 PM CDT Pulse 81 06/09/2025 1:56 PM CDT Temperature 36.6 C (97.8 F) 06/09/2025 1:56 PM CDT Respiratory Rate 18 06/09/2025 1:56 PM CDT Oxygen Saturation 92% 06/09/2025 1:56 PM CDT Inhaled Oxygen Concentration - - Weight 69.4 kg (153 lb) 08/20/2023 7:23 AM CDT Height 165.1 cm (5' 5) 05/25/2025 11:17 AM CDT Body Mass Index 25.46 08/20/2023 [...] Visit 65+ 2021 Covid-19 Vaccine (5 - 2024-2 6 season) 2025 04/25/2022, 09/18/2021, 02/12/2021, Additional history exists Influenza Vaccine (#1) 2025 , 09/18/2021, 08/24/2020, Additional history exists Fall Risk Assessment 05/23/2026 05/23/2025 DTaP/Tdap/Td Vaccine (2 - Td or Tdap) 08/23/2030 08/23/2020 Medical Devices Implanted Type Area Personalized Living Manager Nurse Device Identifier Shelf Expiration Date Model / Serial / Lot Medtronic Inc Synchromed Ii .78in [place] Filter Mesh Pouch Programmable 8637-20 - [id number] - [id number] Implanted:Qty: 1 on 12/13/2022 by Diego Lamb MD at [facility] N/A: Abdomen Medtronic Inc 05/16/2024 8637-20 / [id number] / Medtronic Inc Tyrx 3.35x3in Large Envelope Absorbable Polyarylate Minocycline [id number] - [id number] Implanted:Qty: 1 on 12/13/2022 by Diego Lamb MD at [facility] N/A: Abdomen Medtronic Inc 08/21/2023 [id number] / / [id number] Medtronic Inc Ascenda 4fr .5mm 114cm 86cm 2 Piece Connector Pin Flexible Closed 8780 - [id number] Implanted:Qty: 1 on 08/20/2023 by Diego Lamb MD at [facility] Left: Flank Medtronic Inc 07/23/2025 [id number] / / [id number] Medtronic Inc Tyrx 3.35x3in Large Envelope Absorbable Polyarylate Minocycline [id number] - [id number] Implanted:Qty: 1 on 08/20/2023 by Diego Lamb MD at [facility] N/A: Abdomen Medtronic Inc 03/05/2024 [id number] / / [id number] Explanted Type Area Personalized Living Manager Nurse Device Identifier Shelf Expiration Date Model / Serial / Lot Unknown Pain Pump Explanted:Qty: 1 on 12/13/2022 by Diego Lamb MD at [facility] Other Description:Unknown Pain Pum p explanted Medtronic Inc Ascenda 2 Attached Collet Catheter Connector [place] [employer] Tool 8785 - [id number] Implanted:Qty: 1 on 12/13/2022 by Diego Lamb MD at [facility] Explanted:Qty: 1 on 08/20/2023 by Diego Lamb MD at [facility] N/A: Abdomen Medtronic Inc 01/16/2023 [id number] / / [id number] Insurance IDPA [facility] MEDICARE [facility] MEDICARE IDOH [facility] MEDICARE IDPA Care Teams White Washer Piler Relationship Specialty Start Date End Date Karl Cates MD PCP - General Family Practice 10/01/22 Darren Iverson NP Nurse Practitioner Nurse Practitioner 10/13/23 [place] [id number] [address] [address] [place] [address] Consulting Physician Pain Management 03/22/24 [place] [id number] [address] [address] [place] [address] Consulting Physician Pain Management 10/13/24
[2025-08-19 19:17] LABS: Add Urine Microscopic? YES; Appearance Urine Cloudy (Clear); Glucose Urine UA Negative (Negative); Leukocyte Esterase Ur 2+ LEU/UL (Negative); Need Manual Microscopic Reviewed; Nitrate Urine Negative (Negative); Non Pathogenic Casts 0-2; Specific Grav Ur 1.031 (1.001-1.035)
== END 2025-08-19 15:40 | disposition home or self-care (01) ==
LOC: ANHGOSHLAB 15:39
PROVIDERS: PCP Family Medicine; Visit Provider Nurse Practitioner Family
DX: R30.0 Dysuria (principal); R35.0 Frequency of micturition
CPT/HCPCS: 81001; 87086; 87186

== ENCOUNTER 2025-08-26 12:52 | Outpatient (CLI) | payer MEDICARE, MEDICAID, SELFPAY ==
--- NOTE | ~2025-08-26 | CT_ITS ---
EXAMINATION: CT sinus wo con DATE: 08/26/2025 13:10 INDICATION: Deviated nasal septum TECHNIQUE: Computed tomography (CT) of the paranasal sinuses was performed without intravenous contrast. The dose-length product was 287.97 mGy-cm. Automated exposure control and iterative reconstruction technique were employed. COMPARISON: CT dated 03/31/2024 FINDINGS: Rightward nasal septal deviation. There are bilateral saul bullosa. No significant mucosal thickening or air-fluid level. Mastoids are pneumatized. IMPRESSION: 1. No significant sinus disease. Reviewed, dictated and finalized at location O.
== END 2025-08-26 12:53 | disposition home or self-care (01) ==
LOC: MICIMG 12:53
PROVIDERS: PCP Family Medicine; Visit Provider Otolaryngology
DX: J34.2 Deviated nasal septum (principal); H61.21 Impacted cerumen, right ear; J01.01 Acute recurrent maxillary sinusitis
CPT/HCPCS: 70486

== ENCOUNTER 2025-09-16 12:47 | Outpatient (CLI) | payer MEDICARE, MEDICAID, SELFPAY ==
--- NOTE | ~2025-09-16 | XR_ITS ---
EXAMINATION: XR shoulder RT min 2V, 09/16/2025 13:05 EMERY WHEEL MOLDER HISTORY: Chronic right shoulder pain COMPARISON: No comparisons available. Findings: No acute fracture or malalignment. No significant degenerative changes. Soft tissues unremarkable. Impression: No acute fracture or malalignment. Reviewed, dictated and finalized at location P. Y WHEEL MOLDER Impression: No acute fracture or malalignment.
== END 2025-09-16 12:48 | disposition home or self-care (01) ==
PROVIDERS: PCP Family Medicine
DX: M25.511 Pain in right shoulder (principal); G89.29 Other chronic pain
CPT/HCPCS: 73030

== ENCOUNTER 2025-09-23 13:40 | Emergency (ER) | payer MEDICARE, MEDICAID, SELFPAY ==
[2025-09-23 13:40] VITALS: BP 123/90; PULSE 71; RESP 16; TEMP 36.6; O2SAT 90
--- OUTSIDE RECORDS SUMMARY | 2025-09-23 14:10 | XMS_ITS | Patient Health Record ---
Author Organization [facility] [employer] Address [address] [place] [address] Care Team Providers Care Electronics Supervisor Name Role Phone Khai Clark Unavailable [phone] Allergies Allergen (clinical drug ingredient) Drug/Non Drug [...] yrs and above Unknown 08/30/2013 Administered Novel Jozlpndst-[id number], preservative free Unknown 08/14/2018 Administered Novel [id number]-[id number], preservative free Unknown 08/24/2019 Administered Pfizer Biontech [...] Risk Notes Problem Mild recurrent major depression (28010143) Major depressive disorder, recurrent, mild (F33.0) 4 Active confirmed Problem Generalized anxiety disorder (33864551) Generalized anxiety disorder (F41.1) 4 Active confirmed Problem Generalized anxiety disorder (56105326) ERICK (generalized anxiety disorder) (F41.1) Active confirmed Vital Signs Heart Rate 87 /min 12/29/2024 Height-cm 165.10 cm 12/29/2024 Blood pressure diastolic 70 mm Hg 12/29/2024 Weight-kg 72.12 kg 12/29/2024 Height 65.00 in 12/29/2024 Blood pressure systolic 110 mm Hg 12/29/2024 Weight 159 lbs 12/29/2024 BMI 26.46 kg/m2 12/29/2024 Encounters Encounter Location Date Provider Diagnosis [facility] [address] [facility] [address] [place] [address] 12/29/2024 Khai Eduardo Major depressive disorder, recurrent, mild F33.0 and Generalized anxiety disorder F41.1 [employer] [address] [address] 10/19/2024 Assessments Encounter Date Diagnosis (ICD Code) Assessment Notes Treatment Notes Treatment Clinical Notes Section Notes 12/29/2024 Major depressive disorder, recurrent, mild (ICD-10 - F33.0) 12/29/2024 Generalized anxiety disorder (ICD-10 - F41.1) 12/29/2024 Other referral to the local chapter or national office of the Alzheimer's Association ( ; http://www.alz. org), the Alzheimer's Disease Education and Referral Center (ADEAR) ( ; http://www.julian. nih.gov/Alzheim ers/), Obesity - Plan: - Encourage patient to engage in a healthy diet and increase physical activity as tolerated. - Consider referral to a school nurse for further guidance. Anxiety - Plan: - [...] Replacemen t/Advantag e - Ppo [address] [place] [address] [id number] FRANCI BLACKWOOD Self - patient is the insured Medicaid-I l Medicaid [address] [address] [place] [id number] JAISONAMIRA GandhiT Self - patient is the insured Medical (General) History Medical History History ICD Code Problems: Cigarette smoker Generalized anxiety disorder Mild recurrent major depression Tonic-clonic seizure , Surgical History Surgery Date(Month/Year) Hand plastic operation with graft (66934 9006) spider bite Removal of gallbladder (99376) Cholecystectomy (61252356) Any surgical history 11/17/2006 Tonsilectomy/adenoids 01/17/1959 Hysterectomy (81727) 04/03/1999 Appendectomy (49184) 08/14/1976
--- OUTSIDE RECORDS SUMMARY | 2025-09-23 14:10 | XMS_ITS | Clinical Summary ---
Author Organization [facility] Address [address] [address] Care Team Providers Care Press Cutter Name Role Phone Unavailable Primary Care Provider [...] Take 4 mg by mouth. Active vit C,T-Va-zixag-jared tein-zeaxan 250-90-40-1 mg Capsule Take 2 Capsules by mouth 2 times daily. Active amoxicillin-cla vulanate (AUGMENTIN) 875-125 mg tablet TAKE 1 TABLET BY MOUTH EVERY 12 HOURS FOR UTI 4 Active Eliquis 2.5 mg tablet TAKE 1 TABLET(2.5 MG) BY MOUTH TWICE DAILY 60 Tablet 5 5 Active Active Problems No known active problems Encounters Date Type Department Care Team Description 09/20/2025 External Device Data [facility] ABSTRACTION Provider, Abstract 08/24/2025 External Device Data [facility] ABSTRACTION Provider, Abstract 08/23/2025 External Device Data [facility] ABSTRACTION Provider, Abstract 07/19/2025 External Device Data [facility] ABSTRACTION Provider, [...] st Contact Info) Description 11/30/2025 2:15 PM GAMB CUTTER Office Visit [facility] [address] [facility] [address] [place] [address] Conor Alex MD [address] [facility] [address] [place] [address] Health Maintenance Due Date Last [...] - 1-dose 75+ series) 2031 Insurance [employer] [facility] MEDICAID [id number]
--- OUTSIDE RECORDS SUMMARY | 2025-09-23 14:10 | XMS_ITS | Encounter Summary ---
Author Organization [facility] Health Address [address] [place] [address] Care Team Providers Care Train Operations Supervisor Name Role Phone Karl Cates MD Primary Care Provider Reason for Visit * Reason Onset Date Comments Appointment 04/26/2024 Encounter Details Date Type Department Care Team (Late st Contact Info) Description 04/26/2024 Telephone [facility] - Neurology [address] [place] [address], [facility] [address] Cynthia Schmitz MD [address] [place] [address] [place] [phone] Appointment Social History Tobacco Use Types Packs/Day [...] PM CDT Legal 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 Patient Call Back Number: [phone] documented in this encounter Plan of Treatment Upcoming Encounters Date Type Department Care Team (Late st Contact Info) Description 09/27/2025 2:00 PM SUPERVISOR WATERPROOFING Procedure visit [facility] - Neurology [address] [place] [address], [place] [address] Cynthia Schmitz MD [address] [place] [address] [place] [address] documented as of this encounter Visit Diagnoses Not on filedocumented in this encounter Care Teams Train Operations Supervisor Relationship Specialty Start Date End Date Karl Cates MD [address] [place] [address] PCP - General 09/08/18 documented as of this encounter
--- OUTSIDE RECORDS SUMMARY | 2025-09-23 14:10 | XMS_ITS | Clinical Summary ---
Author Organization [facility] yourdelivery Address [address] [facility] [place] [address] Care Team Providers Care Special Crimes Investigator Name Role Phone Karl Cates MD Primary Care Provider Source Comments [facility] yourdelivery,non-owned Affiliates and Associated Physician Practices is amultiple site organization consisting of ambulatory clinics and hospital sitesin [place], [place], [place] and [place]. This disclosure is being madepursuant to the Care Everywhere program and may not contain all information available regarding this patient. 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 Gender Identity Female 06/02/2023 4:57 PM CDT Sexual Orientation Not on file Last Filed Vital Signs Vital Sign Reading Time Taken Comments Blood Pressure 105/69 03/22/2025 1:05 PM CDT Pulse 74 03/22/2025 1:05 PM CDT Temperature 37 C (98.6 F) 12/23/2023 10:55 AM BARREL ROLLER OPERATOR Respiratory Rate 13 09/04/2018 6:20 PM CDT Oxygen Saturation 95% 03/22/2025 1:05 PM CDT Inhaled Oxygen Concentration - - Weight 71 kg (156 lb 9.6 oz) 12/23/2023 10:55 AM BARREL ROLLER OPERATOR Height 165.1 cm (5' 5) 09/16/2023 10:52 AM BARREL ROLLER OPERATOR Body Mass Index 26.06 09/16/2023 10:52 AM BARREL ROLLER OPERATOR Plan of Treatment Upcoming Encounters Date Type Department Care Team (Late st Contact Info) Description 09/27/2025 2:00 PM BARREL ROLLER OPERATOR Procedure visit [facility] - Neurology [address] [place] [phone] Cynthia Schmitz MD [address] [place] [address] [place] [phone] Health Maintenance Due Date Last Done Comments BONE DENSITY TESTING 1955 COLOGUARD (AGES 45-75) - COLON CA SCREENING 1956 COLON MONITORING 1956 COLONOSCOPY - COLON CA SCREENING 1956 CT COLONOGRAPHY - COLON CA SCREENING 1955 Colorectal Cancer Screening 1955 FIT - COLON CA SCREENING 1956 FLEX SIG - COLON CA SCREENING 1955 MAMMOGRAM 1955 Respiratory Syncytial Virus (RSV) Vaccine Pt: or over 60 yrs (1 - Risk 50-74 years 1-dose series) 2006 ZOSTER VACCINE (1 of 2) 2006 PNEUMOCOCCAL VACCINE 50+ (2 of 2 - PCV) 09/02/2018 09/02/2017 DEPRESSION SCREENING 11/03/2024 MEDICARE AWV CALENDAR YEAR 2024 COVID-19 VACCINE ( - season) 2025 09/18/2021, 02/12/2021, 01/16/2021 INFLUENZA VACCINE [...] 12:38 AM CDT) Hepatitis C Antibody Non-react [facility] Comment: Hepatitis C Antibody screen indicates [...] LAB - CHEMISTRY ORDERABLE S Final Result [address] [phone] from Last 3 Months or Most Recently Relevant to Health Maintenance Insurance MEDICAID [facility] AETNA MEDICARE [facility] MEDICAID - [place] Advance Directives Documents on File Type Date Recorded Patient Prepress Manager Expl anation Advance Directives and Livin g Will 06/19/2016 12:00 AM Care Teams Special Crimes Investigator Relationship Specialty Start Date End Date Karl Cates MD [address] [place] [address] PCP - General 09/08/18
--- OUTSIDE RECORDS SUMMARY | 2025-09-23 14:10 | XMS_ITS | Clinical Summary ---
Author Organization [facility] [address] [facility] [place] [address] Care Team Providers Care Chemical Packager Name Role Phone Karl Cates MD Primary [...] ON FACE TWICE DAILY 4 Active vit C,V-Ji-htgtq-lut ein-zeaxan 250-90-40-1 mg capsuleIndicatio ns:eye health Take 2 capsules by mouth 2 (two) times a day Active adapalene (DIFFERIN) 0.1 % creamIndications :Acne Vulgaris Apply topically nightly Active UNABLE TO FINDIndications: pain 495.9 mcg by intrathecal route daily. Pain pump morphine 4000 micrograms/mill iliter, clonidine 400 micrograms/mill iliter, bupivacaine 21191 micrograms/mill iliter. The pump is set for continuous simple flow of 495.9.1 mcg in 24 hours, flex bolus of morphine at 8:30 a.m 40 mcg, 1:00 p.m. flex bolus of 15 mcg. and 11:59 p.m. bolus of 25 mcg Indications: pain Active apixaban (ELIQUIS) 5 mg tabletIndication s:Venous Thrombosis Take 0.5 tablets (2.5 mg total) by mouth 2 (two) [...] tabletIndication s:Urinary Urge Incontinence Take 1 tablet (5 mg total) by mouth daily 5 Active fluticasone propionate (FLONASE) 50 mcg/actuation nasal sprayIndications :Allergic Rhinitis Administer 2 sprays into each nostril daily 5 Active ofloxacin (FLOXIN) 0.3 % otic solutionIndicati ons:Otitis Externa Administer 5 drops into each ear 3 (three) times a day 5 Active famotidine (PEPCID) 20 mg tabletIndication s:gastroesophage al reflux disease Take 1 tablet (20 mg total) by mouth nightly 5 Active ferrous sulfate 325 mg (65 mg of elemental iron) tabletIndication s:Iron Deficiency Anemia Take 1 tablet (325 mg total) by mouth daily with breakfast 5 Active Active Problems Problem Noted Date Diagnosed Date Lumbar radiculopathy 04/12/2025 Sacroiliitis 03/18/2024 Myofascial pain 02/26/2024 Spinal stenosis of lumbar re gion without neurogenic claudication 01/07/2024 Lumbar radiculopathy 12/26/2023 Presence of intrathecal pump 02/21/2023 Left hemiplegia 10/01/2022 Chronic bilateral low back pain without sciatica 10/01/2022 Chronic pain syndrome 10/01/2022 Neoplasm of uncertain behavior of skin 1 Solar lentiginosis 01/14/2020 Seborrheic keratosis 01/14/2020 Actinic [...] Encounters Date Type Department Care Team Description 08/30/2025 1:24 PM CDT - 08/30/2025 11:59 PM CDT Hospital Encounter [facility] [address] [place] [phone] Draren Iverson NP Radiculopathy, lumbar region (Primary Dx); Presence of intrathecal pump; Chronic pain syndrome; Spinal stenosis of lumbar region without neurogenic claudication; Chronic right shoulder pain; Osteoarthritis of right glenohumeral joint Discharge Disposition: Discharge to home or self care 08/24/2025 Telephone [facility] [address] [place] [phone] Ange Garcia RN 08/02/2025 Telephone [facility] [address] [place] [phone] Amalia Nicole 07/26/2025 Telephone [facility] [address] [place] [address] Lien Caruso from Last 3 Months Surgical History Surgery [...] on file Legal 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 Gender Identity Not on file Sexual Orientation Not on file Last Filed Vital Signs Vital Sign Reading Time Taken Comments Blood Pressure 113/45 08/30/2025 1:36 PM CDT Pulse 59 08/30/2025 1:36 PM CDT Temperature 36.6 C (97.8 F) 06/09/2025 1:56 PM CDT Respiratory Rate 16 08/30/2025 1:36 PM CDT Oxygen Saturation 94% 08/30/2025 1:36 PM CDT Inhaled Oxygen Concentration - - [...] 65+ (2 of 2 - PCV) 09/02/2018 09/02/2017, 07/14/2015 Well Visit 65+ 2021 Covid-19 Vaccine (5 - 2024-2 6 season) 2025 04/25/2022, 09/18/2021, 02/12/2021, Additional history exists Influenza Vaccine (#1) 2025 , 08/08/2023, 09/16/2022, Additional history exists Fall Risk Assessment 08/30/2026 08/30/2025 DTaP/Tdap/Td Vaccine (3 - Td or Tdap) 08/23/2030 08/23/2020, 06/17/2011 Medical Devices Implanted Type Area Analytical Research Chemist Device Identifier Shelf Expiration Date Model / Serial / Lot [employer]onic Inc Synchromed Ii .78in Louise Filter Mesh Pouch Programmable 8637-20 - [id number] - [id number] Implanted:Qty: 1 on 12/13/2022 by Diego Lamb MD at [facility] N/A: Abdomen Med[employer]onic Inc 05/16/2024 8637-20 / [id number] / Med[employer] Inc Tyrx 3.35x3in Large Envelope Absorbable Polyarylate Minocycline [id number] - [id number] Implanted:Qty: 1 on 12/13/2022 by Diego Lamb MD at [facility] N/A: Abdomen Med[employer] Inc 08/21/2023 [id number] / / [id number] Med[employer]onic Inc Ascenda 4fr .5mm 114cm 86cm 2 Piece Connector Pin Flexible Closed 8780 - [id number] Implanted:Qty: 1 on 08/20/2023 by Diego Lamb MD at [facility] Left: Flank Med[employer]onic Inc 07/23/2025 [id number] / / [id number] Med[employer]onic Inc Tyrx 3.35x3in Large Envelope Absorbable Polyarylate Minocycline [id number] - [id number] Implanted:Qty: 1 on 08/20/2023 by Diego Lamb MD at [facility] N/A: Abdomen [employer] Inc 03/05/2024 [id number] / / [id number] Explanted Type Area Analytical Research Chemist Device Identifier Shelf Expiration Date Model / Serial / Lot Unknown Pain Pump Explanted:Qty: 1 on 12/13/2022 by Diego Lamb MD at [facility] Other Description:Unknown Pain Pum p explanted [employer] Ascenda 2 Attached Collet Catheter Connector [place] [employer] Tool [id number] - [id number] Implanted:Qty: 1 on 12/13/2022 by Diego Lamb MD at [facility] Explanted:Qty: 1 on 08/20/2023 by Diego Lamb MD at [facility] N/A: Abdomen [employer]onic Inc 01/16/2023 [id number] / / [id number] [address] AETNA MEDICARE [facility] MEDICARE [facility] AETNA MEDICARE IDPA Care Teams Chemical Packager Relationship Specialty Start Date End Date Karl Cates MD PCP - General Family Practice 10/01/22 Darren Iverson NP Nurse Practitioner Nurse Practitioner 10/13/23 [place] [id number] [facility] [address] [place] [address] Consulting Physician Pain Management 03/22/24 [place] [address] [facility] [address] [place] [address] Consulting Physician Pain Management 10/13/24
--- OUTSIDE RECORDS SUMMARY | 2025-09-23 14:10 | XMS_ITS | Clinical Summary ---
Author Organization [facility] Address [facility] [place] [address] Care Team Providers Care President And Cmo Name Role Phone Prabhu Vera MD Primary Care Provider Allergies Active Allergy Reactions Criticality Noted Date Comments Erythromycin Diarrhea,Other (see comment),Rash,Unknown Medium 01/23/2016 STOMACH PAINS Phenobarbital Unknown 03/04/2023 Medications acetaminophen (TYLENOL) 500 MG tablet Take 2 tablets (1,000 mg total) by mouth every 6 (six) hours as needed. FOR PAIN Active adapalene (DIFFERIN) 0.1 % cream Apply topically daily. Active albuterol sulfate HFA 108 (90 Base) MCG/ACT inhaler Inhale 2 puffs into the lungs. Active apixaban (ELIQUIS) 2.5 MG tablet Take 1 tablet (2.5 mg total) by mouth 2 (two) times daily. 5 Active atorvastatin (LIPITOR) 20 MG tablet Oral; Duration: 90 Days Active busPIRone (BUSPAR) 10 MG tablet Take 0.5 tablets (5 mg total) by mouth 2 (two) times daily. Active tiZANidine (ZANAFLEX) 4 MG tablet Take 1 tablet (4 mg total) by mouth. Active solifenacin (VESICARE) 5 MG tablet Take 1 tablet (5 mg total) by mouth daily. 5 Active omeprazole (PRILOSEC) 40 MG capsule TAKE 1 CAPSULE BY MOUTH DAILY Oral; Duration: 90 Days Active ofloxacin (FLOXIN) 0.3 % otic solution Place 5 drops in ear(s) 3 (three) times daily. 5 Active Multiple Vitamins-Minera ls (PRESERVISION AREDS 2) Cap Take 2 capsules by mouth 2 (two) times daily. Active midodrine (PROAMATINE) 2.5 MG tablet TAKE 1 TABLET BY MOUTH THREE TIMES DAILY Oral; Duration: 90 Days Active lubiprostone (AMITIZA) 24 MCG capsule Take 1 capsule (24 mcg total) by mouth. Active levETIRAcetam (KEPPRA) 500 MG tablet TAKE 3 TABLETS BY MOUTH TWICE DAILY Oral; Duration: 90 Days Active ibandronate (BONIVA) 150 MG tablet Take 1 tablet (150 mg total) by mouth every 30 (thirty) days. Active folic acid (FOLVITE) 1 MG tablet TAKE 1 TABLET BY MOUTH DAILY Oral; Duration: 90 Days Active fluticasone propionate (FLONASE) 50 MCG/ACT nasal spray 2 sprays by Nasal route daily. Active famotidine (PEPCID) 20 MG tablet Take 1 tablet (20 mg total) by mouth daily. Active ferrous sulfate, 65 mg elemental, 325 (65 FE) MG tablet Take 1 tablet (325 mg total) by mouth daily. Active escitalopram (LEXAPRO) 20 MG tablet daily. Active DULoxetine (CYMBALTA) 30 MG capsule Take 1 capsule (30 mg total) by mouth daily. Active Docusate Sodium (DSS) 100 MG Cap Take 100 mg by mouth 2 (two) times daily. Active clobetasol (TEMOVATE) 0.05 % external solution APPLY 2-3 DROPS TO RASH AREAS ON SCALP/EARS TWICE DAILY FOR 4 WEEKS. DO NOT APPLY TO FACE. MUST TAKE 2 WEEK BREAK BEFORE RESTARTING External; Duration: 30 Days Active busPIRone (BUSPAR) 5 MG tablet every 12 (twelve) hours. Active naloxone (NARCAN) 4 MG/0.1ML nasal spray 1 spray by Nasal route. Active Active Problems Problem Noted Date Diagnosed Date Acquired deviated nasal septum 07/11/2025 Acquired left foot drop 07/11/2025 Acute maxillary sinusitis 07/11/2025 Microcytic anemia 07/11/2025 Anal pain 07/11/2025 Anxiety 07/11/2025 Wheelchair dependence 07/11/2025 Vitamin D deficiency 07/11/2025 UTI (urinary tract infection) 07/11/2025 Tobacco dependence due to cigarettes 07/11/2025 Rectal pressure 07/11/2025 Pulmonary emphysema 07/11/2025 Psychoactive substance dependence 07/11/2025 Personal history of other drug therapy Pelvic floor weakness in female 07/11/2025 Pain of left great toe 07/11/2025 Seizure 07/11/2025 Intracranial aneurysm 07/11/2025 Overview (07/11/2025): 2007 with craniotomy Obstructive sleep apnea syndrome 07/11/2025 OAB (overactive bladder) 07/11/2025 Nasal lesion 07/11/2025 Left hemiparesis 07/11/2025 Left arm swelling 07/11/2025 Late effect of adverse effec t of drug, medical or biological substance in therapeutic use 07/11/2025 Hypokalemia 07/11/2025 History of hemiparesis 07/11/2025 Hemiparesis as late effect o f cerebrovascular accident (CVA) 07/11/2025 GERD without esophagitis 07/11/2025 Nicko blood in stool 07/11/2025 Dyslipidemia 07/11/2025 Chronic nonallergic rhinitis 07/11/2025 Cellulitis of left lower extremity 07/11/2025 Bilateral hearing loss due to cerumen impaction 07/11/2025 At risk for falls 07/11/2025 Contracture, unspecified hand 12/18/2024 Acute embolism and thrombosi s of unspecified deep veins of unspecified lower extremity 10/02/2024 Anemia, unspecified 10/02/2024 Sacroiliitis 03/18/2024 Myofascial pain 02/26/2024 Spinal stenosis of lumbar re gion without neurogenic claudication 01/07/2024 Spinal stenosis of lumbar re gion without neurogenic claudication 01/07/2024 Lumbar radiculopathy 12/26/2023 Generalized anxiety disorder 12/24/2023 Major depressive disorder, recurrent, unspecifie d 12/24/2023 Solitary pulmonary nodule 09/16/2023 Orthostatic hypotension 09/16/2023 Hyperglycemia, unspecified 09/16/2023 Hemiplegia and hemiparesis f ollowing cerebral infarction affecting left non-dominant side 09/16/2023 Constipation, chronic 09/16/2023 Presence of intrathecal pump 02/21/2023 Left hemiplegia 10/01/2022 Chronic pain syndrome 10/01/2022 Overview (07/11/2025): pain pump--hydrocodone Chronic bilateral low back pain without sciatica 10/01/2022 Actinic skin damage 03/06/2021 Neoplasm of uncertain behavior of skin Actinic keratosis 01/14/2020 Overview (07/11/2025): Last Assessment & Plan: - Face x4 - Counseled on diagnosis, etiology, natural disease course- including pre-malignant nature of lesions and association with sun exposure - Cryotherapy performed today (see procedure note) - Wound care reviewed, post-cryo handout given Seborrheic keratosis 01/14/2020 Solar lentiginosis 01/14/2020 Other seborrheic dermatitis 01/14/2020 History of nonmelanoma skin cancer 01/14/2020 Cold sore 01/14/2020 Vision changes 12/31/2018 Postoperative spinal headache 12/31/2018 Postoperative CSF leak 12/31/2018 Other complicated headache syndrome 12/31/2018 H/O cerebral aneurysm repair 12/31/2018 Cerebral infarction 12/31/2018 Visual field defect 09/09/2018 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 09/09/2018 Encephalomalacia on imaging study 09/09/2018 Left leg pain 05/06/2018 Left arm pain 05/06/2018 Chronic daily headache 05/06/2018 Polypharmacy 09/01/2017 Anxiety disorder due to known physiological cond ition 07/12/2016 Homonymous bilateral field defects, left side PVD (peripheral vascular disease) 07/12/2016 Other seizures 07/12/2016 Major depressive disorder, single episode, unspe cified 07/12/2016 Personal history of transien t ischemic attack (TIA), and cerebral infarction without residual deficits 07/12/2016 History of stroke 07/12/2016 Fracture of unspecified part of neck of unspecified femur, subsequent encounter for closed fracture with routine healing 07/12/2016 Cerebellar stroke syndrome 07/12/2016 Vasospasm 06/18/2016 Age related osteoporosis 03/19/2014 Overview (07/11/2025): OSTEOPOROSIS NOS Depression 01/25/2014 Closed fracture of part of neck of femur 014 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 Resolved Problems Problem Noted Date Diagnosed Date Resolved Date Encounter for other preprocedural examination 09/16/2007/18/2025 Encounters Date Type Department Care Team Description 07/05/2025 5:00 PM CDT Long Term [facility] Family & Internal Medicine [facility] [address] [place] [address] Prabhu Vera MD Long Term Discharge from Last 3 Months Immunizations Immunization Administration Dates Next Due Arexvy Respiratory Syncytial Virus (RSV, adjuvanted) 0.5 mL, PF 08/08/2023 FLUAD (IIV, Trivalent, 0.5 M L Pre-filled Syringe) 09/21/2024 Fluzone High Dose - >Age 65 (Prefilled Syringe) 08/08/2023 H1N1 Injectable 2009 Influenza 08/24/2019,2017 Influenza (Generic) 08/05/2018, 7,07/12/2016,2012 Influenza Adult (Generic) 09/18/2021,,08/24/2019,2017 PFIZER COVID-19 (CERDA CAP), MRNA, LNP-S, PF, 30 MCG/0.3 ML EMILY-SUCROSE, IM 04/25/2022 PFIZER COVID-19 (ORIGINAL FORMULATION, PURPLE CAP) mRNA, LNP-S, PF, 30 MCG/0.3 ML DOSE 09/18/2021,02/12/2021,01/16/2021 Pneumococcal (Pneumovax 23) 09/02/2017, 5 Tdap (Generic) 08/23/2020,06/17/2011 Social History Tobacco Use Types Packs/Day Years Used Date Smoking Tobacco: Unknown Tobacco Cessation:Counseling Given: No Comments No Sex and Gender Information Value Date Recorded Sex Assigned at Female 06/21/2025 11:20 AM CDT Legal Sex Female 11:19 AM CDT Gender Identity Female 07/11/2025 7:41 AM CDT Sexual Orientation Not on file Last Filed Vital Signs Vital Sign Reading Time Taken Comments Blood Pressure 134/84 07/11/2025 7:35 AM CDT Pulse 88 07/11/2025 7:35 AM CDT Temperature 36.6 C (97.9 F) 07/11/2025 7:35 AM CDT Respiratory Rate 18 07/11/2025 7:35 AM CDT Oxygen Saturation 98% 07/11/2025 7:35 AM CDT Inhaled Oxygen Concentration - - Weight 68.5 kg (151 lb) 07/11/2025 7:35 AM CDT Height - - Body Mass Index - - Plan of Treatment Health Maintenance Due Date Last Done Comments Colorectal Cancer Screening Colonoscopy (10 Years) 1956 Mammogram Screening 1996 Zoster Vaccines (1 of 2) 2006 Pneumococcal Vaccine: 50+ Years (2 of 2 - PCV) 09/02/2018 09/02/2017, 07/14/2015 Annual Medicare Wellness Visit 2021 Dexa Scan (General) 2021 PHQ-2 (Physician [place]) 11/03/2024 COVID-19 Vaccine ( season) 2025 04/25/2022, 09/18/2021, 02/12/2021, Additional history exists Influenza Adult (#1) 2025 09/21/2024, 08/08/2023, 09/18/2021, Additional history exists DTaP, Tdap and Td Vaccines (3 - Td or Tdap) 08/23/2030 08/23/2020, 06/17/2011 Hepatitis C Completed 06/25/2016 RSV Immunization or 60+ Years Completed 08/08/2023 Hepatitis A Vaccines Aged Out No long er eligible based on patient's age to complete this topic Meningococcal B Vaccine Aged Out No l onger eligible based on patient's age to complete this topic Meningococcal Vaccine Aged Out No carmen fredy eligible based on patient's age to complete this topic RSV Immunizations Under 20 Months Aged Out No longer eligible based on patient's age to complete this topic Insurance MEDICAID AETNA MEDICARE Care Teams President And Cmo Relationship Specialty [place] [address] [place] [address] PCP - General FAMILY PRACTICE 06/21/25
[2025-09-23 15:08] LABS: Hematocrit 39.1 % (37.0-47.0); Hemoglobin 12.9 g/dL (12.0-15.0); Immature Granulocyte Percent A 0.2 % (0-0.5); Immature Platelet Fraction Pct 2.1 % (0.9-11.2); Lymphocytes Absolute Auto 1.29 K/mm3 (0.9-3.2); Mean Corpuscular HGB Conc 33.0 g/dl (32-36); Mean Corpuscular Hemoglobin 31.1 pg (26-34); Mean Corpuscular Volume 94.2 fl (80-100); Nucleated Red Blood Cells Absolute Auto 0.000 K/mm3 (0.0-0.012); Nucleated Red Blood Cells Perc 0.0 % (0.0-0.2); Platelet Count Result 139 k/mm3 (150-375); Red Blood Count 4.15 M/mm3 (4.2-5.4); White Blood Count 6.4 K/mm3 (4.5-10.0)
[2025-09-23 15:23] LABS: Alanine Aminotransferase 14 U/L (6-35); Albumin Level 3.3 g/dL (3.5-5.1); Alkaline Phosphatase 91 U/L (38-126); Anion Gap 2 mmol/L (4-12); Aspartate Amino Transferase 18 U/L (14-36); Bilirubin,Total 0.5 mg/dL (0.2-1.3); Blood Urea Nitrogen 18 mg/dL (7-17); Calcium 8.9 mg/dL (8.4-10.2); Carbon Dioxide 30 mmol/L (22-30); Chloride 107 mmol/L (98-107); Estimated CRCL calculation 63 ml/min; Estimated Glomerular Filt Rate > 60; Glucose 99 mg/dL (65-110); Potassium 3.6 mmol/L (3.4-5.0); Sodium 139 mmol/L (137-145); Total Protein 5.8 g/dL (6.3-8.2)
[2025-09-23 16:01] VITALS: BP 127/51; PULSE 56; RESP 16; O2SAT 93
[2025-09-23 16:06] LABS: Add Urine Microscopic? NO; Appearance Urine Clear (Clear); Glucose Urine UA Negative (Negative); Leukocyte Esterase Ur Negative LEU/UL (Negative); Nitrate Urine Negative (Negative); Specific Grav Ur 1.019 (1.001-1.035)
--- NOTE | 2025-09-23 17:27 | ED.BACK ---
HPI - Back Pain/Injury General Chief Complaint: Back Pain/Injury Stated Complaint: abd/back pain Time Seen by Provider: 09/23/25 13:52 History of Present Illness HPI Narrative: Patient is a 69-year-old female who presents ER with reports of pain in her back and leg. Patient reports she was bending over to bead picker remote when she had sudden onset pain. Patient has chronic pain related to spasticity from a old stroke. Her caregiver had her last day yesterday and she has a new caregiver starting tomorrow. There is no in to help today and she was bending over and felt pain. She has not taking her pain medications today. Patient has implanted morphine pain pump. She also takes tizanidine during the day and evening. She did not fall and strike her head. Patient reports he has some independence and can transfer. She is evaluating the possibility of going to assisted living. Related Data Home Medications ?Medication ?Instructions ?Recorded ?Confirmed ?Last Taken ?Type naloxone 4 mg/actuation nasal 1 spray intranasal Q2M PRN opioid 03/16/20 07/27/25 Unknown History spray (Narcan) overdose multivitamin with minerals-folic 200 mcg PO DAILY 07/12/20 07/27/25 Unknown History acid 200 mcg chewable tablet (Women's Multivitamin Gummies) cholecalciferol (vitamin D3) 50 25 mcg PO DAILY 01/10/21 07/27/25 06/14/25 History mcg (2,000 unit) capsule aspirin 81 mg chewable tablet 81 mg PO DAILY 04/01/24 07/27/25 06/14/25 History cyanocobalamin (vitamin B-12) 500 500 mcg PO DAILY 04/01/24 07/27/25 Unknown History mcg tablet (Vitamin B-12) apixaban 2.5 mg tablet (Eliquis) 2.5 mg PO BID 12/20/24 07/27/25 06/14/25 History escitalopram oxalate 20 mg tablet 20 mg PO HS 12/20/24 07/27/25 06/13/25 History famotidine 20 mg tablet 20 mg PO QHS 12/20/24 07/27/25 06/13/25 History levetiracetam 500 mg tablet See Rx Instructions PO BID 12/20/24 07/27/25 06/14/25 History (Keppra) lidocaine 4 % topical patch 2 patch topical BID PRN pain 12/20/24 07/27/25 Unknown History (Aspercreme (lidocaine)) neomycin 3.5 mg/g-polymyxin B ophthalmic (eye) 07/27/25 07/27/25 Unknown History 10,000 unit/g-dexameth 0.1 % eye oint Allergies Allergy/AdvReac Type Severity Reaction Status Date / Time erythromycin base Allergy Unknown ABDOMINAL Verified 09/23/25 13:54 CRAMPING, LOOSE STOOLS Review of Systems Review of Systems: All systems reviewed & are unremarkable except as noted in HPI and below Constitutional: Constitutional: Reports no additional constitutional complaints Cardiovascular: Cardiovascular: Reports no additional cardiovascular complaints Respiratory: Respiratory: Reports no additional respiratory complaints Gastrointestinal: Gastrointestinal: Reports no additional gastrointestinal complaints Musculoskeletal: Musculoskeletal: Reports no additional musculoskeletal complaints [facility] Past Medical History Medical History Acute deep vein thrombosis of tibial vein Acquired left foot drop Left arm swelling COPD (chronic obstructive pulmonary disease) UTI (urinary tract infection) History of deep venous thrombosis (DVT) of distal vein of left lower extremity (~11/2006) OAB (overactive bladder) Chronic pain pain pump--hydrocodone Hemiparesis affecting left side as late effect of cerebrovascular accident Postural hypotension Vitamin D deficiency Opiate use oxycodone and pain pump Anxiety DJD (degenerative joint disease) Arthritis Osteoporosis GERD (gastroesophageal reflux disease) Colitis Chronic constipation Emphysema lung DVT (deep venous thrombosis) HTN (hypertension) Seizure Brain aneurysm 2006 with craniotomy 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 TMJ (dislocation of temporomandibular joint) Surgical History Surgical History History of craniotomy 2007 - aneurysm repair H/O tubal ligation (~01/17/89) History of orthopedic surgery (~2009) Left leg and hip with megan 2009 History of bladder surgery (Unknown) bladder suspension H/O mastectomy (~1994) Hx of hysterectomy (~04/03/99) H/O section (~08/1976) Hx of cholecystectomy (~2009) Hx of appendectomy (~08/1976) Hx of tonsillectomy (~1958) Family History Family History Father Cerebral aneurysm Cerebrovascular accident Heart disease Hypertension Mother Lung cancer Colon ulcer Unknown Thyroid disease Other Lung cancer Colon ulcer Sibling Lung cancer Social History Social History Social History: used to smoke for 48 years Smoking packs per day: 0.75 Smoking cigarettes per day: 15.0 Years smoked: 56 Smoking pack-years: 42.00 Smoking status: Current every day smoker Tobacco type: cigarettes Second hand tobacco smoke exposure: No Alcohol intake: never Substance use: never Substance use type: opiates Other substance usage details: Morphine Do You Feel Safe in your Home?: Yes Lack of Transportation: No Lack of Food: Sometimes True Current Housing: I Have Housing Concerned About Future Housing: No Difficulty Paying Gas/Electric Bills: No Difficulty Paying for Meds: No Currently Unemployed: No Education: Bachelor's Degree Difficulty w/ Childcare or Family Care: No Living arrangements: alone Occupation/Education: retired Spiritual care concerns: No Agree to blood products: Yes Exam Narrative: GENERAL: Chronically ill-appearing, well-nourished, and in no acute distress. HEAD: Normocephalic, atraumatic. ENT: Mucous membranes moist. CHEST: Clear to auscultation. No respiratory distress. HEART: Regular rate and rhythm. Normal peripheral pulses. ABDOMEN: Soft, nontender, nondistended. EXTREMITIES: Left lower extremity braced. No deformity. 1+ edema in lower extremities. SKIN: Warm, dry, no rash. NEURO: Alert and oriented x3. PSYCH: Normal mood and affect. Course Course Emergency Course: Patient without any acute complaints other than acute flare of chronic pain. Labs unremarkable. Grandson assures me that there is a care person coming tomorrow and they feel safe with her going home. Vital Signs Vital signs: Vital Signs Temperature 97.9 F 09/23/25 13:40 Pulse Rate 71 09/23/25 13:40 Respiratory Rate 16 09/23/25 13:40 Blood Pressure 123/90 09/23/25 13:40 Pulse Oximetry 90 09/23/25 13:40 Oxygen Delivery Room Air 09/23/25 13:40 Temperature 97.9 F 09/23/25 13:40 Pulse Rate 56 L 09/23/25 16:01 Respiratory Rate 16 09/23/25 16:01 Blood Pressure 127/51 L 09/23/25 16:01 Pulse Oximetry 93 09/23/25 16:01 Oxygen Delivery Room Air 09/23/25 13:40 MDM - Back Pain/Injury Lab Data Attestation: I reviewed the patient's lab results. 09/23/25 14:54 09/23/25 14:55 Labs: Lab Results 09/23/25 09/23/25 09/23/25 Range/Units 14:54 14:55 15:55 WBC 6.4 (4.5-10.0) K/mm3 RBC 4.15 L (4.2-5.4) M/mm3 Hgb 12.9 (12.0-15.0) g/dL Hct 39.1 (37.0-47.0) % MCV 94.2 (80-100) fl MCH 31.1 (26-34) pg MCHC 33.0 (32-36) g/dl RDW 12.4 (11.5-14.5) % Plt Count 139 L (150-375) k/mm3 MPV 10.5 H (7.4-10.4) fl Immature Gran % (Auto) 0.2 (0-0.5) % Neut % (Auto) 66.9 (45.5-73.1) % Lymph % (Auto) 20.3 (18.3-44.2) % [place] % (Auto) 5.5 (2.6-8.5) % Eos % (Auto) 6.6 H (0-4.4) % Baso % (Auto) 0.5 (0.2-1.2) % Lymph # (Auto) 1.29 (0.9-3.2) K/mm3 [place] # (Auto) 0.4 (0.1-0.6) K/mm3 Eos # (Auto) 0.4 H (0-0.3) K/mm3 Baso # (Auto) 0.0 (0.0-0.1) K/mm3 Abs Immat Gran (auto) 0.01 (0.00-0.031) K/mm3 Absolute Neuts (auto) 4.3 (1.3-6.7) K/mm3 Absolute Nucleated RBC 0.000 (0.0-0.012) K/mm3 Nucleated RBC % 0.0 (0.0-0.2) % % Immature Plt Fraction 2.1 (0.9-11.2) % Sodium 139 (137-145) mmol/L Potassium 3.6 (3.4-5.0) mmol/L Chloride 107 (98-107) mmol/L Carbon Dioxide 30 (22-30) mmol/L Anion Gap 2 L (4-12) mmol/L BUN 18 H (7-17) mg/dL Creatinine 0.63 L (0.7-1.0) mg/dL Estim Creat Clear Calc 63 ml/min Estimated GFR > 60 (59 - ) Glucose 99 (65-110) mg/dL Calcium 8.9 (8.4-10.2) mg/dL Total Bilirubin 0.5 (0.2-1.3) mg/dL AST 18 (14-36) U/L ALT 14 (6-35) U/L Alkaline Phosphatase 91 (38-126) U/L Total Protein 5.8 L (6.3-8.2) g/dL Albumin 3.3 L (3.5-5.1) g/dL Urine Color Yellow (Yellow) Urine Appearance Clear (Clear) Urine pH 6.5 (5.0-9.0) Ur Specific [place] 1.019 (1.001-1.035) Urine Protein Negative (Negative) mg/dL Urine Glucose (UA) Negative (Negative) mg/dL Urine Ketones Negative (Negative) mg/dL Ur Blood (Man) Negative (Negative) Urine Nitrate Negative (Negative) Urine Bilirubin Negative (Negative) Urine Urobilinogen 1.0 (<2.0) mg/dL Leukocyte Esterase Rfl Negative (Negative) NEHA/UL Discharge Plan Discharge Clinical Impression: Chronic pain Patient Disposition: Home Condition: Stable Instructions: Chronic Pain (ED) Additional Instructions: Follow-up with primary care doctor for further treatment evaluation her chronic pain. Your lab work did not show any significant abnormalities and your urine was without infection. Continue to take her home medications as prescribed as this will likely help with your pain. Patient Language: [place] Island[place] Prescriptions: No Action naloxone [Narcan] 4 mg/actuation spray,non-aerosol 1 spray NASAL Q2M PRN (Reason: opioid overdose) Rx Instructions: spray 1 dose into ONE nostril; alternate nostrils w each dose until help arrives Women's Multivitamin Gummies 200 mcg tablet,chewable 200 mcg PO DAILY levetiracetam [Keppra] 500 mg tablet See Rx Instructions PO BID Rx Instructions: 2 tabs qam and 3 tabs qpm orally twice a day; (DME) Dao mcdonnell 18 inch See Rx Instructions .Route .MEDSUPPLY Qty: 1 0RF Rx Instructions: As directed cholecalciferol (vitamin D3) 50 mcg (2,000 unit) capsule 25 mcg PO DAILY Eliquis 2.5 mg tablet 2.5 mg PO BID lidocaine [Aspercreme (lidocaine)] 4 % adhesive patch,medicated 2 patch topical BID PRN (Reason: pain) Rx Instructions: Apply to lower back famotidine 20 mg tablet 20 mg PO QHS escitalopram oxalate 20 mg tablet 20 mg PO HS neomycin-polymyxin B-dexameth 3.5 mg/g-10,000 unit/g-0.1 % ointment ophthalmic (eye) azithromycin [Zithromax] 250 mg tablet See Rx Instructions PO .COMPLEX Qty: 6 0RF Rx Instructions: For 250 mg dose pack: take 500 mg today (day 1), then 250 mg for 4 days (days 2-5) PO cyanocobalamin (vitamin B-12) [Vitamin B-12] 500 mcg Tablet 500 mcg PO DAILY aspirin 81 mg Tablet,Chewable 81 mg PO DAILY sulfamethoxazole-trimethoprim [Bactrim] 400-80 mg tablet 1 tablet PO BID 5 Days Qty: 10 0RF atorvastatin 20 mg tablet 20 mg PO QHS Qty: 90 1RF tizanidine 4 mg capsule See Rx Instructions .ROUTE .COMPLEX Qty: 270 1RF Dose Instruction: TAKE 1 CAPSULE BY MOUTH THREE TIMES DAILY NEEDED FOR MUSCLE SPASTICITY Rx Instructions: TAKE 1 CAPSULE BY MOUTH THREE TIMES DAILY NEEDED FOR MUSCLE SPASTICITY folic acid 1 mg tablet 1 mg PO DAILY Qty: 90 1RF albuterol sulfate 90 mcg/actuation HFA aerosol inhaler See Rx Instructions .ROUTE .COMPLEX Qty: 8.5 5RF Dose Instruction: INHALE 2 PUFFS BY MOUTH FOUR TIMES DAILY NEEDED FOR SHORTNESS OF BREATH OR WHEEZING Rx Instructions: INHALE 2 PUFFS BY MOUTH FOUR TIMES DAILY NEEDED FOR SHORTNESS OF BREATH OR WHEEZING omeprazole 40 mg capsule,delayed release(DR/EC) See Rx Instructions .ROUTE .COMPLEX Qty: 90 1RF Dose Instruction: TAKE 1 CAPSULE BY MOUTH DAILY Rx Instructions: TAKE 1 CAPSULE BY MOUTH DAILY levofloxacin 750 mg tablet 750 mg PO DAILY Qty: 5 0RF buspirone 5 mg tablet 5 mg PO BID Qty: 180 1RF midodrine 2.5 mg tablet 2.5 mg PO BID Qty: 180 1RF solifenacin [Vesicare] 5 mg tablet 5 mg PO HS Qty: 90 1RF (DME) custom shoes See Rx Instructions .Route .MEDSUPPLY Qty: 2 0RF Rx Instructions: As directed Follow-up/Referrals: Martha Cates MD [Primary Care Provider, Family Practice] - 1 Week
--- NOTE | 2025-09-23 17:27 | PC.NURSE ---
Left a message with mykel for a ride home
--- NOTE | 2025-09-23 18:02 | PC.NURSE ---
Grandson in route to pick patient up.
== END 2025-09-23 18:47 | disposition home or self-care (01) ==
PROVIDERS: Emergency Provider Emergency Medicine; PCP Family Medicine
DX: G89.29 Other chronic pain (principal); I10 Essential (primary) hypertension; J43.9 Emphysema, unspecified; Z87.891 Personal history of nicotine dependence
CPT/HCPCS: 36415; 80053; 81003; 85025; 85055; 99283